=== PATIENT | female | born 1950 | race Caucasian/White ===

== ENCOUNTER 2017-08-25 10:14 | Inpatient (IN) ==
--- NOTE | 2017-08-25 10:47 | XR ---
EXAM DATE: 08/25/2017 10:40 AM EDT AGE/SEX: 66 years / Female INDICATIONS: Very short of breath today, weakness, no chest pain CLINICAL DATA: This is the patient's initial encounter. Patient reports that signs and symptoms have been present for 1 day and indicates a pain score of 0/10. MEDICAL/SURGICAL HISTORY: Asthma. A-fib Non-responsive. COMPARISON: [facility], XR CHEST PA AND LAT, 08/22/2014. . FINDINGS: The cardiac silhouette is enlarged in transverse diameter. There is prominence of the aortic knob is with calcification characteristic of atherosclerotic vascular disease. Large right effusion is presen t. Underlying malignancy cannot be excluded. The left lung is free of acute parenchymal opacity. CONCLUSION: Large right-sided effusion with underlying atelectasis, pneumonia or malignancy. CT scan is recommend ed for further evaluation if clinically indicated. Electronically signed by: Kofi Pradhan MD 08/25/2017 10:45 AM EDT
[2017-08-25 11:00] LABS: Baso % (Auto) 0.5 % (0.0-2.0); Eos # (Auto) 0.1 th/mm3 (0.0-0.4); Eos % (Auto) 2.1 % (0.0-4.0); Hematocrit 32.9 % (35.0-46.0); Hemoglobin 10.4 gm/dL (11.6-15.3); Lymph % (Auto) 22.6 % (9.0-44.0); Mean Corpuscular HGB Conc 31.7 % (32.0-36.0); Mean Corpuscular Hemoglobin 27.5 pg (27.0-34.0); Mean Corpuscular Volume 86.8 fL (80.0-100.0); Mean Platelet Volume 11.1 fL (7.0-11.0); Mono # (Auto) 0.5 th/mm3 (0.0-0.9); Mono % (Auto) 11.5 % (0.0-8.0); Neut # (Auto) 2.7 th/mm3 (1.8-7.7); Neut % (Auto) 63.3 % (16.0-70.0); Platelet Count 195 th/mm3 (150-450); Red Blood Count 3.79 mil/mm3 (4.00-5.30); Red Cell Distribution Width 17.5 % (11.6-17.2); White Blood Count 4.3 th/mm3 (4.0-11.0)
--- NOTE | 2017-08-25 11:07 | ED ---
HPI General Chief Complaint: Shortness of Breath/Dyspnea Stated Complaint: medical Time Seen by Provider: 08/25/17 10:18 History of Present Illness 66-year-old female presents from same day surgery where she was supposed to have endoscopy and colonoscopy with Dr. Hunt for workup of her anemia. Patient states she was sent here when she was short of breath. She states she also has swelling in her legs. She states she does not think she has a history of heart failure but she is not sure. Her states he does not think he has heard that either but she has Lasix on her medication list and he is not sure of the exact indication. Quality is hard to catch breath. Severity is worse with movement and laying flat. She denies other modifying factors. She denies other concurrent complaints. Duration is couple of days. Related Data Home Medications Medication Instructions Recorded Confirmed aspirin [Aspir-Low] 81 mg PO DAILY 08/21/17 08/25/17 atorvastatin 80 mg PO HS 08/21/17 08/25/17 duloxetine 60 mg PO DAILY 08/21/17 08/25/17 ferrous fumarate-iron ps cmplx 2 cap PO BID 08/21/17 08/25/17 gabapentin 1 cap PO DAILY 08/21/17 08/25/17 levothyroxine 100 mcg PO DAILY 08/21/17 08/25/17 melatonin 3 mg PO HS PRN 08/21/17 08/25/17 metformin 500 mg PO BID 08/21/17 08/25/17 metoprolol tartrate 50 mg PO BID 08/21/17 08/25/17 pioglitazone 45 mg PO DAILY 08/21/17 08/25/17 quetiapine 50 mg PO HS 08/21/17 08/25/17 ranitidine HCl 150 mg PO QPM 08/21/17 08/25/17 sotalol 80 mg PO HS 08/21/17 08/25/17 sotalol 160 mg PO DAILY 08/21/17 08/25/17 vitamin D3-folic acid 1 tab PO QAM 08/21/17 08/25/17 Allergies Allergy/AdvReac Type Severity Reaction Status Date / Time tamoxifen Allergy Anaphylaxis Verified 08/25/17 09:25 Review of Systems ROS Unobtainable All other systems reviewed negative except as stated in HPI PMFSH Social History Social History Substance History: No History of Abuse Second Hand Smoke Exposure: No Smoking Status: Never smoker How Often Do You Have a Drink Containing Alcohol: Monthly or less Recent Travel [facility] within the Last 8 Weeks: No Recent Out of Country Travel within the Last 8 Weeks: No Exam Narrative Exam Narrative: GENERAL: 66-year-old female in no apparent distress SKIN: Focused skin assessment warm/dry. HEAD: Atraumatic. Normocephalic. EYES: Pupils equal and round. No scleral icterus. No injection or drainage. ENT: No nasal bleeding or discharge. Mucous membranes pink and moist. NECK: Trachea midline. CARDIOVASCULAR: Regular rate and rhythm. No murmur appreciated. RESPIRATORY: No accessory muscle use. Clear to auscultation at apices. Breath sounds equal bilaterally. GASTROINTESTINAL: Abdomen soft, non-tender, nondistended. MUSCULOSKELETAL: No obvious deformities. No clubbing. No cyanosis. Patient with bilateral pedal edema to knees bilaterally NEUROLOGICAL: Awake and alert. Moves all extremities. Normal speech. PSYCHIATRIC: Appropriate mood and affect; insight and judgment normal. Course Consultations Consultation #1: dr hunt called prior to patient's arrival and gave brief history of patient Consultation #2: dr jordan agrees to admit Initial Documented Vital Signs Temperature 97.6 F 08/25/17 10:46 Pulse Rate 69 08/25/17 10:46 Respiratory Rate 20 08/25/17 10:46 Blood Pressure 134/72 08/25/17 10:46 Pulse Oximetry 100 08/25/17 10:46 Last Documented Vital Signs Temperature 97.6 F 08/25/17 10:46 Pulse Rate 69 08/25/17 10:46 Respiratory Rate 20 08/25/17 10:46 Blood Pressure 134/72 08/25/17 10:46 Pulse Oximetry 100 08/25/17 10:46 Medical Decision Making [facility] Narrative Medical decision making narrative: Patient with known anemia and concerning symptoms for heart failure with extensive prior cardiac history. Will check blood work, x-ray and she will likely need admission for further care Differential Diagnosis Differential Diagnosis: CHF, anemia, renal failure Lab Data Lab results reviewed: Yes I reviewed the patient's lab results. Result diagrams: 08/25/17 10:15 08/25/17 11:43 Lab Results 08/25/17 08/25/17 08/25/17 Range/Units 10:15 10:15 11:10 WBC 4.3 (4.0-11.0) th/mm3 RBC 3.79 L (4.00-5.30) mil/mm3 Hgb 10.4 L (11.6-15.3) gm/dL Hct 32.9 L (35.0-46.0) % MCV 86.8 (80.0-100.0) fL MCH 27.5 (27.0-34.0) pg MCHC 31.7 L (32.0-36.0) % RDW 17.5 H (11.6-17.2) % Plt Count 195 (150-450) th/mm3 MPV 11.1 H (7.0-11.0) fL Neut % (Auto) 63.3 (16.0-70.0) % Lymph % (Auto) 22.6 (9.0-44.0) % [place] % (Auto) 11.5 H (0.0-8.0) % Eos % (Auto) 2.1 (0.0-4.0) % Baso % (Auto) 0.5 (0.0-2.0) % Neut # (Auto) 2.7 (1.8-7.7) th/mm3 Lymph # (Auto) 1.0 (1.0-4.8) th/mm3 [place] # (Auto) 0.5 (0.0-0.9) th/mm3 Eos # (Auto) 0.1 (0.0-0.4) th/mm3 Baso # (Auto) 0.0 (0.0-0.2) th/mm3 WBC Differential . Differential Comment Auto diff final PT (9.8-11.6) sec INR Ratio APTT (24.3-30.1) sec Sodium (136-145) meq/L Potassium (3.5-5.1) meq/L Chloride (98-107) meq/L Carbon Dioxide (21.0-32.0) meq/L Anion Gap (5-15) meq/L BUN (7-18) mg/dL Creatinine (0.50-1.00) mg/dL Estimated GFR (>89) mL/min Random Glucose (74-106) mg/dL Lactic Acid (0.4-2.0) mmol/L Calcium (8.5-10.1) mg/dL Magnesium (1.5-2.5) mg/dL Total Bilirubin (0.2-1.0) mg/dL AST (15-37) U/L ALT (10-53) U/L Alkaline Phosphatase (45-117) U/L Total Creatine Kinase (26-192) U/L Troponin I (0.02-0.05) ng/mL B-Natriuretic Peptide 299 H (0-100) pg/mL Total Protein (6.4-8.2) g/dL Albumin (3.4-5.0) g/dL Urine Color (Yellw/Straw) Urine Clarity (Clear) Urine pH (5.0-8.5) Ur Specific [place] (1.002-1.035) Urine Protein (Neg-Trace) mg/dL Urine Glucose (UA) (Negative) mg/dL Urine Ketones (Negative) mg/dL Urine Occult Blood (Negative) Urine Nitrate (Negative) Urine Bilirubin (Negative) Urine Urobilinogen (Less than 2) mg/dL Ur Leukocyte Esterase (Negative) Urine RBC (0-3) /hpf Urine WBC (0-5) /hpf Ur Squamous Epith Cells (0-5) /hpf Urine Bacteria (None) /hpf Hyaline Casts (0-3) /lpf Urine Mucus (Occasional) /lpf Micro UA Comment Blood Type O Negative Blood Type Recheck Antibody Screen Negative 08/25/17 08/25/17 08/25/17 Range/Units 11:10 11:43 11:43 WBC (4.0-11.0) th/mm3 RBC (4.00-5.30) mil/mm3 Hgb (11.6-15.3) gm/dL Hct (35.0-46.0) % MCV (80.0-100.0) fL MCH (27.0-34.0) pg MCHC (32.0-36.0) % RDW (11.6-17.2) % Plt Count (150-450) th/mm3 MPV (7.0-11.0) fL Neut % (Auto) (16.0-70.0) % Lymph % (Auto) (9.0-44.0) % [place] % (Auto) (0.0-8.0) % Eos % (Auto) (0.0-4.0) % Baso % (Auto) (0.0-2.0) % Neut # (Auto) (1.8-7.7) th/mm3 Lymph # (Auto) (1.0-4.8) th/mm3 [place] # (Auto) (0.0-0.9) th/mm3 Eos # (Auto) (0.0-0.4) th/mm3 Baso # (Auto) (0.0-0.2) th/mm3 WBC Differential Differential Comment PT 10.8 (9.8-11.6) sec INR 1.1 Ratio APTT 21.8 L (24.3-30.1) sec Sodium 141 (136-145) meq/L Potassium 3.6 (3.5-5.1) meq/L Chloride 97 L (98-107) meq/L Carbon Dioxide 35.5 H (21.0-32.0) meq/L Anion Gap 9 (5-15) meq/L BUN 10 (7-18) mg/dL Creatinine 0.97 (0.50-1.00) mg/dL Estimated GFR 57 L (>89) mL/min Random Glucose 125 H (74-106) mg/dL Lactic Acid 1.0 (0.4-2.0) mmol/L Calcium 8.9 (8.5-10.1) mg/dL Magnesium (1.5-2.5) mg/dL Total Bilirubin 0.4 (0.2-1.0) mg/dL AST 20 (15-37) U/L ALT 15 (10-53) U/L Alkaline Phosphatase 87 (45-117) U/L Total Creatine Kinase (26-192) U/L Troponin I Less than 0.02 L (0.02-0.05) ng/mL B-Natriuretic Peptide (0-100) pg/mL Total Protein 7.3 (6.4-8.2) g/dL Albumin 3.3 L (3.4-5.0) g/dL Urine Color (Yellw/Straw) Urine Clarity (Clear) Urine pH (5.0-8.5) Ur Specific [place] (1.002-1.035) Urine Protein (Neg-Trace) mg/dL Urine Glucose (UA) (Negative) mg/dL Urine Ketones (Negative) mg/dL Urine Occult Blood (Negative) Urine Nitrate (Negative) Urine Bilirubin (Negative) Urine Urobilinogen (Less than 2) mg/dL Ur Leukocyte Esterase (Negative) Urine RBC (0-3) /hpf Urine WBC (0-5) /hpf Ur Squamous Epith Cells (0-5) /hpf Urine Bacteria (None) /hpf Hyaline Casts (0-3) /lpf Urine Mucus (Occasional) /lpf Micro UA Comment Blood Type Blood Type Recheck Antibody Screen 08/25/17 08/25/17 Range/Units 11:43 13:07 WBC (4.0-11.0) th/mm3 RBC (4.00-5.30) mil/mm3 Hgb (11.6-15.3) gm/dL Hct (35.0-46.0) % MCV (80.0-100.0) fL MCH (27.0-34.0) pg MCHC (32.0-36.0) % RDW (11.6-17.2) % Plt Count (150-450) th/mm3 MPV (7.0-11.0) fL Neut % (Auto) (16.0-70.0) % Lymph % (Auto) (9.0-44.0) % [place] % (Auto) (0.0-8.0) % Eos % (Auto) (0.0-4.0) % Baso % (Auto) (0.0-2.0) % Neut # (Auto) (1.8-7.7) th/mm3 Lymph # (Auto) (1.0-4.8) th/mm3 [place] # (Auto) (0.0-0.9) th/mm3 Eos # (Auto) (0.0-0.4) th/mm3 Baso # (Auto) (0.0-0.2) th/mm3 WBC Differential Differential Comment PT (9.8-11.6) sec INR Ratio APTT (24.3-30.1) sec Sodium (136-145) meq/L Potassium (3.5-5.1) meq/L Chloride (98-107) meq/L Carbon Dioxide (21.0-32.0) meq/L Anion Gap (5-15) meq/L BUN (7-18) mg/dL Creatinine (0.50-1.00) mg/dL Estimated GFR (>89) mL/min Random Glucose (74-106) mg/dL Lactic Acid (0.4-2.0) mmol/L Calcium (8.5-10.1) mg/dL Magnesium 1.6 (1.5-2.5) mg/dL Total Bilirubin (0.2-1.0) mg/dL AST (15-37) U/L ALT (10-53) U/L Alkaline Phosphatase (45-117) U/L Total Creatine Kinase 87 (26-192) U/L Troponin I (0.02-0.05) ng/mL B-Natriuretic Peptide (0-100) pg/mL Total Protein (6.4-8.2) g/dL Albumin (3.4-5.0) g/dL Urine Color Yellow (Yellw/Straw) Urine Clarity Hazy H (Clear) Urine pH 5.0 (5.0-8.5) Ur Specific [place] 1.019 (1.002-1.035) Urine Protein Negative (Neg-Trace) mg/dL Urine Glucose (UA) Negative (Negative) mg/dL Urine Ketones Negative (Negative) mg/dL Urine Occult Blood Small H (Negative) Urine Nitrate Negative (Negative) Urine Bilirubin Negative (Negative) Urine Urobilinogen Less than 2 (Less than 2) mg/dL Ur Leukocyte Esterase Moderate H (Negative) Urine RBC 4 H (0-3) /hpf Urine WBC 42 H (0-5) /hpf Ur Squamous Epith Cells <1 (0-5) /hpf Urine Bacteria Rare H (None) /hpf Hyaline Casts 10 (0-3) /lpf Urine Mucus Few H (Occasional) /lpf Micro UA Comment Cath Blood Type Blood Type Recheck Antibody Screen Imaging Data Attestation: I personally reviewed and interpreted this imaging study as follows : Radiologist's impression: ITS Impressions Chest X-Ray 08/25/17 10:18 CONCLUSION: Large right-sided effusion with underlying atelectasis, pneumonia or malignancy. CT scan is recommended for further evaluation if clinically indicated. Chest CT 08/25/17 12:33 CONCLUSION: 1. Large right effusion with compressive atelectasis of the right lung. No discrete underlying mass is identified. Discharge Plan Discharge Disposition Patient Disposition: 30 Still Patient Discharge Details Discharge Problem: Pleural effusion, Shortness of breath, Acute UTI Physicians Team ED Provider: Mary Steward Primary Care Provider: Primary Care Trina Hernández Attending Provider: Paco Jordan Status ED Status: Admitted Patient
[2017-08-25 12:20] LABS: Activated Partial Thrombo Time 21.8 sec (24.3-30.1); INR 1.1 Ratio; Prothrombin Time 10.8 sec (9.8-11.6)
[2017-08-25 12:27] LABS: Alanine Aminotransferase 15 U/L (10-53); Albumin 3.3 g/dL (3.4-5.0); Anion Gap 9 meq/L (5-15); Blood Urea Nitrogen 10 mg/dL (7-18); Calcium 8.9 mg/dL (8.5-10.1); Carbon Dioxide 35.5 meq/L (21.0-32.0); Chloride 97 meq/L (98-107); Glomerular Filtration Rate 57 mL/min (>89); Glucose,Random 125 mg/dL (74-106); Potassium 3.6 meq/L (3.5-5.1); Sodium 141 meq/L (136-145)
[2017-08-25] MEDS ORDERED: Azithromycin 250 MG Tablet PO STA (12:34)
[2017-08-25 12:36] LABS: Alkaline Phosphatase 87 U/L (45-117); Aspartate Aminotransferase 20 U/L (15-37); Total Protein 7.3 g/dL (6.4-8.2)
[2017-08-25 13:42] LABS: Bacteria,Urine Rare /hpf; Bilirubin,Urine Negative (Negative); Clarity,Urine Hazy (Clear); Color,Urine Yellow (Yellw/Straw); Glucose,Urine (UA) Negative (Negative); Hyaline Casts,Urine 10 /lpf (0-3); Leukocyte Esterase,Urine Moderate (Negative); Mucus,Urine Few /lpf (Occasional); Nitrite,Urine Negative (Negative); Specific Gravity,Urine 1.019 (1.002-1.035); Squamous Epithelial Cell,Urine <1 /hpf (0-5)
[2017-08-25 16:04] LABS: Magnesium 1.6 mg/dL (1.5-2.5)
[2017-08-25] MEDS ORDERED: Bisacodyl 10 MG Supp RECTAL PRN (17:13)
[2017-08-25] MEDS ORDERED: Prochlorperazine 25 MG Supp RECTAL PRN (17:13)
--- NOTE | 2017-08-25 17:23 | P.CONGI ---
History of Present Illness Consult date: 08/25/17 Consult reason: Scheduled for EGD and colonoscopy today, procedure cancelled Chief complaint: Pleural Effusion, Anemia, UTI, Shortness of Breath History of Present Illness: This is a 66 yo F with PMH significant for a-fib, hyperlipidemia, hypothyroidism , DM, HTN, CKD, breast cancer S/P chemotherapy and radiation in 1997 in remission, aortic stenosis, mitral stenosis, major depressive disorder, B12 deficiency, and anemia who was planned to have an outpatient EGD and colonoscopy for work up for anemia done earlier today. However, pt was noted to be short of breath preop and therefore procedure was cancelled and pt was sent to the ER for further work up. Pt reports SOB since May when she was admitted to [facility] with pneumonia. CT chest in ER today revealed large right effusion with compressive atelectasis of the right lung. No discrete underlying mass is identified.Pt denies any GI symptoms at this time except feeling hungry. At this time our service will hold off on EGD and colonoscopy until pts respiratory status has stabilized. <Marry Cabezas - Last Filed: 08/25/17 17:07> Review of Systems Comments: orthopnea Respiratory: Reports shortness of breath Gastrointestinal: Denies abdominal pain, Denies change in bowel habits, Denies nausea, Denies vomiting <Marry Cabezas - Last Filed: 08/25/17 17:07> PMF - History History Provided By: Patient, Family Member - Medical History Medical History: Medical History (Last Updated 08/25/17 @ 17:19 by Marry Cabezas) High cholesterol Hypertension Renal disease Anemia Atrial fibrillation Diabetes HX: breast cancer Hx: recurrent pneumonia Hypothyroid Wears glasses - Surgical History Surgical History: Surgical History (Last Reviewed 08/25/17 @ 09:31 by Kelly Aviles) History of History of reconstruction of right breast Hx of hemorrhoidectomy - Tobacco History Second Hand Smoke Exposure: No Smoking Status: Never smoker - Alcohol History How Often Do You Have a Drink Containing Alcohol: Monthly or less - Substance Use History Substance History: No History of Abuse - Travel History Recent Travel in the [place] Within the Last 8 Weeks: No Recent Travel Out of the Country Within the Last 8 Weeks: No <Marry Cabezas - Last Filed: 08/25/17 17:07> - Medical History Medical History: Medical History (Last Updated 08/25/17 @ 17:19 by Marry Cabezas) High cholesterol Hypertension Renal disease Anemia Atrial fibrillation Diabetes HX: breast cancer Hx: recurrent pneumonia Hypothyroid Wears glasses - Surgical History Surgical History: Surgical History (Last Reviewed 08/25/17 @ 09:31 by Kelly Aviles) History of History of reconstruction of right breast Hx of hemorrhoidectomy <Jumana Hunt - Last Filed: 08/25/17 19:22> Medications and Allergies <Marry Cabezas - Last Filed: 08/25/17 17:07> Active Medications: Active Medications Al Hydroxide/Mg Hydroxide (Milk Of Magnesia Liq) 30 ml PO Q12H PRN PRN Reason: Mild Constipation Bisacodyl (Dulcolax Supp) 10 mg RECTAL DAILY PRN PRN Reason: SEVERE CONSITIPATION Dextrose (D50w Vial) 50 ml IV.PUSH UNSCH PRN PRN Reason: PER HYPOGLYCEMIA PROTOCOL Enoxaparin Sodium (Lovenox Inj) 40 mg SQ DAILY LOLY Furosemide (Lasix Inj) 40 mg IV.PUSH BID@0900,1800 LOLY Last Admin: 08/25/17 18:29 Dose: 40 mg Glucagon (Glucagon Inj) 1 mg OTHER PRN PRN PRN Reason: for Hypoglycemia Protocol Insulin Aspart (Novolog Insulin Suppl Scale Inj) 0 unit SQ ACHS LOLY; Protocol Lactulose (Lactulose Liq) 30 ml PO DAILY PRN PRN Reason: SEVERE CONSITIPATION Ondansetron HCl (Zofran Inj) 4 mg IV.PUSH Q6H PRN PRN Reason: NAUSEA OR VOMITING Prochlorperazine (Compazine Supp) 25 mg RECTAL Q12HR PRN PRN Reason: NAUSEA OR VOMITING Senna/Docusate Sodium (Yee-Colace) 1 tab PO BID LOLY Sennosides (Senokot) 17.2 mg PO Q12H PRN PRN Reason: Moderate Constipation Temazepam (Restoril) 15 mg PO HS PRN PRN Reason: INSOMNIA <Jumana Hunt - Last Filed: 08/25/17 19:22> Allergies Allergy/AdvReac Type Severity Reaction Status Date / Time tamoxifen Allergy Anaphylaxis Verified 08/25/17 09:25 Home Medications Medication Instructions Recorded Confirmed Type aspirin [Aspir-Low] 81 mg PO DAILY 08/21/17 08/25/17 History atorvastatin 80 mg PO HS 08/21/17 08/25/17 History duloxetine 60 mg PO DAILY 08/21/17 08/25/17 History ferrous fumarate-iron ps cmplx 2 cap PO BID 08/21/17 08/25/17 History gabapentin 1 cap PO DAILY 08/21/17 08/25/17 History levothyroxine 100 mcg PO DAILY 08/21/17 08/25/17 History melatonin 3 mg PO HS PRN 08/21/17 08/25/17 History metformin 500 mg PO BID 08/21/17 08/25/17 History metoprolol tartrate 50 mg PO BID 08/21/17 08/25/17 History pioglitazone 45 mg PO DAILY 08/21/17 08/25/17 History quetiapine 50 mg PO HS 08/21/17 08/25/17 History ranitidine HCl 150 mg PO QPM 08/21/17 08/25/17 History sotalol 80 mg PO HS 08/21/17 08/25/17 History sotalol 160 mg PO DAILY 08/21/17 08/25/17 History vitamin D3-folic acid 1 tab PO QAM 08/21/17 08/25/17 History Exam Vital signs: Vital Signs 08/25/17 10:46 Temperature 97.6 F Pulse Rate 69 Respiratory Rate 20 Blood Pressure 134/72 Pulse Oximetry 100 Intake & Output 08/24/17 08/25/17 08/25/17 18:59 06:59 18:59 Weight 107.9 kg - Constitutional mild distress - Routine HEENT Exam Head: Present: normocephalic, atraumatic - Routine Respiratory Exam Present: accessory muscle use, wheezes - Routine Cardiovascular Exam Present: murmur, irregularly irregular - Routine Abdominal Exam Present: soft, normoactive bowel sounds. Absent: tenderness, distended, rebound , guarding - Routine Skin Exam Present: dry, warm - Routine Neurological Exam Present: alert, oriented X3 <Marry Cabezas - Last Filed: 08/25/17 17:07> Vital signs: Vital Signs 08/25/17 10:46 Temperature 97.6 F Pulse Rate 69 Respiratory Rate 20 Blood Pressure 134/72 Pulse Oximetry 100 Intake & Output 08/25/17 08/25/17 08/26/17 06:59 18:59 06:59 Weight 107.9 kg <Jumana Hunt - Last Filed: 08/25/17 19:22> Results - Labs CBC & Chem 7: 08/25/17 10:15 08/25/17 11:43 Labs: Laboratory Results - last 24 hr 08/25/17 08/25/17 08/25/17 10:15 10:15 11:10 WBC 4.3 RBC 3.79 L Hgb 10.4 L Hct 32.9 L MCV 86.8 MCH 27.5 MCHC 31.7 L RDW 17.5 H Plt Count 195 MPV 11.1 H Neut % (Auto) 63.3 Lymph % (Auto) 22.6 [place] % (Auto) 11.5 H Eos % (Auto) 2.1 Baso % (Auto) 0.5 Neut # (Auto) 2.7 Lymph # (Auto) 1.0 [place] # (Auto) 0.5 Eos # (Auto) 0.1 Baso # (Auto) 0.0 WBC Differential . Differential Comment Auto diff final PT INR APTT Sodium Potassium Chloride Carbon Dioxide Anion Gap BUN Creatinine Estimated GFR Random Glucose Lactic Acid Calcium Magnesium Total Bilirubin AST ALT Alkaline Phosphatase Total Creatine Kinase Troponin I B-Natriuretic Peptide 299 H Total Protein Albumin Urine Color Urine Clarity Urine pH Ur Specific [place] Urine Protein Urine Glucose (UA) Urine Ketones Urine Occult Blood Urine Nitrate Urine Bilirubin Urine Urobilinogen Ur Leukocyte Esterase Urine RBC Urine WBC Ur Squamous Epith Cells Urine Bacteria Hyaline Casts Urine Mucus Micro UA Comment Blood Type O Negative Blood Type Recheck Antibody Screen Negative 08/25/17 08/25/17 08/25/17 11:10 11:43 11:43 WBC RBC Hgb Hct MCV MCH MCHC RDW Plt Count MPV Neut % (Auto) Lymph % (Auto) [place] % (Auto) Eos % (Auto) Baso % (Auto) Neut # (Auto) Lymph # (Auto) [place] # (Auto) Eos # (Auto) Baso # (Auto) WBC Differential Differential Comment PT 10.8 INR 1.1 APTT 21.8 L Sodium 141 Potassium 3.6 Chloride 97 L Carbon Dioxide 35.5 H Anion Gap 9 BUN 10 Creatinine 0.97 Estimated GFR 57 L Random Glucose 125 H Lactic Acid 1.0 Calcium 8.9 Magnesium Total Bilirubin 0.4 AST 20 ALT 15 Alkaline Phosphatase 87 Total Creatine Kinase Troponin I Less than 0.02 L B-Natriuretic Peptide Total Protein 7.3 Albumin 3.3 L Urine Color Urine Clarity Urine pH Ur Specific [place] Urine Protein Urine Glucose (UA) Urine Ketones Urine Occult Blood Urine Nitrate Urine Bilirubin Urine Urobilinogen Ur Leukocyte Esterase Urine RBC Urine WBC Ur Squamous Epith Cells Urine Bacteria Hyaline Casts Urine Mucus Micro UA Comment Blood Type Blood Type Recheck Antibody Screen 08/25/17 08/25/17 11:43 13:07 WBC RBC Hgb Hct MCV MCH MCHC RDW Plt Count MPV Neut % (Auto) Lymph % (Auto) [place] % (Auto) Eos % (Auto) Baso % (Auto) Neut # (Auto) Lymph # (Auto) [place] # (Auto) Eos # (Auto) Baso # (Auto) WBC Differential Differential Comment PT INR APTT Sodium Potassium Chloride Carbon Dioxide Anion Gap BUN Creatinine Estimated GFR Random Glucose Lactic Acid Calcium Magnesium 1.6 Total Bilirubin AST ALT Alkaline Phosphatase Total Creatine Kinase 87 Troponin I B-Natriuretic Peptide Total Protein Albumin Urine Color Yellow Urine Clarity Hazy H Urine pH 5.0 Ur Specific [place] 1.019 Urine Protein Negative Urine Glucose (UA) Negative Urine Ketones Negative Urine Occult Blood Small H Urine Nitrate Negative Urine Bilirubin Negative Urine Urobilinogen Less than 2 Ur Leukocyte Esterase Moderate H Urine RBC 4 H Urine WBC 42 H Ur Squamous Epith Cells <1 Urine Bacteria Rare H Hyaline Casts 10 Urine Mucus Few H Micro UA Comment Cath Blood Type Blood Type Recheck Antibody Screen - Imaging Impressions Chest X-Ray 08/25/17 10:18 CONCLUSION: Large right-sided effusion with underlying atelectasis, pneumonia or malignancy. CT scan is recommended for further evaluation if clinically indicated. Chest CT 08/25/17 12:33 CONCLUSION: 1. Large right effusion with compressive atelectasis of the right lung. No discrete underlying mass is identified. <Marry Cabezas - Last Filed: 08/25/17 17:07> - Labs CBC & Chem 7: 08/25/17 10:15 08/25/17 11:43 Labs: Laboratory Results - last 24 hr 08/25/17 08/25/17 08/25/17 10:15 10:15 11:10 WBC 4.3 RBC 3.79 L Hgb 10.4 L Hct 32.9 L MCV 86.8 MCH 27.5 MCHC 31.7 L RDW 17.5 H Plt Count 195 MPV 11.1 H Neut % (Auto) 63.3 Lymph % (Auto) 22.6 [place] % (Auto) 11.5 H Eos % (Auto) 2.1 Baso % (Auto) 0.5 Neut # (Auto) 2.7 Lymph # (Auto) 1.0 [place] # (Auto) 0.5 Eos # (Auto) 0.1 Baso # (Auto) 0.0 WBC Differential . Differential Comment Auto diff final PT INR APTT Sodium Potassium Chloride Carbon Dioxide Anion Gap BUN Creatinine Estimated GFR POC Glucose Random Glucose Lactic Acid Calcium Magnesium Total Bilirubin AST ALT Alkaline Phosphatase Total Creatine Kinase Troponin I B-Natriuretic Peptide 299 H Total Protein Albumin Urine Color Urine Clarity Urine pH Ur Specific [place] Urine Protein Urine Glucose (UA) Urine Ketones Urine Occult Blood Urine Nitrate Urine Bilirubin Urine Urobilinogen Ur Leukocyte Esterase Urine RBC Urine WBC Ur Squamous Epith Cells Urine Bacteria Hyaline Casts Urine Mucus Micro UA Comment Blood Type O Negative Blood Type Recheck Antibody Screen Negative 08/25/17 08/25/17 08/25/17 11:10 11:43 11:43 WBC RBC Hgb Hct MCV MCH MCHC RDW Plt Count MPV Neut % (Auto) Lymph % (Auto) [place] % (Auto) Eos % (Auto) Baso % (Auto) Neut # (Auto) Lymph # (Auto) [place] # (Auto) Eos # (Auto) Baso # (Auto) WBC Differential Differential Comment PT 10.8 INR 1.1 APTT 21.8 L Sodium 141 Potassium 3.6 Chloride 97 L Carbon Dioxide 35.5 H Anion Gap 9 BUN 10 Creatinine 0.97 Estimated GFR 57 L POC Glucose Random Glucose 125 H Lactic Acid 1.0 Calcium 8.9 Magnesium Total Bilirubin 0.4 AST 20 ALT 15 Alkaline Phosphatase 87 Total Creatine Kinase Troponin I Less than 0.02 L B-Natriuretic Peptide Total Protein 7.3 Albumin 3.3 L Urine Color Urine Clarity Urine pH Ur Specific [place] Urine Protein Urine Glucose (UA) Urine Ketones Urine Occult Blood Urine Nitrate Urine Bilirubin Urine Urobilinogen Ur Leukocyte Esterase Urine RBC Urine WBC Ur Squamous Epith Cells Urine Bacteria Hyaline Casts Urine Mucus Micro UA Comment Blood Type Blood Type Recheck Antibody Screen 08/25/17 08/25/17 08/25/17 11:43 13:07 18:35 WBC RBC Hgb Hct MCV MCH MCHC RDW Plt Count MPV Neut % (Auto) Lymph % (Auto) [place] % (Auto) Eos % (Auto) Baso % (Auto) Neut # (Auto) Lymph # (Auto) [place] # (Auto) Eos # (Auto) Baso # (Auto) WBC Differential Differential Comment PT INR APTT Sodium Potassium Chloride Carbon Dioxide Anion Gap BUN Creatinine Estimated GFR POC Glucose 123 H Random Glucose Lactic Acid Calcium Magnesium 1.6 Total Bilirubin AST ALT Alkaline Phosphatase Total Creatine Kinase 87 Troponin I B-Natriuretic Peptide Total Protein Albumin Urine Color Yellow Urine Clarity Hazy H Urine pH 5.0 Ur Specific [place] 1.019 Urine Protein Negative Urine Glucose (UA) Negative Urine Ketones Negative Urine Occult Blood Small H Urine Nitrate Negative Urine Bilirubin Negative Urine Urobilinogen Less than 2 Ur Leukocyte Esterase Moderate H Urine RBC 4 H Urine WBC 42 H Ur Squamous Epith Cells <1 Urine Bacteria Rare H Hyaline Casts 10 Urine Mucus Few H Micro UA Comment Cath Blood Type Blood Type Recheck Antibody Screen - Imaging Impressions Chest X-Ray 08/25/17 10:18 CONCLUSION: Large right-sided effusion with underlying atelectasis, pneumonia or malignancy. CT scan is recommended for further evaluation if clinically indicated. Chest CT 08/25/17 12:33 CONCLUSION: 1. Large right effusion with compressive atelectasis of the right lung. No discrete underlying mass is identified. <Jumana Hunt - Last Filed: 08/25/17 19:22> Assessment and Plan - Plan Assessment: - Anemia-Planned to have an outpatient EGD and colonoscopy for work up for anemia done earlier today. However, pt was noted to be short of breath preop and therefore procedure were cancelled and pt was sent to the ER for further work up. Pt denies any GI symptoms at this time except feeling hungry. At this time our service will hold off on EGD and colonoscopy until pts respiratory status has stabilized. - SOB since May when she was admitted to [facility] with pneumonia. CT chest in ER today revealed large right effusion with compressive atelectasis of the right lung. No discrete underlying mass is identified. Plan: GI work up on hold until respiratory status stabilizes Our service will sign off, please reconsult when stable Pt has been seen and examined by myself and Dr. Hunt and this note is written on her behalf <Marry Cabezas - Last Filed: 08/25/17 17:07> - Attending Attestation seen, examined agree with above <Jumana Hunt - Last Filed: 08/25/17 19:22>
--- NOTE | 2017-08-25 17:43 | P.HPIM ---
History of Present Illness Primary Care Physician: No Primary Care Physician Chief Complaint: Shortness of breath History of Present Illness: This is a 66-year-old female with history of congestive heart failure, CKD, atrial fibrillation, diabetes mellitus, hypertension presenting to the hospital for shortness of breath. She was supposed to undergo her endoscopy and colonoscopy with Dr. Hunt to complete her workup for anemia however during the preop evaluation, she first found to have shortness of breath and she was sent to the emergency department. She complains of shortness of breath and that she had bilateral lower leg swelling. In retrospect, she has been having progressive shortness of breath since about 3 months ago, associated with bilateral leg swelling, cough productive with clear sputum. She denies any chest pain, she has some orthopnea. She was initially treated at [facility] for pneumonia and possible CHF. Outpatient sleep study was done which ruled out sleep apnea. She denies any chest pain. Presently, she is diuresing from Lasix given at the emergency department. CT chest in ER today revealed large right effusion with compressive atelectasis of the right lung. No discrete underlying mass is identified. - Inpatient Certification If this patient has been admitted as an Inpatient: I certify that the inpatient services were ordered in accordance with Medicare regulations governing the order. This includes certification that hospital inpatient services are reasonable and necessary and in the case of services not specified as inpatient-only under 42 CFR 419.22(n), that they are appropriately provided as inpatient services in accordance to with the 2-midnight benchmark under 43 CFR 412.3(e) [facility] - History History Provided By: Patient, Family Member - Medical History Medical History: Medical History (Last Updated 08/25/17 @ 17:19 by Marry Cabezas) High cholesterol Hypertension Renal disease Anemia Atrial fibrillation Diabetes HX: breast cancer Hx: recurrent pneumonia Hypothyroid Wears glasses - Surgical History Surgical History: Surgical History (Last Reviewed 08/25/17 @ 09:31 by Kelly Aviles) History of History of reconstruction of right breast Hx of hemorrhoidectomy - Tobacco History Second Hand Smoke Exposure: No Tobacco Use In Past 30 Days: No Smoking Status: Never smoker - Alcohol History How Often Do You Have a Drink Containing Alcohol: Monthly or less - Substance Use History Substance History: No History of Abuse - Travel History Recent Travel in the [place] Within the Last 8 Weeks: No Recent Travel Out of the Country Within the Last 8 Weeks: No - Immunization History Tetanus Immunization: Unsure Hx Influenza Vaccine This Season: Yes Medications and Allergies Active Medications: Active Medications Al Hydroxide/Mg Hydroxide (Milk Of Magnesia Liq) 30 ml PO Q12H PRN PRN Reason: Mild Constipation Bisacodyl (Dulcolax Supp) 10 mg RECTAL DAILY PRN PRN Reason: SEVERE CONSITIPATION Lactulose (Lactulose Liq) 30 ml PO DAILY PRN PRN Reason: SEVERE CONSITIPATION Ondansetron HCl (Zofran Inj) 4 mg IV.PUSH Q6H PRN PRN Reason: NAUSEA OR VOMITING Prochlorperazine (Compazine Supp) 25 mg RECTAL Q12HR PRN PRN Reason: NAUSEA OR VOMITING Senna/Docusate Sodium (Yee-Colace) 1 tab PO BID LOLY Sennosides (Senokot) 17.2 mg PO Q12H PRN PRN Reason: Moderate Constipation Temazepam (Restoril) 15 mg PO HS PRN PRN Reason: INSOMNIA Allergies Allergy/AdvReac Type Severity Reaction Status Date / Time tamoxifen Allergy Anaphylaxis Verified 08/25/17 09:25 Home Medications Medication Instructions Recorded Confirmed Type aspirin [Aspir-Low] 81 mg PO DAILY 08/21/17 08/25/17 History atorvastatin 80 mg PO HS 08/21/17 08/25/17 History duloxetine 60 mg PO DAILY 08/21/17 08/25/17 History ferrous fumarate-iron ps cmplx 2 cap PO BID 08/21/17 08/25/17 History gabapentin 1 cap PO DAILY 08/21/17 08/25/17 History levothyroxine 100 mcg PO DAILY 08/21/17 08/25/17 History melatonin 3 mg PO HS PRN 08/21/17 08/25/17 History metformin 500 mg PO BID 08/21/17 08/25/17 History metoprolol tartrate 50 mg PO BID 08/21/17 08/25/17 History pioglitazone 45 mg PO DAILY 08/21/17 08/25/17 History quetiapine 50 mg PO HS 08/21/17 08/25/17 History ranitidine HCl 150 mg PO QPM 08/21/17 08/25/17 History sotalol 80 mg PO HS 08/21/17 08/25/17 History sotalol 160 mg PO DAILY 08/21/17 08/25/17 History vitamin D3-folic acid 1 tab PO QAM 08/21/17 08/25/17 History Exam Vital signs: Vital Signs 08/25/17 10:46 Temperature 97.6 F Pulse Rate 69 Respiratory Rate 20 Blood Pressure 134/72 Pulse Oximetry 100 Intake & Output 08/24/17 08/25/17 08/25/17 18:59 06:59 18:59 Weight 107.9 kg Narrative: Not in distress [place] conjunctivae, anicteric sclera Regular rate and rhythm, not in atrial fibrillation Decreased breath sounds on the right, clear bronchial breath sounds on the left , no crackles or wheezing Abdomen soft, nontender, obese 2-3+ edema bilaterally Alert awake and oriented, no focal deficits. Results - Labs CBC & Chem 7: 08/25/17 10:15 08/25/17 11:43 Labs: Short CBC 08/25/17 Range/Units 10:15 WBC 4.3 (4.0-11.0) th/mm3 Hgb 10.4 L (11.6-15.3) gm/dL Hct 32.9 L (35.0-46.0) % Plt Count 195 (150-450) th/mm3 BMP 08/25/17 11:43 Sodium 141 Potassium 3.6 Chloride 97 L Carbon Dioxide 35.5 H BUN 10 Creatinine 0.97 Calcium 8.9 Cardiac Enzymes 08/25/17 08/25/17 Range/Units 11:43 11:43 Total Creatine Kinase 87 (26-192) U/L Troponin I Less than 0.02 L (0.02-0.05) ng/mL Liver Function 08/25/17 Range/Units 11:43 Total Bilirubin 0.4 (0.2-1.0) mg/dL AST 20 (15-37) U/L ALT 15 (10-53) U/L Alkaline Phosphatase 87 (45-117) U/L Albumin 3.3 L (3.4-5.0) g/dL Urine 08/25/17 Range/Units 13:07 Urine Color Yellow (Yellw/Straw) Urine Clarity Hazy H (Clear) Urine pH 5.0 (5.0-8.5) Ur Specific [place] 1.019 (1.002-1.035) Urine Protein Negative (Neg-Trace) mg/dL Urine Glucose (UA) Negative (Negative) mg/dL - Imaging Impressions Chest X-Ray 08/25/17 10:18 CONCLUSION: Large right-sided effusion with underlying atelectasis, pneumonia or malignancy. CT scan is recommended for further evaluation if clinically indicated. Chest CT 08/25/17 12:33 CONCLUSION: 1. Large right effusion with compressive atelectasis of the right lung. No discrete underlying mass is identified. Caprini VTE Risk Assessment Caprini VTE Risk Assessment: Moderate/High Risk (score >= 2) Caprini Risk Assessment Model: Point Value = 1 Point Value = 2 Point Value = 3 Point Value = 5 Age 41-60 Minor surgery BMI > 25 kg/m2 Swollen legs Varicose veins or History of unexplained or recurrent spontaneous Oral contraceptives or hormone replacement Sepsis (< 1 month) Serious lung disease, including pneumonia (< 1 month) Abnormal pulmonary function Acute myocardial infarction Congestive heart failure (< 1 month) History of inflammatory bowel disease Medical patient at bed rest Age 61-74 Arthroscopic surgery Major open surgery (> 45 min) Laparoscopic surgery (> 45 min) Malignancy Confined to bed (> 72 hours) Immobilizing plaster cast Central venous access Age >= 75 History of VTE Family history of VTE Factor V Leiden Prothrombin [id number] Lupus anticoagulant Anticardiolipin antibodies Elevated serum homocysteine Heparin-induced thrombocytopenia Other congenital or acquired thrombophilia Stroke (< 1 month) Elective arthroplasty Hip, pelvis, or leg fracture Acute spinal cord injury (< 1 month) Prophylaxis Regimen: Total Risk Factor Score Risk Level Prophylaxis Regimen 0-1 Low Early ambulation 2 Moderate Order ONE of the following: *Sequential Compression Device (SCD) *Heparin 5000 units SQ BID 3-4 Higher Order ONE of the following medications: *Heparin 5000 units SQ TID *Enoxaparin/Lovenox 40 mg SQ daily (WT < 150 kg, CrCl > 30 mL/min) *Enoxaparin/Lovenox 30 mg SQ daily (WT < 150 kg, CrCl > 10-29 mL/min) *Enoxaparin/Lovenox 30 mg SQ BID (WT < 150 kg, CrCl > 30 mL/min) AND/OR *Sequential Compression Device (SCD) 5 or more Highest Order ONE of the following medications: *Heparin 5000 units SQ TID (Preferred with Epidurals) *Enoxaparin/Lovenox 40 mg SQ daily (WT < 150 kg, CrCl > 30 mL/min) *Enoxaparin/Lovenox 30 mg SQ daily (WT < 150 kg, CrCl > 10-29 mL/min) *Enoxaparin/Lovenox 30 mg SQ BID (WT < 150 kg, CrCl > 30 mL/min) AND *Sequential Compression Device (SCD) Assessment and Plan - Plan This is a 66-year-old female with history of congestive heart failure, chronic kidney disease, hypertension, diabetes mellitus presenting with shortness of breath Shortness of breath likely secondary to large pleural effusion with compressive atelectasis from CHF-check echocardiogram, consult interventional radiology for thoracenteses, send pleural fluid studies. Doubt pneumonia with no fever or leukocytosis. Continue Lasix for now, no antibiotics. Initial troponin negative, check EKG. Anemia-further workup as outpatient, hemoglobin is 10, monitor, recheck CBC, restart iron, GI following. Patient was supposed to get endoscopy and colonoscopy as outpatient. Once stable, these procedures may be done as outpatient. Diabetes mellitus-hold oral hypoglycemic agents for now, sliding scale insulin with Accu-Cheks. Hypertension-restart metoprolol Atrial fibrillation, currently in sinus rhythm-continue sotalol, metoprolol, aspirin per home dose DVT prophylaxis: Lovenox
[2017-08-25] MEDS ORDERED: Dextrose 50% in Water 50 ML Vial IV.PUSH PRN (17:59)
[2017-08-25] MEDS: Insulin NovoLOG Aspart Correctional Sugar Inj SQ SCH (21:51)
[2017-08-25] MEDS: Senna/Docusate Sodium 8.6/50 MG Tablet PO SCH (21:55)
[2017-08-25 22:39] LABS: Activated Partial Thrombo Time 27.5 sec (24.3-30.1); INR 1.1 Ratio
[2017-08-26] MEDS: Temazepam 15 MG Capsule PO PRN ×2 (03:17→22:10)
[2017-08-26 05:05] LABS: Baso % (Auto) 0.7 % (0.0-2.0); Eos # (Auto) 0.1 th/mm3 (0.0-0.4); Eos % (Auto) 2.6 % (0.0-4.0); Hematocrit 33.1 % (35.0-46.0); Hemoglobin 10.5 gm/dL (11.6-15.3); Lymph # (Auto) 1.2 th/mm3 (1.0-4.8); Lymph % (Auto) 22.8 % (9.0-44.0); Mean Corpuscular HGB Conc 31.8 % (32.0-36.0); Mean Corpuscular Hemoglobin 27.2 pg (27.0-34.0); Mean Corpuscular Volume 85.7 fL (80.0-100.0); Mean Platelet Volume 11.4 fL (7.0-11.0); Mono # (Auto) 0.7 th/mm3 (0.0-0.9); Mono % (Auto) 13.3 % (0.0-8.0); Neut # (Auto) 3.2 th/mm3 (1.8-7.7); Neut % (Auto) 60.6 % (16.0-70.0); Platelet Count 184 th/mm3 (150-450); Red Blood Count 3.87 mil/mm3 (4.00-5.30); Red Cell Distribution Width 17.5 % (11.6-17.2); White Blood Count 5.2 th/mm3 (4.0-11.0)
[2017-08-26 05:29] LABS: Calcium 9.1 mg/dL (8.5-10.1); Carbon Dioxide 37.7 meq/L (21.0-32.0); Potassium 3.2 meq/L (3.5-5.1)
[2017-08-26] MEDS: Insulin NovoLOG Aspart Correctional Sugar Inj SQ SCH ×4 (07:47→20:51)
[2017-08-26] MEDS ORDERED: Enoxaparin Inj 40 MG/0.4 ML Syringe SQ SCH (09:00)
[2017-08-26] MEDS: Senna/Docusate Sodium 8.6/50 MG Tablet PO SCH ×2 (09:27→20:45)
--- NOTE | 2017-08-26 12:23 | P.PN ---
Subjective Interval history: Follow-up large right pleural effusion August 26, 2017-patient seen and examined, continues to complain of shortness of breath. H&H stable and patient denies any GI bleed Physical Exam Vital signs: Vital Signs 08/25/17 20:00 08/26/17 00:00 08/26/17 04:00 Temperature 97.2 F L 98.2 F 98.4 F Pulse Rate 87 79 97 H Respiratory Rate 14 18 16 Blood Pressure 157/74 H 153/85 H 139/70 Pulse Oximetry 96 98 92 L 08/26/17 08:00 Temperature 97.5 F L Pulse Rate 98 H Respiratory Rate 16 Blood Pressure 147/70 H Pulse Oximetry 98 Intake & Output 08/25/17 08/26/17 08/26/17 18:59 06:59 18:59 Intake Total 480 / 480 Output Total 1600 / 1600 Balance -1120 / -1120 Weight 107.9 kg 111 kg Intake: Oral 480 / 480 Output: Urine 1600 / 1600 Other: # Voids 11 Date of Last Bowel Movement 08/24/17 08/24/17 Narrative: GENERAL: NAD SKIN: Warm and dry. HEAD: Normocephalic. EYES: No scleral icterus. No injection or drainage. NECK: Supple, trachea midline. No JVD or lymphadenopathy. CARDIOVASCULAR: Regular rate and rhythm without murmurs, gallops, or rubs. RESPIRATORY: Breath sounds decrease R>L. No accessory muscle use. GASTROINTESTINAL: Abdomen soft, non-tender, nondistended. MUSCULOSKELETAL: No cyanosis; +Trace edema. BACK: Nontender without obvious deformity. No CVA tenderness. Results - Labs CBC & Chem 7: 08/26/17 03:36 08/26/17 03:36 Laboratory Results - last 24 hr 08/25/17 08/25/17 08/25/17 11:10 11:10 11:43 WBC RBC Hgb Hct MCV MCH MCHC RDW Plt Count MPV Neut % (Auto) Lymph % (Auto) [place] % (Auto) Eos % (Auto) Baso % (Auto) Neut # (Auto) Lymph # (Auto) [place] # (Auto) Eos # (Auto) Baso # (Auto) WBC Differential Differential Comment PT INR APTT Sodium 141 Potassium 3.6 Chloride 97 L Carbon Dioxide 35.5 H Anion Gap 9 BUN 10 Creatinine 0.97 Estimated GFR 57 L POC Glucose Random Glucose 125 H Lactic Acid 1.0 Calcium 8.9 Magnesium Total Bilirubin 0.4 AST 20 ALT 15 Alkaline Phosphatase 87 Total Creatine Kinase Troponin I Less than 0.02 L Total Protein 7.3 Albumin 3.3 L Urine Color Urine Clarity Urine pH Ur Specific [place] Urine Protein Urine Glucose (UA) Urine Ketones Urine Occult Blood Urine Nitrate Urine Bilirubin Urine Urobilinogen Ur Leukocyte Esterase Urine RBC Urine WBC Ur Squamous Epith Cells Urine Bacteria Hyaline Casts Urine Mucus Micro UA Comment Blood Type Recheck Antibody Screen Negative 08/25/17 08/25/17 08/25/17 11:43 11:43 13:07 WBC RBC Hgb Hct MCV MCH MCHC RDW Plt Count MPV Neut % (Auto) Lymph % (Auto) [place] % (Auto) Eos % (Auto) Baso % (Auto) Neut # (Auto) Lymph # (Auto) [place] # (Auto) Eos # (Auto) Baso # (Auto) WBC Differential Differential Comment PT 10.8 INR 1.1 APTT 21.8 L Sodium Potassium Chloride Carbon Dioxide Anion Gap BUN Creatinine Estimated GFR POC Glucose Random Glucose Lactic Acid Calcium Magnesium 1.6 Total Bilirubin AST ALT Alkaline Phosphatase Total Creatine Kinase 87 Troponin I Total Protein Albumin Urine Color Yellow Urine Clarity Hazy H Urine pH 5.0 Ur Specific [place] 1.019 Urine Protein Negative Urine Glucose (UA) Negative Urine Ketones Negative Urine Occult Blood Small H Urine Nitrate Negative Urine Bilirubin Negative Urine Urobilinogen Less than 2 Ur Leukocyte Esterase Moderate H Urine RBC 4 H Urine WBC 42 H Ur Squamous Epith Cells <1 Urine Bacteria Rare H Hyaline Casts 10 Urine Mucus Few H Micro UA Comment Cath Blood Type Recheck Antibody Screen 08/25/17 08/25/17 08/25/17 18:35 20:29 22:15 WBC RBC Hgb Hct MCV MCH MCHC RDW Plt Count MPV Neut % (Auto) Lymph % (Auto) [place] % (Auto) Eos % (Auto) Baso % (Auto) Neut # (Auto) Lymph # (Auto) [place] # (Auto) Eos # (Auto) Baso # (Auto) WBC Differential Differential Comment PT 11.0 INR 1.1 APTT 27.5 D Sodium Potassium Chloride Carbon Dioxide Anion Gap BUN Creatinine Estimated GFR POC Glucose 123 H 142 H Random Glucose Lactic Acid Calcium Magnesium Total Bilirubin AST ALT Alkaline Phosphatase Total Creatine Kinase Troponin I Total Protein Albumin Urine Color Urine Clarity Urine pH Ur Specific [place] Urine Protein Urine Glucose (UA) Urine Ketones Urine Occult Blood Urine Nitrate Urine Bilirubin Urine Urobilinogen Ur Leukocyte Esterase Urine RBC Urine WBC Ur Squamous Epith Cells Urine Bacteria Hyaline Casts Urine Mucus Micro UA Comment Blood Type Recheck Antibody Screen 08/26/17 08/26/17 08/26/17 03:36 03:36 07:27 WBC 5.2 RBC 3.87 L Hgb 10.5 L Hct 33.1 L MCV 85.7 MCH 27.2 MCHC 31.8 L RDW 17.5 H Plt Count 184 MPV 11.4 H Neut % (Auto) 60.6 Lymph % (Auto) 22.8 [place] % (Auto) 13.3 H Eos % (Auto) 2.6 Baso % (Auto) 0.7 Neut # (Auto) 3.2 Lymph # (Auto) 1.2 [place] # (Auto) 0.7 Eos # (Auto) 0.1 Baso # (Auto) 0.0 WBC Differential . Differential Comment Auto diff final PT INR APTT Sodium 140 Potassium 3.2 L Chloride 93 L Carbon Dioxide 37.7 H Anion Gap 9 BUN 11 Creatinine 1.07 H Estimated GFR 51 L POC Glucose 155 H Random Glucose 178 H Lactic Acid Calcium 9.1 Magnesium Total Bilirubin AST ALT Alkaline Phosphatase Total Creatine Kinase Troponin I Total Protein Albumin Urine Color Urine Clarity Urine pH Ur Specific [place] Urine Protein Urine Glucose (UA) Urine Ketones Urine Occult Blood Urine Nitrate Urine Bilirubin Urine Urobilinogen Ur Leukocyte Esterase Urine RBC Urine WBC Ur Squamous Epith Cells Urine Bacteria Hyaline Casts Urine Mucus Micro UA Comment Blood Type Recheck Antibody Screen 08/26/17 11:58 WBC RBC Hgb Hct MCV MCH MCHC RDW Plt Count MPV Neut % (Auto) Lymph % (Auto) [place] % (Auto) Eos % (Auto) Baso % (Auto) Neut # (Auto) Lymph # (Auto) [place] # (Auto) Eos # (Auto) Baso # (Auto) WBC Differential Differential Comment PT INR APTT Sodium Potassium Chloride Carbon Dioxide Anion Gap BUN Creatinine Estimated GFR POC Glucose 163 H Random Glucose Lactic Acid Calcium Magnesium Total Bilirubin AST ALT Alkaline Phosphatase Total Creatine Kinase Troponin I Total Protein Albumin Urine Color Urine Clarity Urine pH Ur Specific [place] Urine Protein Urine Glucose (UA) Urine Ketones Urine Occult Blood Urine Nitrate Urine Bilirubin Urine Urobilinogen Ur Leukocyte Esterase Urine RBC Urine WBC Ur Squamous Epith Cells Urine Bacteria Hyaline Casts Urine Mucus Micro UA Comment Blood Type Recheck Antibody Screen - Imaging Impressions Chest CT 08/25/17 12:33 CONCLUSION: 1. Large right effusion with compressive atelectasis of the right lung. No discrete underlying mass is identified. Assessment and Plan - Assessment (1) Pleural effusion on right Code(s): J90 - Pleural effusion, not elsewhere classified Status: Acute (2) Normochromic normocytic anemia Code(s): D64.9 - Anemia, unspecified Status: Acute - Plan 66-year-old female with Right large pleural effusion Interventional radiology has been consulted and plan for thoracentesis today August 26, 2017 Continue with Lasix IV, will switch to p.o tomorrow August 27, 2017. Normochromic normocytic anemia H&H stable Patient to undergo panendoscopy outpatient with Dr. Hunt Diabetes mellitus type 2 Oral hypoglycemic agent currently on hold Continue with insulin sliding scale with Accu-Chek Hypertension Resume patient home medication Lopressor History of atrial fibrillation Will restart patient home medications including sotalol, Lopressor, aspirin Patient is not currently on oral anticoagulation, will need follow-up outpatient with cardiology Hyperlipidemia Restart statin Hypothyroidism Restart Synthroid in a.m. Diabetic neuropathy Restart Neurontin Abnormal UA Status post IV azithromycin and Rocephin 1 in ED, however will continue to hold on antibiotics DVT prophylaxis: Lovenox
[2017-08-26] MEDS: Metoprolol Tartrate 50 MG Tablet PO SCH (20:44)
[2017-08-26] MEDS: Polysaccharide Iron Complex 150 MG Capsule PO SCH (20:45)
[2017-08-26] MEDS ORDERED: QUEtiapine 25 MG Tablet PO SCH (21:00)
[2017-08-26] MEDS ORDERED: Metoprolol Tartrate 25 MG Tablet PO ONE ×3 (21:30→22:47)
[2017-08-26] MEDS ORDERED: Sodium Chlor 0.9% Inj 250 ML IV.SIG ONE (22:47)
--- NOTE | 2017-08-26 23:17 | XR ---
EXAM DATE: 08/26/2017 11:06 PM EDT AGE/SEX: 66 years / Female INDICATIONS: Short of breath. CLINICAL DATA: This is the patient's initial encounter. Patient reports that signs and symptoms have been present for 1 day and indicates a pain score of 0/10. MEDICAL/SURGICAL HISTORY: Asthma. A-FIB. None. [place] [facility] [place]25[place]. . FINDINGS: Stable appearance to large right pleural effusion with loss of delineation of the right hemidiaphragm and right heart border. Left lung is clear. The heart is similar in configuration to prior with calc ification in the aortic arch. The left hemidiaphragms well delineated. CONCLUSION: Large right pleural effusion, stable from prior. Electronically signed by: Nelson Santos MD 08/26/2017 11:15 PM EDT
[2017-08-26] MEDS ORDERED: Adenosine Inj 6 MG/2 ML Syringe IV.PUSH ONE (23:41)
[2017-08-27] MEDS ORDERED: Metoprolol Inj 5 MG/5 ML Vial IV.PUSH ONE (00:16)
[2017-08-27] MEDS ORDERED: Metoprolol Inj 5 MG/5 ML Vial ONE (00:18)
[2017-08-27 00:19] LABS: Baso % (Auto) 0.4 % (0.0-2.0); Eos # (Auto) 0.1 th/mm3 (0.0-0.4); Eos % (Auto) 1.4 % (0.0-4.0); Lymph # (Auto) 1.2 th/mm3 (1.0-4.8); Lymph % (Auto) 27.5 % (9.0-44.0); Mean Corpuscular Hemoglobin 27.5 pg (27.0-34.0); Mean Corpuscular Volume 88.6 fL (80.0-100.0); Mean Platelet Volume 10.4 fL (7.0-11.0); Mono # (Auto) 0.5 th/mm3 (0.0-0.9); Neut # (Auto) 2.5 th/mm3 (1.8-7.7); Neut % (Auto) 59.7 % (16.0-70.0); Platelet Count 131 th/mm3 (150-450); Red Blood Count 2.33 mil/mm3 (4.00-5.30); Red Cell Distribution Width 17.1 % (11.6-17.2); White Blood Count 4.3 th/mm3 (4.0-11.0)
--- NOTE | 2017-08-27 00:30 | P.EN ---
[facility] called overnight for pt due to sustained tachycardia greater than 160 and altered mental status. Residents responded to [facility]. Patient was alert and oriented to self (change from her baseline per nurse). Pt denied any shortness of breath reported mild chest pain. EKG was reviewed showing sinus tachycardia. Patient had ox oxygen saturation of 100% on 3 L nasal cannula. She was sitting on the side of the bed. She pulled out IV and another IV site was placed. Reported mild lower extremity pain more pronounced on right lower extremity. Lung exam bilateral crackles were appreciated bilaterally. Tachycardic on cardio exam no murmurs gallops or rubs were appreciated normal S1 -S2. Ligament maneuvers were attempted and adenosine 6 and 12 given with no response. Chest x-ray results showed right-sided pleural effusion. Transfer to intensive unit was made, mems process engineer consult was placed and this was consulted. Care was transferred to mems process engineer. Patient was admitted due to pulmonary effusion, UTI and anemia. Upon transfer to the mems process engineer unit patient developed significant audible wheezing. Test ordered: troponin, abg, cbc, lactic acid, lasix 40mg, LE doppler, D-dimer.
[2017-08-27 00:34] LABS: Hematocrit 20.6 % (35.0-46.0); Hemoglobin 6.4 gm/dL (11.6-15.3)
[2017-08-27] MEDS ORDERED: Lidocaine 2% Inj 50 ML Vial ONE ×2 (00:38)
[2017-08-27] MEDS ORDERED: Morphine Sulfate Inj 2 MG/ML Vial ONE (00:47)
[2017-08-27 00:55] LABS: Calcium 6.5 mg/dL (8.5-10.1); Carbon Dioxide 30.1 meq/L (21.0-32.0); Potassium 3.2 meq/L (3.5-5.1); Troponin I 0.03 ng/mL (0.02-0.05)
[2017-08-27] MEDS ORDERED: Potassium Phosphate 500 MG Soluble Tablet PO PRN ×2 (00:59)
[2017-08-27] MEDS ORDERED: Potassium Chlor 40 mEq Premix 40 MEQ/100 ML PIGGYBACK IV.SIG PRN ×2 (00:59)
[2017-08-27] MEDS ORDERED: Potassium Phosphate Inj 30 MMOL in Sodium Chlor 0.9% Inj 250 ML IV.SIG PRN (00:59)
[2017-08-27] MEDS ORDERED: Magnesium Sulfate Inj 4 GM in Sodium Chlor 0.9% Inj 92 ML IV.SIG PRN (00:59)
[2017-08-27] MEDS ORDERED: Sodium Phosphate Inj 30 MMOL in Sodium Chlor 0.9% Inj 250 ML IV.SIG PRN (00:59)
[2017-08-27] MEDS ORDERED: Magnesium Sulfate Inj 2 GM in Sodium Chlor 0.9% Inj 96 ML IV.SIG PRN (00:59)
[2017-08-27] MEDS ORDERED: Potassium Chloride 25 MEQ Effervescent Tablet PO PRN (00:59)
[2017-08-27] MEDS ORDERED: Magnesium Oxide 400 MG Tablet PO PRN (00:59)
[2017-08-27] MEDS ORDERED: Sodium Chlor 0.9% Inj 250 ML IV.SIG SCH (01:00)
[2017-08-27 01:08] LABS: Total Protein 5.4 g/dL (6.4-8.2)
--- NOTE | 2017-08-27 01:34 | P.CONCC ---
History of Present Illness Primary Care Provider: No Primary Care Physician Chief Complaint: Shortness of breath History of Present Illness: 66-year-old female with history of congestive heart failure, CKD, atrial fibrillation, diabetes mellitus, hypertension admitted for an evaluation of shortness of breath. She was supposed to undergo her endoscopy and colonoscopy with Dr. Hunt to complete her workup for anemia however during the preop evaluation, she first found to have shortness of breath and she was sent to the emergency department. She complains of shortness of breath and that she had bilateral lower leg swelling. In retrospect, she has been having progressive shortness of breath since about 3 months ago, associated with bilateral leg swelling, cough productive with clear sputum. She denies any chest pain, she has some orthopnea. She was initially treated at [facility] for pneumonia and possible CHF. Outpatient sleep study was done which ruled out sleep apnea. She denies any chest pain. In the emergency department the chest x-ray shows large right-sided pleural effusion that was confirmed by CT of the chest. She was initially admitted to medicine with telemetry however rapid response was team called today due to tachycardia at 160s-170s presently. The right-sided thoracentesis was performed urgently shortly after arrival to unit with some improvement of symptoms. Review of Systems Constitutional: Denies anorexia, Denies body ache(s), Denies chills, Denies daytime sleepiness, Denies excessive sweating, Denies fatigue, Denies fever(s), Denies headache(s), Denies increased appetite, Denies lack of energy, Denies malaise, Denies night sweats, Denies weakness, Denies weight gain, Denies weight loss, Denies other Eyes: Denies blind spots, Denies blurry vision, Denies bulging eyes, Denies change in vision, Denies double vision, Denies discharge, Denies dry eyes, Denies floaters, Denies irritation, Denies itchy eyes, Denies loss of vision, Denies pain, Denies requires corrective lenses, Denies sensitivity to light, Denies other Ears, Nose, Mouth, and Throat: Denies abnormal hearing, Denies bleeding gums, Denies bad breath, Denies change in voice, Denies dental pain, Denies difficulty swallowing, Denies dizziness, Denies dry mouth, Denies ear discharge , Denies ear pain, Denies facial pain, Denies headache(s), Denies hearing loss, Denies hoarseness, Denies lip swelling, Denies nosebleed, Denies mouth lesions, Denies mouth pain, Denies nasal congestion, Denies nasal discharge, Denies nasal obstruction, Denies nasal trauma, Denies neck lump, Denies neck pain, Denies nose pain, Denies pain with swallowing, Denies poor balance, Denies post nasal drip, Denies ringing in the ears, Denies sinus pain, Denies sinus pressure , Denies sore throat, Denies throat swelling, Denies tongue swelling, Denies other Cardiovascular: Reports irregular heart rhythm, Reports leg pain with activity, Reports leg swelling, Reports shortness of breath, Reports shortness of breath with activity, Reports shortness of breath when lying down, Denies chest pain, Denies chest pain at rest, Denies chest pain with activity, Denies excessive sweating, Denies fainting, Denies fast heart rate, Denies foot swelling, Denies generalized swelling, Denies leg sores, Denies lightheadedness, Denies radiating jaw, neck or arm pain, Denies rapid, pounding, or irregular heartbeat , Denies shortness of breath causing sudden awakening, Denies slow heart rate, Denies other Respiratory: Reports shortness of breath, Reports shortness of breath with activity, Denies change in phlegm color, Denies chest congestion, Denies cough, Denies coughing up blood, Denies excessive phlegm production, Denies pain on inspiration, Denies pain with cough, Denies snoring, Denies stridor, Denies wheezing, Denies other Gastrointestinal: Denies abdominal pain, Denies belching, Denies black, tarry stools, Denies bloating, Denies bright, red blood in stools, Denies change in bowel habits, Denies constant urge to pass stool, Denies change in stools, Denies coffee ground vomit, Denies constipation, Denies cramping, Denies difficulty swallowing, Denies excessive passing of gas, Denies feeling full early, Denies heartburn, Denies incontinent of stools, Denies loose stools, Denies nausea, Denies pain with swallowing, Denies vomiting, Denies vomiting blood, Denies other Genitourinary: Denies abnormal periods, Denies abnormal vaginal bleeding, Denies absent period, Denies bleeding between periods, Denies blood in urine, Denies difficulty starting urination, Denies difficulty urinating, Denies dribbling after urination, Denies frequent nighttime urination, Denies genital itching, Denies genital lesions, Denies heavy periods, Denies hot flashes, Denies light periods, Denies nipple discharge, Denies painful intercourse, Denies painful periods, Denies painful urination, Denies pelvic pain, Denies prolapse symptoms, Denies sexual problems, Denies side pain, Denies urinary incontinence, Denies urinary urgency, Denies vaginal discharge, Denies vaginal dryness, Denies vaginal odor, Denies vaginal itching, Denies other Musculoskeletal: Denies abnormal walking, Denies back pain, Denies body aches, Denies decreased muscle mass, Denies deformity, Denies joint pain, Denies joint swelling, Denies limited joint movement, Denies loss of height, Denies muscle cramps, Denies muscle weakness, Denies neck pain, Denies numbness, Denies radiating pain into limb, Denies stiffness, Denies tingling, Denies other Skin/Breast: Denies acne, Denies bleeding lesions, Denies boil, Denies breast swelling, Denies breast skin changes, Denies breast pain, Denies breast lump, Denies change in breast shape, Denies change in hair, Denies change in skin color, Denies changing lesions, Denies dry skin, Denies excessive hair growth, Denies hair loss, Denies itching, Denies lesions, Denies nail changes, Denies new lesions, Denies nipple discharge, Denies non-healing lesions, Denies redness , Denies sensitivity to light, Denies rash, Denies skin pain, Denies skin ulcer , Denies sores, Denies stretch romo, Denies unusual bruising, Denies wounds, Denies yellowing of the skin, Denies other Neurologic: Denies abnormal hearing, Denies abnormal movements, Denies abnormal speech, Denies abnormal walking, Denies behavioral changes, Denies burning sensations, Denies confusion, Denies dizziness, Denies fainting, Denies frequent falls, Denies headache(s), Denies lack of coordination, Denies localized weakness, Denies loss of vision, Denies memory loss, Denies numbness, Denies other visual disturbances, Denies radiating pain, Denies restless legs, Denies convulsions, Denies seizure-like activity, Denies sensory deficit, Denies tingling, Denies tingling/numbness/burning sensations, Denies tremor(s), Denies unsteadiness, Denies weakness, Denies other Psychiatric: Denies abnormal sleep pattern, Denies anxiety, Denies behavioral changes, Denies change in appetite, Denies change in sex drive, Denies confusion , Denies depression, Denies difficulty concentrating, Denies hearing things others do not hear, Denies hopelessness, Denies irritability, Denies lack of enjoyment, Denies memory loss, Denies mood swings, Denies panic attacks, Denies paranoia, Denies seeing things others do not see, Denies sensing things others do not sense, Denies tactile hallucinations, Denies thoughts of hurting/killing others, Denies thoughts of hurting/killing yourself, Denies other Endocrine: Denies cold intolerance, Denies excessive sweating, Denies flushing, Denies heat intolerance, Denies increased hunger, Denies increased thirst, Denies increased urination, Denies rapid, pounding, or irregular heartbeat, Denies other Hematologic/Lymphatic: Denies easy bleeding, Denies easy bruising, Denies enlarged lymph nodes, Denies other PMFSH - History History Provided By: Patient, Family Member - Medical History Medical History: Medical History (Last Reviewed 08/26/17 @ 06:01 by Saran Gupta) High cholesterol Hypertension Renal disease Anemia Atrial fibrillation Diabetes HX: breast cancer Hx: recurrent pneumonia Hypothyroid Wears glasses - Surgical History Surgical History: Surgical History (Last Reviewed 08/26/17 @ 06:01 by Saran Gupta) History of History of reconstruction of right breast Hx of hemorrhoidectomy - Tobacco History Second Hand Smoke Exposure: No Tobacco Use In Past 30 Days: No Smoking Status: Never smoker - Alcohol History How Often Do You Have a Drink Containing Alcohol: Monthly or less - Substance Use History Substance History: No History of Abuse - Travel History Recent Travel in the [place] Within the Last 8 Weeks: No Recent Travel Out of the Country Within the Last 8 Weeks: No - Immunization History Tetanus Immunization: Never Vaccinated Hx Influenza Vaccine This Season: Yes Medications and Allergies Active Medications: Active Medications Al Hydroxide/Mg Hydroxide (Milk Of Magnesia Liq) 30 ml PO Q12H PRN PRN Reason: Mild Constipation Aspirin (Ecotrin) 81 mg PO DAILY LOLY Atorvastatin Calcium (Lipitor) 80 mg PO HS [facility] Last Admin: 08/26/17 20:45 Dose: 80 mg Bisacodyl (Dulcolax Supp) 10 mg RECTAL DAILY PRN PRN Reason: SEVERE CONSITIPATION Chlorhexidine Gluconate (Chlorhexidine 2% Cloth) 3 pack TOPICAL DAILY@0400 PRN PRN Reason: Extra cloth needed Stop: 09/01/17 03:59 Chlorhexidine Gluconate (Chlorhexidine 2% Cloth) 3 pack TOPICAL DAILY@0400 LOLY Stop: 09/01/17 03:59 Dextrose (D50w Vial) 50 ml IV.PUSH UNSCH PRN PRN Reason: PER HYPOGLYCEMIA PROTOCOL Duloxetine HCl (Cymbalta) 60 mg PO DAILY LOLY Furosemide (Lasix Inj) 40 mg IV.PUSH BID@0900,1800 [facility] Last Admin: 08/26/17 18:46 Dose: 40 mg Gabapentin (Neurontin) 300 mg PO DAILY LOLY Glucagon (Glucagon Inj) 1 mg OTHER PRN PRN PRN Reason: for Hypoglycemia Protocol Sodium Chloride (Ns Inj) 250 mls @ 15 mls/hr IV.SIG ONCE [facility] Stop: 08/27/17 17:39 Magnesium Sulfate Inj 4 gm/ (Sodium Chloride) 100 mls @ 50 mls/hr IV.SIG UNSCH PRN PRN Reason: For Magnesium 0.9 - 1.1 mg/dL Magnesium Sulfate Inj 2 gm/ (Sodium Chloride) 100 mls @ 50 mls/hr IV.SIG UNSCH PRN PRN Reason: For Magnesium 1.2 - 1.6 mg/dL Potassium Chloride (Kcl 20 Meq Premix Inj) 20 meq in 100 mls @ 50 mls/hr IV.SIG Q2H PRN PRN Reason: For Potassium 3.3 - 3.5 mEq/L Potassium Chloride (Kcl 40 Meq Premix Inj) 40 meq in 100 mls @ 25 mls/hr IV.SIG UNSCH PRN PRN Reason: For Potassium 3.3 - 3.5 mEq/L Potassium Chloride (Kcl 20 Meq Premix Inj) 20 meq in 100 mls @ 50 mls/hr IV.SIG Q2H PRN PRN Reason: For Potassium 2.8 - 3.2 mEq/L Potassium Phosphate 30 mmol/ (Sodium Chloride) 260 mls @ 42 mls/hr IV.SIG UNSCH PRN PRN Reason: SEE LABEL COMMENTS Potassium Chloride (Kcl 40 Meq Premix Inj) 40 meq in 100 mls @ 25 mls/hr IV.SIG Q2H PRN PRN Reason: For Potassium 2.8 - 3.2 mEq/L Sodium Phosphate 30 mmol/ (Sodium Chloride) 260 mls @ 42 mls/hr IV.SIG UNSCH PRN PRN Reason: For Phosphorus < 2.5 mg/dL Calcium Gluconate 2 gm/ Sodium (Chloride) 120 mls @ 120 mls/hr IV.SIG ONCE ONE Stop: 08/27/17 02:59 Insulin Aspart (Novolog Insulin Suppl Scale Inj) 0 unit SQ [facility]; Protocol Last Admin: 08/26/17 20:51 Dose: 1 unit Lactulose (Lactulose Liq) 30 ml PO DAILY PRN PRN Reason: SEVERE CONSITIPATION Levothyroxine Sodium (Synthroid) 100 mcg PO DAILY@0600 [facility] Magnesium Oxide (Mag-Ox) 800 mg PO UNSCH PRN PRN Reason: For Magnesium 1.2 - 1.6 mg/dL Metoprolol Tartrate (Lopressor) 50 mg PO BID [facility] Last Admin: 08/26/17 20:44 Dose: 50 mg Ondansetron HCl (Zofran Inj) 4 mg IV.PUSH Q6H PRN PRN Reason: NAUSEA OR VOMITING Polysaccharide Iron Complex (Nu-Iron) 150 mg PO BID [facility] Last Admin: 08/26/17 20:45 Dose: 150 mg Potassium Bicarb/Potassium Chloride (K-Lyte Cl Eff) 50 meq PO UNSCH PRN PRN Reason: For Potassium 3.3 - 3.5 mEq/L Potassium Phosphate (K-Phos Original) 2,000 mg PO Q4H PRN PRN Reason: Phosphorus Less Than 2.5 mg/dL Potassium Phosphate (K-Phos Original) 2,000 mg PO UNSCH PRN PRN Reason: SEE LABEL COMMENTS Prochlorperazine (Compazine Supp) 25 mg RECTAL Q12HR PRN PRN Reason: NAUSEA OR VOMITING Quetiapine Fumarate (Seroquel) 50 mg PO [facility] Last Admin: 08/26/17 20:44 Dose: 50 mg Senna/Docusate Sodium (Yee-Colace) 1 tab PO BID [facility] Last Admin: 08/26/17 20:45 Dose: 1 tab Sennosides (Senokot) 17.2 mg PO Q12H PRN PRN Reason: Moderate Constipation Sotalol HCl (Betapace) 80 mg PO HS [facility] Last Admin: 08/26/17 20:45 Dose: 80 mg Sotalol HCl (Betapace) 160 mg PO DAILY LOLY Temazepam (Restoril) 15 mg PO HS PRN PRN Reason: INSOMNIA Last Admin: 08/26/17 22:10 Dose: 15 mg Allergies Allergy/AdvReac Type Severity Reaction Status Date / Time tamoxifen Allergy Anaphylaxis Verified 08/25/17 09:25 Home Medications Medication Instructions Recorded Confirmed Type aspirin [Aspir-Low] 81 mg PO DAILY 08/21/17 08/25/17 History atorvastatin 80 mg PO HS 08/21/17 08/25/17 History duloxetine 60 mg PO DAILY 08/21/17 08/25/17 History ferrous fumarate-iron ps cmplx 2 cap PO BID 08/21/17 08/25/17 History gabapentin 1 cap PO DAILY 08/21/17 08/25/17 History levothyroxine 100 mcg PO DAILY 08/21/17 08/25/17 History melatonin 3 mg PO HS PRN 08/21/17 08/25/17 History metformin 500 mg PO BID 08/21/17 08/25/17 History metoprolol tartrate 50 mg PO BID 08/21/17 08/25/17 History pioglitazone 45 mg PO DAILY 08/21/17 08/25/17 History quetiapine 50 mg PO HS 08/21/17 08/25/17 History ranitidine HCl 150 mg PO QPM 08/21/17 08/25/17 History sotalol 80 mg PO HS 08/21/17 08/25/17 History sotalol 160 mg PO DAILY 08/21/17 08/25/17 History vitamin D3-folic acid 1 tab PO QAM 08/21/17 08/25/17 History Physical Exam Vital signs: Vital Signs 08/26/17 04:00 08/26/17 08:00 08/26/17 12:00 Temperature 98.4 F 97.5 F L 97.4 F L Pulse Rate 97 H 98 H 91 H Respiratory Rate 16 16 18 Blood Pressure 139/70 147/70 H 115/56 L Pulse Oximetry 92 L 98 97 08/26/17 16:00 08/26/17 17:47 Temperature 98.1 F Pulse Rate 97 H Respiratory Rate 18 Blood Pressure 129/61 Pulse Oximetry 100 97 Intake & Output 08/26/17 08/26/17 08/27/17 06:59 18:59 06:59 Intake Total 480 / 480 240 / 240 Output Total 1600 / 1600 Balance -1120 / -1120 240 / 240 Weight 111 kg Intake: Oral 480 / 480 240 / 240 Output: Urine 1600 / 1600 Other: # Voids 11 2 Date of Last Bowel Movement 08/24/17 08/24/17 - Constitutional moderate distress, obese, chronically ill appearing - Routine HEENT Exam Head: Present: normocephalic, atraumatic Eye: Present: PERRL ENT: Present: mucous membranes moist - Routine Neck Exam Present: supple, full ROM. Absent: JVD, carotid bruit - Routine Respiratory Exam Present: decreased breath sounds. Absent: accessory muscle use - Routine Cardiovascular Exam Present: S1, S2, tachycardia, irregular rhythm - Routine Abdominal Exam Present: soft, normoactive bowel sounds - Routine Extremities Exam Present: edema. Absent: cyanosis, clubbing - Routine Skin Exam Present: intact. Absent: cyanosis, erythema - Routine Neurological Exam Present: alert, oriented X3 - Detailed Neurological Exam: Coma Scale Eye Opening: Spontaneous Verbal Response: Oriented Motor Response: Obey commands Cecil Coma Scale Total: 15 - Routine Psychiatric Exam Present: normal affect - Urinary Catheter Management Indwelling Urethral Catheter Cath placed during this visit: yes Reason for continuing: Acute urinary retention Insertion date: 08/27/17 Insertion time: 00:30 Assessment and Plan - Assessment and Plan Plan: Respiratory failure -Underlying large right-sided pleural effusion -Status post original thoracentesis -Now with small pneumothorax ex vacuo -Repeat CXR a.m. -O2 supply -Follow-up pleural fluid analysis Atrial fibrillation -Esmolol drip for rate control Anemia -Initial hemoglobin after rapid response activation was 6 however repeat without blood transfusion was 10 -This seems to be a lab error -We will hold any further transfusion until hemoglobin confirmed to be less than 7 Hypertension -Metoprolol Dyslipidemia -Atorvastatin Diabetes mellitus -Insulin sliding scale Hypothyroidism -Levothyroxine Depressions -Cymbalta DVT GI prophylaxis -Teds SCDs -Pharmacological DVT prophylaxis on hold due to questionable GI bleed with severe anemia -Pepcid Critical Care: The total critical care time was 35 minutes. Time to perform other separately billable procedures was not included in the critical care time.
[2017-08-27 01:46] LABS: Total Protein,Pleural Fluid 4.1 gm/dL
[2017-08-27] MEDS ORDERED: Calcium Gluconate Inj 2 GM in Sodium Chlor 0.9% Inj 100 ML IV.SIG ONE (02:00)
--- NOTE | 2017-08-27 02:05 | XR ---
EXAM DATE: 08/27/2017 1:56 AM EDT AGE/SEX: 66 years / Female INDICATIONS: Post thoracentesis. CLINICAL DATA: This is the patient's initial encounter. Patient reports that signs and symptoms have been present for 1 day and indicates a pain score of 0/10. MEDICAL/SURGICAL HISTORY: None. None. COMPARISON: [facility] [place], CHEST 1V SINGLE AP, 08/26/2017. . FINDINGS: The patient is status post thoracentesis. The right pleural effusion has resolved and the entire righ t hemidiaphragm is not discernible. There is evidence of pneumothorax, measuring 1.8 cm at the apex a nd 1.6 cm in the lower lateral lung. There is nonconsolidative airspace opacity in the right midlung. No evidence of midline shift. Stable cardiomegaly. The left lung is clear. CONCLUSION: No residual pleural effusion seen status post thoracentesis. Right-sided pneumothorax at the apex and lateral right chest measuring up to 1.8 cm. Electronically signed by: Nelson Santos MD 08/27/2017 2:04 AM EDT
[2017-08-27] MEDS ORDERED: Albumin Human 5% Inj 500 ML IV.SIG ONE (02:24)
--- NOTE | 2017-08-27 02:53 | US ---
EXAM DATE: 08/27/2017 2:45 AM EDT AGE/SEX: 66 years / Female INDICATIONS: Shortness of breath with bilateral lower extremity edema. CLINICAL DATA: This is the patient's initial encounter. Patient reports that signs and symptoms have been present for 1 day and indicates a pain score of 0/10. MEDICAL/SURGICAL HISTORY: Hypercholesterolemia. Hypertension. Renal disease. Anemia. Atrial fibrillation. Diabetes. Breast cancer. Recurrent Pneumonia. Hypothyroid. section. Hem orrhoidectomy. Reconstruction of the right breast. COMPARISON: [facility], US LEG VENOUS DOPPLER, LEFT, 11/06/2014. . TECHNIQUE: Venous ultrasound of both lower extremities was performed from the inguinal ligament to t he proximal calf. Real-time, color Doppler and spectral tracing, compression and augmentation techni ques were used. FINDINGS: Right Leg: Normal compression of the deep venous system from the inguinal region to the proximal meliton f. No echogenic clot is seen. Normal response of the venous system to augmentation and respiration. Left Leg: Normal compression of the deep venous system from the inguinal region to the proximal calf . No echogenic clot is seen. Normal response of the venous system to augmentation and respiration. Other: None. CONCLUSION: 1. The study is negative for bilateral lower extremity deep venous thrombosis. Electronically signed by: Nelson Santos MD 08/27/2017 2:52 AM EDT
[2017-08-27 03:22] LABS: RBC,Pleural Fluid 783 /mm3 (0-0)
[2017-08-27 03:25] LABS: Lymphocytes,Pleural Fluid 86 %; Monocytes,Pleural Fluid 4 %; Neutrophils,Pleural Fluid 2 %
[2017-08-27 03:46] LABS: Baso % (Auto) 0.4 % (0.0-2.0); Eos % (Auto) 0.5 % (0.0-4.0); Hematocrit 32.6 % (35.0-46.0); Hemoglobin 10.4 gm/dL (11.6-15.3); Lymph # (Auto) 1.1 th/mm3 (1.0-4.8); Lymph % (Auto) 17.9 % (9.0-44.0); Mean Corpuscular HGB Conc 31.9 % (32.0-36.0); Mean Corpuscular Hemoglobin 27.5 pg (27.0-34.0); Mean Corpuscular Volume 86.2 fL (80.0-100.0); Mean Platelet Volume 10.6 fL (7.0-11.0); Mono # (Auto) 0.6 th/mm3 (0.0-0.9); Neut # (Auto) 4.4 th/mm3 (1.8-7.7); Neut % (Auto) 72.2 % (16.0-70.0); Platelet Count 177 th/mm3 (150-450); Red Blood Count 3.78 mil/mm3 (4.00-5.30); Red Cell Distribution Width 17.7 % (11.6-17.2); White Blood Count 6.1 th/mm3 (4.0-11.0)
[2017-08-27] MEDS ORDERED: Chlorhexidine Gluconate 2% 1 Pack (2 Cloths) TOPICAL PRN (04:00)
[2017-08-27 04:10] LABS: Calcium 8.8 mg/dL (8.5-10.1); Potassium 3.6 meq/L (3.5-5.1)
--- NOTE | 2017-08-27 06:01 | XR ---
EXAM DATE: 08/27/2017 5:17 AM EDT AGE/SEX: 66 years / Female INDICATIONS: Short of breath. CLINICAL DATA: This is the patient's subsequent encounter. Patient reports that signs and symptoms h ave been present for 3 days and indicates a pain score of Nonresponsive. MEDICAL/SURGICAL HISTORY: Non-responsive. Non-responsive. COMPARISON: [facility], CHEST 1V SINGLE AP, 08/27/2017. . FINDINGS: Reaccumulation of opacity in the lower lateral right chest with loss of delineation of the lateral ri ght hemidiaphragm and opacity filling the lateral pleural space of the mid chest. Persistent pneumoth orax of the right apex measuring 1.4 cm. The left lung is clear. Moderate cardiomegaly. CONCLUSION: 1. Slightly smaller right apical pneumothorax measuring 1.4 cm. 2. Increasing density in the lower right chest suggesting reaccumulation of pleural fluid. 3. Stable parenchymal opacity/infiltrate in the mid right lung. Electronically signed by: Nelson Santos MD 08/27/2017 6:00 AM EDT
[2017-08-27] MEDS ORDERED: Esmolol 2,500 mg/250 mL Premix 2,500 MG/250 ML BAG IV.CONT PRN (06:09)
[2017-08-27] MEDS: Levothyroxine 100 MCG Tablet PO SCH (06:16)
[2017-08-27 07:19] LABS: ABG Base Excess 12.5 mmol/L (-2-2); ABG PCO2 69 mmHg (38-42); ABG PO2 106 mmHG (61-120)
[2017-08-27] MEDS: Gabapentin 300 MG Capsule PO SCH (08:18)
[2017-08-27] MEDS: Senna/Docusate Sodium 8.6/50 MG Tablet PO SCH (08:18)
[2017-08-27] MEDS: Duloxetine 60 MG DR Capsule PO SCH (08:19)
[2017-08-27] MEDS: Metoprolol Tartrate 50 MG Tablet PO SCH ×2 (08:19→21:37)
[2017-08-27] MEDS ORDERED: Dextrose 50% in Water 50 ML Vial IV.PUSH PRN (09:41)
--- NOTE | 2017-08-27 09:49 | P.PNCC ---
Subjective Subjective Remarks/Hospital Course: 66-year-old female with history of congestive heart failure, CKD, atrial fibrillation, diabetes mellitus, hypertension admitted for an evaluation of shortness of breath. She was supposed to undergo her endoscopy and colonoscopy with Dr. Hunt to complete her workup for anemia however during the preop evaluation, she first found to have shortness of breath and she was sent to the emergency department. She complains of shortness of breath and that she had bilateral lower leg swelling. In retrospect, she has been having progressive shortness of breath since about 3 months ago, associated with bilateral leg swelling, cough productive with clear sputum. She denies any chest pain, she has some orthopnea. She was initially treated at [facility] for pneumonia and possible CHF. Outpatient sleep study was done which ruled out sleep apnea. She denies any chest pain. In the emergency department the chest x-ray shows large right-sided pleural effusion that was confirmed by CT of the chest. She was initially admitted to medicine with telemetry however rapid response was team called today due to tachycardia at 160s-170s presently. The right-sided thoracentesis was performed urgently shortly after arrival to unit with some 7/5 Patient is lethargic on 2L oxygen s/p right sided thoracentesis by Dr. Porras with removal 1400ml CXR this morning showed small right apical PTX 1.4 cm and increase density RLL Objective Vital Signs / I&O: Vital Signs 08/26/17 12:00 08/26/17 16:00 08/26/17 17:47 Temperature 97.4 F L 98.1 F Pulse Rate 91 H 97 H Respiratory Rate 18 18 Blood Pressure 115/56 L 129/61 Pulse Oximetry 97 100 97 08/26/17 20:00 08/26/17 22:00 08/27/17 00:00 Temperature 97.8 F 98.2 F Pulse Rate 184 H 176 H 155 H Respiratory Rate 18 20 35 H Blood Pressure 106/62 114/61 131/76 Pulse Oximetry 98 99 94 L 08/27/17 02:00 08/27/17 02:49 08/27/17 02:58 Temperature 98.1 F 98.2 F Pulse Rate 159 H 165 H 155 H Respiratory Rate 30 H 21 Blood Pressure 107/69 107/69 Pulse Oximetry 94 L 98 08/27/17 03:34 08/27/17 03:55 08/27/17 04:00 Temperature 98.1 F 98.3 F 98.3 F Pulse Rate 155 H 153 H 153 H Respiratory Rate 33 H 30 H 25 H Blood Pressure 110/76 108/82 108/92 H Pulse Oximetry 98 100 08/27/17 06:00 08/27/17 07:29 Temperature Pulse Rate 122 H Respiratory Rate Blood Pressure Pulse Oximetry 94 L Intake & Output 08/26/17 08/27/17 08/27/17 18:59 06:59 18:59 Intake Total 240 / 240 900 / 900 Output Total 1700 / 1700 Balance 240 / 240 -800 / -800 Weight 105.6 kg Intake: IV 500 / 500 Alburx 5% Inj 500 ML @ 250 mls/ 500 / 500 hr IV.SIG ONCE ONE Rx#:[id number] Oral 240 / 240 Intake (Blood Product) Amt 400 / 400 Rbc As-3 Leukoreduced Unit 400 / 400 [id number] Output: Pleural Fluid 1400 / 1400 Urine Amount (Catheter) 300 / 300 Indwelling Urethral Catheter 300 / 300 Other: # Voids 2 Date of Last Bowel Movement 08/24/17 08/24/17 # Bowel Movements 0 Result Diagrams: 08/27/17 11:08 08/27/17 11:08 Objective Remarks: GENERAL: Patient is 66yo lying in bed in no acute resp distress SKIN: Warm and dry. HEAD: Normocephalic. EYES: No scleral icterus. No injection or drainage. NECK: Supple, trachea midline. No JVD or lymphadenopathy. CARDIOVASCULAR: Tachycardic without murmurs, gallops, or rubs. RESPIRATORY: Breath sounds equal bilaterally. No accessory muscle use. GASTROINTESTINAL: Abdomen soft, non-tender, nondistended. MUSCULOSKELETAL: No cyanosis, or edema. Neuro: Lethargic Assessment and Plan - Assessment and Plan Plan: 1)Respiratory failure 2)Right-sided pleural effusion 3)Small right apical pneumothorax post thoracentesis 4)Atrial fibrillation 5)Anemia 6)Hypertension 7)Dyslipidemia 8)Diabetes mellitus 9)Hypothyroidism 10)Depressions 11)UTI Plan Neuro: Monitor neuro status, avoid sedatives Check CT brain Pulm: Continue with oxygen keep sats >92% Bronchodilators, NIPPV PRN for resp distress s/p right sided thoracentesis with removal 1400ml. Exudative fluid by protein criteria Repeat CXR, give Diamox 250mg IV x1 CV: Continue with Lopressor 50mg BID, on ASA, Lipitor, Sotalol Monitor HR and BP keep MAP>65mmHg Check echo to eval LV function : Monitor renal function, I/O's, electrolytes replacement per protocol Change Lasix 40mg daily ID:Place on empiric abx ( Rocephin)monitor for signs of infections ( Fever, WBC) Check sputum cx, strep pneumonia and Legionella urinary Ag. Follow up on blood and fluid cxs. GI:On Pepcid for GI prophylaxis Heme: Monitor CBC Endo: SSI for glycemic control DVT GI prophylaxis -Teds SCDs -Pepcid Doppler US negative for DVT Level 3
--- NOTE | 2017-08-27 10:15 | XR ---
EXAM DATE: 08/27/2017 10:02 AM EDT AGE/SEX: 66 years / Female INDICATIONS: Shortness of breath, follow up pneumothorax. CLINICAL DATA: This is the patient's subsequent encounter. Patient reports that signs and symptoms h ave been present for 2 days and indicates a pain score of Nonresponsive. MEDICAL/SURGICAL HISTORY: Non-responsive. Non-responsive. COMPARISON: C, CHEST 1V SINGLE AP, 08/27/2017. . FINDINGS: Today's study is compared to the prior exam. There continues to be a right-sided pneumothorax with ap proximately 1.2 cm of separation. This is slightly improved compared to the prior exam. Otherwise, no other new or significant changes are demonstrated. There continues to be some opacification the righ t lower lung. The left lung is stable. The heart size is stable. CONCLUSION: There continues to be a right-sided pneumothorax with approximately 1.2 cm separation at the apex. Electronically signed by: Polo Pope MD 08/27/2017 10:14 AM EDT
[2017-08-27 11:32] LABS: Baso % (Auto) 0.6 % (0.0-2.0); Eos % (Auto) 0.2 % (0.0-4.0); Hematocrit 33.2 % (35.0-46.0); Hemoglobin 10.7 gm/dL (11.6-15.3); Lymph # (Auto) 1.1 th/mm3 (1.0-4.8); Lymph % (Auto) 19.4 % (9.0-44.0); Mean Corpuscular HGB Conc 32.1 % (32.0-36.0); Mean Corpuscular Hemoglobin 27.4 pg (27.0-34.0); Mean Corpuscular Volume 85.3 fL (80.0-100.0); Mean Platelet Volume 10.5 fL (7.0-11.0); Mono # (Auto) 0.6 th/mm3 (0.0-0.9); Neut % (Auto) 68.8 % (16.0-70.0); Platelet Count 159 th/mm3 (150-450); Red Cell Distribution Width 17.2 % (11.6-17.2); White Blood Count 5.9 th/mm3 (4.0-11.0)
[2017-08-27 12:13] LABS: Alanine Aminotransferase 33 U/L (10-53); Albumin 3.4 g/dL (3.4-5.0); Alkaline Phosphatase 71 U/L (45-117); Anion Gap 11 meq/L (5-15); Aspartate Aminotransferase 54 U/L (15-37); Blood Urea Nitrogen 13 mg/dL (7-18); Calcium 9.4 mg/dL (8.5-10.1); Chloride 90 meq/L (98-107); Glomerular Filtration Rate 47 mL/min (>89); Glucose,Random 176 mg/dL (74-106); Magnesium 1.5 mg/dL (1.5-2.5); Phosphorus 4.6 mg/dL (2.5-4.9); Potassium 3.6 meq/L (3.5-5.1); Sodium 138 meq/L (136-145)
--- NOTE | 2017-08-27 13:29 | P.PNGI ---
Subjective Interval history: Pt resting in bed, at bedside. According to RN and pt has been intermittently confused. Able to answer my questions appropriately. S/P thoracentesis last night, pt reports relief in shortness of breath. No GI complaints at this time. Physical Exam Vital signs: Vital Signs 08/26/17 16:00 08/26/17 17:47 08/26/17 20:00 Temperature 98.1 F 97.8 F Pulse Rate 97 H 184 H Respiratory Rate 18 18 Blood Pressure 129/61 106/62 Pulse Oximetry 100 97 98 08/26/17 22:00 08/27/17 00:00 08/27/17 02:00 Temperature 98.2 F 98.1 F Pulse Rate 176 H 155 H 159 H Respiratory Rate 20 35 H 30 H Blood Pressure 114/61 131/76 107/69 Pulse Oximetry 99 94 L 94 L 08/27/17 02:49 08/27/17 02:58 08/27/17 03:34 Temperature 98.2 F 98.1 F Pulse Rate 165 H 155 H 155 H Respiratory Rate 21 33 H Blood Pressure 107/69 110/76 Pulse Oximetry 98 08/27/17 03:55 08/27/17 04:00 08/27/17 06:00 Temperature 98.3 F 98.3 F Pulse Rate 153 H 153 H 122 H Respiratory Rate 30 H 25 H Blood Pressure 108/82 108/92 H Pulse Oximetry 98 100 08/27/17 07:29 08/27/17 12:22 Temperature Pulse Rate 73 Respiratory Rate 16 Blood Pressure Pulse Oximetry 94 L Intake & Output 08/26/17 08/27/17 08/27/17 18:59 06:59 18:59 Intake Total 240 / 240 900 / 900 Output Total 1700 / 1700 Balance 240 / 240 -800 / -800 Weight 105.6 kg Intake: IV 500 / 500 Alburx 5% Inj 500 ML @ 250 mls/ 500 / 500 hr IV.SIG ONCE ONE Rx#:[id number] Oral 240 / 240 Intake (Blood Product) Amt 400 / 400 Rbc As-3 Leukoreduced Unit 400 / 400 [id number] Output: Pleural Fluid 1400 / 1400 Urine Amount (Catheter) 300 / 300 Indwelling Urethral Catheter 300 / 300 Other: # Voids 2 Date of Last Bowel Movement 08/24/17 08/24/17 # Bowel Movements 0 - Constitutional no acute distress - Routine HEENT Exam Head: Present: normocephalic, atraumatic - Routine Respiratory Exam Present: decreased breath sounds - Routine Cardiovascular Exam Present: irregularly irregular - Routine Abdominal Exam Present: soft, normoactive bowel sounds. Absent: tenderness, distended, rebound , guarding - Routine Skin Exam Present: dry, warm - Routine Neurological Exam Present: alert, oriented X3 - Urinary Catheter Management Indwelling Urethral Catheter Cath placed during this visit: yes Reason for continuing: Acute urinary retention Insertion date: 08/27/17 Insertion time: 00:30 Results - Labs CBC & Chem 7: 08/27/17 11:08 08/27/17 11:08 Laboratory Results - last 24 hr 08/25/17 08/26/17 08/26/17 11:10 17:02 20:24 WBC RBC Hgb Hct MCV MCH MCHC RDW Plt Count MPV Prelim Diff (Auto) Neut % (Auto) Lymph % (Auto) Mason % (Auto) Eos % (Auto) Baso % (Auto) Neut # (Auto) Lymph # (Auto) Mason # (Auto) Eos # (Auto) Baso # (Auto) WBC Differential Differential Comment PT INR APTT D-Dimer Quant (PE/DVT) Puncture Site Patient Temperature O2 Saturation ABG pH ABG pCO2 ABG pO2 ABG HCO3 ABG O2 Content ABG Base Excess ABG Methemoglobin Saran Test Hemoglobin Carboxyhemoglobin O2 Delivery Device Liter Flow Inspired O2 Critical Value Sodium Potassium Chloride Carbon Dioxide Anion Gap BUN Creatinine Estimated GFR POC Glucose 205 H 177 H Random Glucose Lactic Acid Calcium Prot Corrected Calcium Phosphorus Magnesium Total Bilirubin AST ALT Alkaline Phosphatase Ammonia Troponin I Total Protein Albumin Pleural pH Pleural RBC Pleural Nuc Cells Pleural Neutrophils Pleural Lymphocytes Pleural Monocytes Pleural Plasma Cells Pleural Histocytes Pleural Total Protein Pleural LDH Pleural Glucose Pleural Amylase Nasal Screen MRSA (PCR) Blood Type Confirm O Negative MTS Gel Crossmatch Bld Prod Order Comment 08/26/17 08/27/17 08/27/17 23:31 00:00 00:00 WBC RBC Hgb Hct MCV MCH MCHC RDW Plt Count MPV Prelim Diff (Auto) Neut % (Auto) Lymph % (Auto) Mason % (Auto) Eos % (Auto) Baso % (Auto) Neut # (Auto) Lymph # (Auto) Mason # (Auto) Eos # (Auto) Baso # (Auto) WBC Differential Differential Comment PT Cancelled INR Cancelled APTT Cancelled D-Dimer Quant (PE/DVT) Cancelled Puncture Site Patient Temperature O2 Saturation ABG pH ABG pCO2 ABG pO2 ABG HCO3 ABG O2 Content ABG Base Excess ABG Methemoglobin Saran Test Hemoglobin Carboxyhemoglobin O2 Delivery Device Liter Flow Inspired O2 Critical Value Sodium Potassium Chloride Carbon Dioxide Anion Gap BUN Creatinine Estimated GFR POC Glucose 221 H Random Glucose Lactic Acid 2.4 H Calcium Prot Corrected Calcium Phosphorus Magnesium Total Bilirubin AST ALT Alkaline Phosphatase Ammonia Troponin I Total Protein Albumin Pleural pH Pleural RBC Pleural Nuc Cells Pleural Neutrophils Pleural Lymphocytes Pleural Monocytes Pleural Plasma Cells Pleural Histocytes Pleural Total Protein Pleural LDH Pleural Glucose Pleural Amylase Nasal Screen MRSA (PCR) Blood Type Confirm MTS Gel Crossmatch Bld Prod Order Comment 08/27/17 08/27/17 08/27/17 00:00 00:00 00:56 WBC 4.3 RBC 2.33 L Hgb 6.4 L* D Hct 20.6 L* MCV 88.6 MCH 27.5 MCHC 31.0 L RDW 17.1 Plt Count 131 L MPV 10.4 Prelim Diff (Auto) [employer] Neut % (Auto) 59.7 Lymph % (Auto) 27.5 Mason % (Auto) 11.0 H Eos % (Auto) 1.4 Baso % (Auto) 0.4 Neut # (Auto) 2.5 Lymph # (Auto) 1.2 Mason # (Auto) 0.5 Eos # (Auto) 0.1 Baso # (Auto) 0.0 WBC Differential . Differential Comment Auto diff final PT INR APTT D-Dimer Quant (PE/DVT) Puncture Site Patient Temperature O2 Saturation ABG pH ABG pCO2 ABG pO2 ABG HCO3 ABG O2 Content ABG Base Excess ABG Methemoglobin Saran Test Hemoglobin Carboxyhemoglobin O2 Delivery Device Liter Flow Inspired O2 Critical Value Sodium 143 Potassium 3.2 L Chloride 104 D Carbon Dioxide 30.1 Anion Gap 9 BUN 9 Creatinine 0.80 Estimated GFR 72 L POC Glucose Random Glucose 163 H Lactic Acid Calcium 6.5 L* D Prot Corrected Calcium 7.3 L* Phosphorus Magnesium Total Bilirubin AST ALT Alkaline Phosphatase Ammonia Troponin I 0.03 Total Protein 5.4 L D Albumin Pleural pH Pleural RBC Pleural Nuc Cells Pleural Neutrophils Pleural Lymphocytes Pleural Monocytes Pleural Plasma Cells Pleural Histocytes Pleural Total Protein Pleural LDH Pleural Glucose Pleural Amylase Nasal Screen MRSA (PCR) Blood Type Confirm MTS Gel Crossmatch See Detail Bld Prod Order Comment 08/27/17 08/27/17 08/27/17 01:00 01:00 01:00 WBC RBC Hgb Hct MCV MCH MCHC RDW Plt Count MPV Prelim Diff (Auto) Neut % (Auto) Lymph % (Auto) Mason % (Auto) Eos % (Auto) Baso % (Auto) Neut # (Auto) Lymph # (Auto) Mason # (Auto) Eos # (Auto) Baso # (Auto) WBC Differential Differential Comment PT INR APTT D-Dimer Quant (PE/DVT) Puncture Site Patient Temperature O2 Saturation ABG pH ABG pCO2 ABG pO2 ABG HCO3 ABG O2 Content ABG Base Excess ABG Methemoglobin Saran Test Hemoglobin Carboxyhemoglobin O2 Delivery Device Liter Flow Inspired O2 Critical Value Sodium Potassium Chloride Carbon Dioxide Anion Gap BUN Creatinine Estimated GFR POC Glucose Random Glucose Lactic Acid Calcium Prot Corrected Calcium Phosphorus Magnesium Total Bilirubin AST ALT Alkaline Phosphatase Ammonia Troponin I Total Protein Albumin Pleural pH 8.5 Pleural RBC 783 H Pleural Nuc Cells 546 H Pleural Neutrophils 2 Pleural Lymphocytes 86 Pleural Monocytes 4 Pleural Plasma Cells 1 Pleural Histocytes 7 Pleural Total Protein 4.1 Pleural LDH 200 Pleural Glucose 181 Pleural Amylase Cancelled Nasal Screen MRSA (PCR) Not detected Blood Type Confirm MTS Gel Crossmatch Bld Prod Order Comment 08/27/17 08/27/17 08/27/17 01:43 03:25 03:25 WBC 6.1 RBC 3.78 L Hgb 10.4 L D Hct 32.6 L MCV 86.2 MCH 27.5 MCHC 31.9 L RDW 17.7 H Plt Count 177 D MPV 10.6 Prelim Diff (Auto) Neut % (Auto) 72.2 H Lymph % (Auto) 17.9 Mason % (Auto) 9.0 H Eos % (Auto) 0.5 Baso % (Auto) 0.4 Neut # (Auto) 4.4 Lymph # (Auto) 1.1 Mason # (Auto) 0.6 Eos # (Auto) 0.0 Baso # (Auto) 0.0 WBC Differential . Differential Comment Auto diff final PT INR APTT D-Dimer Quant (PE/DVT) Puncture Site Patient Temperature O2 Saturation ABG pH ABG pCO2 ABG pO2 ABG HCO3 ABG O2 Content ABG Base Excess ABG Methemoglobin Saran Test Hemoglobin Carboxyhemoglobin O2 Delivery Device Liter Flow Inspired O2 Critical Value Sodium 136 Potassium 3.6 Chloride 91 L D Carbon Dioxide 38.0 H Anion Gap 7 BUN 12 Creatinine 1.25 H Estimated GFR 43 L POC Glucose Random Glucose 218 H Lactic Acid Calcium 8.8 D Prot Corrected Calcium Phosphorus Magnesium Total Bilirubin AST ALT Alkaline Phosphatase Ammonia Troponin I Total Protein Albumin Pleural pH Pleural RBC Pleural Nuc Cells Pleural Neutrophils Pleural Lymphocytes Pleural Monocytes Pleural Plasma Cells Pleural Histocytes Pleural Total Protein Pleural LDH Pleural Glucose Pleural Amylase Nasal Screen MRSA (PCR) Blood Type Confirm O Negative MTS Gel Crossmatch Bld Prod Order Comment 08/27/17 08/27/17 08/27/17 03:25 07:00 08:49 WBC RBC Hgb Hct MCV MCH MCHC RDW Plt Count MPV Prelim Diff (Auto) Neut % (Auto) Lymph % (Auto) Mason % (Auto) Eos % (Auto) Baso % (Auto) Neut # (Auto) Lymph # (Auto) Mason # (Auto) Eos # (Auto) Baso # (Auto) WBC Differential Differential Comment PT INR APTT D-Dimer Quant (PE/DVT) Puncture Site Left radial Patient Temperature 98.6 O2 Saturation 95 ABG pH 7.36 L ABG pCO2 69 H* ABG pO2 106 ABG HCO3 38 H ABG O2 Content 14.6 ABG Base Excess 12.5 H ABG Methemoglobin 1.3 Saran Test Y Hemoglobin 10.8 L Carboxyhemoglobin 0.9 O2 Delivery Device Nasal cannula Liter Flow 3.00 Inspired O2 21 Critical Value Yes Sodium Potassium Chloride Carbon Dioxide Anion Gap BUN Creatinine Estimated GFR POC Glucose 167 H Random Glucose Lactic Acid 1.9 Calcium Prot Corrected Calcium Phosphorus Magnesium Total Bilirubin AST ALT Alkaline Phosphatase Ammonia Troponin I Total Protein Albumin Pleural pH Pleural RBC Pleural Nuc Cells Pleural Neutrophils Pleural Lymphocytes Pleural Monocytes Pleural Plasma Cells Pleural Histocytes Pleural Total Protein Pleural LDH Pleural Glucose Pleural Amylase Nasal Screen MRSA (PCR) Blood Type Confirm MTS Gel Crossmatch Bld Prod Order Comment 08/27/17 08/27/17 08/27/17 11:08 11:08 11:08 WBC 5.9 RBC 3.90 L Hgb 10.7 L Hct 33.2 L MCV 85.3 MCH 27.4 MCHC 32.1 RDW 17.2 Plt Count 159 MPV 10.5 Prelim Diff (Auto) Neut % (Auto) 68.8 Lymph % (Auto) 19.4 Mason % (Auto) 11.0 H Eos % (Auto) 0.2 Baso % (Auto) 0.6 Neut # (Auto) 4.0 Lymph # (Auto) 1.1 Mason # (Auto) 0.6 Eos # (Auto) 0.0 Baso # (Auto) 0.0 WBC Differential . Differential Comment Auto diff final PT INR APTT D-Dimer Quant (PE/DVT) Puncture Site Patient Temperature O2 Saturation ABG pH ABG pCO2 ABG pO2 ABG HCO3 ABG O2 Content ABG Base Excess ABG Methemoglobin Saran Test Hemoglobin Carboxyhemoglobin O2 Delivery Device Liter Flow Inspired O2 Critical Value Sodium 138 Potassium 3.6 Chloride 90 L Carbon Dioxide 37.0 H Anion Gap 11 BUN 13 Creatinine 1.16 H Estimated GFR 47 L POC Glucose Random Glucose 176 H Lactic Acid Calcium 9.4 Prot Corrected Calcium Phosphorus 4.6 Magnesium 1.5 Total Bilirubin 0.6 AST 54 H ALT 33 Alkaline Phosphatase 71 Ammonia 13 Troponin I Total Protein 7.0 D Albumin 3.4 Pleural pH Pleural RBC Pleural Nuc Cells Pleural Neutrophils Pleural Lymphocytes Pleural Monocytes Pleural Plasma Cells Pleural Histocytes Pleural Total Protein Pleural LDH Pleural Glucose Pleural Amylase Nasal Screen MRSA (PCR) Blood Type Confirm MTS Gel Crossmatch Bld Prod Order Comment Microbiology 08/25/17 13:07 Catheterized Urine Urine Culture - Preliminary 08/27/17 01:00 Fluid - Pleural fluid Gram Stain - Final - Imaging Impressions Chest X-Ray 08/26/17 00:00 CONCLUSION: Large right pleural effusion, stable from prior. Chest X-Ray 08/27/17 00:54 CONCLUSION: No residual pleural effusion seen status post thoracentesis. Right-sided pneumothorax at the apex and lateral right chest measuring up to 1.8 cm. Chest X-Ray 08/27/17 06:00 CONCLUSION: 1. Slightly smaller right apical pneumothorax measuring 1.4 cm. 2. Increasing density in the lower right chest suggesting reaccumulation of pleural fluid. 3. Stable parenchymal opacity/infiltrate in the mid right lung. Head CT 08/27/17 10:52 CONCLUSION: 1. No acute intracranial abnormality. Chest X-Ray 08/27/17 12:00 CONCLUSION: There continues to be a right-sided pneumothorax with approximately 1.2 cm separation at the apex. Venous Doppler Study 08/27/17 23:57 CONCLUSION: 1. The study is negative for bilateral lower extremity deep venous thrombosis. Assessment and Plan - Plan Assessment: - Anemia-Planned to have an outpatient EGD and colonoscopy for work up for anemia done earlier today. However, pt was noted to be short of breath preop and therefore procedure were cancelled and pt was sent to the ER for further work up. Pt denies any GI symptoms at this time except feeling hungry. At this time our service will hold off on EGD and colonoscopy until pts respiratory status has stabilized. - SOB since May when she was admitted to [facility] with pneumonia. CT chest in ER today revealed large right effusion with compressive atelectasis of the right lung. No discrete underlying mass is identified. (08/27) Pt S/P thoracentesis last night with improvement in shortness of breath. Remains on nasal cannula. Repeat chest x-ray shows continued pneumothorax. H/H stable. Plan: GI work up on hold until respiratory status stabilizes Our service will sign off, please reconsult when stable Pt has been seen and examined by myself and Dr. Hunt and this note is written on her behalf
[2017-08-27] MEDS: Polysaccharide Iron Complex 150 MG Capsule PO SCH ×2 (14:50→21:37)
[2017-08-27] MEDS: Insulin NovoLIN Regular Correctional Sugar Inj SQ SCH ×2 (14:51→18:22)
--- NOTE | 2017-08-27 18:03 | ECHRPT ---
Indication: Heart failure, unspecified CONCLUSIONS Wall thickness is measured at the upper limits of normal. Normal left ventricular size and ejection fraction. The right ventricular size is normal. The aortic root and proximal ascending aorta are not well visualized. Severe mitral annular calcification. Trivial to mild mitral valve regurgitation. Mitral valve mean gradient is 5 mmHg suggesting mild stenosis . Aortic valve sclerosis is present. Aortic valve area is 1.5 cm. Aortic valve mean gradient is 12 mmHg. No aortic valve regurgitation. No tricuspid regurgitation. BP: / HR: Rhythm: MEASUREMENTS (Male / Female) Normal Values Technical Quality:Technically difficult study 2D ECHO LV Diastolic Diameter PLAX 4.0 cm 4.2 - 5.9 / 3.9 - 5.3 cm LV Systolic Diameter PLAX 2.8 cm IVS Diastolic Thickness 1.2 cm 0.6 - 1.0 / 0.6 - 0.9 cm LVPW Diastolic Thickness 1.4 cm 0.6 - 1.0 / 0.6 - 0.9 cm LV Relative Wall Thickness 0.7 RV Internal Dim ED PLAX 2.6 cm LVOT Diameter 1.8 cm M-MODE Aortic Root Diameter MM 2.8 cm LA Systolic Diameter MM 4.1 cm LA Ao Ratio MM 1.5 AV Cusp Separation MM 1.4 cm DOPPLER AV Peak Velocity 244.0 cm/s AV Peak Gradient 23.8 mmHg AV Mean Gradient 12.0 mmHg AV Velocity Time Integral 45.7 cm LVOT Peak Velocity 101.0 cm/s LVOT Peak Gradient 4.1 mmHg LVOT Velocity Time Integral 27.6 cm AV Area Cont Eq vti 1.5 cm AV Area Cont Eq pk 1.1 cm MV Peak Velocity 187.0 cm/s MV Peak Gradient 14.0 mmHg MV Mean Velocity 91.4 cm/s MV Mean Gradient 5.0 mmHg Mitral E Point Velocity 83.4 cm/s Mitral A Point Velocity 29.1 cm/s Mitral E to A Ratio 2.9 FINDINGS LEFT VENTRICLE The left ventricular systolic function is normal with an estimated ejection fraction in the range of 60-65%. Wall thickness is measured at the upper limits of normal. Normal left ventricular size. RIGHT VENTRICLE The right ventricular size is normal. LEFT ATRIUM The left atrial size is normal. RIGHT ATRIUM The right atrial size is normal. ATRIAL SEPTUM Normal atrial septal thickness without atrial level shunting by limited color doppler interrogation. AORTA The aortic root and proximal ascending aorta are not well visualized. MITRAL VALVE Severe mitral annular calcification. Trivial to mild mitral valve regurgitation. Mitral valve mean gradient is 5 mmHg suggesting mild stenosis . AORTIC VALVE Aortic valve sclerosis is present. Aortic valve area is 1.5 cm. Aortic valve mean gradient is 12 mmHg. No aortic valve regurgitation. TRICUSPID VALVE Structurally normal tricuspid valve. No tricuspid regurgitation. PULMONARY VALVE No pulmonary valve regurgitation or stenosis. VESSELS The inferior vena cava is normal in size. PERICARDIUM No pericardial effusion. Shahid Hooper MD (Electronically Signed) Final Date:27 August 2017 18:02
--- NOTE | 2017-08-27 18:33 | XR ---
EXAM DATE: 08/27/2017 6:12 PM EDT AGE/SEX: 66 years / Female INDICATIONS: Right apical pneumothorax CLINICAL DATA: This is the patient's subsequent encounter. Patient reports that signs and symptoms h ave been present for 3 days and indicates a pain score of 0/10. MEDICAL/SURGICAL HISTORY: . Asthma. A-FIB None. COMPARISON: C, CHEST 1V SINGLE AP, 08/27/2017. . FINDINGS: Right hydropneumothorax is grossly unchanged. Left lung is stable. Cardiac contours are stable. CONCLUSION: Stable right hydropneumothorax Electronically signed by: Gabriel Fernández MD 08/27/2017 6:32 PM EDT
--- NOTE | 2017-08-27 19:41 | ECG ---
Date Performed: 08/26/2017 Time Performed: 23:06:42 PTAGE: 66 years EKG: Probable supraventricular tachycardia. Possible anteroseptal infarct - age undetermined Inf erior/lateral T wave changes are nonspecific Low QRS voltages in precordial leads Abnormal ECG PREVIOUS TRACING : 08/25/2017 08.54 Since the prior tracing,the superventricular tachycardia of uncertain mechanism is new. The minimal nonspecific ST-T wave changes are new. Rythm strip may be us eful in further defing the arrhythmia. Clinical correlation is recommended DOCTOR: Candi Briscoe Interpretating Date/Time 08/27/2017 19:39:58
[2017-08-27] MEDS ORDERED: Metoprolol Inj 5 MG/5 ML Vial IV.PUSH PRN (22:12)
[2017-08-28] MEDS: Insulin NovoLIN Regular Correctional Sugar Inj SQ SCH ×3 (00:49→12:27)
[2017-08-28] MEDS: Levothyroxine 100 MCG Tablet PO SCH (06:34)
[2017-08-28] MEDS: Chlorhexidine Gluconate 2% 1 Pack (2 Cloths) TOPICAL SCH (06:35)
[2017-08-28 07:00] LABS: Baso % (Auto) 0.3 % (0.0-2.0); Eos # (Auto) 0.1 th/mm3 (0.0-0.4); Eos % (Auto) 1.8 % (0.0-4.0); Hematocrit 35.1 % (35.0-46.0); Hemoglobin 11.2 gm/dL (11.6-15.3); Lymph # (Auto) 1.2 th/mm3 (1.0-4.8); Lymph % (Auto) 18.7 % (9.0-44.0); Mean Corpuscular HGB Conc 31.9 % (32.0-36.0); Mean Corpuscular Hemoglobin 27.6 pg (27.0-34.0); Mean Corpuscular Volume 86.5 fL (80.0-100.0); Mean Platelet Volume 10.8 fL (7.0-11.0); Mono # (Auto) 0.8 th/mm3 (0.0-0.9); Mono % (Auto) 12.7 % (0.0-8.0); Neut # (Auto) 4.3 th/mm3 (1.8-7.7); Neut % (Auto) 66.5 % (16.0-70.0); Platelet Count 148 th/mm3 (150-450); Red Blood Count 4.06 mil/mm3 (4.00-5.30); Red Cell Distribution Width 17.1 % (11.6-17.2); White Blood Count 6.4 th/mm3 (4.0-11.0)
[2017-08-28 07:15] LABS: Albumin 3.2 g/dL (3.4-5.0); Anion Gap 8 meq/L (5-15); Aspartate Aminotransferase 117 U/L (15-37); Blood Urea Nitrogen 12 mg/dL (7-18); Calcium 8.7 mg/dL (8.5-10.1); Carbon Dioxide 37.8 meq/L (21.0-32.0); Chloride 92 meq/L (98-107); Glomerular Filtration Rate 53 mL/min (>89); Glucose,Random 114 mg/dL (74-106); Sodium 138 meq/L (136-145)
[2017-08-28 07:18] LABS: Alanine Aminotransferase 72 U/L (10-53); Alkaline Phosphatase 74 U/L (45-117); Total Protein 6.9 g/dL (6.4-8.2)
--- NOTE | 2017-08-28 07:27 | US ---
EXAM DATE: 08/27/2017 11:53 AM EDT AGE/SEX: 66 years / Female INDICATIONS: Right pleural effusion. CLINICAL DATA: This is the patient's initial encounter. Patient reports that signs and symptoms have been present for 2 days and indicates a pain score of 0/10. MEDICAL/SURGICAL HISTORY: Hypercholesterolemia. Carcinoma, breast. Hypothyroidism. Anemia. A Fib. Diabetes. Recurrent pneumonia. HTN. Renal disease. section. Hemorrhoidectomy. Recons truction of right breast. Chemotherapy. Radiation therapy. Thoracentesis. [place] [facility] [place]. . MEASUREMENTS: Skin To Parietal Pleura:__Inadequate fluid cm Skin To Max Safe Depth:__Inadequate fluid cm Estimated Fluid Volume:__40 cc Fluid Composition:__simple FINDINGS: No marking was performed. CONCLUSION: 1. Minimal right pleural effusion 2. Insufficient fluid for thoracentesis. Electronically signed by: Simone Barrios MD 08/28/2017 7:26 AM EDT
[2017-08-28] MEDS: Potassium Chlor 20 mEq Premix 20 MEQ/100 ML PIGGYBACK IV.SIG PRN ×4 (08:06→18:49)
[2017-08-28] MEDS: Duloxetine 60 MG DR Capsule PO SCH (08:07)
[2017-08-28] MEDS: Polysaccharide Iron Complex 150 MG Capsule PO SCH ×2 (08:08→21:53)
[2017-08-28] MEDS: Gabapentin 300 MG Capsule PO SCH (08:08)
[2017-08-28] MEDS: Metoprolol Tartrate 50 MG Tablet PO SCH ×2 (08:08→21:53)
--- NOTE | 2017-08-28 10:44 | XR ---
EXAM DATE: 08/28/2017 10:41 AM EDT AGE/SEX: 66 years / Female INDICATIONS: Right hydro pneumothorax. CLINICAL DATA: This is the patient's subsequent encounter. Patient reports that signs and symptoms h ave been present for 3 days and indicates a pain score of 2/10. MEDICAL/SURGICAL HISTORY: . Asthma. A-FIB None. [place] [facility] [place]. . FINDINGS: There continues to be a right-sided pneumothorax. There is approximately 1.3 cm separation at the ape x. This is not significantly changed compared to the prior study. There continues to be parenchymal c onsolidation and effusion in the right lower hemithorax. The left lung remains grossly clear. The hea rt size is enlarged but stable. The bony structures are stable. CONCLUSION: No significant interval change compared to the prior examination. Stable appearing right pneumothorax with approximately 1.3 cm of separation at the apex. Electronically signed by: Polo Pope MD 08/28/2017 10:42 AM EDT
--- NOTE | 2017-08-28 11:06 | P.PNCC ---
Subjective Subjective Remarks/Hospital Course: 66-year-old female with history of congestive heart failure, CKD, atrial fibrillation, diabetes mellitus, hypertension admitted for an evaluation of shortness of breath. She was supposed to undergo her endoscopy and colonoscopy with Dr. Hunt to complete her workup for anemia however during the preop evaluation, she first found to have shortness of breath and she was sent to the emergency department. She complains of shortness of breath and that she had bilateral lower leg swelling. In retrospect, she has been having progressive shortness of breath since about 3 months ago, associated with bilateral leg swelling, cough productive with clear sputum. She denies any chest pain, she has some orthopnea. She was initially treated at [facility] for pneumonia and possible CHF. Outpatient sleep study was done which ruled out sleep apnea. She denies any chest pain. In the emergency department the chest x-ray shows large right-sided pleural effusion that was confirmed by CT of the chest. She was initially admitted to medicine with telemetry however rapid response was team called today due to tachycardia at 160s-170s presently. The right-sided thoracentesis was performed urgently shortly after arrival to unit with some 08/27 Patient is lethargic on 2L oxygen s/p right sided thoracentesis by Dr. Porras with removal 1400ml CXR this morning showed small right apical PTX 1.4 cm and increase density RLL 08/28 Patient is more awake and alert on 1L oxygen, afebrile. Objective Vital Signs / I&O: Vital Signs 08/27/17 12:00 08/27/17 12:22 08/27/17 15:48 Temperature 98.9 F Pulse Rate 74 73 75 Respiratory Rate 28 H 16 15 Blood Pressure 152/70 H Pulse Oximetry 08/27/17 16:00 08/27/17 18:00 08/27/17 19:33 Temperature 99.4 F Pulse Rate 77 75 86 Respiratory Rate 20 Blood Pressure 152/70 H Pulse Oximetry 08/27/17 19:39 08/27/17 20:00 08/27/17 22:00 Temperature 99.2 F Pulse Rate 80 75 Respiratory Rate 34 H Blood Pressure 120/56 L Pulse Oximetry 97 95 08/27/17 23:28 08/27/17 23:52 08/28/17 00:00 Temperature Pulse Rate 75 75 77 Respiratory Rate 24 22 36 H Blood Pressure 128/60 Pulse Oximetry 96 98 08/28/17 01:00 08/28/17 02:00 08/28/17 02:01 Temperature Pulse Rate 112 H 75 75 Respiratory Rate 21 32 H 28 H Blood Pressure 120/64 131/68 Pulse Oximetry 97 97 98 08/28/17 03:00 08/28/17 03:55 08/28/17 04:00 Temperature 98.6 F Pulse Rate 111 H 103 H 112 H Respiratory Rate 20 20 20 Blood Pressure 109/58 L 116/61 Pulse Oximetry 95 96 08/28/17 05:00 08/28/17 06:00 08/28/17 07:00 Temperature Pulse Rate 116 H 113 H 75 Respiratory Rate 27 H 26 H 30 H Blood Pressure 114/76 120/78 119/62 Pulse Oximetry 98 99 99 08/28/17 07:47 08/28/17 07:48 Temperature Pulse Rate 107 H Respiratory Rate 20 Blood Pressure Pulse Oximetry 96 Intake & Output 08/27/17 08/28/17 08/28/17 18:59 06:59 18:59 Intake Total 740 / 740 20 / 20 100 / 100 Output Total 1350 / 1350 1250 / 1250 Balance -610 / -610 -1230 / -1230 100 / 100 Weight 103.3 kg Intake: IV 100 / 100 100 / 100 KCl 20 mEq Premix Inj 20 meq In 100 / 100 100 ml @ 50 mls/hr IV.SIG Q2H PRN Rx#:[id number] Rocephin Inj 1,000 MG In NS Inj 100 / 100 100 ML @ 200 mls/hr IV.SIG Q24H LOLY Rx#:[id number] Oral 640 / 640 20 / 20 Output: Urine 1350 / 1350 Urine Amount (Catheter) 1250 / 1250 Indwelling Urethral Catheter 1250 / 1250 Result Diagrams: 08/28/17 06:15 08/28/17 06:15 Objective Remarks: GENERAL: Patient is 66yo lying in bed in no acute resp distress SKIN: Warm and dry. HEAD: Normocephalic. EYES: No scleral icterus. No injection or drainage. NECK: Supple, trachea midline. No JVD or lymphadenopathy. CARDIOVASCULAR: Tachycardic without murmurs, gallops, or rubs. RESPIRATORY: Breath sounds equal bilaterally. No accessory muscle use. GASTROINTESTINAL: Abdomen soft, non-tender, nondistended. MUSCULOSKELETAL: No cyanosis, or edema. Neuro: Lethargic Assessment and Plan - Assessment and Plan Plan: 1)Respiratory failure 2)Right-sided pleural effusion 3)Small right apical pneumothorax post thoracentesis 4)Atrial fibrillation 5)Anemia 6)Hypertension 7)Dyslipidemia 8)Diabetes mellitus 9)Hypothyroidism 10)Depressions 11)UTI 12) Elevated LFT Plan Neuro: Monitor neuro status, avoid sedatives CT brain- no acute findings Pulm: Continue with oxygen keep sats >92% Bronchodilators, NIPPV PRN for resp distress s/p right sided thoracentesis with removal 1400ml. Exudative fluid by protein criteria Give Diamox 500mg IV x1 CXR this morning showed persistent right sided PTX measuring 1.3 cm and pleural effusion Discussed with IR will proceed with pig tail catheter placement CV: Continue with Lopressor 50mg BID, on ASA, Lipitor, Sotalol Monitor HR and BP keep MAP>65mmHg For 2D echo to eval LV function : Monitor renal function, I/O's, electrolytes replacement per protocol d/c Lasix ID: on empiric abx (Rocephin)monitor for signs of infections ( Fever, WBC) strep pneumonia and Legionella urinary Ag negative. Urine cx: E .coli on 08/25 Follow up on blood and fluid cxs. GI:On Pepcid for GI prophylaxis Monitor LFT's, check US liver and Hepatits profile. Monitor LFT's Heme: Monitor CBC Endo: SSI for glycemic control DVT GI prophylaxis -Teds SCDs -Pepcid Doppler US negative for DVT Will sign off and transfer care to [facility] Level 2
[2017-08-28 13:28] LABS: Hepatitits B Surface Antigen Nonreactive (Nonreactive)
[2017-08-28 14:01] LABS: Hepatitis A IgM Antibody Nonreactive (Nonreactive)
--- NOTE | 2017-08-28 14:02 | P.PNGI ---
Subjective Interval history: Patient is awake answering simple questions Denies any nausea vomiting diarrhea the patient No abdominal pain Obese Sinus rhythm heart rate 70s Physical Exam Vital signs: Vital Signs 08/27/17 15:48 08/27/17 16:00 08/27/17 18:00 Temperature 99.4 F Pulse Rate 75 77 75 Respiratory Rate 15 Blood Pressure 152/70 H Pulse Oximetry 08/27/17 19:33 08/27/17 19:39 08/27/17 20:00 Temperature 99.2 F Pulse Rate 86 80 Respiratory Rate 20 34 H Blood Pressure 120/56 L Pulse Oximetry 97 95 08/27/17 22:00 08/27/17 23:28 08/27/17 23:52 Temperature Pulse Rate 75 75 75 Respiratory Rate 24 22 Blood Pressure Pulse Oximetry 96 08/28/17 00:00 08/28/17 01:00 08/28/17 02:00 Temperature Pulse Rate 77 112 H 75 Respiratory Rate 36 H 21 32 H Blood Pressure 128/60 120/64 Pulse Oximetry 98 97 97 08/28/17 02:01 08/28/17 03:00 08/28/17 03:55 Temperature Pulse Rate 75 111 H 103 H Respiratory Rate 28 H 20 20 Blood Pressure 131/68 109/58 L Pulse Oximetry 98 95 08/28/17 04:00 08/28/17 05:00 08/28/17 06:00 Temperature 98.6 F Pulse Rate 112 H 116 H 113 H Respiratory Rate 20 27 H 26 H Blood Pressure 116/61 114/76 120/78 Pulse Oximetry 96 98 99 08/28/17 07:00 08/28/17 07:47 08/28/17 07:48 Temperature Pulse Rate 75 107 H Respiratory Rate 30 H 20 Blood Pressure 119/62 Pulse Oximetry 99 96 08/28/17 08:00 08/28/17 10:00 08/28/17 11:19 Temperature 98.8 F Pulse Rate 115 H 73 71 Respiratory Rate 24 18 Blood Pressure 126/69 Pulse Oximetry Intake & Output 08/27/17 08/28/17 08/28/17 18:59 06:59 18:59 Intake Total 740 / 740 20 / 20 100 / 100 Output Total 1350 / 1350 1250 / 1250 Balance -610 / -610 -1230 / -1230 100 / 100 Weight 103.3 kg Intake: IV 100 / 100 100 / 100 KCl 20 mEq Premix Inj 20 meq In 100 / 100 100 ml @ 50 mls/hr IV.SIG Q2H PRN Rx#:[id number] Rocephin Inj 1,000 MG In NS Inj 100 / 100 100 ML @ 200 mls/hr IV.SIG Q24H LOLY Rx#:[id number] Oral 640 / 640 20 / 20 Output: Urine 1350 / 1350 Urine Amount (Catheter) 1250 / 1250 Indwelling Urethral Catheter 1250 / 1250 - Constitutional mild distress - Routine HEENT Exam Head: Present: normocephalic, atraumatic Eye: Present: EOMI ENT: Present: mucous membranes moist - Routine Neck Exam Present: supple - Routine Respiratory Exam Present: decreased breath sounds, respiratory distress (Mild to moderate) - Routine Cardiovascular Exam Present: RRR - Routine Abdominal Exam Present: soft (Round, soft bowel sounds) - Routine Skin Exam Present: intact (Pale) - Routine Neurological Exam Present: alert (Awake responds to simple questions) - Detailed Neurological Exam: Coma Scale Verbal Response: Words - Routine Psychiatric Exam Present: normal affect - Urinary Catheter Management Indwelling Urethral Catheter Cath placed during this visit: yes Reason for continuing: Acute urinary retention Insertion date: 08/27/17 Insertion time: 00:30 Results - Labs CBC & Chem 7: 08/28/17 06:15 08/28/17 06:15 Laboratory Results - last 24 hr 08/27/17 08/27/17 08/28/17 00:56 16:32 00:49 WBC RBC Hgb Hct MCV MCH MCHC RDW Plt Count MPV Neut % (Auto) Lymph % (Auto) Humphreys % (Auto) Eos % (Auto) Baso % (Auto) Neut # (Auto) Lymph # (Auto) Humphreys # (Auto) Eos # (Auto) Baso # (Auto) WBC Differential Differential Comment Sodium Potassium Chloride Carbon Dioxide Anion Gap BUN Creatinine Estimated GFR POC Glucose 121 H 128 H Random Glucose Calcium Total Bilirubin AST ALT Alkaline Phosphatase Total Protein Albumin Hep Bs Antigen MTS Gel Crossmatch See Detail 08/28/17 08/28/17 08/28/17 06:15 06:15 06:29 WBC 6.4 RBC 4.06 Hgb 11.2 L Hct 35.1 MCV 86.5 MCH 27.6 MCHC 31.9 L RDW 17.1 Plt Count 148 L MPV 10.8 Neut % (Auto) 66.5 Lymph % (Auto) 18.7 Humphreys % (Auto) 12.7 H Eos % (Auto) 1.8 Baso % (Auto) 0.3 Neut # (Auto) 4.3 Lymph # (Auto) 1.2 Humphreys # (Auto) 0.8 Eos # (Auto) 0.1 Baso # (Auto) 0.0 WBC Differential . Differential Comment Auto diff final Sodium 138 Potassium 3.0 L Chloride 92 L Carbon Dioxide 37.8 H Anion Gap 8 BUN 12 Creatinine 1.04 H Estimated GFR 53 L POC Glucose 110 Random Glucose 114 H Calcium 8.7 Total Bilirubin 0.5 AST 117 H ALT 72 H Alkaline Phosphatase 74 Total Protein 6.9 Albumin 3.2 L Hep Bs Antigen MTS Gel Crossmatch 08/28/17 08/28/17 08/28/17 07:44 11:47 11:53 WBC RBC Hgb Hct MCV MCH MCHC RDW Plt Count MPV Neut % (Auto) Lymph % (Auto) Humphreys % (Auto) Eos % (Auto) Baso % (Auto) Neut # (Auto) Lymph # (Auto) Humphreys # (Auto) Eos # (Auto) Baso # (Auto) WBC Differential Differential Comment Sodium Potassium Chloride Carbon Dioxide Anion Gap BUN Creatinine Estimated GFR POC Glucose 131 H 211 H Random Glucose Calcium Total Bilirubin AST ALT Alkaline Phosphatase Total Protein Albumin Hep Bs Antigen Nonreactive MTS Gel Crossmatch Microbiology 08/27/17 01:00 Fluid - Pleural fluid Gram Stain - Final 08/27/17 01:00 Fluid - Pleural fluid Body Fluid Culture - Preliminary No growth in 24 hours 08/27/17 02:40 Catheterized Urine Urine Culture - Preliminary No growth in 24 hours 08/25/17 13:07 Catheterized Urine Urine Culture - Final Escherichia coli 08/27/17 02:40 Urine - Catheterized Urine Streptococcus pneumoniae Antigen ( M - Final Presumptive negative for streptococcus pneumoniae antigen, suggesting no current or recent infection. Infection due to Streptococcus pneumoniae cannot be ruled out since the antigen present in the sample may be below the detection limit of the test. 08/27/17 02:40 Urine - Catheterized Urine Legionella Antigen - Final Presumptive negative for Legionella pneumophila serogroup 1 antigen in urine, suggesting no recent or recurrent infection. Infection due to Legionella cannot be ruled out since other serogroups and species may cause disease, antigen may not be present in urine in early infection, and the level of antigen present in the urine may be below the detection limit of the test. - Imaging Impressions Chest Ultrasound 08/27/17 00:00 CONCLUSION: 1. Minimal right pleural effusion 2. Insufficient fluid for thoracentesis. Chest X-Ray 08/27/17 20:00 CONCLUSION: Stable right hydropneumothorax Chest X-Ray 08/28/17 09:59 CONCLUSION: No significant interval change compared to the prior examination. Stable appearing right pneumothorax with approximately 1.3 cm of separation at the apex. Assessment and Plan (1) Normochromic normocytic anemia Status: Acute Code(s): D64.9 - Anemia, unspecified - Plan Assessment: - Anemia-Planned to have an outpatient EGD and colonoscopy for work up for anemia done earlier today. However, pt was noted to be short of breath preop and therefore procedure were cancelled and pt was sent to the ER for further work up. Pt denies any GI symptoms at this time except feeling hungry. At this time our service will hold off on EGD and colonoscopy until pts respiratory status has stabilized. - SOB since May when she was admitted to [facility] with pneumonia. CT chest in ER today revealed large right effusion with compressive atelectasis of the right lung. No discrete underlying mass is identified. (08/27) Pt S/P thoracentesis last night with improvement in shortness of breath. Remains on nasal cannula. Repeat chest x-ray shows continued pneumothorax. H/H stable. 08/28/2017, patient was initially planned for thoracentesis but minimal amount of fluid. Tentative plan today for right chest tube. Currently patient denies any nausea vomiting diarrhea or constipation, or abdominal pain. EGD: Still on hold for now for her anemia. Hemoglobin stable at 11.2. No obvious bleeding for now,. GI can see her on an outpatient basis unless she has some obvious bleeding Plan: Diet per attending Monitor labs as needed GI work up on hold until respiratory status stabilizes, could be done on an outpatient basis Our service will sign off, please reconsult when stable Pt has been seen and examined by myself and Dr. Hunt and this note is written on her behalf
[2017-08-28] MEDS ORDERED: fentaNYL Citrate Inj 100 MCG/2 ML Ampul ONE (15:04)
[2017-08-28] MEDS: Morphine Inj 4 MG/ML Vial IV.PUSH PRN (23:19)
[2017-08-29] MEDS: Morphine Inj 4 MG/ML Vial IV.PUSH PRN (03:20)
--- NOTE | 2017-08-29 04:52 | XR ---
EXAM DATE: 08/29/2017 4:41 AM EDT AGE/SEX: 66 years / Female INDICATIONS: Pneumothorax. CLINICAL DATA: This is the patient's subsequent encounter. Patient reports that signs and symptoms h ave been present for 4 - 6 days and indicates a pain score of Nonresponsive. MEDICAL/SURGICAL HISTORY: Asthma. A-fib. None. COMPARISON: [facility] – [place], CHEST 1V SINGLE AP, 08/28/2017. . FINDINGS: Right-sided pigtail chest catheter is in place at the apex. No pneumothorax identified. Bilateral rig ht greater than left pulmonary opacity unchanged. Cardiomediastinal silhouette unchanged. CONCLUSION: Right-sided chest tube in place. No evidence of pneumothorax. Bilateral pulmonary opacity unchanged. Electronically signed by: Barron Moyer MD 08/29/2017 4:51 AM EDT
[2017-08-29 06:18] LABS: Baso % (Auto) 0.3 % (0.0-2.0); Eos # (Auto) 0.2 th/mm3 (0.0-0.4); Eos % (Auto) 2.6 % (0.0-4.0); Hematocrit 37.7 % (35.0-46.0); Hemoglobin 12.1 gm/dL (11.6-15.3); Lymph # (Auto) 1.4 th/mm3 (1.0-4.8); Lymph % (Auto) 23.1 % (9.0-44.0); Mean Corpuscular HGB Conc 32.1 % (32.0-36.0); Mean Corpuscular Hemoglobin 27.6 pg (27.0-34.0); Mean Corpuscular Volume 86.1 fL (80.0-100.0); Mean Platelet Volume 10.8 fL (7.0-11.0); Mono # (Auto) 0.9 th/mm3 (0.0-0.9); Mono % (Auto) 13.8 % (0.0-8.0); Neut # (Auto) 3.7 th/mm3 (1.8-7.7); Neut % (Auto) 60.2 % (16.0-70.0); Platelet Count 178 th/mm3 (150-450); Red Blood Count 4.38 mil/mm3 (4.00-5.30); Red Cell Distribution Width 16.8 % (11.6-17.2); White Blood Count 6.2 th/mm3 (4.0-11.0)
[2017-08-29 06:38] LABS: Alanine Aminotransferase 77 U/L (10-53); Anion Gap 8 meq/L (5-15); Aspartate Aminotransferase 86 U/L (15-37); Blood Urea Nitrogen 16 mg/dL (7-18); Calcium 9.2 mg/dL (8.5-10.1); Carbon Dioxide 32.9 meq/L (21.0-32.0); Chloride 94 meq/L (98-107); Glomerular Filtration Rate 57 mL/min (>89); Glucose,Random 153 mg/dL (74-106); Potassium 3.4 meq/L (3.5-5.1); Sodium 135 meq/L (136-145)
[2017-08-29 06:41] LABS: Alkaline Phosphatase 78 U/L (45-117); Total Protein 7.2 g/dL (6.4-8.2)
[2017-08-29] MEDS: Levothyroxine 100 MCG Tablet PO SCH (07:26)
[2017-08-29] MEDS: Potassium Chlor 20 mEq Premix 20 MEQ/100 ML PIGGYBACK IV.SIG PRN ×2 (07:26→09:50)
[2017-08-29] MEDS: Gabapentin 300 MG Capsule PO SCH (08:49)
[2017-08-29] MEDS: Metoprolol Tartrate 50 MG Tablet PO SCH ×2 (08:49→20:35)
[2017-08-29] MEDS: Duloxetine 60 MG DR Capsule PO SCH (08:49)
[2017-08-29] MEDS: Polysaccharide Iron Complex 150 MG Capsule PO SCH ×2 (08:49→20:36)
--- NOTE | 2017-08-29 11:21 | US ---
EXAM DATE: 08/29/2017 11:14 AM EDT AGE/SEX: 66 years / Female INDICATIONS: Elevated liver functions. CLINICAL DATA: This is the patient's initial encounter. Patient reports that signs and symptoms have been present for 1 day and indicates a pain score of 0/10. MEDICAL/SURGICAL HISTORY: Anemia. Atrial fibrillation. Diabetes. Hyperlipidemia. Right breast c ancer. Recurrent pneumonia. Hypertension. Hypothyroidism. Renal disease. History of chemotherapy and radiation. section. Hemorrhoidectomy. Right breast reconstruction. COMPARISON: No prior exams available for comparison. MEASUREMENTS: Liver:__ 13.1 cm. Common Bile Duct:__ 8mm. Right Kidney:__ cm. FINDINGS: Liver: Increased echotexture without focal lesion or ductal dilation. Portal Vein: Hepatopedal flow seen in portal vein. Common Duct: No intraluminal mass or stone visualized. Gallbladder: Demonstrates no wall thickening or pericholecystic fluid. No stones visualized. Pancreas: The visualized portions are within normal limits Right Kidney: Normal echotexture and cortical thickness. No mass or hydronephrosis. Other: Small right pleural effusion. CONCLUSION: 1. Echogenic liver likely mild hepatic steatosis. 2. Right pleural effusion. 3. No evidence for cholelithiasis. 4. Common bile duct measures 8 mm. Electronically signed by: Matt Jones MD 08/29/2017 11:19 AM EDT
--- NOTE | 2017-08-29 11:40 | P.PN ---
Subjective Interval history: Follow-up large right pleural effusion/pneumothorax August 29, 2017-patient seen and examined, denies any significant shortness of breath. Vital stable. Tolerated p.o. without any complication nausea and vomiting. Case discussed with RN, Margie Physical Exam Vital signs: Vital Signs 08/28/17 12:00 08/28/17 14:00 08/28/17 16:00 Temperature 98.6 F 97.5 F L Pulse Rate 68 89 67 Respiratory Rate 18 18 Blood Pressure 123/59 L 90/57 L Pulse Oximetry 08/28/17 18:00 08/28/17 19:56 08/28/17 20:00 Temperature 98.4 F Pulse Rate 67 73 72 Respiratory Rate 20 26 H Blood Pressure 117/58 L Pulse Oximetry 100 100 08/28/17 23:38 08/29/17 00:00 08/29/17 02:00 Temperature 99.6 F Pulse Rate 104 H 112 H 109 H Respiratory Rate 18 20 Blood Pressure 127/70 Pulse Oximetry 95 08/29/17 04:00 08/29/17 06:00 08/29/17 07:00 Temperature 97.8 F Pulse Rate 111 H 108 H 106 H Respiratory Rate 13 18 Blood Pressure 112/62 Pulse Oximetry 97 92 L 08/29/17 08:00 08/29/17 08:46 08/29/17 10:00 Temperature 98.3 F Pulse Rate 110 H 110 H Respiratory Rate 16 Blood Pressure 132/72 Pulse Oximetry 98 08/29/17 10:56 Temperature Pulse Rate 110 H Respiratory Rate Blood Pressure Pulse Oximetry Intake & Output 08/28/17 08/29/17 08/29/17 18:59 06:59 18:59 Intake Total 940 / 940 700 / 700 100 / 100 Output Total 5650 / 5650 670 / 670 Balance -4710 / -4710 30 / 30 100 / 100 Weight 104.1 kg Intake: IV 300 / 300 100 / 100 100 / 100 KCl 20 mEq Premix Inj 20 meq In 200 / 200 100 / 100 100 / 100 100 ml @ 50 mls/hr IV.SIG Q2H PRN Rx#:[id number] Rocephin Inj 1,000 MG In NS Inj 100 / 100 100 ML @ 200 mls/hr IV.SIG Q24H LOLY Rx#:[id number] Oral 640 / 640 600 / 600 Output: Urine 1350 / 1350 Pleural Fluid 1400 / 1400 Urine Amount (Catheter) 0 / 2150 Indwelling Urethral Catheter 2149 / 2149 Urine Amount (Stoma) 650 / 650 650 650 / 650 Chest Tube Drainage 750 / 750 20 / #1 Right Upper 750 / 750 20 Other: # Voids 2 Date of Last Bowel Movement 08/24/17 08/24/17 08/24/17 # Bowel Movements 0 Narrative: GENERAL: NAD SKIN: Warm and dry. HEAD: Normocephalic. EYES: No scleral icterus. No injection or drainage. NECK: Supple, trachea midline. No JVD or lymphadenopathy. CARDIOVASCULAR: Regular rate and rhythm without murmurs, gallops, or rubs. RESPIRATORY: Breath sounds decrease R>L. No accessory muscle use. Chest tube in place GASTROINTESTINAL: Abdomen soft, non-tender, nondistended. MUSCULOSKELETAL: No cyanosis; +Trace edema. BACK: Nontender without obvious deformity. No CVA tenderness. - Urinary Catheter Management Indwelling Urethral Catheter Cath placed during this visit: yes Reason for continuing: Acute urinary retention Insertion date: 08/27/17 Insertion time: 00:30 Results - Labs CBC & Chem 7: 08/29/17 05:41 08/29/17 05:41 Laboratory Results - last 24 hr 08/27/17 08/28/17 08/28/17 01:00 11:47 11:53 WBC RBC Hgb Hct MCV MCH MCHC RDW Plt Count MPV Neut % (Auto) Lymph % (Auto) Haakon % (Auto) Eos % (Auto) Baso % (Auto) Neut # (Auto) Lymph # (Auto) Haakon # (Auto) Eos # (Auto) Baso # (Auto) WBC Differential Differential Comment Sodium Potassium Chloride Carbon Dioxide Anion Gap BUN Creatinine Estimated GFR POC Glucose 211 H Random Glucose Calcium Total Bilirubin AST ALT Alkaline Phosphatase Total Protein Albumin Hepatitis A IgM Ab Nonreactive Hep Bs Antigen Nonreactive Hep B Core IgM Ab Nonreactive Hep C IgG Ab Nonreactive Misc Test Result 08/28/17 08/28/17 08/29/17 16:31 18:48 00:37 WBC RBC Hgb Hct MCV MCH MCHC RDW Plt Count MPV Neut % (Auto) Lymph % (Auto) Haakon % (Auto) Eos % (Auto) Baso % (Auto) Neut # (Auto) Lymph # (Auto) Haakon # (Auto) Eos # (Auto) Baso # (Auto) WBC Differential Differential Comment Sodium Potassium 3.9 D Chloride Carbon Dioxide Anion Gap BUN Creatinine Estimated GFR POC Glucose 129 H 213 H Random Glucose Calcium Total Bilirubin AST ALT Alkaline Phosphatase Total Protein Albumin Hepatitis A IgM Ab Hep Bs Antigen Hep B Core IgM Ab Hep C IgG Ab Misc Test Result 08/29/17 08/29/17 08/29/17 05:41 05:41 06:54 WBC 6.2 RBC 4.38 Hgb 12.1 Hct 37.7 MCV 86.1 MCH 27.6 MCHC 32.1 RDW 16.8 Plt Count 178 MPV 10.8 Neut % (Auto) 60.2 Lymph % (Auto) 23.1 Haakon % (Auto) 13.8 H Eos % (Auto) 2.6 Baso % (Auto) 0.3 Neut # (Auto) 3.7 Lymph # (Auto) 1.4 Haakon # (Auto) 0.9 Eos # (Auto) 0.2 Baso # (Auto) 0.0 WBC Differential . Differential Comment Auto diff final Sodium 135 L Potassium 3.4 L Chloride 94 L Carbon Dioxide 32.9 H Anion Gap 8 BUN 16 Creatinine 0.98 Estimated GFR 57 L POC Glucose 166 H Random Glucose 153 H Calcium 9.2 Total Bilirubin 0.6 AST 86 H ALT 77 H Alkaline Phosphatase 78 Total Protein 7.2 Albumin 3.0 L Hepatitis A IgM Ab Hep Bs Antigen Hep B Core IgM Ab Hep C IgG Ab Misc Test Result 08/29/17 08:26 WBC RBC Hgb Hct MCV MCH MCHC RDW Plt Count MPV Neut % (Auto) Lymph % (Auto) Haakon % (Auto) Eos % (Auto) Baso % (Auto) Neut # (Auto) Lymph # (Auto) Haakon # (Auto) Eos # (Auto) Baso # (Auto) WBC Differential Differential Comment Sodium Potassium Chloride Carbon Dioxide Anion Gap BUN Creatinine Estimated GFR POC Glucose 162 H Random Glucose Calcium Total Bilirubin AST ALT Alkaline Phosphatase Total Protein Albumin Hepatitis A IgM Ab Hep Bs Antigen Hep B Core IgM Ab Hep C IgG Ab Misc Test Result Microbiology 08/27/17 01:00 Fluid - Pleural fluid Gram Stain - Final 08/27/17 01:00 Fluid - Pleural fluid Body Fluid Culture - Preliminary No growth in 24 hours 08/27/17 02:40 Catheterized Urine Urine Culture - Preliminary No growth in 24 hours 08/25/17 13:07 Catheterized Urine Urine Culture - Final Escherichia coli - Imaging Impressions Liver Ultrasound 08/29/17 00:00 CONCLUSION: 1. Echogenic liver likely mild hepatic steatosis. 2. Right pleural effusion. 3. No evidence for cholelithiasis. 4. Common bile duct measures 8 mm. Chest X-Ray 08/29/17 06:00 CONCLUSION: Right-sided chest tube in place. No evidence of pneumothorax. Bilateral pulmonary opacity unchanged. - Procedures Chest tube placement Assessment and Plan - Assessment (1) Pleural effusion on right Code(s): J90 - Pleural effusion, not elsewhere classified Status: Acute (2) Normochromic normocytic anemia Code(s): D64.9 - Anemia, unspecified Status: Acute - Plan 66-year-old female with Right large pleural effusion Continue with oxygen keep sats >92% Bronchodilators, NIPPV PRN for resp distress s/p right sided thoracentesis with removal 1400ml. Exudative fluid by protein criteria Status post chest tube placement secondary to pneumothorax, follow-up chest x -ray this a.m. without any evidence of pneumothorax Normochromic normocytic anemia H&H stable Patient to undergo panendoscopy outpatient with Dr. Hunt Liver ultrasound noted and reviewed by me Diabetes mellitus type 2 Oral hypoglycemic agent currently on hold Continue with insulin sliding scale with Accu-Chek Hypertension Continue patient home medication Lopressor History of atrial fibrillation Continue home medications including sotalol, Lopressor, aspirin Patient is not currently on oral anticoagulation, will need follow-up outpatient with cardiology Hyperlipidemia Continue statin Hypothyroidism Currently on Synthroid Diabetic neuropathy Continue Neurontin Bilateral pulmonary opacity per chest x-ray Continue with empiric antibiotics and monitor cultures Hypokalemia Replace electrolytes and monitor DVT prophylaxis: Lovenox
[2017-08-29] MEDS: Insulin NovoLIN Regular Correctional Sugar Inj SQ SCH ×5 (12:38→23:50)
[2017-08-29] MEDS: Temazepam 15 MG Capsule PO PRN (20:36)
[2017-08-30] MEDS: Insulin NovoLIN Regular Correctional Sugar Inj SQ SCH ×3 (00:49→13:56)
[2017-08-30] MEDS: Levothyroxine 100 MCG Tablet PO SCH (06:02)
[2017-08-30 06:47] LABS: Baso % (Auto) 0.6 % (0.0-2.0); Eos # (Auto) 0.2 th/mm3 (0.0-0.4); Eos % (Auto) 3.8 % (0.0-4.0); Hematocrit 36.5 % (35.0-46.0); Hemoglobin 11.8 gm/dL (11.6-15.3); Lymph # (Auto) 1.1 th/mm3 (1.0-4.8); Lymph % (Auto) 18.8 % (9.0-44.0); Mean Corpuscular HGB Conc 32.4 % (32.0-36.0); Mean Corpuscular Hemoglobin 27.5 pg (27.0-34.0); Mean Corpuscular Volume 84.8 fL (80.0-100.0); Mean Platelet Volume 10.9 fL (7.0-11.0); Mono # (Auto) 0.8 th/mm3 (0.0-0.9); Neut # (Auto) 3.5 th/mm3 (1.8-7.7); Neut % (Auto) 62.8 % (16.0-70.0); Platelet Count 162 th/mm3 (150-450); Red Cell Distribution Width 16.7 % (11.6-17.2); White Blood Count 5.6 th/mm3 (4.0-11.0)
[2017-08-30 07:11] LABS: Albumin 2.8 g/dL (3.4-5.0); Anion Gap 11 meq/L (5-15); Aspartate Aminotransferase 48 U/L (15-37); Blood Urea Nitrogen 23 mg/dL (7-18); Calcium 9.5 mg/dL (8.5-10.1); Carbon Dioxide 28.8 meq/L (21.0-32.0); Chloride 95 meq/L (98-107); Glomerular Filtration Rate 50 mL/min (>89); Glucose,Random 163 mg/dL (74-106); Potassium 3.7 meq/L (3.5-5.1); Sodium 135 meq/L (136-145)
[2017-08-30 07:16] LABS: Alanine Aminotransferase 60 U/L (10-53); Alkaline Phosphatase 77 U/L (45-117); Total Protein 7.1 g/dL (6.4-8.2)
[2017-08-30] MEDS: Duloxetine 60 MG DR Capsule PO SCH (08:47)
[2017-08-30] MEDS: Gabapentin 300 MG Capsule PO SCH (08:47)
[2017-08-30] MEDS: Polysaccharide Iron Complex 150 MG Capsule PO SCH ×2 (08:49→21:20)
[2017-08-30] MEDS: Metoprolol Tartrate 50 MG Tablet PO SCH ×2 (08:51→21:13)
--- NOTE | 2017-08-30 11:42 | P.PN ---
Subjective Interval history: Follow-up for right pleural effusion, pneumothorax status post chest tube placement, atrial fibrillation, diabetes mellitus. Patient is currently resting in bed. No chest pain, shortness of breath, fever or chills. Physical Exam Vital signs: Vital Signs 08/29/17 12:00 08/29/17 12:17 08/29/17 14:56 Temperature 98.2 F 98 F Pulse Rate 66 100 H 72 Respiratory Rate 16 20 Blood Pressure 106/51 L 144/78 H Pulse Oximetry 97 08/29/17 16:00 08/29/17 20:00 08/29/17 21:00 Temperature 97 F L 98 F Pulse Rate 71 109 H 111 H Respiratory Rate 20 20 Blood Pressure 115/64 106/63 Pulse Oximetry 96 97 08/29/17 22:00 08/29/17 23:00 08/29/17 23:03 Temperature Pulse Rate 110 H 108 H 80 Respiratory Rate 18 Blood Pressure Pulse Oximetry 08/30/17 00:00 08/30/17 01:00 08/30/17 02:43 Temperature 98.6 F Pulse Rate 112 H 97 H 95 H Respiratory Rate 20 18 Blood Pressure 104/78 Pulse Oximetry 96 08/30/17 03:00 08/30/17 04:00 08/30/17 05:00 Temperature 98 F Pulse Rate 80 75 98 H Respiratory Rate 18 Blood Pressure 114/59 L Pulse Oximetry 96 08/30/17 06:00 08/30/17 07:48 08/30/17 08:00 Temperature 98.6 F Pulse Rate 81 84 83 Respiratory Rate 14 20 Blood Pressure 110/62 Pulse Oximetry 96 99 Intake & Output 08/29/17 08/30/17 08/30/17 18:59 06:59 18:59 Intake Total 100 / 100 240 / 240 Output Total 300 / 300 650 / 650 Balance -200 / -200 -410 / -410 Weight 102.2 kg Intake: IV 100 / 100 KCl 20 mEq Premix Inj 20 meq In 100 / 100 100 ml @ 50 mls/hr IV.SIG Q2H PRN Rx#:[id number] Oral 240 / 240 Output: Urine 200 / 200 600 / 600 Chest Tube Drainage 100 / 100 50 / 50 #1 Right Upper 50 / 50 20 100 / 100 Other: # Voids 1 Date of Last Bowel Movement 08/24/17 08/24/17 # Bowel Movements 0 Narrative: GENERAL: NAD SKIN: Warm and dry. HEAD: Normocephalic. EYES: No scleral icterus. No injection or drainage. NECK: Supple, trachea midline. No JVD or lymphadenopathy. CARDIOVASCULAR: Regular rate and rhythm without murmurs, gallops, or rubs. RESPIRATORY: Breath sounds decrease R>L. No accessory muscle use. Chest tube in place GASTROINTESTINAL: Abdomen soft, non-tender, nondistended. MUSCULOSKELETAL: No cyanosis; +Trace edema. BACK: Nontender without obvious deformity. No CVA tenderness. - Urinary Catheter Management Indwelling Urethral Catheter Cath placed during this visit: yes, but has since been removed by the nurse Reason for continuing: Decision to DC catheter Insertion date: 08/27/17 Insertion time: 00:30 Removal date: 08/29/17 Removal time: 11:45 Results - Labs CBC & Chem 7: 08/30/17 06:10 08/30/17 06:10 Laboratory Results - last 24 hr 08/29/17 08/29/17 08/30/17 12:08 16:33 00:02 WBC RBC Hgb Hct MCV MCH MCHC RDW Plt Count MPV Neut % (Auto) Lymph % (Auto) [place] % (Auto) Eos % (Auto) Baso % (Auto) Neut # (Auto) Lymph # (Auto) [place] # (Auto) Eos # (Auto) Baso # (Auto) WBC Differential Differential Comment Sodium Potassium Chloride Carbon Dioxide Anion Gap BUN Creatinine Estimated GFR POC Glucose 188 H 193 H 174 H Random Glucose Calcium Total Bilirubin AST ALT Alkaline Phosphatase Total Protein Albumin 08/30/17 08/30/17 06:10 06:10 WBC 5.6 RBC 4.30 Hgb 11.8 Hct 36.5 MCV 84.8 MCH 27.5 MCHC 32.4 RDW 16.7 Plt Count 162 MPV 10.9 Neut % (Auto) 62.8 Lymph % (Auto) 18.8 [place] % (Auto) 14.0 H Eos % (Auto) 3.8 Baso % (Auto) 0.6 Neut # (Auto) 3.5 Lymph # (Auto) 1.1 [place] # (Auto) 0.8 Eos # (Auto) 0.2 Baso # (Auto) 0.0 WBC Differential . Differential Comment Auto diff final Sodium 135 L Potassium 3.7 Chloride 95 L Carbon Dioxide 28.8 Anion Gap 11 BUN 23 H Creatinine 1.10 H Estimated GFR 50 L POC Glucose Random Glucose 163 H Calcium 9.5 Total Bilirubin 0.5 AST 48 H ALT 60 H Alkaline Phosphatase 77 Total Protein 7.1 Albumin 2.8 L Microbiology 08/27/17 01:00 Fluid - Pleural fluid Gram Stain - Final 08/27/17 01:00 Fluid - Pleural fluid Body Fluid Culture - Preliminary Mold species-ID to follow 08/27/17 02:40 Catheterized Urine Urine Culture - Final No growth in 48 hours - Procedures Chest tube placement Assessment and Plan - Assessment (1) Pleural effusion on right Code(s): J90 - Pleural effusion, not elsewhere classified Status: Acute (2) Normochromic normocytic anemia Code(s): D64.9 - Anemia, unspecified Status: Acute - Plan 66-year-old female with history of congestive heart failure, CKD, atrial fibrillation, diabetes mellitus, hypertension admitted for an evaluation of shortness of breath. In the emergency department the chest x-ray shows large right-sided pleural effusion that was confirmed by CT of the chest. She was initially admitted to medicine with telemetry however rapid response was team called today due to tachycardia at 160s-170s. Right thoracentesis was done with removal of 1400cc of fluid. A small right apical PTX was found. Right large pleural effusion Continue with oxygen keep sats >92% Bronchodilators, NIPPV PRN for resp distress s/p right sided thoracentesis with removal 1400ml. Exudative fluid by protein criteria Status post chest tube placement secondary to pneumothorax, follow-up chest x -ray this a.m. without any evidence of pneumothorax Will discuss with IR regarding the existing chest tube. Normochromic normocytic anemia H&H stable at around 11.8. Patient to undergo panendoscopy outpatient with Dr. Hunt. GI signed off. Liver ultrasound shows hepatic steatosis. Diabetes mellitus type 2 D/C regular insulin sliding scale. Start Levemir 7 units QHS and Aspart Sliding scale insulin History of atrial fibrillation Continue home medications including sotalol, Lopressor, aspirin Patient is not currently on oral anticoagulation, will need follow-up outpatient with cardiology Verified with patient that she indeed takes Metoprolol and Sotalol. Encouraged patient to follow up with her furnace caretaker regarding Sotalol and Metoprolol. Hyperlipidemia Continue statin Hypothyroidism Currently on Synthroid 100mcg Qday. Diabetic neuropathy Continue Neurontin 300mg Qday. Hypokalemia Replace electrolytes and monitor Full code. SCDs.
[2017-08-30] MEDS ORDERED: Dextrose 50% in Water 50 ML Vial IV.PUSH PRN (14:17)
[2017-08-30] MEDS: Insulin NovoLOG Aspart Correctional Sugar Inj SQ SCH ×2 (17:04→21:15)
[2017-08-30] MEDS: Morphine Inj 4 MG/ML Vial IV.PUSH PRN (21:15)
[2017-08-30] MEDS: Insulin Detemir Inj 1,000 UNIT/10 ML Vial SQ SCH (21:17)
[2017-08-30] MEDS: Temazepam 15 MG Capsule PO PRN (23:06)
[2017-08-31] MEDS: Chlorhexidine Gluconate 2% 1 Pack (2 Cloths) TOPICAL SCH ×3 (06:07→13:57)
[2017-08-31] MEDS: Levothyroxine 100 MCG Tablet PO SCH (06:08)
[2017-08-31] MEDS: Polysaccharide Iron Complex 150 MG Capsule PO SCH ×2 (08:41→22:31)
[2017-08-31] MEDS: Gabapentin 300 MG Capsule PO SCH (08:42)
[2017-08-31] MEDS: Metoprolol Tartrate 50 MG Tablet PO SCH ×2 (08:42→22:31)
[2017-08-31] MEDS: Duloxetine 60 MG DR Capsule PO SCH (08:42)
[2017-08-31] MEDS: Insulin NovoLOG Aspart Correctional Sugar Inj SQ SCH ×4 (08:43→22:32)
--- NOTE | 2017-08-31 11:16 | P.PN ---
Subjective Interval history: Follow-up large right pleural effusion/pneumothorax August 29, 2017-patient seen and examined, denies any significant shortness of breath. Vital stable. Tolerated p.o. without any complication nausea and vomiting. Case discussed with Margie LIU August 31, 2017-patient seen and examined, reports improvement of shortness of breath and denies any acute event overnight. Physical Exam Vital signs: Vital Signs 08/30/17 11:46 08/30/17 12:00 08/30/17 13:00 Temperature 98.1 F Pulse Rate 84 116 H 80 Respiratory Rate 14 20 Blood Pressure 116/77 Pulse Oximetry 97 08/30/17 14:00 08/30/17 15:00 08/30/17 15:24 Temperature Pulse Rate 114 H 114 H Respiratory Rate Blood Pressure Pulse Oximetry 100 08/30/17 15:25 08/30/17 15:46 08/30/17 16:00 Temperature 98.6 F 98.6 F Pulse Rate 68 92 H 102 H Respiratory Rate 18 20 20 Blood Pressure 134/84 134/84 Pulse Oximetry 100 100 08/30/17 17:00 08/30/17 20:00 08/30/17 20:43 Temperature 98.7 F Pulse Rate 68 91 H 93 H Respiratory Rate 18 16 Blood Pressure 104/53 L Pulse Oximetry 99 98 08/31/17 00:00 08/31/17 04:00 08/31/17 07:14 Temperature 98.5 F 98.5 F Pulse Rate 69 112 H 74 Respiratory Rate 18 17 16 Blood Pressure 126/60 120/69 Pulse Oximetry 98 98 99 08/31/17 08:00 Temperature Pulse Rate 74 Respiratory Rate Blood Pressure Pulse Oximetry Intake & Output 08/30/17 08/31/17 08/31/17 18:59 06:59 18:59 Intake Total 1200 / 1200 Output Total 625 / 625 Balance 575 / 575 Intake: Oral 1200 / 1200 Output: Urine 600 / 600 Chest Tube Drainage 20 Other: Date of Last Bowel Movement 08/24/17 Narrative: GENERAL: NAD SKIN: Warm and dry. HEAD: Normocephalic. EYES: No scleral icterus. No injection or drainage. NECK: Supple, trachea midline. No JVD or lymphadenopathy. CARDIOVASCULAR: Regular rate and rhythm without murmurs, gallops, or rubs. RESPIRATORY: Breath sounds decrease R>L. No accessory muscle use. Chest tube in place GASTROINTESTINAL: Abdomen soft, non-tender, nondistended. MUSCULOSKELETAL: No cyanosis; +Trace edema. BACK: Nontender without obvious deformity. No CVA tenderness. - Urinary Catheter Management Indwelling Urethral Catheter Cath placed during this visit: yes, but has since been removed by the nurse Reason for continuing: Decision to DC catheter Insertion date: 08/27/17 Insertion time: 00:30 Removal date: 08/29/17 Removal time: 11:45 Results - Labs CBC & Chem 7: 08/30/17 06:10 08/30/17 06:10 Laboratory Results - last 24 hr 08/30/17 08/30/17 08/30/17 12:39 16:54 20:17 POC Glucose 225 H 220 H 205 H 08/31/17 08:40 POC Glucose 146 H Microbiology 08/27/17 01:00 Fluid - Pleural fluid Gram Stain - Final 08/27/17 01:00 Fluid - Pleural fluid Body Fluid Culture - Preliminary Mold species-ID to follow - Procedures Chest tube placement Assessment and Plan - Assessment (1) Pleural effusion on right Code(s): J90 - Pleural effusion, not elsewhere classified Status: Acute (2) Normochromic normocytic anemia Code(s): D64.9 - Anemia, unspecified Status: Acute - Plan 66-year-old female with Right large pleural effusion Continue with oxygen keep sats >92% Bronchodilators, NIPPV PRN for resp distress s/p right sided thoracentesis with removal 1400ml. Exudative fluid by protein criteria Status post chest tube placement secondary to pneumothorax; management per interventional radiology Normochromic normocytic anemia H&H stable Patient to undergo panendoscopy outpatient with Dr. Hunt Liver ultrasound noted and reviewed by me Diabetes mellitus type 2 Oral hypoglycemic agent currently on hold Continue with insulin sliding scale with Accu-Chek Hypertension Continue patient home medication Lopressor History of atrial fibrillation Continue home medications including sotalol, Lopressor, aspirin Patient is not currently on oral anticoagulation, will need follow-up outpatient with cardiology Hyperlipidemia Continue statin Hypothyroidism Currently on Synthroid Diabetic neuropathy Continue Neurontin Bilateral pulmonary opacity per chest x-ray Continue with empiric antibiotics and monitor cultures Hypokalemia Replace electrolytes and monitor DVT prophylaxis: Lovenox
--- NOTE | 2017-08-31 12:10 | XR ---
EXAM DATE: 08/31/2017 12:05 PM EDT AGE/SEX: 66 years / Female INDICATIONS: Pneumothorax. CLINICAL DATA: This is the patient's initial encounter. Patient reports that signs and symptoms have been present for 4 - 6 days and indicates a pain score of 0/10. MEDICAL/SURGICAL HISTORY: Asthma. A-fib . chest tube [place] [facility] [place]. . FINDINGS: The small right-sided chest tube remains in place positioned in the right apex. No definite pneumotho rax is demonstrated. Patchy infiltrate in the right lung base which appears to be improvement compare d to the prior study. Left lung is grossly clear. Heart size is enlarged. CONCLUSION: 1. Small right-sided chest remains in place. 2. No definite pneumothorax. 3. Improving right lower lung infiltrate. Electronically signed by: Polo Pope MD 08/31/2017 12:09 PM EDT
[2017-08-31] MEDS: Morphine Inj 4 MG/ML Vial IV.PUSH PRN (20:22)
[2017-08-31] MEDS: Temazepam 15 MG Capsule PO PRN (22:31)
[2017-08-31] MEDS: Insulin Detemir Inj 1,000 UNIT/10 ML Vial SQ SCH (22:33)
[2017-09-01] MEDS: Levothyroxine 100 MCG Tablet PO SCH (05:32)
[2017-09-01] MEDS: Gabapentin 300 MG Capsule PO SCH (08:59)
[2017-09-01] MEDS: Polysaccharide Iron Complex 150 MG Capsule PO SCH ×2 (08:59→21:05)
[2017-09-01] MEDS: Insulin NovoLOG Aspart Correctional Sugar Inj SQ SCH ×4 (08:59→21:05)
[2017-09-01] MEDS: Duloxetine 60 MG DR Capsule PO SCH (09:00)
[2017-09-01] MEDS: Metoprolol Tartrate 50 MG Tablet PO SCH ×2 (09:00→21:04)
--- NOTE | 2017-09-01 13:28 | P.PN ---
Subjective Interval history: Follow-up large right pleural effusion/pneumothorax August 29, 2017-patient seen and examined, denies any significant shortness of breath. Vital stable. Tolerated p.o. without any complication nausea and vomiting. Case discussed with RNMargie August 31, 2017-patient seen and examined, reports improvement of shortness of breath and denies any acute event overnight. September 01, 2017-patient seen and examined, stable and no complaint. Chest tube stayed in place. Afebrile. Physical Exam Vital signs: Vital Signs 08/31/17 16:00 08/31/17 20:00 08/31/17 21:37 Temperature 97.5 F L 98.2 F Pulse Rate 67 95 H 113 H Respiratory Rate 20 18 Blood Pressure 104/59 L 108/80 Pulse Oximetry 100 100 09/01/17 00:00 09/01/17 04:00 09/01/17 06:02 Temperature 98.0 F 97.8 F Pulse Rate 85 69 76 Respiratory Rate 18 18 Blood Pressure 119/57 L 126/62 Pulse Oximetry 96 97 09/01/17 08:00 Temperature 98.3 F Pulse Rate 74 Respiratory Rate 18 Blood Pressure 121/60 Pulse Oximetry 97 Intake & Output 08/31/17 09/01/17 09/01/17 18:59 06:59 18:59 Intake Total 640 / 640 240 / 240 100 / 100 Output Total 400 / 400 Balance 640 / 640 -160 / -160 100 / 100 Weight 102.1 kg Intake: IV 100 / 100 100 / 100 Rocephin Inj 1,000 MG In NS Inj 100 / 100 100 / 100 100 ML @ 200 mls/hr IV.SIG Q24H OLLY Rx#:[id number] Oral 540 / 540 240 / 240 Output: Urine 300 / 300 Wound Drainage 100 / 100 Right Anterior Chest 100 / 100 Other: # Voids 10 # Bowel Movements 0 0 Narrative: GENERAL: NAD SKIN: Warm and dry. HEAD: Normocephalic. EYES: No scleral icterus. No injection or drainage. NECK: Supple, trachea midline. No JVD or lymphadenopathy. CARDIOVASCULAR: Regular rate and rhythm without murmurs, gallops, or rubs. RESPIRATORY: Breath sounds decrease R>L. No accessory muscle use. Chest tube in place GASTROINTESTINAL: Abdomen soft, non-tender, nondistended. MUSCULOSKELETAL: No cyanosis; +Trace edema. BACK: Nontender without obvious deformity. No CVA tenderness. - Urinary Catheter Management Indwelling Urethral Catheter Cath placed during this visit: yes, but has since been removed by the nurse Reason for continuing: Decision to DC catheter Insertion date: 08/27/17 Insertion time: 00:30 Removal date: 08/29/17 Removal time: 11:45 Results - Labs CBC & Chem 7: 08/30/17 06:10 08/30/17 06:10 Laboratory Results - last 24 hr 08/31/17 08/31/17 08/31/17 13:26 17:19 20:22 POC Glucose 276 H 186 H 313 H 09/01/17 09/01/17 08:59 11:31 POC Glucose 173 H 255 H Microbiology 08/27/17 01:00 Fluid - Pleural fluid Gram Stain - Final 08/27/17 01:00 Fluid - Pleural fluid Body Fluid Culture - Preliminary Mold species-ID to follow - Procedures Chest tube placement Assessment and Plan - Assessment (1) Pleural effusion on right Code(s): J90 - Pleural effusion, not elsewhere classified Status: Acute (2) Normochromic normocytic anemia Code(s): D64.9 - Anemia, unspecified Status: Acute - Plan 66-year-old female with Right large pleural effusion Continue with oxygen keep sats >92% Bronchodilators s/p right sided thoracentesis with removal 1400ml. Exudative fluid by protein criteria Status post chest tube placement secondary to pneumothorax; management per interventional radiology. Monitor output Normochromic normocytic anemia H&H stable Patient to undergo panendoscopy outpatient with Dr. Hunt Diabetes mellitus type 2 Oral hypoglycemic agent currently on hold Continue with insulin sliding scale with Accu-Chek Hypertension Continue patient home medication Lopressor History of atrial fibrillation Continue home medications including sotalol, Lopressor, aspirin Patient is not currently on oral anticoagulation, will need follow-up outpatient with cardiology Hyperlipidemia Continue statin Hypothyroidism Currently on Synthroid Diabetic neuropathy Continue Neurontin Bilateral pulmonary opacity per chest x-ray Continue with empiric antibiotics and monitor cultures Hypokalemia Replace electrolytes and monitor DVT prophylaxis: Lovenox
--- NOTE | 2017-09-01 14:53 | P.DCO ---
- Physical Therapy Order: Evaluate and treat - Home Health Nursing Order: Signs/symptoms of disease process - Certification I have seen patient Gabby Wolfe on 09/01/17. My clinical findings support the need for the requested home health care services because: Deconditioned with increased weakness I certify that my clinical findings support that this patient is homebound because: Poor cardiac reserve
[2017-09-01] MEDS: Morphine Inj 4 MG/ML Vial IV.PUSH PRN (20:35)
[2017-09-01] MEDS: Insulin Detemir Inj 1,000 UNIT/10 ML Vial SQ SCH (21:06)
[2017-09-01] MEDS: Temazepam 15 MG Capsule PO PRN (21:41)
[2017-09-02] MEDS: Morphine Inj 4 MG/ML Vial IV.PUSH PRN ×5 (01:48→22:21)
[2017-09-02] MEDS: Levothyroxine 100 MCG Tablet PO SCH (05:36)
[2017-09-02 05:58] LABS: Baso % (Auto) 0.8 % (0.0-2.0); Eos # (Auto) 0.2 th/mm3 (0.0-0.4); Eos % (Auto) 4.1 % (0.0-4.0); Hemoglobin 12.2 gm/dL (11.6-15.3); Lymph # (Auto) 1.4 th/mm3 (1.0-4.8); Lymph % (Auto) 25.7 % (9.0-44.0); Mean Corpuscular HGB Conc 32.2 % (32.0-36.0); Mean Corpuscular Hemoglobin 27.6 pg (27.0-34.0); Mean Corpuscular Volume 85.6 fL (80.0-100.0); Mean Platelet Volume 10.5 fL (7.0-11.0); Mono # (Auto) 0.8 th/mm3 (0.0-0.9); Mono % (Auto) 14.7 % (0.0-8.0); Neut # (Auto) 3.1 th/mm3 (1.8-7.7); Neut % (Auto) 54.7 % (16.0-70.0); Platelet Count 191 th/mm3 (150-450); Red Blood Count 4.44 mil/mm3 (4.00-5.30); Red Cell Distribution Width 16.4 % (11.6-17.2); White Blood Count 5.6 th/mm3 (4.0-11.0)
[2017-09-02 06:13] LABS: Albumin 2.8 g/dL (3.4-5.0); Anion Gap 8 meq/L (5-15); Aspartate Aminotransferase 26 U/L (15-37); Blood Urea Nitrogen 23 mg/dL (7-18); Calcium 9.9 mg/dL (8.5-10.1); Carbon Dioxide 30.8 meq/L (21.0-32.0); Chloride 93 meq/L (98-107); Glomerular Filtration Rate 49 mL/min (>89); Glucose,Random 175 mg/dL (74-106); Potassium 3.5 meq/L (3.5-5.1); Sodium 132 meq/L (136-145)
[2017-09-02 06:15] LABS: Alanine Aminotransferase 35 U/L (10-53)
[2017-09-02 06:17] LABS: Alkaline Phosphatase 102 U/L (45-117); Total Protein 7.3 g/dL (6.4-8.2)
[2017-09-02] MEDS: Gabapentin 300 MG Capsule PO SCH (09:53)
[2017-09-02] MEDS: Duloxetine 60 MG DR Capsule PO SCH (09:53)
[2017-09-02] MEDS: Polysaccharide Iron Complex 150 MG Capsule PO SCH ×2 (09:54→21:20)
[2017-09-02] MEDS: Insulin NovoLOG Aspart Correctional Sugar Inj SQ SCH ×4 (09:56→21:22)
[2017-09-02] MEDS: Metoprolol Tartrate 50 MG Tablet PO SCH ×2 (09:57→21:18)
--- NOTE | 2017-09-02 12:39 | P.PN ---
Subjective Interval history: Follow-up large right pleural effusion/pneumothorax August 29, 2017-patient seen and examined, denies any significant shortness of breath. Vital stable. Tolerated p.o. without any complication nausea and vomiting. Case discussed with RNMargie August 31, 2017-patient seen and examined, reports improvement of shortness of breath and denies any acute event overnight. September 01, 2017-patient seen and examined, stable and no complaint. Chest tube stayed in place. Afebrile. September 02, 2017-patient seen and examined, breathing better, afebrile. Physical Exam Vital signs: Vital Signs 09/01/17 16:00 09/01/17 20:00 09/01/17 23:18 Temperature 97.8 F 97.8 F Pulse Rate 67 73 Respiratory Rate 18 18 20 Blood Pressure 119/59 L 109/57 L Pulse Oximetry 95 98 09/02/17 00:00 09/02/17 04:00 09/02/17 08:00 Temperature 98.2 F 97.9 F 97.9 F Pulse Rate 73 73 76 Respiratory Rate 17 17 19 Blood Pressure 109/59 L 121/64 124/57 L Pulse Oximetry 95 98 98 Intake & Output 09/01/17 09/02/17 09/02/17 18:59 06:59 18:59 Intake Total 480 / 480 222 / 222 Output Total 700 / 700 350 / 350 Balance -220 / -220 -128 / -128 Weight 102.7 kg Intake: IV 100 / 100 Rocephin Inj 1,000 MG In NS Inj 100 / 100 100 ML @ 200 mls/hr IV.SIG Q24H LOLY Rx#:[id number] Oral 380 / 380 222 / 222 Output: Urine 700 / 700 300 / 300 Wound Drainage 50 / 50 Right Anterior Chest 50 / 50 Other: # Bowel Movements 1 0 Narrative: GENERAL: NAD SKIN: Warm and dry. HEAD: Normocephalic. EYES: No scleral icterus. No injection or drainage. NECK: Supple, trachea midline. No JVD or lymphadenopathy. CARDIOVASCULAR: Regular rate and rhythm without murmurs, gallops, or rubs. RESPIRATORY: Breath sounds decrease R>L. No accessory muscle use. Chest tube in place GASTROINTESTINAL: Abdomen soft, non-tender, nondistended. MUSCULOSKELETAL: No cyanosis; +Trace edema. BACK: Nontender without obvious deformity. No CVA tenderness. - Urinary Catheter Management Indwelling Urethral Catheter Cath placed during this visit: yes, but has since been removed by the nurse Reason for continuing: Decision to DC catheter Insertion date: 08/27/17 Insertion time: 00:30 Removal date: 08/29/17 Removal time: 11:45 Results - Labs CBC & Chem 7: 09/02/17 05:20 09/02/17 05:20 Laboratory Results - last 24 hr 09/01/17 09/01/17 09/02/17 17:13 20:21 05:20 WBC 5.6 RBC 4.44 Hgb 12.2 Hct 38.0 MCV 85.6 MCH 27.6 MCHC 32.2 RDW 16.4 Plt Count 191 MPV 10.5 Neut % (Auto) 54.7 Lymph % (Auto) 25.7 [place] % (Auto) 14.7 H Eos % (Auto) 4.1 H Baso % (Auto) 0.8 Neut # (Auto) 3.1 Lymph # (Auto) 1.4 [place] # (Auto) 0.8 Eos # (Auto) 0.2 Baso # (Auto) 0.0 WBC Differential . Differential Comment Auto diff final Sodium Potassium Chloride Carbon Dioxide Anion Gap BUN Creatinine Estimated GFR POC Glucose 248 H 286 H Random Glucose Calcium Total Bilirubin AST ALT Alkaline Phosphatase Total Protein Albumin 09/02/17 09/02/17 05:20 07:54 WBC RBC Hgb Hct MCV MCH MCHC RDW Plt Count MPV Neut % (Auto) Lymph % (Auto) [place] % (Auto) Eos % (Auto) Baso % (Auto) Neut # (Auto) Lymph # (Auto) [place] # (Auto) Eos # (Auto) Baso # (Auto) WBC Differential Differential Comment Sodium 132 L Potassium 3.5 Chloride 93 L Carbon Dioxide 30.8 Anion Gap 8 BUN 23 H Creatinine 1.11 H Estimated GFR 49 L POC Glucose 208 H Random Glucose 175 H Calcium 9.9 Total Bilirubin 0.4 AST 26 ALT 35 Alkaline Phosphatase 102 Total Protein 7.3 Albumin 2.8 L - Procedures Chest tube placement Assessment and Plan - Assessment (1) Shortness of breath Code(s): R06.02 - Shortness of breath Status: Acute (2) Acute UTI Code(s): N39.0 - Urinary tract infection, site not specified Status: Acute (3) Pleural effusion on right Code(s): J90 - Pleural effusion, not elsewhere classified Status: Acute (4) Normochromic normocytic anemia Code(s): D64.9 - Anemia, unspecified Status: Acute - Plan 66-year-old female with Right large pleural effusion Continue with oxygen keep sats >92% Bronchodilators s/p right sided thoracentesis with removal 1400ml. Exudative fluid by protein criteria Status post chest tube placement secondary to pneumothorax; management per interventional radiology. Monitor output Place Chest tube to water seal Normochromic normocytic anemia H&H stable Patient to undergo panendoscopy outpatient with Dr. Hunt Diabetes mellitus type 2 Oral hypoglycemic agent currently on hold Continue with insulin sliding scale with Accu-Chek Hypertension Continue patient home medication Lopressor History of atrial fibrillation Continue home medications including sotalol, Lopressor, aspirin Patient is not currently on oral anticoagulation, will need follow-up outpatient with cardiology Hyperlipidemia Continue statin Hypothyroidism Currently on Synthroid Diabetic neuropathy Continue Neurontin Bilateral pulmonary opacity per chest x-ray Continue with empiric antibiotics and monitor cultures Hypokalemia Replace electrolytes and monitor DVT prophylaxis: Lovenox
[2017-09-02] MEDS: Temazepam 15 MG Capsule PO PRN (21:18)
[2017-09-02] MEDS: Insulin Detemir Inj 1,000 UNIT/10 ML Vial SQ SCH (21:21)
[2017-09-03] MEDS: Morphine Inj 4 MG/ML Vial IV.PUSH PRN ×4 (06:01→19:57)
[2017-09-03] MEDS: Levothyroxine 100 MCG Tablet PO SCH (06:01)
[2017-09-03] MEDS: Insulin NovoLOG Aspart Correctional Sugar Inj SQ SCH ×4 (09:19→21:44)
[2017-09-03] MEDS: Duloxetine 60 MG DR Capsule PO SCH (09:20)
[2017-09-03] MEDS: Metoprolol Tartrate 50 MG Tablet PO SCH ×2 (09:21→21:44)
[2017-09-03] MEDS: Gabapentin 300 MG Capsule PO SCH (09:21)
[2017-09-03] MEDS: Polysaccharide Iron Complex 150 MG Capsule PO SCH ×2 (09:30→21:46)
--- NOTE | 2017-09-03 11:42 | P.PN ---
Subjective Interval history: Follow-up large right pleural effusion/pneumothorax August 29, 2017-patient seen and examined, denies any significant shortness of breath. Vital stable. Tolerated p.o. without any complication nausea and vomiting. Case discussed with RNMargie August 31, 2017-patient seen and examined, reports improvement of shortness of breath and denies any acute event overnight. September 01, 2017-patient seen and examined, stable and no complaint. Chest tube stayed in place. Afebrile. September 02, 2017-patient seen and examined, breathing better, afebrile. September 03, 2017-patient seen and examined, chest tube with low output. Patient reported improvement of shortness of breath. No acute event overnight. Physical Exam Vital signs: Vital Signs 09/02/17 11:50 09/02/17 12:00 09/02/17 16:00 Temperature 98.1 F Pulse Rate 71 69 106 H Respiratory Rate 18 Blood Pressure 107/59 L Pulse Oximetry 96 09/02/17 18:00 09/02/17 20:00 09/02/17 20:20 Temperature 97.7 F 97.9 F Pulse Rate 104 H 72 71 Respiratory Rate 18 18 Blood Pressure 104/52 L 123/59 L Pulse Oximetry 96 96 09/03/17 00:00 09/03/17 00:30 09/03/17 04:00 Temperature 98.2 F 98.1 F Pulse Rate 73 74 113 H Respiratory Rate 18 18 Blood Pressure 116/65 123/56 L Pulse Oximetry 98 94 L 09/03/17 08:00 Temperature 97.9 F Pulse Rate 77 Respiratory Rate 18 Blood Pressure 118/55 L Pulse Oximetry 95 Intake & Output 09/02/17 09/03/17 09/03/17 18:59 06:59 18:59 Intake Total 580 / 580 1190 / 1190 Output Total 720 / 720 Balance 580 / 580 470 / 470 Weight 103.8 kg Intake: IV 100 / 100 Rocephin Inj 1,000 MG In NS Inj 100 / 100 100 ML @ 200 mls/hr IV.SIG Q24H [facility] Rx#:[id number] Oral 480 / 480 1190 / 1190 Output: Urine 700 / 700 Chest Tube Drainage / 20 #1 Right Upper Other: # Voids 4 Date of Last Bowel Movement 08/31/17 # Bowel Movements 0 0 Narrative: GENERAL: NAD SKIN: Warm and dry. HEAD: Normocephalic. EYES: No scleral icterus. No injection or drainage. NECK: Supple, trachea midline. No JVD or lymphadenopathy. CARDIOVASCULAR: Regular rate and rhythm without murmurs, gallops, or rubs. RESPIRATORY: Breath sounds decrease R>L. No accessory muscle use. Chest tube in place GASTROINTESTINAL: Abdomen soft, non-tender, nondistended. MUSCULOSKELETAL: No cyanosis; +Trace edema. BACK: Nontender without obvious deformity. No CVA tenderness. - Urinary Catheter Management Indwelling Urethral Catheter Cath placed during this visit: yes, but has since been removed by the nurse Reason for continuing: Decision to DC catheter Insertion date: 08/27/17 Insertion time: 00:30 Removal date: 08/29/17 Removal time: 11:45 Results - Labs CBC & Chem 7: 09/02/17 05:20 09/02/17 05:20 Laboratory Results - last 24 hr 09/02/17 09/02/17 09/02/17 12:19 17:10 20:03 POC Glucose 214 H 235 H 234 H 09/03/17 07:37 POC Glucose 177 H Microbiology 08/27/17 01:00 Fluid - Pleural fluid Gram Stain - Final 08/27/17 01:00 Fluid - Pleural fluid Body Fluid Culture - Preliminary Mold species-ID to follow - Procedures Chest tube placement Assessment and Plan - Assessment (1) Shortness of breath Code(s): R06.02 - Shortness of breath Status: Acute (2) Acute UTI Code(s): N39.0 - Urinary tract infection, site not specified Status: Acute (3) Pleural effusion on right Code(s): J90 - Pleural effusion, not elsewhere classified Status: Acute (4) Normochromic normocytic anemia Code(s): D64.9 - Anemia, unspecified Status: Acute - Plan 66-year-old female with Right large pleural effusion Continue with oxygen keep sats >92% Bronchodilators s/p right sided thoracentesis with removal 1400ml. Exudative fluid by protein criteria Status post chest tube placement secondary to pneumothorax; management per interventional radiology. Monitor output Chest tube with minimal output, will place to water seal Normochromic normocytic anemia H&H stable Patient to undergo panendoscopy outpatient with Dr. Hunt Diabetes mellitus type 2 Oral hypoglycemic agent currently on hold Continue with insulin sliding scale with Accu-Chek Hypertension Continue patient home medication Lopressor History of atrial fibrillation Continue home medications including sotalol, Lopressor, aspirin Patient is not currently on oral anticoagulation, will need follow-up outpatient with cardiology Hyperlipidemia Continue statin Hypothyroidism Currently on Synthroid Diabetic neuropathy Continue Neurontin Bilateral pulmonary opacity per chest x-ray Continue with empiric antibiotics and monitor cultures Hypokalemia Replace electrolytes and monitor DVT prophylaxis: Lovenox
--- NOTE | 2017-09-03 12:11 | XR ---
EXAM DATE: 09/03/2017 12:06 PM EDT AGE/SEX: 66 years / Female INDICATIONS: Evaluate chest tube CLINICAL DATA: This is the patient's subsequent encounter. Patient reports that signs and symptoms h ave been present for 4 - 6 days and indicates a pain score of 0/10. MEDICAL/SURGICAL HISTORY: . Asthma. A-FIB None. COMPARISON: [facility] – [place], CHEST EXPIRATION ONLY, 08/31/2017. . FINDINGS: Right-sided chest tube remains in place. There is no evidence of pneumothorax. Right basilar airspace disease is again identified. The heart is moderately enlarged. Left lung is clear. CONCLUSION: No evidence of right-sided pneumothorax Right-sided chest tube in place Persistent right basilar airspace disease. Electronically signed by: Simone Barrios MD 09/03/2017 12:10 PM EDT
--- NOTE | 2017-09-03 15:48 | XR ---
EXAM DATE: 09/03/2017 2:56 PM EDT AGE/SEX: 66 years / Female INDICATIONS: Chest tube removal. CLINICAL DATA: This is the patient's initial encounter. Patient reports that signs and symptoms have been present for 1 day and indicates a pain score of 0/10. MEDICAL/SURGICAL HISTORY: Diabetes mellitus type II. Hypertension. Hypercholesterolemia. As thma. A-FIB. Cancer, Right Breast. Hemorrhoidectomy. section. Bilateral breast. COMPARISON: [facility] – [place], CHEST EXPIRATION ONLY, 09/03/2017. [facility] [place], CT CHEST W CONTRAST, 08/25/2017. . FINDINGS: There is a right-sided chest tube in place. A pneumothorax is not seen. The heart size is enlarged. T here is increased density at the right base. There is blunting of the right costophrenic angle. Clips are seen over the right lateral chest. Mid one third of the right clavicle is absent. CONCLUSION: Right chest tube without evidence of pneumothorax. Suspected consolidation or atelectasis at the right base with at least a mild right pleural effusion. Cardiomegaly. Electronically signed by: Gabriel Lim MD 09/03/2017 3:47 PM EDT
--- NOTE | 2017-09-03 17:59 | XR ---
EXAM DATE: 09/03/2017 5:48 PM EDT AGE/SEX: 66 years / Female INDICATIONS: Re-evaluate chest, chest tube removal. CLINICAL DATA: This is the patient's subsequent encounter. Patient reports that signs and symptoms h ave been present for 1 day and indicates a pain score of 0/10. MEDICAL/SURGICAL HISTORY: . Diabetes mellitus type II. Hypertension. Hypercholesterolemia. Asth ma. A-FIB. Cancer, Right Breast. . Hemorrhoidectomy. section. Bilateral breast. COMPARISON: [facility] [place], [place]ST EXPIRATION ONLY, 09/03/2017. . FINDINGS: The heart size is enlarged. There is increased density at the right mid lower lung. The left lung is clear. There is blunting of the right costophrenic angle. Clips are seen over the right lateral chest . CONCLUSION: Right mid and lower lung atelectasis or consolidation. There is a possible mild right pleural effusio n. Electronically signed by: Gabriel Lim MD 09/03/2017 5:57 PM EDT
[2017-09-03] MEDS: Insulin Detemir Inj 1,000 UNIT/10 ML Vial SQ SCH (21:44)
[2017-09-03] MEDS: Temazepam 15 MG Capsule PO PRN (21:44)
[2017-09-04] MEDS: Levothyroxine 100 MCG Tablet PO SCH (05:04)
[2017-09-04] MEDS: Morphine Inj 4 MG/ML Vial IV.PUSH PRN (05:04)
[2017-09-04] MEDS: Gabapentin 300 MG Capsule PO SCH (08:30)
[2017-09-04] MEDS: Metoprolol Tartrate 50 MG Tablet PO SCH (08:32)
[2017-09-04] MEDS: Polysaccharide Iron Complex 150 MG Capsule PO SCH (08:32)
[2017-09-04] MEDS: Duloxetine 60 MG DR Capsule PO SCH (08:32)
[2017-09-04] MEDS: Insulin NovoLOG Aspart Correctional Sugar Inj SQ SCH ×2 (10:39→12:54)
--- NOTE | 2017-09-04 11:56 | P.PN ---
Subjective Interval history: Follow-up large right pleural effusion/pneumothorax August 29, 2017-patient seen and examined, denies any significant shortness of breath. Vital stable. Tolerated p.o. without any complication nausea and vomiting. Case discussed with RNMargie August 31, 2017-patient seen and examined, reports improvement of shortness of breath and denies any acute event overnight. September 01, 2017-patient seen and examined, stable and no complaint. Chest tube stayed in place. Afebrile. September 02, 2017-patient seen and examined, breathing better, afebrile. September 03, 2017-patient seen and examined, chest tube with low output. Patient reported improvement of shortness of breath. No acute event overnight. September 04, 2017-patient seen and examined, stable, chest tube was removed yesterday. No chest pain or shortness of breath. Looking for discharge home today. Physical Exam Vital signs: Vital Signs 09/03/17 12:00 09/03/17 15:35 09/03/17 16:00 Temperature 98.0 F 97.9 F Pulse Rate 71 73 70 Respiratory Rate 18 18 Blood Pressure 119/57 L 110/55 L Pulse Oximetry 97 99 09/03/17 20:00 09/03/17 21:16 09/04/17 00:00 Temperature 98.0 F 98.2 F Pulse Rate 76 77 Respiratory Rate 17 17 Blood Pressure 99/74 L 120/79 Pulse Oximetry 96 97 95 09/04/17 04:00 09/04/17 08:00 09/04/17 08:13 Temperature 97.9 F 98.0 F Pulse Rate 80 76 76 Respiratory Rate 17 17 Blood Pressure 127/71 113/62 Pulse Oximetry 96 95 09/04/17 08:34 09/04/17 09:51 Temperature Pulse Rate Respiratory Rate 18 Blood Pressure Pulse Oximetry 95 Intake & Output 09/03/17 09/04/17 09/04/17 18:59 06:59 18:59 Intake Total 700 / 700 831 / 831 Output Total 1100 / 1100 300 / 300 Balance -400 / -400 531 / 531 Weight 104 kg Intake: IV 100 / 100 Rocephin Inj 1,000 MG In NS Inj 100 / 100 100 ML @ 200 mls/hr IV.SIG Q24H [facility] Rx#:[id number] Oral 600 / 600 831 / 831 Output: Urine 1100 / 1100 300 / 300 Other: Date of Last Bowel Movement 09/03/17 09/03/17 Narrative: GENERAL: NAD SKIN: Warm and dry. HEAD: Normocephalic. EYES: No scleral icterus. No injection or drainage. NECK: Supple, trachea midline. No JVD or lymphadenopathy. CARDIOVASCULAR: Regular rate and rhythm without murmurs, gallops, or rubs. RESPIRATORY: Breath sounds equal bilaterally. No accessory muscle use. GASTROINTESTINAL: Abdomen soft, non-tender, nondistended. MUSCULOSKELETAL: No cyanosis; No edema. BACK: Nontender without obvious deformity. No CVA tenderness. - Urinary Catheter Management Indwelling Urethral Catheter Cath placed during this visit: yes, but has since been removed by the nurse Reason for continuing: Decision to DC catheter Insertion date: 08/27/17 Insertion time: 00:30 Removal date: 08/29/17 Removal time: 11:45 Results - Labs CBC & Chem 7: 09/02/17 05:20 09/02/17 05:20 Laboratory Results - last 24 hr 09/03/17 09/03/17 09/03/17 12:01 17:38 21:33 POC Glucose 221 H 216 H 246 H 09/04/17 07:23 POC Glucose 176 H Microbiology 08/27/17 01:00 Fluid - Pleural fluid Gram Stain - Final 08/27/17 01:00 Fluid - Pleural fluid Body Fluid Culture - Preliminary Mold species-ID to follow - Imaging Impressions Chest X-Ray 09/03/17 12:00 CONCLUSION: No evidence of right-sided pneumothorax Right-sided chest tube in place Persistent right basilar airspace disease. Chest X-Ray 09/03/17 14:45 CONCLUSION: Right chest tube without evidence of pneumothorax. Suspected consolidation or atelectasis at the right base with at least a mild right pleural effusion. Cardiomegaly. Chest X-Ray 09/03/17 17:30 CONCLUSION: Right mid and lower lung atelectasis or consolidation. There is a possible mild right pleural effusion. - Procedures Chest tube placement Assessment and Plan - Assessment (1) Shortness of breath Code(s): R06.02 - Shortness of breath Status: Resolved (2) Acute UTI Code(s): N39.0 - Urinary tract infection, site not specified Status: Resolved (3) Pleural effusion on right Code(s): J90 - Pleural effusion, not elsewhere classified Status: Acute (4) Normochromic normocytic anemia Code(s): D64.9 - Anemia, unspecified Status: Chronic - Plan 66-year-old female with Right large pleural effusion Continue with oxygen keep sats >92% Bronchodilators s/p right sided thoracentesis with removal 1400ml. Exudative fluid by protein criteria Status post chest tube placement secondary to pneumothorax; management per interventional radiology. Chest tube was removed September 03, 2017. Normochromic normocytic anemia H&H stable Patient to undergo panendoscopy outpatient with Dr. Hunt Diabetes mellitus type 2 Resume oral hypoglycemic agent Continue with insulin sliding scale with Accu-Chek Hypertension Continue patient home medication Lopressor History of atrial fibrillation Continue home medications including sotalol, Lopressor, aspirin Patient is not currently on oral anticoagulation, will need follow-up outpatient with cardiology Hyperlipidemia Continue statin Hypothyroidism Currently on Synthroid Diabetic neuropathy Continue Neurontin Bilateral pulmonary opacity per chest x-ray Continue with empiric antibiotics and monitor cultures Hypokalemia Replace electrolytes and monitor DVT prophylaxis: Lovenox
[2017-09-04 12:06] VITALS: BP 100/57; TEMP 97.6
--- NOTE | 2017-09-04 12:07 | P.DS ---
Date of admission: 08/25/17 17:54 Primary care physician: No Primary Care Physician Brief History from admission: This is a 66-year-old female with history of congestive heart failure, CKD, atrial fibrillation, diabetes mellitus, hypertension presenting to the hospital for shortness of breath. She was supposed to undergo her endoscopy and colonoscopy with Dr. Hunt to complete her workup for anemia however during the preop evaluation, she first found to have shortness of breath and she was sent to the emergency department. She complains of shortness of breath and that she had bilateral lower leg swelling. In retrospect, she has been having progressive shortness of breath since about 3 months ago, associated with bilateral leg swelling, cough productive with clear sputum. She denies any chest pain, she has some orthopnea. She was initially treated at [facility] for pneumonia and possible CHF. Outpatient sleep study was done which ruled out sleep apnea. She denies any chest pain. Presently, she is diuresing from Lasix given at the emergency department. CT chest in ER today revealed large right effusion with compressive atelectasis of the right lung. No discrete underlying mass is identified. DS: Diagnosis - Discharge Diagnosis (1) Shortness of breath Status: Resolved (2) Acute UTI Status: Resolved (3) Pleural effusion on right Status: Acute (4) Normochromic normocytic anemia Status: Chronic DS: Medications - Discharge Medications Prescriptions: hydrocodone-acetaminophen 1 tab PO Q4H PRN #10 tab PRN Reason: Pain 1-10 And/Or Fever >101f DS: Summary Hospital Course: While in hospital, patient was treated for Right large pleural effusion Continue with oxygen keep sats >92% Bronchodilators s/p right sided thoracentesis with removal 1400ml. Exudative fluid by protein criteria Status post chest tube placement secondary to pneumothorax; management per interventional radiology. Chest tube was removed September 03, 2017. Normochromic normocytic anemia H&H stable Patient to undergo panendoscopy outpatient with Dr. Hunt Diabetes mellitus type 2 Resume oral hypoglycemic agent She was treated with insulin sliding scale with Accu-Chek Hypertension She was treated with home medication Lopressor History of atrial fibrillation She was treated with home medications including sotalol, Lopressor, aspirin Patient is not currently on oral anticoagulation, will need follow-up outpatient with cardiology Hyperlipidemia She was treated with statin Hypothyroidism She was treated with Synthroid Diabetic neuropathy Continue Neurontin Bilateral pulmonary opacity per chest x-ray She was treated with empiric antibiotics and monitor cultures Hypokalemia electrolytes were replaced accordingly DVT prophylaxis: Lovenox - Time Spent with Patient Total time spent providing and/or coordinating discharge services: Greater than 30 minutes - Quality: VTE Deep Vein Thrombosis/Pulmonary Embolism Present on Admission: No Exam Vital signs: Vital Signs 09/03/17 15:35 09/03/17 16:00 09/03/17 20:00 Temperature 97.9 F 98.0 F Pulse Rate 73 70 76 Respiratory Rate 18 17 Blood Pressure 110/55 L 99/74 L Pulse Oximetry 99 96 09/03/17 21:16 09/04/17 00:00 09/04/17 04:00 Temperature 98.2 F 97.9 F Pulse Rate 77 80 Respiratory Rate 17 17 Blood Pressure 120/79 127/71 Pulse Oximetry 97 95 96 09/04/17 08:00 09/04/17 08:13 09/04/17 08:34 Temperature 98.0 F Pulse Rate 76 76 Respiratory Rate 17 18 Blood Pressure 113/62 Pulse Oximetry 95 09/04/17 09:51 Temperature Pulse Rate Respiratory Rate Blood Pressure Pulse Oximetry 95 Intake & Output 09/03/17 09/04/17 09/04/17 18:59 06:59 18:59 Intake Total 700 / 700 831 / 831 Output Total 1100 / 1100 300 / 300 Balance -400 / -400 531 / 531 Weight 104 kg Intake: IV 100 / 100 Rocephin Inj 1,000 MG In NS Inj 100 / 100 100 ML @ 200 mls/hr IV.SIG Q24H [facility] Rx#:[id number] Oral 600 / 600 831 / 831 Output: Urine 1100 / 1100 300 / 300 Other: Date of Last Bowel Movement 09/03/17 09/03/17 Narrative: GENERAL: NAD SKIN: Warm and dry. HEAD: Normocephalic. EYES: No scleral icterus. No injection or drainage. NECK: Supple, trachea midline. No JVD or lymphadenopathy. CARDIOVASCULAR: Regular rate and rhythm without murmurs, gallops, or rubs. RESPIRATORY: Breath sounds equal bilaterally. No accessory muscle use. GASTROINTESTINAL: Abdomen soft, non-tender, nondistended. MUSCULOSKELETAL: No cyanosis, or edema. BACK: Nontender without obvious deformity. No CVA tenderness. Results Procedures completed during hospitalization: Chest tube placement and removal prior to discharge Labs on day of discharge: Labs from last 24 hours 09/04/17 09/03/17 09/03/17 07:23 21:33 17:38 POC Glucose 176 H 246 H 216 H 09/03/17 12:01 POC Glucose 221 H Preliminary micro results at discharge 08/27/17 01:00 Body Fluid Culture - Preliminary Fluid - Pleural fluid Mold species-ID to follow - Impressions ITS Impressions Chest CT 08/25/17 12:33 CONCLUSION: 1. Large right effusion with compressive atelectasis of the right lung. No discrete underlying mass is identified. Chest Ultrasound 08/27/17 00:00 CONCLUSION: 1. Minimal right pleural effusion 2. Insufficient fluid for thoracentesis. Head CT 08/27/17 10:52 CONCLUSION: 1. No acute intracranial abnormality. Venous Doppler Study 08/27/17 23:57 CONCLUSION: 1. The study is negative for bilateral lower extremity deep venous thrombosis. Liver Ultrasound 08/29/17 00:00 CONCLUSION: 1. Echogenic liver likely mild hepatic steatosis. 2. Right pleural effusion. 3. No evidence for cholelithiasis. 4. Common bile duct measures 8 mm. Chest X-Ray 09/03/17 17:30 CONCLUSION: Right mid and lower lung atelectasis or consolidation. There is a possible mild right pleural effusion. Discharge Plan - Discharge Disposition Patient Disposition: W/Home Health Service - Discharge Condition Condition: Good - Discharge Order Discharge Orders: Discharge Order (Routine); Ordered 09/04/17 Ordered By: Matt August - Physicians Team Primary Care Provider: Primary Care Edgar,Trina Attending Provider: Matt August Other Providers: Francisco Porras MD
[2017-09-04 12:14] VITALS: RESP 18
[2017-09-04 13:36] VITALS: PULSE 65
[2017-09-04 16:18] VITALS: O2SAT 94
--- NOTE | 2017-09-16 16:01 | IR ---
EXAM DATE: 08/28/2017 4:28 PM EDT AGE/SEX: 66 years / Female INDICATIONS: Patient presents with right side pneumothorax in need of chest tube placement. CLINICAL DATA: This is the patient's initial encounter. Patient reports that signs and symptoms have been present for 3 days and indicates a pain score of 0/10. MEDICAL/SURGICAL HISTORY: . HTN, AFIB, CKD, DM, CHF . N/a COMPARISON: No prior exams available for comparison. FLUORO TIME (min): 1.8 IMAGE SERIES: 1 ACCESS SITE: SEDATION TIME (min): 30 MEDICATION(S): 1 mg midazolam (Versed) IV 50 mcg fentanyl (Sublimaze) IV DEVICE(S): 10 Amharic non-locking catheter 30 CM PABLO . . PROCEDURE: 1. Fluoroscopically guided chest tube placement. 2. Conscious sedation with continuous EKG and oximetry monitoring. The risks, benefits and alternatives to the procedure were explained and verbal and written consent w as obtained. The site was prepped in sterile fashion. Full sterile technique was used, including ca p, mask, sterile gloves and gown and a large sterile sheet. Hand hygiene and 2% chlorhexidine and/or betadine/alcohol prep was utilized per protocol for cutaneous antisepsis. The skin and subcutaneous tissues were infiltrated with local anesthetic solution. With fluoroscopic guidance the chest was punctured between the first and second interspace and the pr escribed catheter was placed in the lung apex. Wall suction was applied. Post procedure images demon strate satisfactory position of the tube. The catheter was sutured in place and a Percu-Stay was latonya lied. Conscious sedation was performed with the prescribed dosages and duration as above in the presence of an independent trained radiology nurse to assist in the monitoring of the patient. EKG and oximetry remained stable throughout the procedure. The patient tolerated the procedure well and there were n o complications. The patient was sent to post anesthesia recovery in stable condition. Uncomplicated chest tube placement as above. Electronically signed by: Gabriel Fernández MD 09/16/2017 3:59 PM EDT
--- NOTE | 2017-09-21 03:05 | P.PCN ---
Date of procedure: 08/27/17 Pre-op diagnosis: Pleural effusion Post-op diagnosis: same Procedure: Thoracentesis - Right-sided thoracentesis A time-out was completed verifying correct patient, procedure, site, positioning , and special equipment if applicable. The patients right side was prepped and draped in a sterile manner after the appropriate infiltration level was confirmed by ultrasound. 1% lidocaine was used anesthetize the surrounding skin. A finder needle was then used to locate fluid and clear yellow fluid was obtained. A 10-blade scalpel used to make the incision. The thoracentesis catheter was then threaded without difficulty. The patient had 1400 ml of clear yellow fluid removed from right. A post-procedure chest x-ray was ordered and the fluid will be sent for several studies. Estimated Blood Loss: 1ml The patient tolerated the procedure well and there were no complications. CXR and chem analysis to follow Anesthesia: local Surgeon: Francisco Porras Condition: stable Disposition: ICU
== END 2017-09-04 17:00 | disposition home health service (06) ==
LOC: NEPE 10:14 → INTOOBSV 15:45 → NEDA 15:45 → N04 19:05 → HIMC 08-27 00:05 → HCIS 08-29 12:31 → N04 08-30 18:19
PROVIDERS: ADMIT Hospitalist; ATTEND Hospitalist
DX: F32.9 Major depressive disorder, single episode, unspecified; E87.6 Hypokalemia; J94.8 Other specified pleural conditions; J96.90 Respiratory failure, unspecified, unspecified whether with hypoxia or hypercapnia; Z92.3 Personal history of irradiation; R33.9 Retention of urine, unspecified; E11.40 Type 2 diabetes mellitus with diabetic neuropathy, unspecified; E78.00 Pure hypercholesterolemia, unspecified; I13.0 Hypertensive heart and chronic kidney disease with heart failure and stage 1 through stage 4 chronic kidney disease, or unspecified chronic kidney disease; R00.0 Tachycardia, unspecified; E11.22 Type 2 diabetes mellitus with diabetic chronic kidney disease; K76.0 Fatty (change of) liver, not elsewhere classified; Z79.84 Long term (current) use of oral hypoglycemic drugs; I08.0 Rheumatic disorders of both mitral and aortic valves; Z79.82 Long term (current) use of aspirin; J98.11 Atelectasis; Z68.39 Body mass index [BMI] 39.0-39.9, adult; Z92.21 Personal history of antineoplastic chemotherapy; E03.9 Hypothyroidism, unspecified; N39.0 Urinary tract infection, site not specified; Z85.3 Personal history of malignant neoplasm of breast; Z87.01 Personal history of pneumonia (recurrent); I50.9 Heart failure, unspecified; N18.9 Chronic kidney disease, unspecified; I48.91 Unspecified atrial fibrillation; D64.9 Anemia, unspecified; Z88.8 Allergy status to other drugs, medicaments and biological substances; J90 Pleural effusion, not elsewhere classified; J95.811 Postprocedural pneumothorax; E66.9 Obesity, unspecified

== ENCOUNTER 2017-10-06 19:46 | Inpatient (IN) ==
[2017-10-06] MEDS ORDERED: Sodium Chlor 0.9% Inj 250 ML IV.SIG ONE (21:49)
[2017-10-06 22:09] LABS: Baso % (Auto) 0.2 % (0.0-2.0); Eos % (Auto) 0.3 % (0.0-4.0); Hematocrit 37.1 % (35.0-46.0); Hemoglobin 12.1 gm/dL (11.6-15.3); Lymph # (Auto) 1.1 th/mm3 (1.0-4.8); Lymph % (Auto) 11.9 % (9.0-44.0); Mean Corpuscular HGB Conc 32.6 % (32.0-36.0); Mean Corpuscular Hemoglobin 27.8 pg (27.0-34.0); Mean Corpuscular Volume 85.1 fL (80.0-100.0); Mean Platelet Volume 10.7 fL (7.0-11.0); Mono # (Auto) 0.7 th/mm3 (0.0-0.9); Mono % (Auto) 8.3 % (0.0-8.0); Neut % (Auto) 79.3 % (16.0-70.0); Platelet Count 211 th/mm3 (150-450); Red Blood Count 4.36 mil/mm3 (4.00-5.30); Red Cell Distribution Width 16.8 % (11.6-17.2); White Blood Count 8.8 th/mm3 (4.0-11.0)
--- NOTE | 2017-10-06 22:10 | ED ---
HPI General Chief complaint: Shortness of Breath/Dyspnea Stated complaint: dizzy Time Seen by Provider: 10/06/17 20:58 Source: patient History of Present Illness HPI narrative: The patient is a 66 year old female who presents to the [facility] emergency department with a history of back pain, shortness of breath that has recurred over the last few days at home. The patient reports a recent history of being admitted with a large pleural effusion on the right side status post drainage of 2 L while as an inpatient in August. The patient reports that Thursday she went to see her primary care physician and had a chest x-ray done. The patient's chest x-ray showed a partial reaccumulation of the fluid. She reports that over the weekend she has increased her weight by 10 pounds and begun to have increased lower extremity edema again. She reports that she called her primary care physician regarding this and had her Lasix 80 mg twice a day increased by a dose in the middle of the day of 40 mg. She reports that she continues to have pain and shortness of breath and is concerned that the pleural effusion has recurred. The patient arrives with a blood pressure of 88/ 50. The patient reports that her blood pressure has been on the lower side recently with her blood pressure medications. She has a log of her recent blood pressures and they have been as low as in the 80s to low 100s systolic. She denies having any recent fevers or worsening cough or congestion. The patient reports that she has had chest pain yesterday a few times. She denies having any chest pain currently. On review of systems otherwise, the patient denies having any neck pain, abdominal pain, vomiting, urinary symptoms, or neurologic symptoms. She reports that she has had diarrhea, however she reports that she has chronic diarrhea and the frequency has not changed or worsened. Related Data Home Medications Medication Instructions Recorded Confirmed aspirin [Aspir-Low] 81 mg PO DAILY 08/21/17 10/07/17 atorvastatin 80 mg PO HS 08/21/17 10/07/17 duloxetine 60 mg PO DAILY 08/21/17 10/07/17 ferrous fumarate-iron ps cmplx 2 cap PO BID 08/21/17 10/07/17 gabapentin 1 cap PO DAILY 08/21/17 10/07/17 levothyroxine 100 mcg PO DAILY 06/29/18 08/15/18 melatonin 3 mg PO HS PRN 08/21/17 10/07/17 metformin 500 mg PO BID 08/21/17 10/07/17 metoprolol tartrate 50 mg PO BID 08/21/17 10/07/17 pioglitazone 45 mg PO DAILY 08/21/17 10/07/17 quetiapine 50 mg PO BID 08/21/17 10/07/17 ranitidine HCl 150 mg PO QPM 08/21/17 10/07/17 vitamin D3-folic acid 1 tab PO QAM 08/21/17 10/07/17 amiodarone 200 mg PO BID 10/07/17 10/07/17 diltiazem HCl 120 mg PO BID 10/07/17 10/07/17 duloxetine 30 mg PO DAILY 10/07/17 10/07/17 furosemide 40 mg PO BID 10/07/17 10/07/17 lisinopril 5 mg PO DAILY 10/07/17 10/07/17 potassium chloride 10 meq PO DAILY 10/07/17 10/07/17 Allergies Allergy/AdvReac Type Severity Reaction Status Date / Time tamoxifen Allergy Anaphylaxis Verified 08/25/17 09:25 Review of Systems ROS: all other systems reviewed are negative (Except for that which was mentioned in the HPI.) [facility] Medical History Medical History Anemia (Acute) Atrial fibrillation (Acute) Diabetes (Acute) HX: breast cancer (Acute) High cholesterol (Acute) Hx: recurrent pneumonia (Acute) Hypertension (Acute) Hypothyroid (Acute) Renal disease (Acute) Wears glasses (Acute) Surgical History Surgical History History of (Acute) History of reconstruction of right breast (Acute) Hx of hemorrhoidectomy (Acute) Family History Family History Other Osteoarthritis Social History Social History Substance History: No History of Abuse Second Hand Smoke Exposure: No Smoking Status: Never smoker How Often Do You Have a Drink Containing Alcohol: Monthly or less Recent Travel in [facility] within the Last 8 Weeks: No Recent Out of Country Travel within the Last 8 Weeks: No Immunization History Tetanus Immunization: >5 Years Hx Influenza Vaccine This Season: Yes Exam Const General: cooperative, no acute distress and well developed Nutritional Appearance: well nourished Orientation: alert, awake and oriented x3 [facility] Head: normocephalic and atraumatic Nose: no nasal discharge and no epistaxis Mouth: moist mucous membranes Throat: posterior oropharynx normal and uvula midline Eyes Sclera: normal sclerae Pupils: PERRL Neck Neck: no meningeal signs, trachea midline and no JVD Resp Effort & Inspection: no use of accessory muscles Auscultation: crackles (Audible in the right lower lung base. Decreased breath sounds in the right lower lung base compared to the left. The patient has good air movement. No tripoding. No accessory muscle use noted. No conversational dyspnea.) Cardio Rate: regular rate Rhythm: regular rhythm Heart Sounds: no click, no gallops and murmur (the patient has a 2/6 systolic murmur audible best in the second intercostal space on the right.) systolic GI Inspection: non-distended Palpation: soft, no hepatosplenomegaly and nontender Auscultation: normal bowel sounds Back/Spine/Pelvis Back: no CVA tenderness Skin General: dry skin (warm) Neuro General: alert, awake and oriented x3 Cranial Nerves: other (No facial asymmetry.) Speech: speech normal Motor: strength 5/5 throughout and no movement abnormalities noted Extrem General: normal to inspection (No calf tenderness on palpation. 2+ pulses in all 4 extremities.), no clubbing, no cyanosis and edema (Trace to 1+ pitting edema bilateral lower extremities.) Laterality: bilaterally Psych Mood: congruent mood Affect: normal affect Judgment: judgment good Course Consultations Consultation #1: The patient's case including history, pertinent physical examination findings, and laboratory studies were discussed with . It was agreed that the patient would be admitted to the hospitalist service. Initial Documented Vital Signs Temperature 98.5 F 10/06/17 20:33 Pulse Rate 82 10/06/17 20:33 Respiratory Rate 18 10/06/17 20:33 Blood Pressure 84/51 L 10/06/17 20:33 Last Documented Vital Signs Temperature 98.7 F 10/07/17 01:58 Pulse Rate 66 10/07/17 03:03 Respiratory Rate 14 10/07/17 03:03 Blood Pressure 96/45 L 10/07/17 03:03 Pulse Oximetry 100 10/07/17 01:58 Medical Decision Making [facility] Narrative Medical decision making narrative: During the course of the patient's emergency department visit, the patient's history, examination, and differential diagnosis were reviewed with the patient. The patient was placed on a director of cardiac rehabilitation with oximetry and frequent blood pressure monitoring. The patient had IV access obtained and blood work sent for analysis. A diagnostic evaluation was started regarding the patient's shortness of breath, chest pain. The patient's initial blood pressure was noted to be 88/50 and she has been on large doses of diuretics. I suspect that she may be over diuresed. The patient was initially provided normal saline at 250 mL bolus x1. The patient's diagnostic evaluation is remarkable for a normal white count of 8.8, neutrophil predominance at 79.3, platelets 211, hemoglobin 12.1, PT 10.0, PTT 28.5, chemistry is remarkable for troponin I of less than 0.02, sodium 130, glucose 119, potassium 5.6,, lipase 87, creatinine 5.09 which is compared to the patient's prior creatinine of 1.11. This acute kidney injury is likely related to the patient's diuresis patient being over diuresed, and additional normal saline 250 mL bolus was administered. Chloride is 95, calcium 7.6, BUN 57, AST 14, albumin 2.5, BNP is 694. A chest x-ray shows stable appearance of the right lung infiltrate and effusion. The patient's results were discussed with the patient, including the plan of care. I explained that further testing and/ or monitoring is indicated based on the patient's history, examination, and/ or laboratory findings. Therefore, I recommended admission for additional evaluation. The patient expressed understanding and was agreeable with this plan. The patient was admitted to the hospital in guarded condition and sent to a bed under the care of the [facility] service. Medical Screen Exam Complete: Yes Emergency Medical Condition: Yes Differential Diagnosis Differential Diagnosis: Recurrent pleural effusion, versus congestive heart failure exacerbation, versus pneumonia, versus acute coronary syndrome Medical Records Medical records reviewed: Yes I reviewed the patient's medical records. Lab Data Lab results reviewed: Yes I reviewed the patient's lab results. Result diagrams: 10/06/17 21:54 10/06/17 23:30 Lab Results 10/06/17 10/06/17 10/06/17 Range/Units 21:54 21:54 21:54 WBC 8.8 (4.0-11.0) th/mm3 RBC 4.36 (4.00-5.30) mil/mm3 Hgb 12.1 (11.6-15.3) gm/dL Hct 37.1 (35.0-46.0) % MCV 85.1 (80.0-100.0) fL MCH 27.8 (27.0-34.0) pg MCHC 32.6 (32.0-36.0) % RDW 16.8 (11.6-17.2) % Plt Count 211 (150-450) th/mm3 MPV 10.7 (7.0-11.0) fL Neut % (Auto) 79.3 H (16.0-70.0) % Lymph % (Auto) 11.9 (9.0-44.0) % [place] % (Auto) 8.3 H (0.0-8.0) % Eos % (Auto) 0.3 (0.0-4.0) % Baso % (Auto) 0.2 (0.0-2.0) % Neut # (Auto) 7.0 (1.8-7.7) th/mm3 Lymph # (Auto) 1.1 (1.0-4.8) th/mm3 [place] # (Auto) 0.7 (0.0-0.9) th/mm3 Eos # (Auto) 0.0 (0.0-0.4) th/mm3 Baso # (Auto) 0.0 (0.0-0.2) th/mm3 WBC Differential . Differential Comment Auto diff final PT (9.8-11.6) sec INR Ratio APTT (24.3-30.1) sec Sodium (136-145) meq/L Potassium (3.5-5.1) meq/L Chloride (98-107) meq/L Carbon Dioxide (21.0-32.0) meq/L Anion Gap (5-15) meq/L BUN (7-18) mg/dL Creatinine (0.50-1.00) mg/dL Estimated GFR (>89) mL/min Random Glucose (74-106) mg/dL Calcium (8.5-10.1) mg/dL Magnesium Total Bilirubin (0.2-1.0) mg/dL AST (15-37) U/L ALT (10-53) U/L Alkaline Phosphatase (45-117) U/L Total Creatine Kinase (26-192) U/L Troponin I (0.02-0.05) ng/mL B-Natriuretic Peptide 694 H (0-100) pg/mL Total Protein (6.4-8.2) g/dL Albumin (3.4-5.0) g/dL Lipase Cancelled Urine Color (Yellw/Straw) Urine Clarity (Clear) Urine pH (5.0-8.5) Ur Specific [place] (1.002-1.035) Urine Protein (Neg-Trace) mg/dL Urine Glucose (UA) (Negative) mg/dL Urine Ketones (Negative) mg/dL Urine Occult Blood (Negative) Urine Nitrate (Negative) Urine Bilirubin (Negative) Urine Urobilinogen (Less than 2) mg/dL Ur Leukocyte Esterase (Negative) Urine RBC (0-3) /hpf Urine WBC (0-5) /hpf Ur Squamous Epith Cells (0-5) /hpf Urine Bacteria (None) /hpf Hyaline Casts (0-3) /lpf Granular Casts (None) /lpf Urine Mucus (Occasional) /lpf Micro UA Comment Urine Culture Comments 10/06/17 10/06/17 10/06/17 Range/Units 21:54 21:54 23:30 WBC (4.0-11.0) th/mm3 RBC (4.00-5.30) mil/mm3 Hgb (11.6-15.3) gm/dL Hct (35.0-46.0) % MCV (80.0-100.0) fL MCH (27.0-34.0) pg MCHC (32.0-36.0) % RDW (11.6-17.2) % Plt Count (150-450) th/mm3 MPV (7.0-11.0) fL Neut % (Auto) (16.0-70.0) % Lymph % (Auto) (9.0-44.0) % [place] % (Auto) (0.0-8.0) % Eos % (Auto) (0.0-4.0) % Baso % (Auto) (0.0-2.0) % Neut # (Auto) (1.8-7.7) th/mm3 Lymph # (Auto) (1.0-4.8) th/mm3 [place] # (Auto) (0.0-0.9) th/mm3 Eos # (Auto) (0.0-0.4) th/mm3 Baso # (Auto) (0.0-0.2) th/mm3 WBC Differential Differential Comment PT 10.0 (9.8-11.6) sec INR 1.0 Ratio APTT 28.5 (24.3-30.1) sec Sodium 130 L (136-145) meq/L Potassium 5.6 H (3.5-5.1) meq/L Chloride 95 L (98-107) meq/L Carbon Dioxide 23.7 (21.0-32.0) meq/L Anion Gap 11 (5-15) meq/L BUN 57 H (7-18) mg/dL Creatinine 5.09 H (0.50-1.00) mg/dL Estimated GFR 8 L (>89) mL/min Random Glucose 119 H (74-106) mg/dL Calcium 7.6 L (8.5-10.1) mg/dL Magnesium Cancelled 1.3 L Total Bilirubin 0.5 (0.2-1.0) mg/dL AST 14 L (15-37) U/L ALT 21 (10-53) U/L Alkaline Phosphatase 92 (45-117) U/L Total Creatine Kinase 49 (26-192) U/L Troponin I Less than 0.02 L (0.02-0.05) ng/mL B-Natriuretic Peptide (0-100) pg/mL Total Protein 6.5 (6.4-8.2) g/dL Albumin 2.5 L (3.4-5.0) g/dL Lipase 87 Urine Color (Yellw/Straw) Urine Clarity (Clear) Urine pH (5.0-8.5) Ur Specific [place] (1.002-1.035) Urine Protein (Neg-Trace) mg/dL Urine Glucose (UA) (Negative) mg/dL Urine Ketones (Negative) mg/dL Urine Occult Blood (Negative) Urine Nitrate (Negative) Urine Bilirubin (Negative) Urine Urobilinogen (Less than 2) mg/dL Ur Leukocyte Esterase (Negative) Urine RBC (0-3) /hpf Urine WBC (0-5) /hpf Ur Squamous Epith Cells (0-5) /hpf Urine Bacteria (None) /hpf Hyaline Casts (0-3) /lpf Granular Casts (None) /lpf Urine Mucus (Occasional) /lpf Micro UA Comment Urine Culture Comments 10/06/17 Range/Units 23:30 WBC (4.0-11.0) th/mm3 RBC (4.00-5.30) mil/mm3 Hgb (11.6-15.3) gm/dL Hct (35.0-46.0) % MCV (80.0-100.0) fL MCH (27.0-34.0) pg MCHC (32.0-36.0) % RDW (11.6-17.2) % Plt Count (150-450) th/mm3 MPV (7.0-11.0) fL Neut % (Auto) (16.0-70.0) % Lymph % (Auto) (9.0-44.0) % [place] % (Auto) (0.0-8.0) % Eos % (Auto) (0.0-4.0) % Baso % (Auto) (0.0-2.0) % Neut # (Auto) (1.8-7.7) th/mm3 Lymph # (Auto) (1.0-4.8) th/mm3 [place] # (Auto) (0.0-0.9) th/mm3 Eos # (Auto) (0.0-0.4) th/mm3 Baso # (Auto) (0.0-0.2) th/mm3 WBC Differential Differential Comment PT (9.8-11.6) sec INR Ratio APTT (24.3-30.1) sec Sodium (136-145) meq/L Potassium (3.5-5.1) meq/L Chloride (98-107) meq/L Carbon Dioxide (21.0-32.0) meq/L Anion Gap (5-15) meq/L BUN (7-18) mg/dL Creatinine (0.50-1.00) mg/dL Estimated GFR (>89) mL/min Random Glucose (74-106) mg/dL Calcium (8.5-10.1) mg/dL Magnesium Total Bilirubin (0.2-1.0) mg/dL AST (15-37) U/L ALT (10-53) U/L Alkaline Phosphatase (45-117) U/L Total Creatine Kinase (26-192) U/L Troponin I (0.02-0.05) ng/mL B-Natriuretic Peptide (0-100) pg/mL Total Protein (6.4-8.2) g/dL Albumin (3.4-5.0) g/dL Lipase Urine Color Yellow (Yellw/Straw) Urine Clarity Hazy H (Clear) Urine pH 5.0 (5.0-8.5) Ur Specific [place] 1.010 (1.002-1.035) Urine Protein Negative (Neg-Trace) mg/dL Urine Glucose (UA) Negative (Negative) mg/dL Urine Ketones Negative (Negative) mg/dL Urine Occult Blood Negative (Negative) Urine Nitrate Negative (Negative) Urine Bilirubin Negative (Negative) Urine Urobilinogen Less than 2 (Less than 2) mg/dL Ur Leukocyte Esterase Trace H (Negative) Urine RBC Less than 1 (0-3) /hpf Urine WBC 8 H (0-5) /hpf Ur Squamous Epith Cells <1 (0-5) /hpf Urine Bacteria Rare H (None) /hpf Hyaline Casts 1 (0-3) /lpf Granular Casts 1 (None) /lpf Urine Mucus Few H (Occasional) /lpf Micro UA Comment Culture not ind Urine Culture Comments Culture not ind Imaging Data Radiologist's impression: Chest X-Ray 10/06/17 21:50 CONCLUSION: Stable appearance with right lung infiltrate and effusion. ECG Data Attestation: I personally reviewed and interpreted this ECG as follows: Interpretation: The patient had an EKG done on arrival that shows a sinus rhythm heart rate is 62, QRS duration is 80 ms, QTC [address]-T wave abnormalities are noted. No acute ST segment elevation is noted. Baseline is tremulous which could affect interpretation. Discharge Plan Discharge Disposition Patient Disposition: 30 Still Patient Discharge Details Diagnosis: Acute renal failure (ARF), Pleural effusion on right Physicians Team ED Provider: Krystyna Hooper Primary Care Provider: Primary Care Edgar,Trina Attending Provider: Geoff Caballero Other Providers: Ruperto Reed ; [facility],Insurance Discharge Interventions Interventions: Vital Signs Last Done: 10/06/17 22:00 Status ED Status: Admitted Patient
[2017-10-06 22:37] LABS: Activated Partial Thrombo Time 28.5 sec (24.3-30.1)
[2017-10-06 22:44] LABS: Alanine Aminotransferase 21 U/L (10-53)
--- NOTE | 2017-10-06 22:56 | XR ---
EXAM DATE: 10/06/2017 10:44 PM EDT AGE/SEX: 66 years / Female INDICATIONS: Chest pain. CLINICAL DATA: This is the patient's initial encounter. Patient reports that signs and symptoms have been present for 2 weeks and indicates a pain score of 5/10. MEDICAL/SURGICAL HISTORY: . Atrial fibrillation. Diabetes. Hyperlipidemia. Right breast cancer. Hypertension. Hypothyroidism. Renal disease. History of chemotherapy and radiation. section . Hemorrhoidectomy. Right mastectomy. . COMPARISON: PCI, XR CHEST PA AND LAT, 09/25/2017. . FINDINGS: A single AP erect portable view of the chest was obtained and demonstrates no significant change. Abn ormal opacity remains in the right perihilar region and right lung base with blunting of the right co stophrenic angle and small to moderate effusion. The left lung is clear. The heart size remains enlar ged. Atherosclerotic changes are present in the aorta. There are tracheal calcifications. CONCLUSION: Stable appearance with right lung infiltrate and effusion. Electronically signed by: Arnulfo Coates MD 10/06/2017 10:54 PM EDT
[2017-10-07 00:14] LABS: Albumin 2.5 g/dL (3.4-5.0); Alkaline Phosphatase 92 U/L (45-117); Anion Gap 11 meq/L (5-15); Aspartate Aminotransferase 14 U/L (15-37); Blood Urea Nitrogen 57 mg/dL (7-18); Calcium 7.6 mg/dL (8.5-10.1); Carbon Dioxide 23.7 meq/L (21.0-32.0); Chloride 95 meq/L (98-107); Glomerular Filtration Rate 8 mL/min (>89); Glucose,Random 119 mg/dL (74-106); Lipase 87 U/L (73-393); Magnesium 1.3 mg/dL (1.5-2.5); Potassium 5.6 meq/L (3.5-5.1); Sodium 130 meq/L (136-145); Total Protein 6.5 g/dL (6.4-8.2)
[2017-10-07 00:39] LABS: Bacteria,Urine Rare /hpf; Bilirubin,Urine Negative (Negative); Clarity,Urine Hazy (Clear); Color,Urine Yellow (Yellw/Straw); Creatine Kinase 49 U/L (26-192); Glucose,Urine (UA) Negative (Negative); Hyaline Casts,Urine 1 /lpf (0-3); Leukocyte Esterase,Urine Trace (Negative); Mucus,Urine Few /lpf (Occasional); Nitrite,Urine Negative (Negative); Squamous Epithelial Cell,Urine <1 /hpf (0-5)
[2017-10-07] MEDS ORDERED: Dextrose 50% in Water 50 ML Vial IV.PUSH PRN (00:56)
--- NOTE | 2017-10-07 01:10 | P.HPIM ---
History of Present Illness Primary Care Physician: No Primary Care Physician History of Present Illness: Mrs. Wolfe is a 66 year old female. She has a recent past history of pleural effusion. Thoracentesis was performed. This patient did better after thoracentesis. Etiology for her pleural effusion may have been related to A. fib with RVR. She had congestive heart failure-like symptoms including respiratory failure and pleural effusion due to A. fib RVR. An echocardiogram done at that admit showed an ejection fraction of 60-65%. She has been on diuresis long-term but this was increased at that time increased again recently due to complaints of shortness of breath. Imaging shows no change in her pleural effusion which appears to be mild based on the x-ray. She does have evidence of dehydration with hypotension and acute renal failure. She also complains of cramps at her back and lower extremities. She may be over diuresed. She denies any peripheral edema though she reports that this was a problem at her prior admit. Recently she has not been making a significant amount of urine and cannot recall urinating in the past 2 days. - Diagnosis (1) Dehydration (2) Acute renal failure (ARF) (3) Pleural effusion Review of Systems Constitutional: Reports fatigue, Reports weakness, Denies fever(s), Denies malaise, Denies night sweats, Denies weight gain, Denies weight loss Eyes: Denies blind spots, Denies blurry vision, Denies change in vision, Denies double vision Ears, Nose, Mouth, and Throat: Denies abnormal hearing, Denies bleeding gums, Denies change in voice Cardiovascular: Denies chest pain, Denies chest pain at rest, Denies chest pain with activity Respiratory: Reports shortness of breath, Denies cough, Denies wheezing Gastrointestinal: Denies abdominal pain, Denies black, tarry stools, Denies bright, red blood in stools Musculoskeletal: Reports muscle cramps, Reports muscle weakness, Denies abnormal walking, Denies back pain, Denies body aches PMFSH - History History Provided By: Patient - Medical History Medical History: Medical History (Last Reviewed 10/06/17 @ 22:05 by Krystyna Hooper MD) Anemia Atrial fibrillation Diabetes HX: breast cancer High cholesterol Hx: recurrent pneumonia Hypertension Hypothyroid Renal disease Wears glasses - Surgical History Surgical History: Surgical History (Last Reviewed 10/06/17 @ 22:05 by Krystyna Hooper MD) History of History of reconstruction of right breast Hx of hemorrhoidectomy - Family History Family History: Family History (Last Updated 10/07/17 @ 02:10 by Robinson Cervantes MD) Other Osteoarthritis - Tobacco History Second Hand Smoke Exposure: No Smoking Status: Never smoker - Alcohol History How Often Do You Have a Drink Containing Alcohol: Monthly or less - Substance Use History Substance History: No History of Abuse - Travel History Recent Travel in the [place] Within the Last 8 Weeks: No Recent Travel Out of the Country Within the Last 8 Weeks: No - Immunization History Tetanus Immunization: >5 Years Hx Influenza Vaccine This Season: Yes Medications and Allergies Active Medications: Active Medications Al Hydroxide/Mg Hydroxide (Milk Of Magndrea Liq) 30 ml PO Q12H PRN PRN Reason: Mild Constipation Ondansetron HCl (Zofran Inj) 4 mg IV.PUSH Q6H PRN PRN Reason: NAUSEA OR VOMITING Sodium Chloride (Ns Flush) 2 ml IV.FLUSH UNSCH PRN PRN Reason: FLUSH AFTER USING IV ACCESS Allergies Allergy/AdvReac Type Severity Reaction Status Date / Time tamoxifen Allergy Anaphylaxis Verified 08/25/17 09:25 Home Medications Medication Instructions Recorded Confirmed Type aspirin [Aspir-Low] 81 mg PO DAILY 08/21/17 08/25/17 History atorvastatin 80 mg PO HS 08/21/17 08/25/17 History duloxetine 60 mg PO DAILY 08/21/17 08/25/17 History ferrous fumarate-iron ps cmplx 2 cap PO BID 08/21/17 08/25/17 History gabapentin 1 cap PO DAILY 08/21/17 08/25/17 History levothyroxine 100 mcg PO DAILY 08/21/17 08/25/17 History melatonin 3 mg PO HS PRN 08/21/17 08/25/17 History metformin 500 mg PO BID 08/21/17 08/25/17 History metoprolol tartrate 50 mg PO BID 08/21/17 08/25/17 History pioglitazone 45 mg PO DAILY 08/21/17 08/25/17 History quetiapine 50 mg PO HS 08/21/17 08/25/17 History ranitidine HCl 150 mg PO QPM 08/21/17 08/25/17 History sotalol 80 mg PO HS 08/21/17 08/25/17 History sotalol 160 mg PO DAILY 08/21/17 08/25/17 History vitamin D3-folic acid 1 tab PO QAM 08/21/17 08/25/17 History Exam Vital signs: Vital Signs 10/06/17 20:33 10/06/17 21:06 10/06/17 23:10 Temperature 98.5 F Pulse Rate 82 60 Respiratory Rate 18 16 Blood Pressure 84/51 L 88/50 L Pulse Oximetry 94 L 95 Intake & Output 10/06/17 10/06/17 10/07/17 06:59 18:59 06:59 Weight 106.141 kg Narrative: GENERAL: NAD, A&Ox3 HEAD: Normocephalic. NECK: Supple, trachea midline. No lymphadenopathy. EYES: No scleral icterus. No injection or drainage. CARDIOVASCULAR: Regular rate and rhythm without murmurs, gallops, or rubs. RESPIRATORY: Breath sounds equal bilaterally. No accessory muscle use. GASTROINTESTINAL: Abdomen soft, non-tender, nondistended. MUSCULOSKELETAL: No cyanosis, or edema. SKIN: Warm and dry. NEURO: No focal neurological deficits. Results - Labs CBC & Chem 7: 10/06/17 21:54 10/06/17 23:30 Labs: Short CBC 10/06/17 Range/Units 21:54 WBC 8.8 (4.0-11.0) th/mm3 Hgb 12.1 (11.6-15.3) gm/dL Hct 37.1 (35.0-46.0) % Plt Count 211 (150-450) th/mm3 BMP 10/06/17 23:30 Sodium 130 L Potassium 5.6 H Chloride 95 L Carbon Dioxide 23.7 BUN 57 H Creatinine 5.09 H Calcium 7.6 L Cardiac Enzymes 10/06/17 Range/Units 23:30 Total Creatine Kinase 49 (26-192) U/L Troponin I Less than 0.02 L (0.02-0.05) ng/mL Liver Function 10/06/17 Range/Units 23:30 Total Bilirubin 0.5 (0.2-1.0) mg/dL AST 14 L (15-37) U/L ALT 21 (10-53) U/L Alkaline Phosphatase 92 (45-117) U/L Albumin 2.5 L (3.4-5.0) g/dL Urine 10/06/17 Range/Units 23:30 Urine Color Yellow (Yellw/Straw) Urine Clarity Hazy H (Clear) Urine pH 5.0 (5.0-8.5) Ur Specific [place] 1.010 (1.002-1.035) Urine Protein Negative (Neg-Trace) mg/dL Urine Glucose (UA) Negative (Negative) mg/dL - Imaging Impressions Chest X-Ray 10/06/17 21:50 CONCLUSION: Stable appearance with right lung infiltrate and effusion. Caprini VTE Risk Assessment Caprini VTE Risk Assessment: Moderate/High Risk (score >= 2) Caprini Risk Assessment Model: Point Value = 1 Point Value = 2 Point Value = 3 Point Value = 5 Age 41-60 Minor surgery BMI > 25 kg/m2 Swollen legs Varicose veins or History of unexplained or recurrent spontaneous Oral contraceptives or hormone replacement Sepsis (< 1 month) Serious lung disease, including pneumonia (< 1 month) Abnormal pulmonary function Acute myocardial infarction Congestive heart failure (< 1 month) History of inflammatory bowel disease Medical patient at bed rest Age 61-74 Arthroscopic surgery Major open surgery (> 45 min) Laparoscopic surgery (> 45 min) Malignancy Confined to bed (> 72 hours) Immobilizing plaster cast Central venous access Age >= 75 History of VTE Family history of VTE Factor V Leiden Prothrombin [id number] Lupus anticoagulant Anticardiolipin antibodies Elevated serum homocysteine Heparin-induced thrombocytopenia Other congenital or acquired thrombophilia Stroke (< 1 month) Elective arthroplasty Hip, pelvis, or leg fracture Acute spinal cord injury (< 1 month) Prophylaxis Regimen: Total Risk Factor Score Risk Level Prophylaxis Regimen 0-1 Low Early ambulation 2 Moderate Order ONE of the following: *Sequential Compression Device (SCD) *Heparin 5000 units SQ BID 3-4 Higher Order ONE of the following medications: *Heparin 5000 units SQ TID *Enoxaparin/Lovenox 40 mg SQ daily (WT < 150 kg, CrCl > 30 mL/min) *Enoxaparin/Lovenox 30 mg SQ daily (WT < 150 kg, CrCl > 10-29 mL/min) *Enoxaparin/Lovenox 30 mg SQ BID (WT < 150 kg, CrCl > 30 mL/min) AND/OR *Sequential Compression Device (SCD) 5 or more Highest Order ONE of the following medications: *Heparin 5000 units SQ TID (Preferred with Epidurals) *Enoxaparin/Lovenox 40 mg SQ daily (WT < 150 kg, CrCl > 30 mL/min) *Enoxaparin/Lovenox 30 mg SQ daily (WT < 150 kg, CrCl > 10-29 mL/min) *Enoxaparin/Lovenox 30 mg SQ BID (WT < 150 kg, CrCl > 30 mL/min) AND *Sequential Compression Device (SCD) Assessment and Plan - Assessment (1) Dehydration Code(s): E86.0 - Dehydration Status: Acute (2) Acute renal failure (ARF) Code(s): N17.9 - Acute kidney failure, unspecified Status: Acute (3) Pleural effusion Code(s): J90 - Pleural effusion, not elsewhere classified Status: Acute - Plan 66 year old female with CHF admitted due to worsening edema and pleural effusion despite diuresis Dehydration Muscle Cramps Acute renal failure Diuretic dosing may have been too strong Begin IV hydration cautiously Avoid nephrotoxins Nephrology consulted Monitor renal function Pleural effusion No worsening from prior study Original etiology may have been related to prolonged A. fib RVR Consider pulmonary consult if effusion begins again Hypoalbuminemia May be contributory to edema and pleural effusion Diuretics are on hold Albumin every 12 hours Diabetes mellitus type 2 Follow blood sugars Insulin sliding scale Diabetic diet Paroxysmal atrial fibrillation Follow on telemetry No changes to baseline treatment HX: breast cancer Hx: recurrent pneumonia Both of these may be contributory to pleural effusion risk Hyperlipidemia Continue present treatment Follow as an outpatient Hypertension Continue baseline treatment Follow blood pressures Adjust treatments as needed Hypothyroid Continue baseline treatment DVT prophylaxis SCDs for now due to renal failure
[2017-10-07] MEDS: Albumin Human 25% Inj 50 ML IV.SIG SCH ×2 (01:55→12:04)
[2017-10-07] MEDS ORDERED: Sodium Chlor 0.9% Inj 250 ML IV.SIG ONE (02:17)
[2017-10-07] MEDS: Sod Chloride 0.9% Inj 1,000 ML IV.CONT SCH ×3 (03:49→23:05)
[2017-10-07] MEDS: Levothyroxine 100 MCG Tablet PO SCH (06:07)
--- NOTE | 2017-10-07 08:44 | ECG ---
Date Performed: 10/06/2017 Time Performed: 22:11:10 PTAGE: 66 years EKG: Sinus rhythm WITH FIRST DEGREE AV BLOCK NONSPECIFIC ST & T-WAVE ABNORMALITY ABNORMAL ECG NO PREVIOUS TRACING DOCTOR: Earle Peacock Interpretating Date/Time 10/07/2017 08:42:49
[2017-10-07] MEDS: Insulin NovoLOG Aspart Correctional Sugar Inj SQ SCH ×4 (09:03→20:04)
[2017-10-07] MEDS: Metoprolol Tartrate 50 MG Tablet PO SCH ×2 (09:04→20:04)
[2017-10-07] MEDS: Duloxetine 60 MG DR Capsule PO SCH (09:12)
[2017-10-07] MEDS: Gabapentin 300 MG Capsule PO SCH (09:12)
[2017-10-07 15:06] LABS: Baso % (Auto) 0.4 % (0.0-2.0); Eos # (Auto) 0.1 th/mm3 (0.0-0.4); Eos % (Auto) 0.9 % (0.0-4.0); Hematocrit 29.7 % (35.0-46.0); Hemoglobin 9.8 gm/dL (11.6-15.3); Lymph % (Auto) 16.7 % (9.0-44.0); Mean Corpuscular HGB Conc 32.8 % (32.0-36.0); Mean Corpuscular Hemoglobin 27.8 pg (27.0-34.0); Mean Corpuscular Volume 84.7 fL (80.0-100.0); Mean Platelet Volume 10.4 fL (7.0-11.0); Mono # (Auto) 0.8 th/mm3 (0.0-0.9); Mono % (Auto) 13.6 % (0.0-8.0); Neut # (Auto) 4.2 th/mm3 (1.8-7.7); Neut % (Auto) 68.4 % (16.0-70.0); Platelet Count 152 th/mm3 (150-450); Red Blood Count 3.51 mil/mm3 (4.00-5.30); Red Cell Distribution Width 16.5 % (11.6-17.2); White Blood Count 6.1 th/mm3 (4.0-11.0)
[2017-10-07 15:24] LABS: Albumin 2.9 g/dL (3.4-5.0); Calcium 8.3 mg/dL (8.5-10.1); Carbon Dioxide 25.7 meq/L (21.0-32.0); Phosphorus 7.8 mg/dL (2.5-4.9)
--- NOTE | 2017-10-07 19:37 | P.CONNP ---
History of Present Illness Service: Nephrology Consult date: 10/07/17 Requesting Physician: Geoff Caballero Reason for Consult: Acute renal failure Primary Care Provider: No Primary Care Physician History of Present Illness: Patient is a 66-year-old white female with history of recent admission pleural effusion status post thoracenteses, congestive heart failure she was taking high -dose of Lasix and was admitted as she was having weakness and leg pain, patient took Bactrim for urinary tract infection and found out she was allergic to it this was stopped. She was found to have high creatinine, potassium was high as well she was given IV fluids Lasix was discontinued along with potassium supplement Baseline creatinine is 0.98 and now is 5.08, patient was taking Aleve for pain relief per daughter not on a regular habit, patient was hypotensive upon admission Review of Systems Constitutional: Reports lack of energy Eyes: Denies blind spots, Denies blurry vision, Denies bulging eyes, Denies change in vision, Denies double vision, Denies discharge, Denies dry eyes, Denies floaters, Denies irritation, Denies itchy eyes, Denies loss of vision, Denies pain, Denies requires corrective lenses, Denies sensitivity to light, Denies other Respiratory: Reports cough Gastrointestinal: Reports abdominal pain, Reports change in stools Genitourinary: Reports urinary urgency Musculoskeletal: Reports abnormal walking, Reports back pain, Reports body aches , Reports joint pain Psychiatric: Reports anxiety Allergic/Immunologic: Reports GI upset with certain foods PMFSH - History History Provided By: Patient, Family Member - Medical History Medical History: Medical History (Last Reviewed 10/07/17 @ 10:43 by Maki Carlos RN) Anemia Atrial fibrillation Diabetes HX: breast cancer High cholesterol Hx: recurrent pneumonia Hypertension Hypothyroid Renal disease Wears glasses - Surgical History Surgical History: Surgical History (Last Updated 10/07/17 @ 10:44 by Maki Carlos RN) History of total left knee replacement (TKR) History of total right knee replacement (TKR) History of History of reconstruction of right breast Hx of hemorrhoidectomy - Family History Family History: Family History (Last Updated 10/07/17 @ 02:10 by Robinson Cervantes MD) Other Osteoarthritis - Tobacco History Second Hand Smoke Exposure: Yes Smoking Status: Never smoker - Alcohol History How Often Do You Have a Drink Containing Alcohol: Never - Substance Use History Substance History: No History of Abuse - Travel History Recent Travel in the [place] Within the Last 8 Weeks: No Recent Travel Out of the Country Within the Last 8 Weeks: No - Immunization History Tetanus Immunization: >5 Years Hx Influenza Vaccine This Season: Yes Medications and Allergies Active Medications: Active Medications Hydrocodone Bitart/Acetaminophen (Warren 10/325) 1 tab PO Q4H PRN PRN Reason: Pain 7 to 10 Last Admin: 10/07/17 12:04 Dose: 1 tab Hydrocodone Bitart/Acetaminophen ([place]ren 5/325) 1 tab PO Q4H PRN PRN Reason: Pain 3 to 6 Last Admin: 10/07/17 17:04 Dose: 1 tab Al Hydroxide/Mg Hydroxide (Milk Of Magndrea Liq) 30 ml PO Q12H PRN PRN Reason: Mild Constipation Aspirin (Ecotrin) 81 mg PO DAILY [facility] Last Admin: 10/07/17 09:12 Dose: 81 mg Atorvastatin Calcium (Lipitor) 80 mg PO HS [facility] Dextrose (D50w Vial) 50 ml IV.PUSH UNSCH PRN PRN Reason: PER HYPOGLYCEMIA PROTOCOL Duloxetine HCl (Cymbalta) 60 mg PO DAILY [facility] Last Admin: 10/07/17 09:12 Dose: 60 mg Famotidine (Pepcid) 20 mg PO HS [facility] Ferrous Fumarate (Hemocyte) 324 mg PO BIDAC [facility] Last Admin: 10/07/17 17:05 Dose: 324 mg Gabapentin (Neurontin) 300 mg PO DAILY [facility] Last Admin: 10/07/17 09:12 Dose: 300 mg Glucagon (Glucagon Inj) 1 mg OTHER PRN PRN PRN Reason: for Hypoglycemia Protocol Albumin Human (Flexbumin 25% Inj) 50 mls @ 60 mls/hr IV.SIG Q12H [facility] Last Infusion: 10/07/17 15:46 Dose: Infused Sodium Chloride (Ns Inj) 1,000 mls @ 84 mls/hr IV.CONT .[id number] [facility] Last Infusion: 10/07/17 17:28 Dose: 84 mls/hr Insulin Aspart (Novolog Insulin Correctional Sugar Inj) 0 unit SQ ACHS [facility]; Protocol Last Admin: 10/07/17 17:05 Dose: Not Given Levothyroxine Sodium (Synthroid) 100 mcg PO DAILY@0600 [facility] Last Admin: 10/07/17 06:07 Dose: 100 mcg Melatonin (Melatonin) 5 mg PO HS PRN PRN Reason: INSOMNIA Metoprolol Tartrate (Lopressor) 50 mg PO BID [facility] Last Admin: 10/07/17 09:04 Dose: Not Given Ondansetron HCl (Zofran Inj) 4 mg IV.PUSH Q6H PRN PRN Reason: NAUSEA OR VOMITING Pioglitazone HCl (Actos) 45 mg PO DAILY [facility] Last Admin: 10/07/17 12:03 Dose: 45 mg Quetiapine Fumarate (Seroquel) 50 mg PO HS [facility] Sodium Chloride (Ns Flush) 2 ml IV.FLUSH UNSCH PRN PRN Reason: FLUSH AFTER USING IV ACCESS Allergies Allergy/AdvReac Type Severity Reaction Status Date / Time Sulfa (Sulfonamide Allergy Rash Verified 10/07/17 10:44 Antibiotics) tamoxifen Allergy Anaphylaxis Verified 10/07/17 10:44 Home Medications Medication Instructions Recorded Confirmed Type aspirin [Aspir-Low] 81 mg PO DAILY 08/21/17 10/07/17 History atorvastatin 80 mg PO HS 08/21/17 10/07/17 History duloxetine 60 mg PO DAILY 08/21/17 10/07/17 History ferrous fumarate-iron ps cmplx 2 cap PO BID 08/21/17 10/07/17 History gabapentin 1 cap PO DAILY 08/21/17 10/07/17 History levothyroxine 100 mcg PO DAILY 08/21/17 10/07/17 History melatonin 3 mg PO HS PRN 08/21/17 10/07/17 History metformin 500 mg PO BID 08/21/17 10/07/17 History metoprolol tartrate 50 mg PO BID 08/21/17 10/07/17 History pioglitazone 45 mg PO DAILY 08/21/17 10/07/17 History quetiapine 50 mg PO BID 08/21/17 10/07/17 History ranitidine HCl 150 mg PO QPM 08/21/17 10/07/17 History vitamin D3-folic acid 1 tab PO QAM 08/21/17 10/07/17 History amiodarone 200 mg PO BID 10/07/17 10/07/17 History diltiazem HCl 120 mg PO BID 10/07/17 10/07/17 History duloxetine 30 mg PO DAILY 10/07/17 10/07/17 History furosemide 40 mg PO BID 10/07/17 10/07/17 History lisinopril 5 mg PO DAILY 10/07/17 10/07/17 History potassium chloride 10 meq PO DAILY 10/07/17 10/07/17 History Exam Vital signs: Vital Signs 10/06/17 20:33 10/06/17 21:06 10/06/17 22:00 Temperature 98.5 F Pulse Rate 82 60 62 Respiratory Rate 18 16 16 Blood Pressure 84/51 L 88/50 L 89/43 L Pulse Oximetry 94 L 10/06/17 23:10 10/07/17 01:58 10/07/17 03:03 Temperature 98.7 F Pulse Rate 64 66 Respiratory Rate 16 14 Blood Pressure 89/43 L 96/45 L Pulse Oximetry 95 100 10/07/17 07:15 10/07/17 08:01 10/07/17 11:00 Temperature 97.8 F 98.3 F Pulse Rate 67 73 Respiratory Rate 18 20 22 Blood Pressure 92/51 L 88/52 L Pulse Oximetry 98 92 L 10/07/17 11:01 10/07/17 12:00 10/07/17 12:04 Temperature Pulse Rate 72 Respiratory Rate 21 Blood Pressure 108/51 L Pulse Oximetry 10/07/17 13:00 10/07/17 14:00 10/07/17 15:00 Temperature 98.4 F Pulse Rate 67 68 71 Respiratory Rate 24 Blood Pressure 81/43 L Pulse Oximetry 96 10/07/17 15:02 10/07/17 15:05 10/07/17 16:00 Temperature Pulse Rate 77 Respiratory Rate Blood Pressure 79/44 L 98/52 L Pulse Oximetry 10/07/17 17:00 10/07/17 17:08 10/07/17 17:42 Temperature Pulse Rate 73 Respiratory Rate 21 Blood Pressure Pulse Oximetry 95 10/07/17 18:00 Temperature Pulse Rate 72 Respiratory Rate Blood Pressure Pulse Oximetry Intake & Output 10/07/17 10/07/17 10/08/17 06:59 18:59 06:59 Intake Total 50 / 50 620 / 620 Output Total 250 / 250 Balance 50 / 50 370 / 370 Weight 106.141 kg Intake: IV 50 / 50 140 / 140 NS Inj 1,000 ML @ 84 mls/hr IV. 90 / 90 CONT .[id number] [facility] Rx#:[id number] Flexbumin 25% Inj 50 ML @ 60 50 / 50 50 / 50 mls/hr IV.SIG Q12H [facility] Rx#: [id number] Oral 480 / 480 Output: Urine 250 / 250 Other: # Voids 1 Date of Last Bowel Movement 10/06/17 - Constitutional no acute distress - Routine HEENT Exam Head: Present: normocephalic Eye: Present: EOMI, PERRL - Routine Neck Exam Present: supple - Routine Cardiovascular Exam Present: RRR - Routine Abdominal Exam Present: soft, tenderness - Routine Extremities Exam Present: edema - Routine Skin Exam Present: erythema - Routine Neurological Exam Present: alert, oriented X3 Results - Lab Results 10/07/17 14:10 10/07/17 14:10 Most recent lab results Calcium 8.3 mg/dL (8.5-10.1) L 10/07/17 14:10 Phosphorus 7.8 mg/dL (2.5-4.9) H 10/07/17 14:10 Magnesium 1.3 mg/dL (1.5-2.5) L 10/06/17 23:30 - Image Kidney/bladder ultrasound: pending Assessment and Plan - Assessment (1) Acute UTI Code(s): N39.0 - Urinary tract infection, site not specified Status: Resolved (2) Normochromic normocytic anemia Code(s): D64.9 - Anemia, unspecified Status: Chronic (3) Dehydration Code(s): E86.0 - Dehydration Status: Acute (4) Acute renal failure (ARF) Code(s): N17.9 - Acute kidney failure, unspecified Status: Acute - Plan Patient may have a reaction to Bactrim and also took Aleve combination of pain medications and Bactrim may have caused acute tubular necrosis along with hypotension, she may have over diuresed with Lasix however she does not report decreased urine output Rule out interstitial nephritis Check urine sodium, creatinine and urine eosinophils, MARIN, serum complement Follow renal ultrasound Continue to hydrate Follow BMP Avoid nephrotoxic agents (4) Acute renal failure (ARF) Qualifiers: Acute renal failure type: unspecified Qualified Code(s): N17.9 - Acute kidney failure, unspecified
[2017-10-07] MEDS: Famotidine 20 MG Tablet PO SCH (20:05)
[2017-10-07] MEDS: QUEtiapine 25 MG Tablet PO SCH (20:05)
--- NOTE | 2017-10-07 20:54 | US ---
EXAM DATE: 10/07/2017 8:39 PM EDT AGE/SEX: 66 years / Female INDICATIONS: Hydronephrosis. CLINICAL DATA: This is the patient's initial encounter. Patient reports that signs and symptoms have been present for 1 day and indicates a pain score of 0/10. MEDICAL/SURGICAL HISTORY: . Atrial fibrillation. Diabetes. Hyperlipidemia. Right breast cancer. Recurrent pneumonia. Hypertension. Hypothyroidism. Renal disease. History of chemotherapy and radiat ion. Anemia. . Right breast reconstruction. Hemorrhoidectomy. section. [place] [facility] [place]. . MEASUREMENTS: Right Kidney:__10.4 x 4.7 x 5.0 cm Left Kidney:__11.7 x 5.1 x 4.3 cm FINDINGS: Right Kidney: Normal echotexture and cortical thickness. No mass or hydronephrosis. Left Kidney: 3.7 cm cyst upper pole without hydronephrosis or mass Bladder: Sarkar catheter is present. Bladder decompressed. Other: None. CONCLUSION: 1. Negative for hydronephrosis. 2. Left renal cyst. Electronically signed by: Esteban Paniagua MD 10/07/2017 8:52 PM EDT
[2017-10-07 22:06] LABS: Complement C3 142 mg/dL (90-180)
[2017-10-08] MEDS: Albumin Human 25% Inj 50 ML IV.SIG SCH ×2 (00:02→14:02)
[2017-10-08 04:26] LABS: Baso % (Auto) 0.2 % (0.0-2.0); Eos # (Auto) 0.1 th/mm3 (0.0-0.4); Eos % (Auto) 1.4 % (0.0-4.0); Hematocrit 28.5 % (35.0-46.0); Hemoglobin 9.3 gm/dL (11.6-15.3); Lymph % (Auto) 13.5 % (9.0-44.0); Mean Corpuscular HGB Conc 32.7 % (32.0-36.0); Mean Corpuscular Hemoglobin 28.1 pg (27.0-34.0); Mean Corpuscular Volume 85.8 fL (80.0-100.0); Mean Platelet Volume 10.3 fL (7.0-11.0); Mono # (Auto) 0.8 th/mm3 (0.0-0.9); Mono % (Auto) 10.9 % (0.0-8.0); Neut # (Auto) 5.4 th/mm3 (1.8-7.7); Platelet Count 135 th/mm3 (150-450); Red Blood Count 3.32 mil/mm3 (4.00-5.30); Red Cell Distribution Width 16.8 % (11.6-17.2); White Blood Count 7.2 th/mm3 (4.0-11.0)
[2017-10-08 04:56] LABS: Alanine Aminotransferase 15 U/L (10-53); Albumin 2.8 g/dL (3.4-5.0); Anion Gap 12 meq/L (5-15); Aspartate Aminotransferase 8 U/L (15-37); Blood Urea Nitrogen 67 mg/dL (7-18); Calcium 8.1 mg/dL (8.5-10.1); Carbon Dioxide 23.8 meq/L (21.0-32.0); Chloride 95 meq/L (98-107); Glomerular Filtration Rate 8 mL/min (>89); Glucose,Random 107 mg/dL (74-106); Potassium 5.8 meq/L (3.5-5.1); Sodium 131 meq/L (136-145)
[2017-10-08 04:57] LABS: Alkaline Phosphatase 82 U/L (45-117); Total Protein 6.8 g/dL (6.4-8.2)
[2017-10-08] MEDS: Levothyroxine 100 MCG Tablet PO SCH (05:46)
[2017-10-08] MEDS: Duloxetine 60 MG DR Capsule PO SCH (09:21)
[2017-10-08] MEDS: Gabapentin 300 MG Capsule PO SCH (09:22)
[2017-10-08] MEDS: Metoprolol Tartrate 50 MG Tablet PO SCH ×2 (09:22→20:58)
[2017-10-08] MEDS: Insulin NovoLOG Aspart Correctional Sugar Inj SQ SCH ×4 (09:25→20:57)
[2017-10-08] MEDS ORDERED: Albumin Human 5% Inj 500 ML IV.SIG ONE (11:20)
--- NOTE | 2017-10-08 11:26 | P.PNNP ---
Subjective Interval history: doing about same, weak Physical Exam Vital signs: Vital Signs 10/07/17 12:00 10/07/17 12:04 10/07/17 13:00 Temperature Pulse Rate 72 67 Respiratory Rate 21 Blood Pressure Pulse Oximetry 10/07/17 14:00 10/07/17 15:00 10/07/17 15:02 Temperature 98.4 F Pulse Rate 68 71 Respiratory Rate 24 Blood Pressure 81/43 L 79/44 L Pulse Oximetry 96 10/07/17 15:05 10/07/17 16:00 10/07/17 17:00 Temperature Pulse Rate 77 73 Respiratory Rate Blood Pressure 98/52 L Pulse Oximetry 10/07/17 17:08 10/07/17 17:42 10/07/17 18:00 Temperature Pulse Rate 72 Respiratory Rate 21 Blood Pressure Pulse Oximetry 95 10/07/17 19:00 10/07/17 20:00 10/07/17 20:48 Temperature 98.4 F Pulse Rate 72 71 Respiratory Rate 16 Blood Pressure 93/45 L Pulse Oximetry 93 L 93 L 10/07/17 21:00 10/07/17 22:00 10/07/17 23:00 Temperature 98.3 F Pulse Rate 72 73 74 Respiratory Rate 18 Blood Pressure 88/52 L Pulse Oximetry 93 L 10/08/17 00:00 10/08/17 01:00 10/08/17 02:00 Temperature Pulse Rate 73 78 83 Respiratory Rate Blood Pressure Pulse Oximetry 10/08/17 03:00 10/08/17 04:00 10/08/17 05:00 Temperature 98.4 F Pulse Rate 81 82 85 Respiratory Rate 16 Blood Pressure 97/52 L Pulse Oximetry 96 10/08/17 06:01 Temperature Pulse Rate 86 Respiratory Rate Blood Pressure Pulse Oximetry Intake & Output 10/07/17 10/08/17 10/08/17 18:59 06:59 18:59 Intake Total 620 / 620 1200 / 1200 Output Total 250 / 250 200 / 200 Balance 370 / 370 1000 / 1000 Weight 110 kg Intake: IV 140 / 140 960 / 960 NS Inj 1,000 ML @ 84 mls/hr IV. 90 / 90 910 / 910 CONT .[id number] [facility] Rx#:[id number] Flexbumin 25% Inj 50 ML @ 60 50 / 50 50 / 50 mls/hr IV.SIG Q12H [facility] Rx#: [id number] Oral 480 / 480 240 / 240 Output: Urine 250 / 250 200 / 200 Other: # Voids 1 Date of Last Bowel Movement 10/06/17 10/06/17 - Constitutional no acute distress - Routine HEENT Exam Head: Present: normocephalic Eye: Present: EOMI - Routine Respiratory Exam Present: CTA bilaterally - Routine Cardiovascular Exam Present: RRR - Routine Abdominal Exam Present: soft - Routine Extremities Exam Present: full ROM - Urinary Catheter Management Indwelling Urethral Catheter Cath placed during this visit: yes Reason for continuing: Hourly intake/output Insertion date: 10/07/17 Insertion time: 17:00 Assessment and Plan - Assessment (1) Normochromic normocytic anemia Code(s): D64.9 - Anemia, unspecified Status: Chronic (2) Dehydration Code(s): E86.0 - Dehydration Status: Acute (3) Acute renal failure (ARF) Code(s): N17.9 - Acute kidney failure, unspecified Status: Acute Qualifiers: Acute renal failure type: unspecified Qualified Code(s): N17.9 - Acute kidney failure, unspecified - Plan Patient may have a reaction to Bactrim and also took Aleve combination of pain medications and Bactrim may have caused acute tubular necrosis along with hypotension, she may have over diuresed with Lasix however she does not report decreased urine output Rule out interstitial nephritis Check urine sodium, creatinine and urine eosinophils, MARIN, serum complement renal ultrasound no obstruction Continue to hydrate give 55 Albumin give Bumex 1 mg IV Has hyperkalemia limit K in diet.given Kayexalate Follow BMP Avoid nephrotoxic agents
[2017-10-08] MEDS ORDERED: Sodium Polystyrene Sulfonate/Sorbitol Liq 15 GM/60 ML UDC PO ONE (11:27)
[2017-10-08 13:15] LABS: Creatinine,Urine Random 61 mg/dL (27-300)
--- NOTE | 2017-10-08 14:19 | P.PNIM ---
Subjective Interval history: Says she is feeling all right. Reports she is a little bit confused. She denies any chest pain or shortness of breath. Denies nausea or vomiting. Physical Exam Vital signs: Vital Signs 10/07/17 15:00 10/07/17 15:02 10/07/17 15:05 Temperature 98.4 F Pulse Rate 71 Respiratory Rate 24 Blood Pressure 81/43 L 79/44 L 98/52 L Pulse Oximetry 96 10/07/17 16:00 10/07/17 17:00 10/07/17 17:08 Temperature Pulse Rate 77 73 Respiratory Rate Blood Pressure Pulse Oximetry 95 10/07/17 17:42 10/07/17 18:00 10/07/17 19:00 Temperature 98.4 F Pulse Rate 72 72 Respiratory Rate 21 16 Blood Pressure 93/45 L Pulse Oximetry 93 L 10/07/17 20:00 10/07/17 20:48 10/07/17 21:00 Temperature Pulse Rate 71 72 Respiratory Rate Blood Pressure Pulse Oximetry 93 L 10/07/17 22:00 10/07/17 23:00 10/08/17 00:00 Temperature 98.3 F Pulse Rate 73 74 73 Respiratory Rate 18 Blood Pressure 88/52 L Pulse Oximetry 93 L 10/08/17 01:00 10/08/17 02:00 10/08/17 03:00 Temperature 98.4 F Pulse Rate 78 83 81 Respiratory Rate 16 Blood Pressure 97/52 L Pulse Oximetry 96 10/08/17 04:00 10/08/17 05:00 10/08/17 06:01 Temperature Pulse Rate 82 85 86 Respiratory Rate Blood Pressure Pulse Oximetry 10/08/17 11:25 Temperature Pulse Rate Respiratory Rate Blood Pressure Pulse Oximetry 93 L Intake & Output 10/07/17 10/08/17 10/08/17 18:59 06:59 18:59 Intake Total 620 / 620 1200 / 1200 Output Total 250 / 250 200 / 200 Balance 370 / 370 1000 / 1000 Weight 110 kg Intake: IV 140 / 140 960 / 960 NS Inj 1,000 ML @ 84 mls/hr IV. 90 / 90 910 / 910 CONT .[id number] LOLY Rx#:[id number] Flexbumin 25% Inj 50 ML @ 60 50 / 50 50 / 50 mls/hr IV.SIG Q12H LOLY Rx#: [id number] Oral 480 / 480 240 / 240 Output: Urine 250 / 250 200 / 200 Other: # Voids 1 Date of Last Bowel Movement 10/06/17 10/06/17 Narrative: GENERAL: Patient sitting up in chair. Appears comfortable. SKIN: Warm and dry. HEAD: Normocephalic. EYES: No scleral icterus. No injection or drainage. NECK: Supple, trachea midline. No JVD. CARDIOVASCULAR: Regular rate and rhythm without murmurs, gallops, or rubs. RESPIRATORY: Breath sounds equal bilaterally. No accessory muscle use. GASTROINTESTINAL: Abdomen soft, non-tender, nondistended. MUSCULOSKELETAL: No cyanosis, or edema. BACK: Nontender without obvious deformity. No CVA tenderness. - Urinary Catheter Management Indwelling Urethral Catheter Cath placed during this visit: yes Reason for continuing: Hourly intake/output Insertion date: 10/07/17 Insertion time: 17:00 Results - Labs CBC & Chem 7: 10/08/17 03:25 10/08/17 03:25 Laboratory Results - last 24 hr 10/07/17 10/07/17 10/07/17 14:10 14:10 14:10 WBC 6.1 RBC 3.51 L Hgb 9.8 L D Hct 29.7 L MCV 84.7 MCH 27.8 MCHC 32.8 RDW 16.5 Plt Count 152 MPV 10.4 Neut % (Auto) 68.4 Lymph % (Auto) 16.7 [place] % (Auto) 13.6 H Eos % (Auto) 0.9 Baso % (Auto) 0.4 Neut # (Auto) 4.2 Lymph # (Auto) 1.0 [place] # (Auto) 0.8 Eos # (Auto) 0.1 Baso # (Auto) 0.0 WBC Differential . Differential Comment Auto diff final Sodium 130 L Potassium 5.0 Chloride 93 L Carbon Dioxide 25.7 Anion Gap 11 BUN 62 H Creatinine 5.08 H Estimated GFR 9 L POC Glucose Random Glucose 151 H Calcium 8.3 L Phosphorus 7.8 H Total Bilirubin AST ALT Alkaline Phosphatase Total Protein Albumin 2.9 L Urine Eosinophils Ur Random Creatinine Ur Random Sodium Complement C3 142 Complement C4 29 10/07/17 10/07/17 10/08/17 16:38 19:24 03:25 WBC 7.2 RBC 3.32 L Hgb 9.3 L Hct 28.5 L MCV 85.8 MCH 28.1 MCHC 32.7 RDW 16.8 Plt Count 135 L MPV 10.3 Neut % (Auto) 74.0 H Lymph % (Auto) 13.5 [place] % (Auto) 10.9 H Eos % (Auto) 1.4 Baso % (Auto) 0.2 Neut # (Auto) 5.4 Lymph # (Auto) 1.0 [place] # (Auto) 0.8 Eos # (Auto) 0.1 Baso # (Auto) 0.0 WBC Differential . Differential Comment Auto diff final Sodium Potassium Chloride Carbon Dioxide Anion Gap BUN Creatinine Estimated GFR POC Glucose 146 H 186 H Random Glucose Calcium Phosphorus Total Bilirubin AST ALT Alkaline Phosphatase Total Protein Albumin Urine Eosinophils Ur Random Creatinine Ur Random Sodium Complement C3 Complement C4 10/08/17 10/08/17 10/08/17 03:25 07:51 11:25 WBC RBC Hgb Hct MCV MCH MCHC RDW Plt Count MPV Neut % (Auto) Lymph % (Auto) [place] % (Auto) Eos % (Auto) Baso % (Auto) Neut # (Auto) Lymph # (Auto) [place] # (Auto) Eos # (Auto) Baso # (Auto) WBC Differential Differential Comment Sodium 131 L Potassium 5.8 H D Chloride 95 L Carbon Dioxide 23.8 Anion Gap 12 BUN 67 H Creatinine 5.12 H Estimated GFR 8 L POC Glucose 129 H Random Glucose 107 H Calcium 8.1 L Phosphorus Total Bilirubin 0.8 AST 8 L ALT 15 Alkaline Phosphatase 82 Total Protein 6.8 Albumin 2.8 L Urine Eosinophils Rare H Ur Random Creatinine Ur Random Sodium Complement C3 Complement C4 10/08/17 10/08/17 11:25 11:44 WBC RBC Hgb Hct MCV MCH MCHC RDW Plt Count MPV Neut % (Auto) Lymph % (Auto) [place] % (Auto) Eos % (Auto) Baso % (Auto) Neut # (Auto) Lymph # (Auto) [place] # (Auto) Eos # (Auto) Baso # (Auto) WBC Differential Differential Comment Sodium Potassium Chloride Carbon Dioxide Anion Gap BUN Creatinine Estimated GFR POC Glucose 122 H Random Glucose Calcium Phosphorus Total Bilirubin AST ALT Alkaline Phosphatase Total Protein Albumin Urine Eosinophils Ur Random Creatinine 61 Ur Random Sodium 18 Complement C3 Complement C4 - Imaging Impressions Abdomen/Bladder Ultrasound 10/07/17 00:00 CONCLUSION: 1. Negative for hydronephrosis. 2. Left renal cyst. Assessment and Plan - Assessment (1) Dehydration Code(s): E86.0 - Dehydration Status: Acute (2) Acute renal failure (ARF) Code(s): N17.9 - Acute kidney failure, unspecified Status: Acute (3) Pleural effusion Code(s): J90 - Pleural effusion, not elsewhere classified Status: Acute - Plan 66 year old female with CHF admitted due to worsening edema and pleural effusion despite diuresis Dehydration Muscle Cramps Acute renal failure Diuretic dosing may have been too strong Begin IV hydration cautiously Avoid nephrotoxins Nephrology consulted Monitor renal function = 10/08. Renal function worsening. Creatinine 5.1. Nephrology following. Appreciate assistance. Will check BNP. //Confusion Likely secondary to uremic encephalopathy. Will also check ammonia level. Pleural effusion No worsening from prior study Original etiology may have been related to prolonged A. fib RVR Consider pulmonary consult if effusion begins again Hypoalbuminemia May be contributory to edema and pleural effusion Diuretics are on hold Albumin every 12 hours Diabetes mellitus type 2 Follow blood sugars Insulin sliding scale Diabetic diet Paroxysmal atrial fibrillation Follow on telemetry No changes to baseline treatment HX: breast cancer Hx: recurrent pneumonia Both of these may be contributory to pleural effusion risk Hyperlipidemia Continue present treatment Follow as an outpatient Hypertension Continue baseline treatment Follow blood pressures Adjust treatments as needed Hypothyroid Continue baseline treatment DVT prophylaxis SCDs for now due to renal failure Discharge Planning: PT consulted. Continue inpatient treatment (2) Acute renal failure (ARF) Qualifiers: Acute renal failure type: unspecified Qualified Code(s): N17.9 - Acute kidney failure, unspecified
[2017-10-08 15:40] LABS: Calcium 8.2 mg/dL (8.5-10.1); Potassium 5.5 meq/L (3.5-5.1)
[2017-10-08] MEDS: Sod Chloride 0.9% Inj 1,000 ML IV.CONT SCH (15:56)
--- NOTE | 2017-10-08 17:43 | ECHRPT ---
Indication: Cardiomyopathy, unspecified CONCLUSIONS The left ventricular systolic function is normal with an estimated ejection fraction of 55%. Wall thickness is normal. Normal left ventricular size. Mitral annular calcification. Trace mitral valve regurgitation. Mild aortic valve stenosis. Aortic valve mean gradient is 15 mmHg. BP: / HR: 85 Rhythm: Sinus MEASUREMENTS (Male / Female) Normal Values Technical Quality:Fair 2D ECHO LV Diastolic Diameter PLAX 4.6 cm 4.2 - 5.9 / 3.9 - 5.3 cm LV Systolic Diameter PLAX 3.6 cm IVS Diastolic Thickness 0.9 cm 0.6 - 1.0 / 0.6 - 0.9 cm LVPW Diastolic Thickness 0.9 cm 0.6 - 1.0 / 0.6 - 0.9 cm LV Relative Wall Thickness 0.4 LVOT Diameter 1.4 cm M-MODE Aortic Root Diameter MM 2.9 cm LA Systolic Diameter MM 3.5 cm LA Ao Ratio MM 1.2 AV Cusp Separation MM 1.5 cm DOPPLER AV Peak Velocity 242.8 cm/s AV Peak Gradient 23.6 mmHg AV Mean Gradient 15.3 mmHg AV Velocity Time Integral 56.2 cm LVOT Peak Velocity 110.0 cm/s LVOT Peak Gradient 4.8 mmHg AV Area Cont Eq pk 0.7 cm MV Peak Velocity 174.0 cm/s MV Peak Gradient 12.1 mmHg MV Mean Velocity 106.0 cm/s MV Mean Gradient 5.0 mmHg MR Peak Velocity 258.0 cm/s MR Peak Gradient 26.6 mmHg Mitral E Point Velocity 154.0 cm/s Mitral A Point Velocity 75.4 cm/s Mitral E to A Ratio 2.0 LV E' Lateral Velocity 9.5 cm/s Mitral E to LV E' Lateral Ratio 16.3 LV E' Septal Velocity 5.9 cm/s Mitral E to LV E' Septal Ratio 25.9 PV Peak Velocity 130.0 cm/s PV Peak Gradient 6.8 mmHg FINDINGS LEFT VENTRICLE The left ventricular systolic function is normal with an estimated ejection fraction of 55%. Wall thickness is normal. Normal left ventricular size. RIGHT VENTRICLE Normal right ventricular size and systolic function. LEFT ATRIUM The left atrial size is normal. RIGHT ATRIUM The right atrial size is normal. ATRIAL SEPTUM Normal atrial septal thickness without atrial level shunting by limited color doppler interrogation. AORTA The aortic root and proximal ascending aorta are normal in size on limited imaging. MITRAL VALVE Mild mitral annular calcification. Trace mitral valve regurgitation. AORTIC VALVE Trileaflet aortic valve. Mild aortic valve stenosis. Aortic valve mean gradient is 15.3 mmHg. TRICUSPID VALVE Structurally normal tricuspid valve. No tricuspid valve stenosis or regurgitation. PULMONARY VALVE The pulmonary valve is not well visualized. VESSELS The inferior vena cava is normal in size. PERICARDIUM No pericardial effusion. Breann Stewart MD, FACC (Electronically Signed) Final Date:08 October 2017 17:42
[2017-10-08] MEDS: Famotidine 20 MG Tablet PO SCH (20:49)
[2017-10-08] MEDS: QUEtiapine 25 MG Tablet PO SCH (20:57)
[2017-10-09] MEDS: Albumin Human 25% Inj 50 ML IV.SIG SCH ×2 (02:00→14:56)
[2017-10-09] MEDS: Sod Chloride 0.9% Inj 1,000 ML IV.CONT SCH (04:40)
[2017-10-09 04:56] LABS: Baso % (Auto) 0.4 % (0.0-2.0); Eos # (Auto) 0.1 th/mm3 (0.0-0.4); Hematocrit 27.1 % (35.0-46.0); Lymph # (Auto) 0.9 th/mm3 (1.0-4.8); Lymph % (Auto) 18.8 % (9.0-44.0); Mean Corpuscular HGB Conc 33.1 % (32.0-36.0); Mean Corpuscular Hemoglobin 28.2 pg (27.0-34.0); Mean Platelet Volume 9.9 fL (7.0-11.0); Mono # (Auto) 0.5 th/mm3 (0.0-0.9); Mono % (Auto) 10.8 % (0.0-8.0); Neut # (Auto) 3.4 th/mm3 (1.8-7.7); Platelet Count 123 th/mm3 (150-450); Red Blood Count 3.18 mil/mm3 (4.00-5.30); Red Cell Distribution Width 16.9 % (11.6-17.2)
[2017-10-09 05:11] LABS: Albumin 2.8 g/dL (3.4-5.0); Carbon Dioxide 22.4 meq/L (21.0-32.0); Magnesium 1.5 mg/dL (1.5-2.5); Phosphorus 6.8 mg/dL (2.5-4.9); Potassium 4.3 meq/L (3.5-5.1)
[2017-10-09] MEDS: Levothyroxine 100 MCG Tablet PO SCH (05:16)
[2017-10-09] MEDS: Gabapentin 300 MG Capsule PO SCH (09:09)
[2017-10-09] MEDS: Metoprolol Tartrate 50 MG Tablet PO SCH ×3 (09:10→22:25)
[2017-10-09] MEDS: Duloxetine 60 MG DR Capsule PO SCH (09:10)
[2017-10-09] MEDS: Insulin NovoLOG Aspart Correctional Sugar Inj SQ SCH ×4 (12:00→22:34)
[2017-10-09] MEDS ORDERED: Albumin Human 25% Inj 100 ML IV.SIG ONE (12:42)
--- NOTE | 2017-10-09 15:12 | P.PNIM ---
Subjective Interval history: Patient sleeping, wakes of her exam. Denies any pain. Still somnolent as yesterday. Physical Exam Vital signs: Vital Signs 10/08/17 16:00 10/08/17 17:00 10/08/17 18:00 Temperature Pulse Rate 81 83 83 Respiratory Rate Blood Pressure Pulse Oximetry 10/08/17 19:00 10/08/17 23:00 10/09/17 00:00 Temperature 99.2 F 98 F Pulse Rate 87 88 93 H Respiratory Rate Blood Pressure 90/48 L 91/49 L Pulse Oximetry 94 L 93 L 10/09/17 01:00 10/09/17 02:05 10/09/17 03:00 Temperature 98.8 F Pulse Rate 93 H 93 H 94 H Respiratory Rate 16 Blood Pressure 145/57 H Pulse Oximetry 96 10/09/17 05:54 10/09/17 06:00 10/09/17 07:00 Temperature 98.5 F Pulse Rate 94 H 94 H 92 H Respiratory Rate 18 Blood Pressure 110/52 L Pulse Oximetry 92 L 10/09/17 08:00 10/09/17 10:12 10/09/17 11:00 Temperature 98.5 F Pulse Rate 103 H 70 Respiratory Rate 23 Blood Pressure 86/52 L Pulse Oximetry 98 100 Intake & Output 10/08/17 10/09/17 10/09/17 18:59 06:59 18:59 Intake Total 500 / 500 530 / 530 Output Total 1350 / 1350 Balance 500 / 500 -820 / -820 Weight 97 kg Intake: IV 50 / 50 50 / 50 Flexbumin 25% Inj 50 ML @ 60 50 / 50 50 / 50 mls/hr IV.SIG Q12H LOLY Rx#: [id number] Oral 450 / 450 480 / 480 Output: Urine 1350 / 1350 Other: Bladder Irrigation Fluid - Amount Instilled Indwelling Urethral Catheter 675 Date of Last Bowel Movement 10/08/17 10/08/17 10/08/17 # Bowel Movements 1 Narrative: GENERAL: Patient sleeping in bed, wakes up for exam. Appears comfortable. SKIN: Warm and dry. HEAD: Normocephalic. EYES: No scleral icterus. No injection or drainage. NECK: Supple, trachea midline. No JVD. CARDIOVASCULAR: Regular rate and rhythm without murmurs, gallops, or rubs. RESPIRATORY: Breath sounds equal bilaterally. No accessory muscle use. GASTROINTESTINAL: Abdomen soft, non-tender, nondistended. MUSCULOSKELETAL: No cyanosis, or edema. BACK: Nontender without obvious deformity. No CVA tenderness. - Urinary Catheter Management Indwelling Urethral Catheter Cath placed during this visit: yes Reason for continuing: Hourly intake/output Insertion date: 10/07/17 Insertion time: 17:00 Results - Labs CBC & Chem 7: 10/09/17 04:37 10/09/17 04:37 Laboratory Results - last 24 hr 10/08/17 10/08/17 10/08/17 14:55 14:55 17:17 WBC RBC Hgb Hct MCV MCH MCHC RDW Plt Count MPV Neut % (Auto) Lymph % (Auto) [place] % (Auto) Eos % (Auto) Baso % (Auto) Neut # (Auto) Lymph # (Auto) [place] # (Auto) Eos # (Auto) Baso # (Auto) WBC Differential Differential Comment Sodium 130 L Potassium 5.5 H Chloride 94 L Carbon Dioxide 26.0 Anion Gap 10 BUN 69 H Creatinine 4.90 H Estimated GFR 9 L POC Glucose 125 H Random Glucose 145 H Calcium 8.2 L Phosphorus Magnesium Ammonia 19 Albumin 10/08/17 10/09/17 10/09/17 20:41 04:37 04:37 WBC 5.0 RBC 3.18 L Hgb 9.0 L Hct 27.1 L MCV 85.0 MCH 28.2 MCHC 33.1 RDW 16.9 Plt Count 123 L MPV 9.9 Neut % (Auto) 68.0 Lymph % (Auto) 18.8 [place] % (Auto) 10.8 H Eos % (Auto) 2.0 Baso % (Auto) 0.4 Neut # (Auto) 3.4 Lymph # (Auto) 0.9 L [place] # (Auto) 0.5 Eos # (Auto) 0.1 Baso # (Auto) 0.0 WBC Differential . Differential Comment Auto diff final Sodium 134 L Potassium 4.3 D Chloride 98 Carbon Dioxide 22.4 Anion Gap 14 BUN 65 H Creatinine 4.12 H Estimated GFR 11 L POC Glucose 167 H Random Glucose 94 Calcium 8.0 L Phosphorus 6.8 H D Magnesium 1.5 Ammonia Albumin 2.8 L 10/09/17 10/09/17 07:58 11:42 WBC RBC Hgb Hct MCV MCH MCHC RDW Plt Count MPV Neut % (Auto) Lymph % (Auto) [place] % (Auto) Eos % (Auto) Baso % (Auto) Neut # (Auto) Lymph # (Auto) [place] # (Auto) Eos # (Auto) Baso # (Auto) WBC Differential Differential Comment Sodium Potassium Chloride Carbon Dioxide Anion Gap BUN Creatinine Estimated GFR POC Glucose 126 H 166 H Random Glucose Calcium Phosphorus Magnesium Ammonia Albumin Assessment and Plan - Assessment (1) Dehydration Code(s): E86.0 - Dehydration Status: Acute (2) Acute renal failure (ARF) Code(s): N17.9 - Acute kidney failure, unspecified Status: Acute (3) Pleural effusion Code(s): J90 - Pleural effusion, not elsewhere classified Status: Acute - Plan 66 year old female with CHF admitted due to worsening edema and pleural effusion despite diuresis Dehydration Muscle Cramps Acute renal failure Diuretic dosing may have been too strong Begin IV hydration cautiously Avoid nephrotoxins Nephrology consulted Monitor renal function = 10/08. Renal function worsening. Creatinine 5.1. Nephrology following. Appreciate assistance. Will check BNP. = 10/09. Renal function improving. //Suspected CHF exacerbation BNP in the 600s on admission Echocardiogram shows EF of 55%, mild aortic valve stenosis. Consult cardiology. //Confusion Likely secondary to uremic encephalopathy. Ammonia level only 19. Likely secondary to uremic encephalopathy. Appears stable however. Continue to monitor kidney function. Pleural effusion No worsening from prior study Original etiology may have been related to prolonged A. fib RVR Consider pulmonary consult if effusion worsens Hypoalbuminemia May be contributory to edema and pleural effusion Diuretics are on hold Albumin every 12 hours Diabetes mellitus type 2 Follow blood sugars Insulin sliding scale Diabetic diet Paroxysmal atrial fibrillation Follow on telemetry No changes to baseline treatment HX: breast cancer Hx: recurrent pneumonia Both of these may be contributory to pleural effusion risk Hyperlipidemia Continue present treatment Follow as an outpatient Hypertension Continue baseline treatment Follow blood pressures Adjust treatments as needed Hypothyroid Continue baseline treatment DVT prophylaxis SCDs for now due to renal failure Discharge Planning: PT recommends home with home health.. Continue inpatient treatment. We will need nephrology clearance. (2) Acute renal failure (ARF) Qualifiers: Acute renal failure type: unspecified Qualified Code(s): N17.9 - Acute kidney failure, unspecified
--- NOTE | 2017-10-09 16:49 | P.PNNP ---
Subjective Interval history: patient is a 66 year old female with ARF, hx of chf, Physical Exam Vital signs: Vital Signs 10/08/17 17:00 10/08/17 18:00 10/08/17 19:00 Temperature 99.2 F Pulse Rate 83 83 87 Respiratory Rate Blood Pressure 90/48 L Pulse Oximetry 94 L 10/08/17 23:00 10/09/17 00:00 10/09/17 01:00 Temperature 98 F Pulse Rate 88 93 H 93 H Respiratory Rate Blood Pressure 91/49 L Pulse Oximetry 93 L 10/09/17 02:05 10/09/17 03:00 10/09/17 05:54 Temperature 98.8 F Pulse Rate 93 H 94 H 94 H Respiratory Rate 16 Blood Pressure 145/57 H Pulse Oximetry 96 10/09/17 06:00 10/09/17 07:00 10/09/17 08:00 Temperature 98.5 F Pulse Rate 94 H 92 H 103 H Respiratory Rate 18 Blood Pressure 110/52 L Pulse Oximetry 92 L 10/09/17 10:12 10/09/17 11:00 Temperature 98.5 F Pulse Rate 70 Respiratory Rate 23 Blood Pressure 86/52 L Pulse Oximetry 98 100 Intake & Output 10/08/17 10/09/17 10/09/17 18:59 06:59 18:59 Intake Total 500 / 500 530 / 530 Output Total 1350 / 1350 Balance 500 / 500 -820 / -820 Weight 97 kg Intake: IV 50 / 50 50 / 50 Flexbumin 25% Inj 50 ML @ 60 50 / 50 50 / 50 mls/hr IV.SIG Q12H LOLY Rx#: [id number] Oral 450 / 450 480 / 480 Output: Urine 1350 / 1350 Other: Bladder Irrigation Fluid - Amount Instilled Indwelling Urethral Catheter 675 Date of Last Bowel Movement 10/08/17 10/08/17 10/08/17 # Bowel Movements 1 - Constitutional no acute distress - Routine HEENT Exam Head: Present: normocephalic - Routine Neck Exam Present: supple - Routine Respiratory Exam Present: decreased breath sounds - Routine Cardiovascular Exam Present: RRR, murmur - Routine Abdominal Exam Present: soft, normoactive bowel sounds - Routine Neurological Exam Present: alert - Urinary Catheter Management Indwelling Urethral Catheter Cath placed during this visit: yes Reason for continuing: Hourly intake/output Insertion date: 10/07/17 Insertion time: 17:00 Assessment and Plan - Assessment (1) Normochromic normocytic anemia Code(s): D64.9 - Anemia, unspecified Status: Chronic (2) Dehydration Code(s): E86.0 - Dehydration Status: Acute (3) Acute renal failure (ARF) Code(s): N17.9 - Acute kidney failure, unspecified Status: Acute Qualifiers: Acute renal failure type: unspecified Qualified Code(s): N17.9 - Acute kidney failure, unspecified - Plan Patient may have a reaction to Bactrim and also took Aleve combination of pain medications and Bactrim may have caused acute tubular necrosis along with hypotension, she may have over diuresed with Lasix however she does not report decreased urine output Creatinine decline renal ultrasound no obstruction Responding to albumin and diuretic follow BMP
--- NOTE | 2017-10-09 18:21 | MB ---
cc: Shahid Hooper MD DATE: 10/09/2017 REASON FOR CONSULTATION: Findings on her echo. HISTORY OF PRESENT ILLNESS: Ms. Gabby Wolfe is a 66-year-old female. She has a background history of diabetes and hypertension and has been having problems with a right pleural effusion. She started getting sick in May with diminished breathing and went to [facility] and got treated with IV Lasix. Subsequently, ended up coming here and having chest tube drainage of a right pleural effusion. She comes in now with recurrent pleural effusion along with lower extremity edema and increased shortness of breath and her creatinine is now severely elevated. She has had an echo Doppler study. See discussion below regarding findings on that. The patient has a strong family history of coronary artery disease. I cannot elicit any chest pain from her. Family has been noticing shortness of breath, lower extremity edema. PAST MEDICAL HISTORY: Includes anemia. There is a mention of atrial fibrillation, although the records from 08/26/2017 show SVT at 163. I cannot really diagnosed atrial fibrillation from the EKGs in the chart, but I can see that she had SVT at that time. Diabetes, breast cancer with right breast reconstruction, high cholesterol, hypertension, hypothyroidism. PAST SURGICAL HISTORY: Right breast reconstruction, , hernia repair. ADDITIONAL PAST MEDICAL HISTORY: Includes chronic low blood pressure. SOCIAL HISTORY: Nonsmoker. She is . PHYSICAL EXAMINATION: GENERAL: Obese, pleasant, white female. She does not appear to be in acute distress. HEENT: Unremarkable. NECK: Shows increased central venous pressure. CHEST: Shows absent breath sounds with dullness fpc down on the right, clear on the left. HEART: Normal S1, S2. Regular rate and rhythm. Grade 1/6 early peaking systolic ejection murmur. ABDOMEN: Soft, nontender. EXTREMITIES: 1+ edema. LABORATORY DATA: EKG shows sinus rhythm with slight nonspecific ST-T wave changes. Echo Doppler study shows normal EF 55%. She was described as having mild aortic stenosis. Peak velocity across the aortic valve was 2.4 cm per second and mean velocity was 15 mm. This to me is more consistent with aortic valve sclerosis noted as stenosis. Normally to have mild stenosis you need a velocity of at least 2.5 meters per second and a mean gradient of at least 20 so I think the mild aortic stenosis may be an over call. Her labs are charted. She is in renal failure. Chest x-ray is very abnormal with a right pleural effusion. I do not see any evidence at this point that this is cardiac in origin. IMPRESSION: Right pleural effusion. Acute renal failure. I do not think she has significant aortic stenosis. Her LV function is preserved. The etiology of her pleural effusion does not appear to be cardiac in origin from what I can tell at this time. RECOMMENDATIONS: I will be following as needed. Please do not hesitate to call me if there are questions. Shahid Hooper MD VEW/ct , 05:13 PM , 05:25 PM
[2017-10-09] MEDS: Famotidine 20 MG Tablet PO SCH (22:17)
[2017-10-09] MEDS: QUEtiapine 25 MG Tablet PO SCH (22:18)
[2017-10-10] MEDS: Albumin Human 25% Inj 50 ML IV.SIG SCH ×2 (01:00→12:30)
[2017-10-10] MEDS ORDERED: Metoprolol Inj 5 MG/5 ML Vial IV.PUSH ONE (04:11)
[2017-10-10 05:15] LABS: Baso % (Auto) 0.6 % (0.0-2.0); Eos # (Auto) 0.1 th/mm3 (0.0-0.4); Eos % (Auto) 2.4 % (0.0-4.0); Hematocrit 28.5 % (35.0-46.0); Hemoglobin 9.2 gm/dL (11.6-15.3); Lymph # (Auto) 1.2 th/mm3 (1.0-4.8); Lymph % (Auto) 24.2 % (9.0-44.0); Mean Corpuscular HGB Conc 32.4 % (32.0-36.0); Mean Corpuscular Hemoglobin 27.9 pg (27.0-34.0); Mean Corpuscular Volume 86.2 fL (80.0-100.0); Mean Platelet Volume 10.1 fL (7.0-11.0); Mono # (Auto) 0.6 th/mm3 (0.0-0.9); Mono % (Auto) 13.2 % (0.0-8.0); Neut # (Auto) 2.9 th/mm3 (1.8-7.7); Neut % (Auto) 59.6 % (16.0-70.0); Platelet Count 149 th/mm3 (150-450); Red Blood Count 3.31 mil/mm3 (4.00-5.30); Red Cell Distribution Width 17.1 % (11.6-17.2); White Blood Count 4.8 th/mm3 (4.0-11.0)
[2017-10-10 05:26] LABS: Calcium 8.6 mg/dL (8.5-10.1); Carbon Dioxide 27.7 meq/L (21.0-32.0); Potassium 4.1 meq/L (3.5-5.1)
[2017-10-10] MEDS: Levothyroxine 100 MCG Tablet PO SCH (06:30)
[2017-10-10] MEDS: Gabapentin 300 MG Capsule PO SCH (08:44)
[2017-10-10] MEDS: Metoprolol Tartrate 50 MG Tablet PO SCH ×2 (08:44→20:31)
[2017-10-10] MEDS: Insulin NovoLOG Aspart Correctional Sugar Inj SQ SCH ×4 (08:44→21:28)
[2017-10-10] MEDS: Duloxetine 60 MG DR Capsule PO SCH (08:44)
--- NOTE | 2017-10-10 09:46 | P.PN ---
Subjective Interval history: This is a pleasant 66 y/o female withe recurrent right side Pleural Effusion as per Cardiology do not consider is related to any cardiac condition, will get involved medical insurance coding specialist on the case. she is been followed by Nephrology specialist, due to Acute Renal Injury, she was taking NSAIDs and Bactrim, probable Acute tubular necrosis along with Hypotension, Creatinine is improving from 4.1 to 2.9 with Bumex and Albumin, continue present care from Nephrology but today recommended for discharge. will follow recommendations by medical insurance coding specialist. No nausea, vomit or diarrhea. Physical Exam Vital signs: Vital Signs 10/09/17 10:00 10/09/17 10:12 10/09/17 11:00 Temperature 98.5 F Pulse Rate 110 H 70 Respiratory Rate 23 Blood Pressure 86/52 L Pulse Oximetry 98 100 10/09/17 12:00 10/09/17 13:00 10/09/17 15:00 Temperature 98.1 F Pulse Rate 68 66 68 Respiratory Rate 18 Blood Pressure 118/59 L Pulse Oximetry 10/09/17 16:00 10/09/17 16:57 10/09/17 18:00 Temperature Pulse Rate 74 80 Respiratory Rate Blood Pressure Pulse Oximetry 98 10/09/17 19:00 10/09/17 20:00 10/09/17 21:00 Temperature 98.5 F Pulse Rate 107 H 109 H 79 Respiratory Rate 16 Blood Pressure 107/56 L Pulse Oximetry 99 99 10/09/17 22:00 10/09/17 22:26 10/09/17 23:00 Temperature Pulse Rate 86 114 H Respiratory Rate Blood Pressure 99/50 L Pulse Oximetry 96 10/10/17 00:00 10/10/17 01:00 10/10/17 01:48 Temperature 98.5 F Pulse Rate 113 H 112 H 111 H Respiratory Rate 16 Blood Pressure 95/47 L Pulse Oximetry 96 10/10/17 02:00 10/10/17 03:00 10/10/17 04:00 Temperature 98.6 F Pulse Rate 110 H 110 H 112 H Respiratory Rate 16 Blood Pressure 94/55 L Pulse Oximetry 93 L 10/10/17 05:00 10/10/17 06:00 10/10/17 07:00 Temperature 98.2 F Pulse Rate 106 H 104 H 112 H Respiratory Rate 16 Blood Pressure 117/58 L Pulse Oximetry 100 Intake & Output 10/09/17 10/10/17 10/10/17 18:59 06:59 18:59 Intake Total 890 / 890 530 / 530 Output Total 1500 / 1500 2950 / 2950 Balance -610 / -610 -2420 / -2420 Weight 99 kg Intake: IV 50 / 50 50 / 50 Flexbumin 25% Inj 50 ML @ 60 50 / 50 50 / 50 mls/hr IV.SIG Q12H [facility] Rx#: [id number] Oral 840 / 840 480 / 480 Output: Urine 2950 / 2950 Urine Amount (Catheter) 1500 / 1500 Indwelling Urethral Catheter 1500 / 1500 Other: Date of Last Bowel Movement 10/09/17 10/08/17 # Bowel Movements 1 Narrative: GENERAL: Patient sleeping in bed, wakes up for exam. Appears comfortable. SKIN: Warm and dry. HEAD: Normocephalic. EYES: No scleral icterus. No injection or drainage. NECK: Supple, trachea midline. No JVD. CARDIOVASCULAR: Regular rate and rhythm without murmurs, gallops, or rubs. RESPIRATORY: Breath sounds equal bilaterally. No accessory muscle use. GASTROINTESTINAL: Abdomen soft, non-tender, nondistended. MUSCULOSKELETAL: No cyanosis, or edema. BACK: Nontender without obvious deformity. No CVA tenderness. - Urinary Catheter Management Indwelling Urethral Catheter Cath placed during this visit: yes Reason for continuing: Hourly intake/output Insertion date: 10/07/17 Insertion time: 17:00 Results - Labs CBC & Chem 7: 10/11/17 04:35 10/11/17 04:35 Laboratory Results - last 24 hr 10/08/17 10/09/17 10/09/17 03:25 11:42 17:24 WBC RBC Hgb Hct MCV MCH MCHC RDW Plt Count MPV Neut % (Auto) Lymph % (Auto) [place] % (Auto) Eos % (Auto) Baso % (Auto) Neut # (Auto) Lymph # (Auto) [place] # (Auto) Eos # (Auto) Baso # (Auto) WBC Differential Differential Comment Sodium Potassium Chloride Carbon Dioxide Anion Gap BUN Creatinine Estimated GFR POC Glucose 166 H 134 H Random Glucose Calcium MARIN Screen Neg 10/09/17 10/10/17 10/10/17 22:33 03:50 03:50 WBC 4.8 RBC 3.31 L Hgb 9.2 L Hct 28.5 L MCV 86.2 MCH 27.9 MCHC 32.4 RDW 17.1 Plt Count 149 L MPV 10.1 Neut % (Auto) 59.6 Lymph % (Auto) 24.2 [place] % (Auto) 13.2 H Eos % (Auto) 2.4 Baso % (Auto) 0.6 Neut # (Auto) 2.9 Lymph # (Auto) 1.2 [place] # (Auto) 0.6 Eos # (Auto) 0.1 Baso # (Auto) 0.0 WBC Differential . Differential Comment Auto diff final Sodium 140 Potassium 4.1 Chloride 103 Carbon Dioxide 27.7 Anion Gap 9 BUN 58 H Creatinine 2.90 H Estimated GFR 16 L POC Glucose 167 H Random Glucose 104 Calcium 8.6 MARIN Screen Assessment and Plan - Assessment (1) Dehydration Code(s): E86.0 - Dehydration Status: Acute (2) Acute renal failure (ARF) Code(s): N17.9 - Acute kidney failure, unspecified Status: Acute (3) Pleural effusion Code(s): J90 - Pleural effusion, not elsewhere classified Status: Acute - Plan 66 year old female with CHF admitted due to worsening edema and pleural effusion despite diuresis 1. Dehydration/Muscle cramps/Acute Renal Failure suggested secondary to Diuretic use, was hydrated, followed by Nephrology specialist, due to Acute Renal Injury, she was taking NSAIDs and Bactrim, probable Acute tubular necrosis along with Hypotension, Creatinine is improving from 4.1 to 2.9 with Bumex and Albumin, continue present care from Nephrology but today recommended for discharge. will follow recommendations by medical insurance coding specialist. 2. CHF exacerbation BNP 600 on admission Echocardiogram EF 55%, Mild aortic valve stenosis Cardiology following 3. Acute Encephalopathy Improved. Likely secondary to uremic encephalopathy. 4. Pleural Effusion stable, recommended to consult medical insurance coding specialist if worsens, Etiology suggested secondary to Atrial fibrillation with RVR. as per Cardiology do not consider is related to any cardiac condition, will get involved medical insurance coding specialist on the case 5. Hypoalbuminemia on albumin replacement 6. DM II ADA diet and sliding scale 7. History of Breast Cancer 8. Hyperlipidemia to continue home medicines. 9. Hypertension controlled 10. Hypothyroidism to continue Hormonal replacement DVT prophylaxis with SCDs PT recommends home with home health.. Continue inpatient treatment. Code Status: Full Code. Discussed Condition With: Patient and relative in the room. also nurse. Discharge Planning: Once cleared by specialists. (2) Acute renal failure (ARF) Qualifiers: Acute renal failure type: unspecified Qualified Code(s): N17.9 - Acute kidney failure, unspecified
--- NOTE | 2017-10-10 11:44 | P.PNNP ---
Subjective Interval history: feeling better today Physical Exam Vital signs: Vital Signs 10/09/17 12:00 10/09/17 13:00 10/09/17 15:00 Temperature 98.1 F Pulse Rate 68 66 68 Respiratory Rate 18 Blood Pressure 118/59 L Pulse Oximetry 10/09/17 16:00 10/09/17 16:57 10/09/17 18:00 Temperature Pulse Rate 74 80 Respiratory Rate Blood Pressure Pulse Oximetry 98 10/09/17 19:00 10/09/17 20:00 10/09/17 21:00 Temperature 98.5 F Pulse Rate 107 H 109 H 79 Respiratory Rate 16 Blood Pressure 107/56 L Pulse Oximetry 99 99 10/09/17 22:00 10/09/17 22:26 10/09/17 23:00 Temperature Pulse Rate 86 114 H Respiratory Rate Blood Pressure 99/50 L Pulse Oximetry 96 10/10/17 00:00 10/10/17 01:00 10/10/17 01:48 Temperature 98.5 F Pulse Rate 113 H 112 H 111 H Respiratory Rate 16 Blood Pressure 95/47 L Pulse Oximetry 96 10/10/17 02:00 10/10/17 03:00 10/10/17 04:00 Temperature 98.6 F Pulse Rate 110 H 110 H 112 H Respiratory Rate 16 Blood Pressure 94/55 L Pulse Oximetry 93 L 10/10/17 05:00 10/10/17 06:00 10/10/17 07:00 Temperature 98.2 F Pulse Rate 106 H 104 H 113 H Respiratory Rate 16 Blood Pressure 117/58 L Pulse Oximetry 100 10/10/17 08:00 10/10/17 09:00 10/10/17 10:00 Temperature Pulse Rate 114 H 112 H 108 H Respiratory Rate Blood Pressure Pulse Oximetry 10/10/17 11:00 Temperature Pulse Rate Respiratory Rate Blood Pressure Pulse Oximetry 100 Intake & Output 10/09/17 10/10/17 10/10/17 18:59 06:59 18:59 Intake Total 890 / 890 530 / 530 Output Total 1500 / 1500 2950 / 2950 Balance -610 / -610 -2420 / -2420 Weight 99 kg Intake: IV 50 / 50 50 / 50 Flexbumin 25% Inj 50 ML @ 60 50 / 50 50 / 50 mls/hr IV.SIG Q12H [facility] Rx#: [id number] Oral 840 / 840 480 / 480 Output: Urine 2950 / 2950 Urine Amount (Catheter) 1500 / 1500 Indwelling Urethral Catheter 1500 / 1500 Other: Date of Last Bowel Movement 10/09/17 10/08/17 # Bowel Movements 1 - Constitutional no acute distress - Routine HEENT Exam Head: Present: normocephalic Eye: Present: EOMI - Routine Neck Exam Present: supple - Routine Respiratory Exam Present: CTA bilaterally - Routine Cardiovascular Exam Present: RRR - Routine Abdominal Exam Present: soft - Routine Extremities Exam Comments: no edema - Routine Skin Exam Present: intact - Routine Neurological Exam Present: alert, oriented X3 - Detailed Neurological Exam: Coma Scale Eye Opening: Spontaneous - Routine Psychiatric Exam Present: normal affect - Urinary Catheter Management Indwelling Urethral Catheter Cath placed during this visit: yes Reason for continuing: Hourly intake/output Insertion date: 10/07/17 Insertion time: 17:00 Assessment and Plan - Assessment (1) Normochromic normocytic anemia Code(s): D64.9 - Anemia, unspecified Status: Chronic (2) Dehydration Code(s): E86.0 - Dehydration Status: Acute (3) Acute renal failure (ARF) Code(s): N17.9 - Acute kidney failure, unspecified Status: Acute Qualifiers: Acute renal failure type: unspecified Qualified Code(s): N17.9 - Acute kidney failure, unspecified - Plan Patient may have a reaction to Bactrim and also took Aleve combination of pain medications and Bactrim may have caused acute tubular necrosis along with hypotension, she may have over diuresed with Lasix at higher doses. Renal ultrasound: no obstruction Creatinine improved from 4.1 -> 2.9 2.9L UOP. 24 hours Good response to bumex and albumin. Continue for now. If creatinine further improved tomorrow, may be ready for D/C from renal standpoint Creatinine 1.1 in 08/2017 follow BMP
--- NOTE | 2017-10-10 16:53 | MB ---
cc: Lanny Cedillo MD DATE: 10/10/2017 REASON FOR CONSULTATION: Pleural effusions and respiratory insufficiency. HISTORY OF PRESENT ILLNESS: This is a 66-year-old lady who has had a previous history of CHF, recurrent right pleural effusion and he has had thoracentesis done in the last month. She has been on Lasix and has been complaining of some pains in the leg, as well as orthopnea and cough. The patient was having some reaction to an antibiotic given to her recently and became more short of breath and thus, was brought to the hospital for evaluation and now on oxygen and was evaluated by cardiology, but not found to have any acute cardiac issues. The patient's chest x-ray, however, demonstrated a moderate size right pleural effusion, recurrent. The patient denies any fevers or chills. She is lying flat. She has no hemoptysis, but has had some leg swelling. She denied nausea, vomiting. PAST MEDICAL HISTORY: Includes history of atrial fibrillation and CHF, diabetes mellitus type 2, history of breast cancer with lumpectomy, prior history of hypertension, hypothyroidism, history of chronic kidney disease, and a history for hyperlipidemia. No history of chronic lung disease. PAST SURGICAL HISTORY: Left and right total knee replacement surgery, C-sections, mastectomy on the right breast and reconstruction, and hemorrhoidectomy. SOCIAL HISTORY: The patient never smoked. Alcohol use none. FAMILY HISTORY: Noncontributory. There is a history for heart disease in the family. REVIEW OF SYSTEMS: The patient is overweight. She has dizziness, postnasal drip. She has cough and wheezing. She is orthopneic. She has pain in the back and legs and denies any GI symptoms. She has no depression or anxiety and the other system review as in history of present illness. PHYSICAL EXAMINATION: GENERAL: This is an elderly, moderately obese white female is pale and mildly dyspneic at rest. VITAL SIGNS: Blood pressure 100/70, pulse 82, respirations 20, temperature 98.2. HEENT: Head is normocephalic. Pupils are reactive and equal. Sclerae are clear. Throat is clear. Nasal mucosa injected. NECK: Supple, no bruits or thyroid enlargement or lymphadenopathy. CHEST: Distant breath sounds over the right mid to lower chest with occasional crackles scattered. HEART: The heart sounds are irregular, S1 and S2, with no murmur. ABDOMEN: Soft, obese without masses. No organomegaly or tenderness. Bowel sounds are active. EXTREMITIES: No lesions. Minimal edema. Decreased peripheral pulses. Reflexes are 1+ with no gross motor deficits. Cranial nerves are grossly intact. SKIN: Dry and scaly. IMPRESSION: 1. Recurrent right pleural effusion. 2. Anemia of chronic disease. 3. Chronic kidney disease with acute renal failure. 4. Dehydration. 5. History of urinary tract infection. PLAN: The patient will be sent for an ultrasound examination of the chest to evaluate the effusions. We will get a coag profile and CBC. Nebulized albuterol solution used every 6 hours p.r.n. and if significant fluid is present a thoracentesis will be planned on the right side. Thank you Dr. Hooper for this consultation. VKeara Cedillo MD VJD/rafi , 02:56 PM , 03:08 PM
[2017-10-10] MEDS: DILTIAZEM 120 MG PO SCH (20:25)
[2017-10-10] MEDS: Melatonin 5 MG Tablet PO PRN (20:27)
[2017-10-10] MEDS: Famotidine 20 MG Tablet PO SCH (20:27)
[2017-10-10] MEDS: QUEtiapine 25 MG Tablet PO SCH (20:27)
[2017-10-10] MEDS: Nystatin 100,000 UNITS/GM Powder 15 GM Bottle TOPICAL SCH (21:27)
[2017-10-11] MEDS: Albumin Human 25% Inj 50 ML IV.SIG SCH ×2 (01:00→12:00)
[2017-10-11 05:02] LABS: Eos # (Auto) 0.1 th/mm3 (0.0-0.4); Eos % (Auto) 3.5 % (0.0-4.0); Hematocrit 29.7 % (35.0-46.0); Hemoglobin 9.6 gm/dL (11.6-15.3); Lymph # (Auto) 1.4 th/mm3 (1.0-4.8); Lymph % (Auto) 31.8 % (9.0-44.0); Mean Corpuscular HGB Conc 32.5 % (32.0-36.0); Mean Corpuscular Hemoglobin 27.9 pg (27.0-34.0); Mean Corpuscular Volume 85.7 fL (80.0-100.0); Mean Platelet Volume 9.5 fL (7.0-11.0); Mono # (Auto) 0.6 th/mm3 (0.0-0.9); Neut # (Auto) 2.1 th/mm3 (1.8-7.7); Neut % (Auto) 49.7 % (16.0-70.0); Platelet Count 167 th/mm3 (150-450); Red Blood Count 3.46 mil/mm3 (4.00-5.30); Red Cell Distribution Width 16.8 % (11.6-17.2); White Blood Count 4.3 th/mm3 (4.0-11.0)
[2017-10-11] MEDS: Levothyroxine 100 MCG Tablet PO SCH (05:23)
[2017-10-11 05:35] LABS: Calcium 8.4 mg/dL (8.5-10.1); Carbon Dioxide 33.2 meq/L (21.0-32.0); Potassium 3.9 meq/L (3.5-5.1)
[2017-10-11] MEDS: Nystatin 100,000 UNITS/GM Powder 15 GM Bottle TOPICAL SCH ×2 (08:25→21:08)
[2017-10-11] MEDS: Metoprolol Tartrate 50 MG Tablet PO SCH ×2 (08:25→20:49)
[2017-10-11] MEDS: Duloxetine 60 MG DR Capsule PO SCH (08:26)
[2017-10-11] MEDS: DILTIAZEM 120 MG PO SCH ×2 (08:26→21:06)
[2017-10-11] MEDS: Gabapentin 300 MG Capsule PO SCH (08:26)
[2017-10-11] MEDS: Insulin NovoLOG Aspart Correctional Sugar Inj SQ SCH ×4 (08:26→21:16)
--- NOTE | 2017-10-11 08:40 | US ---
EXAM DATE: 10/11/2017 8:33 AM EDT AGE/SEX: 66 years / Female INDICATIONS: Fluid seen in prior x-ray. CLINICAL DATA: This is the patient's initial encounter. Patient reports that signs and symptoms have been present for 1 day and indicates a pain score of 0/10. MEDICAL/SURGICAL HISTORY: Anemia. Diabetes. Hypercholesterolemia. Hypertension. Breast cance r. Hypothyroidism. Renal disease. section. Hemorrhoidectomy. Right breast. Bilateral total knee replacement. COMPARISON: [facility], US CHEST RIGHT, 08/27/2017. [facility], CHEST 1V SINGLE AP, 10/06/2017. . MEASUREMENTS: Skin To Parietal Pleura:__4.7 cm Skin To Max Safe Depth:__6.3 cm Estimated Fluid Volume:__136.8 cc Fluid Composition:__inadequate fluid FINDINGS: No marking was performed. A portion of the right lower lobe demonstrates atelectasis. CONCLUSION: Small simple appearing right pleural effusion. Given the small size, no marking was performed. Electronically signed by: Gabriel Singletary MD 10/11/2017 8:38 AM EDT
--- NOTE | 2017-10-11 11:11 | P.PNNP ---
Subjective Interval history: no acute complaints Physical Exam Vital signs: Vital Signs 10/10/17 12:00 10/10/17 13:00 10/10/17 14:00 Temperature Pulse Rate 112 H 108 H 113 H Respiratory Rate Blood Pressure Pulse Oximetry 10/10/17 15:00 10/10/17 16:00 10/10/17 17:00 Temperature 98.5 F Pulse Rate 114 H 115 H 120 H Respiratory Rate 16 Blood Pressure 94/52 L Pulse Oximetry 95 10/10/17 18:00 10/10/17 19:00 10/10/17 20:00 Temperature 98.5 F Pulse Rate 87 120 H 125 H Respiratory Rate 16 Blood Pressure 98/53 L Pulse Oximetry 94 L 10/10/17 20:23 10/10/17 20:51 10/10/17 21:00 Temperature Pulse Rate 115 H 159 H Respiratory Rate 16 Blood Pressure 114/52 L Pulse Oximetry 98 10/10/17 22:00 10/10/17 23:00 10/11/17 00:00 Temperature 98.5 F Pulse Rate 115 H 100 H 106 H Respiratory Rate 16 Blood Pressure 77/48 L Pulse Oximetry 96 10/11/17 01:00 10/11/17 02:00 10/11/17 03:00 Temperature Pulse Rate 106 H 106 H 105 H Respiratory Rate 16 Blood Pressure Pulse Oximetry 93 L 10/11/17 04:00 10/11/17 04:52 10/11/17 05:00 Temperature 98.5 F Pulse Rate 108 H 102 H 102 H Respiratory Rate Blood Pressure 118/70 Pulse Oximetry 96 10/11/17 06:00 10/11/17 07:00 10/11/17 08:00 Temperature 98.2 F Pulse Rate 109 H 142 H 69 Respiratory Rate 18 Blood Pressure 116/64 Pulse Oximetry 95 10/11/17 09:00 10/11/17 09:34 10/11/17 10:00 Temperature Pulse Rate 78 73 Respiratory Rate Blood Pressure Pulse Oximetry 95 Intake & Output 10/10/17 10/11/17 10/11/17 18:59 06:59 18:59 Intake Total 1130 / 1130 290 / 290 Output Total 2950 / 2950 1825 / 1825 Balance -1820 / -1820 -1535 / -1535 Weight 101 kg Intake: IV 50 / 50 50 / 50 Flexbumin 25% Inj 50 ML @ 60 50 / 50 50 / 50 mls/hr IV.SIG Q12H [facility] Rx#: [id number] Oral 1080 / 1080 240 / 240 Output: Urine 1825 / 1825 Urine Amount (Catheter) 2950 / 2950 Indwelling Urethral Catheter 2950 / 2950 - Constitutional no acute distress - Routine HEENT Exam Head: Present: normocephalic Eye: Present: EOMI ENT: Present: mucous membranes moist - Routine Neck Exam Present: supple - Routine Respiratory Exam Present: decreased breath sounds - Routine Cardiovascular Exam Present: RRR - Routine Abdominal Exam Present: soft - Routine Extremities Exam Comments: no edema - Routine Skin Exam Present: intact - Routine Neurological Exam Present: alert - Detailed Neurological Exam: Coma Scale Eye Opening: Spontaneous - Routine Psychiatric Exam Present: normal affect - Urinary Catheter Management Indwelling Urethral Catheter Cath placed during this visit: yes Reason for continuing: Hourly intake/output Insertion date: 10/07/17 Insertion time: 17:00 Assessment and Plan - Assessment (1) Normochromic normocytic anemia Code(s): D64.9 - Anemia, unspecified Status: Chronic (2) Dehydration Code(s): E86.0 - Dehydration Status: Acute (3) Acute renal failure (ARF) Code(s): N17.9 - Acute kidney failure, unspecified Status: Acute Qualifiers: Acute renal failure type: unspecified Qualified Code(s): N17.9 - Acute kidney failure, unspecified - Plan Patient may have a reaction to Bactrim and also took Aleve combination of pain medications and Bactrim may have caused acute tubular necrosis along with hypotension, she may have over diuresed with Lasix at higher doses. Renal ultrasound: no obstruction Creatinine 1.1 in 08/2017. Creatinine improved from 4.1 -> 2.9 -> 2.1 2.9L UOP. 24 hours Good response to bumex 1mg IV BID and albumin. Continue for now. Renal function stabilizing follow BMP
[2017-10-11 11:59] LABS: Phosphorus 2.9 mg/dL (2.5-4.9)
--- NOTE | 2017-10-11 15:38 | P.PN ---
Subjective Interval history: Feels better today. US of chest shows a Small Right effusion.No need for thoracentesis Renal profile is better Physical Exam Vital signs: Vital Signs 10/10/17 16:00 10/10/17 17:00 10/10/17 18:00 Temperature Pulse Rate 115 H 120 H 87 Respiratory Rate Blood Pressure Pulse Oximetry 10/10/17 19:00 10/10/17 20:00 10/10/17 20:23 Temperature 98.5 F Pulse Rate 120 H 125 H 115 H Respiratory Rate 16 16 Blood Pressure 98/53 L 114/52 L Pulse Oximetry 94 L 10/10/17 20:51 10/10/17 21:00 10/10/17 22:00 Temperature Pulse Rate 159 H 115 H Respiratory Rate Blood Pressure Pulse Oximetry 98 10/10/17 23:00 10/11/17 00:00 10/11/17 01:00 Temperature 98.5 F Pulse Rate 100 H 106 H 106 H Respiratory Rate 16 Blood Pressure 77/48 L Pulse Oximetry 96 10/11/17 02:00 10/11/17 03:00 10/11/17 04:00 Temperature Pulse Rate 106 H 105 H 108 H Respiratory Rate 16 Blood Pressure Pulse Oximetry 93 L 10/11/17 04:52 10/11/17 05:00 10/11/17 06:00 Temperature 98.5 F Pulse Rate 102 H 102 H 109 H Respiratory Rate Blood Pressure 118/70 Pulse Oximetry 96 10/11/17 07:00 10/11/17 08:00 10/11/17 09:00 Temperature 98.2 F Pulse Rate 142 H 69 78 Respiratory Rate 18 Blood Pressure 116/64 Pulse Oximetry 95 10/11/17 09:34 10/11/17 10:00 10/11/17 11:00 Temperature 98.1 F Pulse Rate 73 104 H Respiratory Rate 18 Blood Pressure 106/71 Pulse Oximetry 95 96 10/11/17 12:00 10/11/17 13:00 10/11/17 14:00 Temperature Pulse Rate 103 H 97 H 98 H Respiratory Rate Blood Pressure Pulse Oximetry Intake & Output 10/10/17 10/11/17 10/11/17 18:59 06:59 18:59 Intake Total 1130 / 1130 290 / 290 50 / 50 Output Total 2950 / 2950 1825 / 1825 Balance -1820 / -1820 -1535 / -1535 50 / 50 Weight 101 kg Intake: IV 50 / 50 50 / 50 50 / 50 Flexbumin 25% Inj 50 ML @ 60 50 / 50 50 / 50 50 / 50 mls/hr IV.SIG Q12H [facility] Rx#: [id number] Oral 1080 / 1080 240 / 240 Output: Urine 1825 / 1825 Urine Amount (Catheter) 2950 / 2950 Indwelling Urethral Catheter 2950 / 2950 Narrative: GENERAL: Patient Elderly Obese lady, Appears comfortable. SKIN: Warm and dry. HEAD: Normocephalic. EYES: No scleral icterus. No injection or drainage. NECK: Supple, trachea midline. No JVD. CARDIOVASCULAR: Regular rate and rhythm without murmurs, gallops, or rubs. RESPIRATORY: Breath sounds decreased bilaterally. No accessory muscle use. GASTROINTESTINAL: Abdomen soft, non-tender, nondistended. MUSCULOSKELETAL: No cyanosis, but has edema. BACK: Nontender without obvious deformity. No CVA tenderness. - Urinary Catheter Management Indwelling Urethral Catheter Cath placed during this visit: yes Reason for continuing: Hourly intake/output Insertion date: 10/07/17 Insertion time: 17:00 Results - Labs CBC & Chem 7: 10/11/17 04:35 10/11/17 04:35 Laboratory Results - last 24 hr 10/10/17 10/10/17 10/10/17 16:20 16:30 20:38 WBC RBC Hgb Hct MCV MCH MCHC RDW Plt Count MPV Neut % (Auto) Lymph % (Auto) [place] % (Auto) Eos % (Auto) Baso % (Auto) Neut # (Auto) Lymph # (Auto) [place] # (Auto) Eos # (Auto) Baso # (Auto) WBC Differential Differential Comment APTT 27.5 Sodium Potassium Chloride Carbon Dioxide Anion Gap BUN Creatinine Estimated GFR POC Glucose 194 H 169 H Random Glucose Calcium Phosphorus Albumin 10/11/17 10/11/17 10/11/17 04:35 04:35 04:35 WBC 4.3 RBC 3.46 L Hgb 9.6 L Hct 29.7 L MCV 85.7 MCH 27.9 MCHC 32.5 RDW 16.8 Plt Count 167 MPV 9.5 Neut % (Auto) 49.7 Lymph % (Auto) 31.8 [place] % (Auto) 14.0 H Eos % (Auto) 3.5 Baso % (Auto) 1.0 Neut # (Auto) 2.1 Lymph # (Auto) 1.4 [place] # (Auto) 0.6 Eos # (Auto) 0.1 Baso # (Auto) 0.0 WBC Differential . Differential Comment Auto diff final APTT Sodium 140 Cancelled Potassium 3.9 Cancelled Chloride 101 Cancelled Carbon Dioxide 33.2 H Cancelled Anion Gap 6 Cancelled BUN 40 H Cancelled Creatinine 2.13 H Cancelled Estimated GFR 23 L Cancelled POC Glucose Random Glucose 123 H Cancelled Calcium 8.4 L Cancelled Phosphorus 2.9 D Cancelled Albumin 3.0 L Cancelled 10/11/17 10:39 WBC RBC Hgb Hct MCV MCH MCHC RDW Plt Count MPV Neut % (Auto) Lymph % (Auto) [place] % (Auto) Eos % (Auto) Baso % (Auto) Neut # (Auto) Lymph # (Auto) [place] # (Auto) Eos # (Auto) Baso # (Auto) WBC Differential Differential Comment APTT Sodium Potassium Chloride Carbon Dioxide Anion Gap BUN Creatinine Estimated GFR POC Glucose 151 H Random Glucose Calcium Phosphorus Albumin - Imaging Impressions Chest Ultrasound 10/11/17 00:00 CONCLUSION: Small simple appearing right pleural effusion. Given the small size, no marking was performed. Assessment and Plan - Assessment (1) Hypertension Code(s): I10 - Essential (primary) hypertension Status: Acute (2) Pleural effusion Code(s): J90 - Pleural effusion, not elsewhere classified Status: Acute (3) Shortness of breath Code(s): R06.02 - Shortness of breath Status: Resolved (4) Acute UTI Code(s): N39.0 - Urinary tract infection, site not specified Status: Resolved (5) Pleural effusion on right Code(s): J90 - Pleural effusion, not elsewhere classified Status: Acute (6) Normochromic normocytic anemia Code(s): D64.9 - Anemia, unspecified Status: Chronic (7) Dehydration Code(s): E86.0 - Dehydration Status: Acute (8) Acute renal failure (ARF) Code(s): N17.9 - Acute kidney failure, unspecified Status: Acute - Plan 1. O2 2 L N/C . 2. Get 6 Min walk test and home O2 . 3. Get CPAP at home for KARIE 4. Nebs qid Duoneb 5. No need for thoracentesis (8) Acute renal failure (ARF) Qualifiers: Acute renal failure type: unspecified Qualified Code(s): N17.9 - Acute kidney failure, unspecified
--- NOTE | 2017-10-11 17:35 | P.PN ---
Subjective Interval history: This is a pleasant 66 y/o female withe recurrent right side Pleural Effusion as per Cardiology do not consider is related to any cardiac condition, will get involved analytics specialist on the case. she is been followed by Nephrology specialist, due to Acute Renal Injury, she was taking NSAIDs and Bactrim, probable Acute tubular necrosis along with Hypotension, Creatinine is improving from 4.1 to 2.9 with Bumex and Albumin, continue present care from Nephrology but today recommended for discharge. will follow recommendations by analytics specialist. 10/11: Stable in her bedroom, no nausea, vomit or diarrhea improving renal function encourage ambulation, as per analytics specialist no need for Thoracentesis, will give her until tomorrow and discharge home. Physical Exam Vital signs: Vital Signs 10/10/17 18:00 10/10/17 19:00 10/10/17 20:00 Temperature 98.5 F Pulse Rate 87 120 H 125 H Respiratory Rate 16 Blood Pressure 98/53 L Pulse Oximetry 94 L 10/10/17 20:23 10/10/17 20:51 10/10/17 21:00 Temperature Pulse Rate 115 H 159 H Respiratory Rate 16 Blood Pressure 114/52 L Pulse Oximetry 98 10/10/17 22:00 10/10/17 23:00 10/11/17 00:00 Temperature 98.5 F Pulse Rate 115 H 100 H 106 H Respiratory Rate 16 Blood Pressure 77/48 L Pulse Oximetry 96 10/11/17 01:00 10/11/17 02:00 10/11/17 03:00 Temperature Pulse Rate 106 H 106 H 105 H Respiratory Rate 16 Blood Pressure Pulse Oximetry 93 L 10/11/17 04:00 10/11/17 04:52 10/11/17 05:00 Temperature 98.5 F Pulse Rate 108 H 102 H 102 H Respiratory Rate Blood Pressure 118/70 Pulse Oximetry 96 10/11/17 06:00 10/11/17 07:00 10/11/17 08:00 Temperature 98.2 F Pulse Rate 109 H 142 H 69 Respiratory Rate 18 Blood Pressure 116/64 Pulse Oximetry 95 10/11/17 09:00 10/11/17 09:34 10/11/17 10:00 Temperature Pulse Rate 78 73 Respiratory Rate Blood Pressure Pulse Oximetry 95 10/11/17 11:00 10/11/17 12:00 10/11/17 13:00 Temperature 98.1 F Pulse Rate 104 H 103 H 97 H Respiratory Rate 18 Blood Pressure 106/71 Pulse Oximetry 96 10/11/17 14:00 10/11/17 15:00 10/11/17 16:00 Temperature 98.7 F Pulse Rate 98 H 98 H 100 H Respiratory Rate 18 Blood Pressure 97/52 L Pulse Oximetry 98 10/11/17 17:00 10/11/17 17:16 Temperature Pulse Rate 100 H Respiratory Rate Blood Pressure Pulse Oximetry 98 Intake & Output 10/10/17 10/11/17 10/11/17 18:59 06:59 18:59 Intake Total 1130 / 1130 290 / 290 1040 / 1040 Output Total 2950 / 2950 1825 / 1825 1300 / 1300 Balance -1820 / -1820 -1535 / -1535 -260 / -260 Weight 101 kg Intake: IV 50 / 50 50 / 50 50 / 50 Flexbumin 25% Inj 50 ML @ 60 50 / 50 50 / 50 50 / 50 mls/hr IV.SIG Q12H LOLY Rx#: [id number] Oral 1080 / 1080 240 / 240 990 / 990 Output: Urine 1825 / 1825 Urine Amount (Catheter) 2950 / 2950 1300 / 1300 Indwelling Urethral Catheter 2950 / 2950 1300 / 1300 Narrative: GENERAL: Patient sleeping in bed, wakes up for exam. Appears comfortable. SKIN: Warm and dry. HEAD: Normocephalic. EYES: No scleral icterus. No injection or drainage. NECK: Supple, trachea midline. No JVD. CARDIOVASCULAR: Regular rate and rhythm without murmurs, gallops, or rubs. RESPIRATORY: Breath sounds equal bilaterally. No accessory muscle use. GASTROINTESTINAL: Abdomen soft, non-tender, nondistended. MUSCULOSKELETAL: No cyanosis, or edema. BACK: Nontender without obvious deformity. No CVA tenderness. - Urinary Catheter Management Indwelling Urethral Catheter Cath placed during this visit: yes Reason for continuing: Hourly intake/output Insertion date: 10/07/17 Insertion time: 17:00 Results - Labs CBC & Chem 7: 10/11/17 04:35 10/11/17 04:35 Laboratory Results - last 24 hr 10/10/17 10/11/17 10/11/17 20:38 04:35 04:35 WBC 4.3 RBC 3.46 L Hgb 9.6 L Hct 29.7 L MCV 85.7 MCH 27.9 MCHC 32.5 RDW 16.8 Plt Count 167 MPV 9.5 Neut % (Auto) 49.7 Lymph % (Auto) 31.8 Emanuel % (Auto) 14.0 H Eos % (Auto) 3.5 Baso % (Auto) 1.0 Neut # (Auto) 2.1 Lymph # (Auto) 1.4 Emanuel # (Auto) 0.6 Eos # (Auto) 0.1 Baso # (Auto) 0.0 WBC Differential . Differential Comment Auto diff final Sodium 140 Potassium 3.9 Chloride 101 Carbon Dioxide 33.2 H Anion Gap 6 BUN 40 H Creatinine 2.13 H Estimated GFR 23 L POC Glucose 169 H Random Glucose 123 H Calcium 8.4 L Phosphorus 2.9 D Albumin 3.0 L 10/11/17 10/11/17 10/11/17 04:35 10:39 16:01 WBC RBC Hgb Hct MCV MCH MCHC RDW Plt Count MPV Neut % (Auto) Lymph % (Auto) Emanuel % (Auto) Eos % (Auto) Baso % (Auto) Neut # (Auto) Lymph # (Auto) Emanuel # (Auto) Eos # (Auto) Baso # (Auto) WBC Differential Differential Comment Sodium Cancelled Potassium Cancelled Chloride Cancelled Carbon Dioxide Cancelled Anion Gap Cancelled BUN Cancelled Creatinine Cancelled Estimated GFR Cancelled POC Glucose 151 H 209 H Random Glucose Cancelled Calcium Cancelled Phosphorus Cancelled Albumin Cancelled - Imaging Impressions Chest Ultrasound 10/11/17 00:00 CONCLUSION: Small simple appearing right pleural effusion. Given the small size, no marking was performed. Assessment and Plan - Assessment (1) Dehydration Code(s): E86.0 - Dehydration Status: Acute (2) Acute renal failure (ARF) Code(s): N17.9 - Acute kidney failure, unspecified Status: Acute (3) Pleural effusion Code(s): J90 - Pleural effusion, not elsewhere classified Status: Acute - Plan 66 year old female with CHF admitted due to worsening edema and pleural effusion despite diuresis 1. Dehydration/Muscle cramps/Acute Renal Failure suggested secondary to Diuretic use, was hydrated, followed by Nephrology specialist, due to Acute Renal Injury, she was taking NSAIDs and Bactrim, probable Acute tubular necrosis along with Hypotension, Creatinine is improving from 4.1 to 2.1 with Bumex and Albumin, stable already recommended for discharge. 2. CHF exacerbation BNP 600 on admission Echocardiogram EF 55%, Mild aortic valve stenosis Cardiology following 3. Acute Encephalopathy Improved. Likely secondary to uremic encephalopathy. 4. Pleural Effusion stable, recommended to consult analytics specialist if worsens, Etiology suggested secondary to Atrial fibrillation with RVR. as per Cardiology do not consider is related to any cardiac condition, as per radiological equipment specialist patient stable no need for thoracentesis. 5. Hypoalbuminemia on albumin replacement 6. DM II ADA diet and sliding scale continue present care. 7. History of Breast Cancer 8. Hyperlipidemia to continue home medicines. 9. Hypertension controlled 10. Hypothyroidism to continue Hormonal replacement DVT prophylaxis with SCDs PT recommends home with home health.. Continue inpatient treatment. Code Status: Full code Discussed Condition With: patient and her relatives in the room also nurse Miss Bruce. Discharge Planning: Expected for tomorrow in am. (2) Acute renal failure (ARF) Qualifiers: Acute renal failure type: unspecified Qualified Code(s): N17.9 - Acute kidney failure, unspecified
[2017-10-11 17:41] LABS: Hematocrit 34.5 % (35.0-46.0); Mean Corpuscular HGB Conc 31.8 % (32.0-36.0); Mean Corpuscular Hemoglobin 27.6 pg (27.0-34.0); Mean Corpuscular Volume 86.9 fL (80.0-100.0); Mean Platelet Volume 9.6 fL (7.0-11.0); Platelet Count 184 th/mm3 (150-450); Red Blood Count 3.97 mil/mm3 (4.00-5.30); White Blood Count 3.3 th/mm3 (4.0-11.0)
[2017-10-11] MEDS: Famotidine 20 MG Tablet PO SCH (20:49)
[2017-10-11] MEDS: QUEtiapine 25 MG Tablet PO SCH (21:06)
[2017-10-11] MEDS: Melatonin 5 MG Tablet PO PRN (21:10)
[2017-10-12] MEDS: Albumin Human 25% Inj 50 ML IV.SIG SCH ×2 (02:43→15:50)
[2017-10-12 04:00] LABS: Baso % (Auto) 0.9 % (0.0-2.0); Eos # (Auto) 0.1 th/mm3 (0.0-0.4); Eos % (Auto) 3.2 % (0.0-4.0); Hematocrit 30.6 % (35.0-46.0); Hemoglobin 9.8 gm/dL (11.6-15.3); Lymph # (Auto) 1.4 th/mm3 (1.0-4.8); Lymph % (Auto) 34.5 % (9.0-44.0); Mean Corpuscular HGB Conc 32.1 % (32.0-36.0); Mean Corpuscular Hemoglobin 27.9 pg (27.0-34.0); Mean Corpuscular Volume 86.9 fL (80.0-100.0); Mean Platelet Volume 9.5 fL (7.0-11.0); Mono # (Auto) 0.5 th/mm3 (0.0-0.9); Mono % (Auto) 12.3 % (0.0-8.0); Neut % (Auto) 49.1 % (16.0-70.0); Platelet Count 174 th/mm3 (150-450); Red Blood Count 3.53 mil/mm3 (4.00-5.30); Red Cell Distribution Width 16.7 % (11.6-17.2); White Blood Count 4.1 th/mm3 (4.0-11.0)
[2017-10-12 04:17] LABS: Carbon Dioxide 32.2 meq/L (21.0-32.0); Phosphorus 2.2 mg/dL (2.5-4.9); Potassium 3.5 meq/L (3.5-5.1)
[2017-10-12] MEDS: Levothyroxine 100 MCG Tablet PO SCH (06:32)
[2017-10-12] MEDS: Duloxetine 60 MG DR Capsule PO SCH (09:26)
[2017-10-12] MEDS: Gabapentin 300 MG Capsule PO SCH (09:26)
[2017-10-12] MEDS: DILTIAZEM 120 MG PO SCH (09:27)
[2017-10-12] MEDS: Nystatin 100,000 UNITS/GM Powder 15 GM Bottle TOPICAL SCH (09:27)
[2017-10-12] MEDS: Metoprolol Tartrate 50 MG Tablet PO SCH (09:27)
[2017-10-12] MEDS: Insulin NovoLOG Aspart Correctional Sugar Inj SQ SCH ×2 (09:31→11:44)
--- NOTE | 2017-10-12 11:09 | P.PN ---
Subjective Interval history: This is a pleasant 66 y/o female withe recurrent right side Pleural Effusion as per Cardiology do not consider is related to any cardiac condition, will get involved network applications specialist on the case. she is been followed by Nephrology specialist, due to Acute Renal Injury, she was taking NSAIDs and Bactrim, probable Acute tubular necrosis along with Hypotension, Creatinine is improving from 4.1 to 2.9 with Bumex and Albumin, continue present care from Nephrology but today recommended for discharge. will follow recommendations by network applications specialist. 10/11: Stable in her bedroom, no nausea, vomit or diarrhea improving renal function encourage ambulation, as per network applications specialist no need for Thoracentesis, will give her until tomorrow and discharge home. 10/12:Seen in her bedroom, discussed with network applications specialist Doctor Cedillo recommended to follow in his office in three weeks for CXR and check stability of her process, at this time improved her Pleural effusion with diuretics, not enough fluid for Thoracentesis. no nausea, vomit or diarrhea, improving her renal function on actual management. continue present care and follow with PCP in three days. Physical Exam Vital signs: Vital Signs 10/11/17 12:00 10/11/17 13:00 10/11/17 14:00 Temperature Pulse Rate 103 H 97 H 98 H Respiratory Rate Blood Pressure Pulse Oximetry 10/11/17 15:00 10/11/17 16:00 10/11/17 17:00 Temperature 98.7 F Pulse Rate 98 H 100 H 100 H Respiratory Rate 18 Blood Pressure 97/52 L Pulse Oximetry 98 10/11/17 17:16 10/11/17 18:00 10/11/17 19:00 Temperature 98.4 F Pulse Rate 86 75 Respiratory Rate 22 Blood Pressure 104/60 Pulse Oximetry 98 96 10/11/17 20:00 10/11/17 21:00 10/11/17 22:00 Temperature Pulse Rate 82 76 74 Respiratory Rate Blood Pressure Pulse Oximetry 10/11/17 23:00 10/12/17 00:00 10/12/17 01:00 Temperature 98.5 F Pulse Rate 75 81 83 Respiratory Rate 20 Blood Pressure 97/55 L Pulse Oximetry 89 L 10/12/17 02:00 10/12/17 03:00 10/12/17 04:00 Temperature 97.9 F Pulse Rate 70 103 H 76 Respiratory Rate 18 Blood Pressure 90/42 L Pulse Oximetry 90 L 10/12/17 05:04 10/12/17 06:00 10/12/17 07:00 Temperature 98.6 F Pulse Rate 79 89 81 Respiratory Rate Blood Pressure 117/54 L Pulse Oximetry 94 L 10/12/17 08:00 10/12/17 09:00 10/12/17 10:00 Temperature Pulse Rate 79 108 H 70 Respiratory Rate Blood Pressure Pulse Oximetry Intake & Output 10/11/17 10/12/17 10/12/17 18:59 06:59 18:59 Intake Total 1040 / 1040 720 / 720 Output Total 1300 / 1300 2500 / 2500 Balance -260 / -260 -1780 / -1780 Intake: IV 50 / 50 Flexbumin 25% Inj 50 ML @ 60 50 / 50 mls/hr IV.SIG Q12H LOLY Rx#: [id number] Oral 990 / 990 720 / 720 Output: Urine Amount (Catheter) 1300 / 1300 2500 / 2500 Indwelling Urethral Catheter 1300 / 1300 2500 / 2500 Other: Date of Last Bowel Movement 10/11/17 # Bowel Movements 0 Narrative: GENERAL: Patient sleeping in bed, wakes up for exam. Appears comfortable. SKIN: Warm and dry. HEAD: Normocephalic. EYES: No scleral icterus. No injection or drainage. NECK: Supple, trachea midline. No JVD. CARDIOVASCULAR: Regular rate and rhythm without murmurs, gallops, or rubs. RESPIRATORY: Breath sounds equal bilaterally. No accessory muscle use. GASTROINTESTINAL: Abdomen soft, non-tender, nondistended. MUSCULOSKELETAL: No cyanosis, or edema. BACK: Nontender without obvious deformity. No CVA tenderness. - Urinary Catheter Management Indwelling Urethral Catheter Cath placed during this visit: yes Reason for continuing: Hourly intake/output Insertion date: 10/07/17 Insertion time: 17:00 Results - Labs CBC & Chem 7: 10/12/17 03:17 10/12/17 03:17 Laboratory Results - last 24 hr 10/11/17 10/11/17 10/11/17 04:35 04:35 16:01 WBC RBC Hgb Hct MCV MCH MCHC RDW Plt Count MPV Neut % (Auto) Lymph % (Auto) Wharton % (Auto) Eos % (Auto) Baso % (Auto) Neut # (Auto) Lymph # (Auto) Wharton # (Auto) Eos # (Auto) Baso # (Auto) WBC Differential Differential Comment Sodium 140 Cancelled Potassium 3.9 Cancelled Chloride 101 Cancelled Carbon Dioxide 33.2 H Cancelled Anion Gap 6 Cancelled BUN 40 H Cancelled Creatinine 2.13 H Cancelled Estimated GFR 23 L Cancelled POC Glucose 209 H Random Glucose 123 H Cancelled Calcium 8.4 L Cancelled Phosphorus 2.9 D Cancelled Albumin 3.0 L Cancelled 10/11/17 10/11/17 10/12/17 17:15 20:59 03:17 WBC 3.3 L 4.1 RBC 3.97 L 3.53 L Hgb 11.0 L 9.8 L Hct 34.5 L 30.6 L MCV 86.9 86.9 MCH 27.6 27.9 MCHC 31.8 L 32.1 RDW 17.0 16.7 Plt Count 184 174 MPV 9.6 9.5 Neut % (Auto) 49.1 Lymph % (Auto) 34.5 Wharton % (Auto) 12.3 H Eos % (Auto) 3.2 Baso % (Auto) 0.9 Neut # (Auto) 2.0 Lymph # (Auto) 1.4 Wharton # (Auto) 0.5 Eos # (Auto) 0.1 Baso # (Auto) 0.0 WBC Differential . Differential Comment Auto diff final Sodium Potassium Chloride Carbon Dioxide Anion Gap BUN Creatinine Estimated GFR POC Glucose 143 H Random Glucose Calcium Phosphorus Albumin 10/12/17 10/12/17 10/12/17 03:17 07:47 11:01 WBC RBC Hgb Hct MCV MCH MCHC RDW Plt Count MPV Neut % (Auto) Lymph % (Auto) Wharton % (Auto) Eos % (Auto) Baso % (Auto) Neut # (Auto) Lymph # (Auto) Wharton # (Auto) Eos # (Auto) Baso # (Auto) WBC Differential Differential Comment Sodium 139 Potassium 3.5 Chloride 98 Carbon Dioxide 32.2 H Anion Gap 9 BUN 35 H Creatinine 1.64 H Estimated GFR 31 L POC Glucose 134 H 205 H Random Glucose 139 H Calcium 9.0 Phosphorus 2.2 L Albumin 3.0 L Assessment and Plan - Assessment (1) Dehydration Code(s): E86.0 - Dehydration Status: Acute (2) Acute renal failure (ARF) Code(s): N17.9 - Acute kidney failure, unspecified Status: Acute (3) Pleural effusion Code(s): J90 - Pleural effusion, not elsewhere classified Status: Acute - Plan 66 year old female with CHF admitted due to worsening edema and pleural effusion despite diuresis 1. Dehydration/Muscle cramps/Acute Renal Failure suggested secondary to Diuretic use, was hydrated, followed by Nephrology specialist, due to Acute Renal Injury, she was taking NSAIDs and Bactrim, probable Acute tubular necrosis along with Hypotension, Creatinine is improving from 4.1 to 1.64 with Bumex and Albumin, stable already recommended for discharge. will continue Low doses of Bumex on discharge and follow with Nephrology specialist. 2. ruled out. CHF exacerbation BNP 600 on admission Echocardiogram EF 55%, Mild aortic valve stenosis Cardiology did not found relation between her present pathology and Cardiac condition looks like this is more related to acute renal injury. 3. Acute Encephalopathy Improved. Likely secondary to uremic encephalopathy. 4. Pleural Effusion stable, recommended to consult network applications specialist if worsens, Etiology suggested secondary to Atrial fibrillation with RVR. as per Cardiology do not consider is related to any cardiac condition, as per it security specialist patient stable no need for thoracentesis. Discussed with network applications specialist Doctor Mamadou recommended to follow in his office in three weeks for CXR and check stability of her process, at this time improved her Pleural effusion with diuretics, not enough fluid for Thoracentesis. 5. Hypoalbuminemia on albumin replacement 6. DM II recommended to continue ADA diet at home and added to her management Lantus at this time will be difficult to give Metformin due to her actual Acute kidney injury. 7. History of Breast Cancer 8. Hyperlipidemia to continue home medicines. 9. Hypertension controlled 10. Hypothyroidism to continue Hormonal replacement, overmedicated, has low TSH decreased dose to 112 mcg daily. DVT prophylaxis with SCDs Code Status: Full code. Discussed Condition With: Patient and Nurse Miss Cramer Discharge Planning: Expected for tomorrow in am. (2) Acute renal failure (ARF) Qualifiers: Acute renal failure type: unspecified Qualified Code(s): N17.9 - Acute kidney failure, unspecified
[2017-10-12 12:56] VITALS: O2SAT 93
[2017-10-12] MEDS ORDERED: Glycerin Adult 2 GM Supp RECTAL ONE (13:00)
[2017-10-12 13:01] VITALS: RESP 16
--- NOTE | 2017-10-12 14:18 | P.DS ---
Date of admission: 10/07/17 00:44 Primary care physician: No Primary Care Physician Attending physician on discharge: Woo Feng Anticipated date of discharge: 10/12/17 Brief History from admission: Mrs. Wolfe is a 66 year old female. She has a recent past history of pleural effusion. Thoracentesis was performed. This patient did better after thoracentesis. Etiology for her pleural effusion may have been related to A. fib with RVR. She had congestive heart failure-like symptoms including respiratory failure and pleural effusion due to A. fib RVR. An echocardiogram done at that admit showed an ejection fraction of 60-65%. She has been on diuresis long-term but this was increased at that time increased again recently due to complaints of shortness of breath. Imaging shows no change in her pleural effusion which appears to be mild based on the x-ray. She does have evidence of dehydration with hypotension and acute renal failure. She also complains of cramps at her back and lower extremities. She may be over diuresed. She denies any peripheral edema though she reports that this was a problem at her prior admit. Recently she has not been making a significant amount of urine and cannot recall urinating in the past 2 days. DS: Diagnosis - Discharge Diagnosis (1) Dehydration Status: Acute (2) Acute renal failure (ARF) Status: Acute (3) Pleural effusion Status: Acute DS: Summary Hospital Course: This is a pleasant 66 y/o female withe recurrent right side Pleural Effusion as per Cardiology do not consider is related to any cardiac condition, will get involved [facility] specialists on the case. she is been followed by Nephrology specialist, due to Acute Renal Injury, she was taking NSAIDs and Bactrim, probable Acute tubular necrosis along with Hypotension, Creatinine is improving from 4.1 to 2.9 with Bumex and Albumin, continue present care from Nephrology but today recommended for discharge. will follow recommendations by [facility] specialists. 10/11: Stable in her bedroom, no nausea, vomit or diarrhea improving renal function encourage ambulation, as per [facility]ence specialists no need for Thoracentesis, will give her until tomorrow and discharge home. 10/12:Seen in her bedroom, discussed with [facility]ence specialists Doctor Cedillo recommended to follow in his office in three weeks for CXR and check stability of her process, at this time improved her Pleural effusion with diuretics, not enough fluid for Thoracentesis. no nausea, vomit or diarrhea, improving her renal function on actual management. continue present care and follow with PCP in three days. Assessment and Plan - Assessment (1) Dehydration Code(s): E86.0 - Dehydration Status: Acute (2) Acute renal failure (ARF) Code(s): N17.9 - Acute kidney failure, unspecified Status: Acute (3) Pleural effusion Code(s): J90 - Pleural effusion, not elsewhere classified Status: Acute - Plan 66 year old female with CHF admitted due to worsening edema and pleural effusion despite diuresis 1. Dehydration/Muscle cramps/Acute Renal Failure suggested secondary to Diuretic use, was hydrated, followed by Nephrology specialist, due to Acute Renal Injury, she was taking NSAIDs and Bactrim, probable Acute tubular necrosis along with Hypotension, Creatinine is improving from 4.1 to 1.64 with Bumex and Albumin, stable already recommended for discharge. will continue Low doses of Bumex on discharge and follow with Nephrology specialist. 2. ruled out. CHF exacerbation BNP 600 on admission Echocardiogram EF 55%, Mild aortic valve stenosis Cardiology did not found relation between her present pathology and Cardiac condition looks like this is more related to acute renal injury. 3. Acute Encephalopathy Improved. Likely secondary to uremic encephalopathy. 4. Pleural Effusion stable, recommended to consult [facility] specialists if worsens, Etiology suggested secondary to Atrial fibrillation with RVR. as per Cardiology do not consider is related to any cardiac condition, as per activity therapy specialist patient stable no need for thoracentesis. Discussed with cadence specialists Doctor Mamadou recommended to follow in his office in three weeks for CXR and check stability of her process, at this time improved her Pleural effusion with diuretics, not enough fluid for Thoracentesis. 5. Hypoalbuminemia on albumin replacement 6. DM II recommended to continue ADA diet at home and added to her management Lantus at this time will be difficult to give Metformin due to her actual Acute kidney injury. 7. History of Breast Cancer 8. Hyperlipidemia to continue home medicines. 9. Hypertension controlled 10. Hypothyroidism to continue Hormonal replacement, overmedicated, has low TSH decreased dose to 112 mcg daily. DVT prophylaxis with SCDs Code Status: Full code. Discussed Condition With: Patient and Nurse Miss Cramer Discharge Planning: Discharge today. after Walk test to know if the patient will need oxygen at home. - Time Spent with Patient Total time spent providing and/or coordinating discharge services: Greater than 30 minutes - Quality: VTE Deep Vein Thrombosis/Pulmonary Embolism Present on Admission: No Exam Vital signs: Vital Signs 10/11/17 15:00 10/11/17 16:00 10/11/17 17:00 Temperature 98.7 F Pulse Rate 98 H 100 H 100 H Respiratory Rate 18 Blood Pressure 97/52 L Pulse Oximetry 98 Pulse Oximetry [Exertion on Room Air] Pulse Oximetry [Resting on Room Air] 10/11/17 17:16 10/11/17 18:00 10/11/17 19:00 Temperature 98.4 F Pulse Rate 86 75 Respiratory Rate 22 Blood Pressure 104/60 Pulse Oximetry 98 96 Pulse Oximetry [Exertion on Room Air] Pulse Oximetry [Resting on Room Air] 10/11/17 20:00 10/11/17 21:00 10/11/17 22:00 Temperature Pulse Rate 82 76 74 Respiratory Rate Blood Pressure Pulse Oximetry Pulse Oximetry [Exertion on Room Air] Pulse Oximetry [Resting on Room Air] 10/11/17 23:00 10/12/17 00:00 10/12/17 01:00 Temperature 98.5 F Pulse Rate 75 81 83 Respiratory Rate 20 Blood Pressure 97/55 L Pulse Oximetry 89 L Pulse Oximetry [Exertion on Room Air] Pulse Oximetry [Resting on Room Air] 10/12/17 02:00 10/12/17 03:00 10/12/17 04:00 Temperature 97.9 F Pulse Rate 70 103 H 76 Respiratory Rate 18 Blood Pressure 90/42 L Pulse Oximetry 90 L Pulse Oximetry [Exertion on Room Air] Pulse Oximetry [Resting on Room Air] 10/12/17 05:04 10/12/17 06:00 10/12/17 07:00 Temperature 98.6 F Pulse Rate 79 89 81 Respiratory Rate Blood Pressure 117/54 L Pulse Oximetry 94 L Pulse Oximetry [Exertion on Room Air] Pulse Oximetry [Resting on Room Air] 10/12/17 08:00 10/12/17 09:00 10/12/17 10:00 Temperature Pulse Rate 79 108 H 70 Respiratory Rate Blood Pressure Pulse Oximetry Pulse Oximetry [Exertion on Room Air] Pulse Oximetry [Resting on Room Air] 10/12/17 11:00 10/12/17 12:00 08/20/18 12:17 Temperature 98.6 F Pulse Rate 100 H 98 H Respiratory Rate 16 Blood Pressure 102/55 L Pulse Oximetry 98 92 L Pulse Oximetry [Exertion on Room Air] Pulse Oximetry [Resting on Room Air] 10/12/17 12:53 10/12/17 13:00 Temperature Pulse Rate 94 H Respiratory Rate Blood Pressure Pulse Oximetry Pulse Oximetry [Exertion on Room Air] 96 Pulse Oximetry [Resting on Room Air] 93 L Intake & Output 10/11/17 10/12/17 10/12/17 18:59 06:59 18:59 Intake Total 1040 / 1040 720 / 720 50 / 50 Output Total 1300 / 1300 2500 / 2500 Balance -260 / -260 -1780 / -1780 50 / 50 Intake: IV 50 / 50 50 / 50 Flexbumin 25% Inj 50 ML @ 60 50 / 50 50 / 50 mls/hr IV.SIG Q12H LOLY Rx#: [id number] Oral 990 / 990 720 / 720 Output: Urine Amount (Catheter) 1300 / 1300 2500 / 2500 Indwelling Urethral Catheter 1300 / 1300 2500 / 2500 Other: Date of Last Bowel Movement 10/11/17 10/12/17 # Bowel Movements 0 1 Narrative: GENERAL: Patient sleeping in bed, wakes up for exam. Appears comfortable. SKIN: Warm and dry. HEAD: Normocephalic. EYES: No scleral icterus. No injection or drainage. NECK: Supple, trachea midline. No JVD. CARDIOVASCULAR: Regular rate and rhythm without murmurs, gallops, or rubs. RESPIRATORY: Breath sounds equal bilaterally. No accessory muscle use. GASTROINTESTINAL: Abdomen soft, non-tender, nondistended. MUSCULOSKELETAL: No cyanosis, or edema. BACK: Nontender without obvious deformity. No CVA tenderness. Results Procedures completed during hospitalization: None Labs on day of discharge: Labs from last 24 hours 10/12/17 10/12/17 10/12/17 11:01 07:47 03:17 WBC RBC Hgb Hct MCV MCH MCHC RDW Plt Count MPV Neut % (Auto) Lymph % (Auto) Dade % (Auto) Eos % (Auto) Baso % (Auto) Neut # (Auto) Lymph # (Auto) Dade # (Auto) Eos # (Auto) Baso # (Auto) WBC Differential Differential Comment Sodium 139 Potassium 3.5 Chloride 98 Carbon Dioxide 32.2 H Anion Gap 9 BUN 35 H Creatinine 1.64 H Estimated GFR 31 L POC Glucose 205 H 134 H Random Glucose 139 H Calcium 9.0 Phosphorus 2.2 L Albumin 3.0 L 10/12/17 10/11/17 10/11/17 03:17 20:59 17:15 WBC 4.1 3.3 L RBC 3.53 L 3.97 L Hgb 9.8 L 11.0 L Hct 30.6 L 34.5 L MCV 86.9 86.9 MCH 27.9 27.6 MCHC 32.1 31.8 L RDW 16.7 17.0 Plt Count 174 184 MPV 9.5 9.6 Neut % (Auto) 49.1 Lymph % (Auto) 34.5 Dade % (Auto) 12.3 H Eos % (Auto) 3.2 Baso % (Auto) 0.9 Neut # (Auto) 2.0 Lymph # (Auto) 1.4 Dade # (Auto) 0.5 Eos # (Auto) 0.1 Baso # (Auto) 0.0 WBC Differential . Differential Comment Auto diff final Sodium Potassium Chloride Carbon Dioxide Anion Gap BUN Creatinine Estimated GFR POC Glucose 143 H Random Glucose Calcium Phosphorus Albumin 10/11/17 16:01 WBC RBC Hgb Hct MCV MCH MCHC RDW Plt Count MPV Neut % (Auto) Lymph % (Auto) Dade % (Auto) Eos % (Auto) Baso % (Auto) Neut # (Auto) Lymph # (Auto) Dade # (Auto) Eos # (Auto) Baso # (Auto) WBC Differential Differential Comment Sodium Potassium Chloride Carbon Dioxide Anion Gap BUN Creatinine Estimated GFR POC Glucose 209 H Random Glucose Calcium Phosphorus Albumin - Impressions ITS Impressions Chest X-Ray 10/06/17 21:50 CONCLUSION: Stable appearance with right lung infiltrate and effusion. Abdomen/Bladder Ultrasound 10/07/17 00:00 CONCLUSION: 1. Negative for hydronephrosis. 2. Left renal cyst. Chest Ultrasound 10/11/17 00:00 CONCLUSION: Small simple appearing right pleural effusion. Given the small size, no marking was performed. Discharge Plan - Discharge Disposition Patient Disposition: /Home Health Service - Discharge Condition Condition: Good - Discharge Order Discharge Orders: Discharge Order (Routine); Ordered 10/12/17 Ordered By: Woo Feng - Discharge Details Anticipated Discharge Date: 08/20/18 Discharge Comment: Follow up with PCP in three days - Physicians Team Primary Care Provider: Primary Care Ederi,No Attending Provider: Woo Feng Other Providers: Ruperto Reed MD ; [employer],Insurance ; Shahid Hooper MD ; Gabriel Cedillo MD
--- NOTE | 2017-10-12 15:02 | P.DCO ---
- Diagnosis (7) Acute renal failure (ARF) - Physical Therapy Order: Evaluate and treat, Improve ambulation, Strength and gait training - Home Health Nursing Order: Medical education, Signs/symptoms of disease process, Medication education-adverse effect, Nursing assessment with vital signs - Certification I have seen patient Gabby Wolfe on 10/12/17. My clinical findings support the need for the requested home health care services because: Limited mobility due to disease progression I certify that my clinical findings support that this patient is homebound because: Unsafe to leave home unassisted (REsume home health care. ) (7) Acute renal failure (ARF) Qualifiers: Acute renal failure type: unspecified Qualified Code(s): N17.9 - Acute kidney failure, unspecified
[2017-10-12 15:38] VITALS: BP 138/79; TEMP 98.3
[2017-10-12 16:08] VITALS: PULSE 93
--- NOTE | 2017-10-12 18:29 | P.PN ---
Subjective Interval history: She is better today and renal profile is better. Will need CPAP at HS. Off O2 now. Physical Exam Vital signs: Vital Signs 10/11/17 19:00 10/11/17 20:00 10/11/17 21:00 Temperature 98.4 F Pulse Rate 75 82 76 Respiratory Rate 22 Blood Pressure 104/60 Pulse Oximetry 96 Pulse Oximetry [Exertion on Room Air] Pulse Oximetry [Resting on Room Air] 10/11/17 22:00 10/11/17 23:00 10/12/17 00:00 Temperature 98.5 F Pulse Rate 74 75 81 Respiratory Rate 20 Blood Pressure 97/55 L Pulse Oximetry 89 L Pulse Oximetry [Exertion on Room Air] Pulse Oximetry [Resting on Room Air] 10/12/17 01:00 10/12/17 02:00 10/12/17 03:00 Temperature 97.9 F Pulse Rate 83 70 103 H Respiratory Rate 18 Blood Pressure 90/42 L Pulse Oximetry 90 L Pulse Oximetry [Exertion on Room Air] Pulse Oximetry [Resting on Room Air] 10/12/17 04:00 10/12/17 05:04 10/12/17 06:00 Temperature Pulse Rate 76 79 89 Respiratory Rate Blood Pressure Pulse Oximetry Pulse Oximetry [Exertion on Room Air] Pulse Oximetry [Resting on Room Air] 10/12/17 07:00 10/12/17 08:00 10/12/17 09:00 Temperature 98.6 F Pulse Rate 81 79 108 H Respiratory Rate Blood Pressure 117/54 L Pulse Oximetry 94 L Pulse Oximetry [Exertion on Room Air] Pulse Oximetry [Resting on Room Air] 10/12/17 10:00 10/12/17 11:00 10/12/17 12:00 Temperature 98.6 F Pulse Rate 70 100 H 98 H Respiratory Rate 16 Blood Pressure 102/55 L Pulse Oximetry 98 Pulse Oximetry [Exertion on Room Air] Pulse Oximetry [Resting on Room Air] 10/12/17 12:17 10/12/17 12:53 10/12/17 13:00 Temperature Pulse Rate 94 H Respiratory Rate Blood Pressure Pulse Oximetry 92 L Pulse Oximetry [Exertion on Room Air] 96 Pulse Oximetry [Resting on Room Air] 93 L 10/12/17 14:00 10/12/17 15:00 10/12/17 16:00 Temperature 98.3 F Pulse Rate 64 60 93 H Respiratory Rate 16 Blood Pressure 138/79 Pulse Oximetry Pulse Oximetry [Exertion on Room Air] Pulse Oximetry [Resting on Room Air] Intake & Output 10/11/17 10/12/17 10/12/17 18:59 06:59 18:59 Intake Total 1040 / 1040 720 / 720 100 / 100 Output Total 1300 / 1300 2500 / 2500 Balance -260 / -260 -1780 / -1780 100 / 100 Intake: IV 50 / 50 100 / 100 Flexbumin 25% Inj 50 ML @ 60 50 / 50 100 / 100 mls/hr IV.SIG Q12H LOLY Rx#: [id number] Oral 990 / 990 720 / 720 Output: Urine Amount (Catheter) 1300 / 1300 2500 / 2500 Indwelling Urethral Catheter 1300 / 1300 2500 / 2500 Other: Date of Last Bowel Movement 10/11/17 10/12/17 # Bowel Movements 0 1 Narrative: GENERAL: Patient is alert and Appears comfortable. SKIN: Warm and dry. HEAD: Normocephalic. EYES: No scleral icterus. No injection or drainage. NECK: Supple, trachea midline. No JVD. CARDIOVASCULAR: Regular rate and rhythm without murmurs, gallops, or rubs. RESPIRATORY: Breath sounds equal bilaterally.Mild crackles at Bases. No accessory muscle use. GASTROINTESTINAL: Abdomen soft, non-tender, nondistended. MUSCULOSKELETAL: No cyanosis, or edema. BACK: Nontender without obvious deformity. No CVA tenderness. - Urinary Catheter Management Indwelling Urethral Catheter Cath placed during this visit: yes, but has since been removed by the nurse Reason for continuing: Hourly intake/output Insertion date: 10/07/17 Insertion time: 17:00 Removal date: 10/12/17 Removal time: 11:18 Results - Labs CBC & Chem 7: 10/12/17 03:17 10/12/17 03:17 Laboratory Results - last 24 hr 10/11/17 10/12/17 10/12/17 20:59 03:17 03:17 WBC 4.1 RBC 3.53 L Hgb 9.8 L Hct 30.6 L MCV 86.9 MCH 27.9 MCHC 32.1 RDW 16.7 Plt Count 174 MPV 9.5 Neut % (Auto) 49.1 Lymph % (Auto) 34.5 Mccormick % (Auto) 12.3 H Eos % (Auto) 3.2 Baso % (Auto) 0.9 Neut # (Auto) 2.0 Lymph # (Auto) 1.4 [place]ick # (Auto) 0.5 Eos # (Auto) 0.1 Baso # (Auto) 0.0 WBC Differential . Differential Comment Auto diff final Sodium 139 Potassium 3.5 Chloride 98 Carbon Dioxide 32.2 H Anion Gap 9 BUN 35 H Creatinine 1.64 H Estimated GFR 31 L POC Glucose 143 H Random Glucose 139 H Calcium 9.0 Phosphorus 2.2 L Albumin 3.0 L 10/12/17 10/12/17 07:47 11:01 WBC RBC Hgb Hct MCV MCH MCHC RDW Plt Count MPV Neut % (Auto) Lymph % (Auto) [place] % (Auto) Eos % (Auto) Baso % (Auto) Neut # (Auto) Lymph # (Auto) [place] # (Auto) Eos # (Auto) Baso # (Auto) WBC Differential Differential Comment Sodium Potassium Chloride Carbon Dioxide Anion Gap BUN Creatinine Estimated GFR POC Glucose 134 H 205 H Random Glucose Calcium Phosphorus Albumin - Procedures None Assessment and Plan - Assessment (1) Hypertension Code(s): I10 - Essential (primary) hypertension Status: Acute (2) Pleural effusion Code(s): J90 - Pleural effusion, not elsewhere classified Status: Acute (3) Shortness of breath Code(s): R06.02 - Shortness of breath Status: Resolved (4) Acute UTI Code(s): N39.0 - Urinary tract infection, site not specified Status: Resolved (5) Pleural effusion on right Code(s): J90 - Pleural effusion, not elsewhere classified Status: Acute (6) Normochromic normocytic anemia Code(s): D64.9 - Anemia, unspecified Status: Chronic (7) Dehydration Code(s): E86.0 - Dehydration Status: Acute (8) Acute renal failure (ARF) Code(s): N17.9 - Acute kidney failure, unspecified Status: Acute - Plan 1. D/C O2 2.Will get result of Sleep study from Dr An office. 3. Get CPAP at home for AKRIE 4. Nebs qid Duoneb 5. Home today and will F/U as OP in 2 weeks. (8) Acute renal failure (ARF) Qualifiers: Acute renal failure type: unspecified Qualified Code(s): N17.9 - Acute kidney failure, unspecified
== END 2017-10-12 17:14 | disposition home health service (06) ==
LOC: NEPC 19:46 → NEDA 10-07 00:44 → NEDH 10-07 04:44 → HCPC 10-07 10:15
PROVIDERS: ADMIT Internal Medicine; ATTEND Internal Medicine

== ENCOUNTER 2017-11-27 11:06 | Inpatient (IN) ==
[2017-11-27] MEDS ORDERED: MethylPREDNISolone Sod Succinate Inj 125 MG/2 ML Vial IV.PUSH ONE (11:41)
[2017-11-27 12:08] LABS: Baso % (Auto) 0.4 % (0.0-2.0); Eos # (Auto) 0.1 th/mm3 (0.0-0.4); Eos % (Auto) 1.6 % (0.0-4.0); Hematocrit 32.6 % (35.0-46.0); Hemoglobin 10.7 gm/dL (11.6-15.3); Lymph # (Auto) 1.1 th/mm3 (1.0-4.8); Lymph % (Auto) 22.7 % (9.0-44.0); Mean Corpuscular HGB Conc 32.8 % (32.0-36.0); Mean Corpuscular Hemoglobin 28.7 pg (27.0-34.0); Mean Corpuscular Volume 87.7 fL (80.0-100.0); Mean Platelet Volume 10.4 fL (7.0-11.0); Mono # (Auto) 0.7 th/mm3 (0.0-0.9); Mono % (Auto) 14.6 % (0.0-8.0); Neut % (Auto) 60.7 % (16.0-70.0); Platelet Count 155 th/mm3 (150-450); Red Blood Count 3.72 mil/mm3 (4.00-5.30); Red Cell Distribution Width 18.6 % (11.6-17.2); White Blood Count 4.9 th/mm3 (4.0-11.0)
[2017-11-27 12:12] LABS: Bacteria,Urine Rare /hpf; Bilirubin,Urine Negative (Negative); Clarity,Urine Clear (Clear); Color,Urine Colorless (Yellw/Straw); Glucose,Urine (UA) Negative (Negative); Leukocyte Esterase,Urine Negative (Negative); Nitrite,Urine Negative (Negative); Specific Gravity,Urine 1.003 (1.002-1.035)
[2017-11-27 12:19] LABS: INR 1.1 Ratio
[2017-11-27 12:22] LABS: Activated Partial Thrombo Time 27.6 sec (24.3-30.1); Alanine Aminotransferase 12 U/L (10-53); Albumin 3.1 g/dL (3.4-5.0); Anion Gap 7 meq/L (5-15); Aspartate Aminotransferase 17 U/L (15-37); Blood Urea Nitrogen 15 mg/dL (7-18); Calcium 8.7 mg/dL (8.5-10.1); Chloride 97 meq/L (98-107); Glomerular Filtration Rate 44 mL/min (>89); Glucose,Random 119 mg/dL (74-106); Potassium 3.3 meq/L (3.5-5.1); Prothrombin Time 10.8 sec (9.8-11.6); Sodium 138 meq/L (136-145)
--- NOTE | 2017-11-27 12:23 | XR ---
EXAM DATE: 11/27/2017 11:41 AM EDT AGE/SEX: 67 years / Female INDICATIONS: Shortness of breath. CLINICAL DATA: This is the patient's initial encounter. Patient reports that signs and symptoms have been present for 1 day and indicates a pain score of 0/10. MEDICAL/SURGICAL HISTORY: Anemia. Diabetes. Hypercholesterolemia. Hypertension. Breast cance r. section. Hemorrhoidectomy. Bilateral knee replacement. COMPARISON: PCI, XR CHEST PA AND LAT, 10/29/2017. . FINDINGS: There is a moderate-sized right pleural effusion. Right basilar consolidation is noted. The heart is enlarged. The left lung is clear. CONCLUSION: 1. Moderate-sized right pleural effusion. 2. Right basilar consolidation. 3. Cardiomegaly. Electronically signed by: Jeferson Huntley MD 11/27/2017 12:22 PM EDT
[2017-11-27 12:26] LABS: Alkaline Phosphatase 97 U/L (45-117); Total Protein 7.7 g/dL (6.4-8.2)
[2017-11-27 12:27] LABS: Creatine Kinase 67 U/L (26-192)
--- NOTE | 2017-11-27 13:41 | ED ---
HPI General Chief complaint: Respiratory Symptoms Stated complaint: respiratory Time Seen by Provider: 11/27/17 11:25 Source: patient Mode of arrival: ambulatory Limitations: no limitations History of Present Illness HPI narrative: Patient is a 67 year old female who comes in complaining of SOB. She says this has been going on for the past week. She says she has had issues with fluid on her lungs recently. She says she went to her doctor and has been on an antibiotic for several days without relief. She says she went to her doctor today and was told to come to the ED. She denies fevers. She has been using albuterol without relief of her symptoms. Severity is moderate. Related Data Home Medications Medication Instructions Recorded Confirmed aspirin [Aspir-Low] 81 mg PO DAILY 08/21/17 11/27/17 atorvastatin 80 mg PO HS 08/21/17 11/27/17 duloxetine 60 mg PO DAILY 08/21/17 11/27/17 ferrous fumarate-iron ps cmplx 2 cap PO BID 08/21/17 11/27/17 gabapentin 1 cap PO DAILY 08/21/17 11/27/17 levothyroxine 100 mcg PO DAILY 08/21/17 11/27/17 melatonin 3 mg PO HS PRN 08/21/17 11/27/17 metoprolol tartrate 50 mg PO BID 08/21/17 11/27/17 pioglitazone 45 mg PO DAILY 08/21/17 11/27/17 quetiapine 50 mg PO BID 08/21/17 11/27/17 ranitidine HCl 150 mg PO QPM 08/21/17 11/27/17 vitamin D3-folic acid 1 tab PO QAM 08/21/17 11/27/17 diltiazem HCl 120 mg PO BID 10/07/17 11/27/17 duloxetine 30 mg PO DAILY 10/07/17 11/27/17 Previous Rx's Medication Instructions Recorded bumetanide 0.5 mg PO BID #60 tab 10/12/17 nystatin [Nystop] 1 applicatio TOPICAL BID g 10/12/17 Allergies Allergy/AdvReac Type Severity Reaction Status Date / Time Sulfa (Sulfonamide Allergy Rash Verified 10/07/17 10:44 Antibiotics) tamoxifen Allergy Anaphylaxis Verified 10/07/17 10:44 Review of Systems ROS: all other systems reviewed are negative Constitutional Denies chills and Denies fever(s) ENT Denies dizziness Cardiovascular Denies chest pain and Reports dyspnea Respiratory Reports cough and Reports dyspnea Gastrointestinal Denies nausea and Denies vomiting Musculoskeletal Denies myalgias and Denies arthralgias Integumentary/Breasts Denies rash and Denies wounds Neurologic Denies focal weakness and Denies numbness [facility] Medical History Medical History Anemia (Acute) Atrial fibrillation (Acute) Diabetes (Acute) HX: breast cancer (Acute) High cholesterol (Acute) Hx: recurrent pneumonia (Acute) Hypertension (Acute) Hypothyroid (Acute) Renal disease (Acute) Wears glasses (Acute) Surgical History Surgical History History of (Acute) History of reconstruction of right breast (Acute) History of total left knee replacement (TKR) (Acute) History of total right knee replacement (TKR) (Acute) Hx of hemorrhoidectomy (Acute) Family History Family History Other Osteoarthritis Social History Social History Substance History: No History of Abuse Second Hand Smoke Exposure: Yes Smoking Status: Never smoker How Often Do You Have a Drink Containing Alcohol: Never Recent Travel in [facility] within the Last 8 Weeks: No Recent Out of Country Travel within the Last 8 Weeks: No Immunization History Tetanus Immunization: Unsure Exam Narrative Exam Narrative: GENERAL: Awake and alert, in mild respiratory distress. SKIN: Focused skin assessment warm/dry. HEAD: Atraumatic. Normocephalic. EYES: Pupils equal and round. No scleral icterus. ENT: Mucous membranes pink and moist. NECK: Trachea midline. No JVD. CARDIOVASCULAR: Regular rate and rhythm. No murmur appreciated. RESPIRATORY: No accessory muscle use. Diffuse wheezing and decreased breath sounds on the right. Breath sounds equal bilaterally. GASTROINTESTINAL: Abdomen soft, non-tender, nondistended. MUSCULOSKELETAL: No obvious deformities. No clubbing. No cyanosis. No edema. NEUROLOGICAL: Awake and alert. No obvious cranial nerve deficits. Motor grossly within normal limits. Normal speech. PSYCHIATRIC: Appropriate mood and affect; insight and judgment normal. Course Initial Documented Vital Signs Temperature 98.4 F 11/27/17 11:14 Pulse Rate 94 H 11/27/17 11:14 Respiratory Rate 18 11/27/17 11:14 Blood Pressure 117/57 L 11/27/17 11:14 Pulse Oximetry 96 11/27/17 11:14 Last Documented Vital Signs Temperature 98.4 F 11/27/17 11:14 Pulse Rate 73 11/27/17 12:06 Respiratory Rate 23 11/27/17 12:06 Blood Pressure 92/51 L 11/27/17 12:06 Pulse Oximetry 100 11/27/17 12:06 Medical Decision Making MDM Narrative Medical decision making narrative: Patient is a 67-year-old female who comes in complaining of shortness of breath. Exam shows diffuse wheezing, decreased breath sounds on the right. IV established, labs sent. Patient connected to the television news anchor. Patient's oxygen saturation is in the 80s on room air, this improved on nasal cannula. Chest x-ray shows a right-sided pleural effusion. Patient given DuoNeb's, Solu-Medrol, Lasix. She will be admitted for further management. Medical Screen Exam Complete: Yes Emergency Medical Condition: Yes Differential Diagnosis Differential Diagnosis: COPD versus pneumonia versus pleural effusion Medical Records Medical records reviewed: Yes I reviewed the patient's medical records. Lab Data Lab results reviewed: Yes I reviewed the patient's lab results. Result diagrams: 11/27/17 12:00 11/27/17 12:00 Lab Results 11/27/17 11/27/17 11/27/17 Range/Units 12:00 12:00 12:00 WBC 4.9 (4.0-11.0) th/mm3 RBC 3.72 L (4.00-5.30) mil/mm3 Hgb 10.7 L (11.6-15.3) gm/dL Hct 32.6 L (35.0-46.0) % MCV 87.7 (80.0-100.0) fL MCH 28.7 (27.0-34.0) pg MCHC 32.8 (32.0-36.0) % RDW 18.6 H (11.6-17.2) % Plt Count 155 (150-450) th/mm3 MPV 10.4 (7.0-11.0) fL Neut % (Auto) 60.7 (16.0-70.0) % Lymph % (Auto) 22.7 (9.0-44.0) % Payne % (Auto) 14.6 H (0.0-8.0) % Eos % (Auto) 1.6 (0.0-4.0) % Baso % (Auto) 0.4 (0.0-2.0) % Neut # (Auto) 3.0 (1.8-7.7) th/mm3 Lymph # (Auto) 1.1 (1.0-4.8) th/mm3 Payne # (Auto) 0.7 (0.0-0.9) th/mm3 Eos # (Auto) 0.1 (0.0-0.4) th/mm3 Baso # (Auto) 0.0 (0.0-0.2) th/mm3 WBC Differential . Differential Comment Auto diff final PT 10.8 (9.8-11.6) sec INR 1.1 Ratio APTT 27.6 (24.3-30.1) sec Sodium 138 (136-145) meq/L Potassium 3.3 L (3.5-5.1) meq/L Chloride 97 L (98-107) meq/L Carbon Dioxide 34.0 H (21.0-32.0) meq/L Anion Gap 7 (5-15) meq/L BUN 15 (7-18) mg/dL Creatinine 1.22 H (0.50-1.00) mg/dL Estimated GFR 44 L (>89) mL/min Random Glucose 119 H (74-106) mg/dL Calcium 8.7 (8.5-10.1) mg/dL Total Bilirubin 0.7 (0.2-1.0) mg/dL AST 17 (15-37) U/L ALT 12 (10-53) U/L Alkaline Phosphatase 97 (45-117) U/L Total Creatine Kinase 67 (26-192) U/L Troponin I Less than 0.02 L (0.02-0.05) ng/mL B-Natriuretic Peptide (0-100) pg/mL Total Protein 7.7 (6.4-8.2) g/dL Albumin 3.1 L (3.4-5.0) g/dL Urine Color (Yellw/Straw) Urine Clarity (Clear) Urine pH (5.0-8.5) Ur Specific [place] (1.002-1.035) Urine Protein (Neg-Trace) mg/dL Urine Glucose (UA) (Negative) mg/dL Urine Ketones (Negative) mg/dL Urine Occult Blood (Negative) Urine Nitrate (Negative) Urine Bilirubin (Negative) Urine Urobilinogen (Less than 2) mg/dL Ur Leukocyte Esterase (Negative) Urine RBC (0-3) /hpf Urine WBC (0-5) /hpf Urine Bacteria (None) /hpf Micro UA Comment Ur Microscopic Review Urine Culture Comments 11/27/17 11/27/17 Range/Units 12:00 12:00 WBC (4.0-11.0) th/mm3 RBC (4.00-5.30) mil/mm3 Hgb (11.6-15.3) gm/dL Hct (35.0-46.0) % MCV (80.0-100.0) fL MCH (27.0-34.0) pg MCHC (32.0-36.0) % RDW (11.6-17.2) % Plt Count (150-450) th/mm3 MPV (7.0-11.0) fL Neut % (Auto) (16.0-70.0) % Lymph % (Auto) (9.0-44.0) % Payne % (Auto) (0.0-8.0) % Eos % (Auto) (0.0-4.0) % Baso % (Auto) (0.0-2.0) % Neut # (Auto) (1.8-7.7) th/mm3 Lymph # (Auto) (1.0-4.8) th/mm3 Payne # (Auto) (0.0-0.9) th/mm3 Eos # (Auto) (0.0-0.4) th/mm3 Baso # (Auto) (0.0-0.2) th/mm3 WBC Differential Differential Comment PT (9.8-11.6) sec INR Ratio APTT (24.3-30.1) sec Sodium (136-145) meq/L Potassium (3.5-5.1) meq/L Chloride (98-107) meq/L Carbon Dioxide (21.0-32.0) meq/L Anion Gap (5-15) meq/L BUN (7-18) mg/dL Creatinine (0.50-1.00) mg/dL Estimated GFR (>89) mL/min Random Glucose (74-106) mg/dL Calcium (8.5-10.1) mg/dL Total Bilirubin (0.2-1.0) mg/dL AST (15-37) U/L ALT (10-53) U/L Alkaline Phosphatase (45-117) U/L Total Creatine Kinase (26-192) U/L Troponin I (0.02-0.05) ng/mL B-Natriuretic Peptide 605 H (0-100) pg/mL Total Protein (6.4-8.2) g/dL Albumin (3.4-5.0) g/dL Urine Color Colorless (Yellw/Straw) Urine Clarity Clear (Clear) Urine pH 6.0 (5.0-8.5) Ur Specific [place] 1.003 (1.002-1.035) Urine Protein Negative (Neg-Trace) mg/dL Urine Glucose (UA) Negative (Negative) mg/dL Urine Ketones Negative (Negative) mg/dL Urine Occult Blood Small H (Negative) Urine Nitrate Negative (Negative) Urine Bilirubin Negative (Negative) Urine Urobilinogen Less than 2 (Less than 2) mg/dL Ur Leukocyte Esterase Negative (Negative) Urine RBC 1 (0-3) /hpf Urine WBC Less than 1 (0-5) /hpf Urine Bacteria Rare H (None) /hpf Micro UA Comment Culture not ind Ur Microscopic Review Not Reportable Urine Culture Comments Culture not ind Imaging Data Radiologist's impression: Chest X-Ray 11/27/17 11:41 CONCLUSION: 1. Moderate-sized right pleural effusion. 2. Right basilar consolidation. 3. Cardiomegaly. ECG Data EKG Prior to Arrival: No Attestation: I personally reviewed and interpreted this ECG as follows: Interpretation: ECG shows normal sinus rhythm at a rate of 71, no ST elevation or depression, normal intervals Discharge Plan Discharge Disposition Patient Disposition: 30 Still Patient Discharge Condition Condition: Stable Discharge Details Diagnosis: Pleural effusion, Shortness of breath Physicians Team ED Provider: Teresa Hendrix Primary Care Provider: Elia Pablo Rxs /Orders / Referrals /Forms Prescriptions: No Action atorvastatin 80 mg Tablet 80 mg PO HS RF: 0 melatonin 3 mg Tablet 3 mg PO HS PRN (Reason: Insomnia) RF: 0 aspirin [Aspir-Low] 81 mg Tablet,Delayed Release (Dr/Ec) 81 mg PO DAILY RF: 0 ranitidine HCl 150 mg Tablet 150 mg PO QPM RF: 0 metoprolol tartrate 50 mg Tablet 50 mg PO BID RF: 0 gabapentin 300 mg Capsule 1 cap PO DAILY RF: 0 duloxetine 60 mg Capsule,Delayed Release(Dr/Ec) 60 mg PO DAILY RF: 0 ferrous fumarate-iron ps cmplx 162-115.2 (106) mg Capsule 2 cap PO BID RF: 0 quetiapine 50 mg Tablet 50 mg PO BID RF: 0 levothyroxine 100 mcg Capsule 100 mcg PO DAILY RF: 0 vitamin D3-folic acid 2,500 unit- 1 mg Tablet 1 tab PO QAM RF: 0 pioglitazone 45 mg Tablet 45 mg PO DAILY RF: 0 diltiazem HCl 120 mg Capsule,Extended Release 12 Hr 120 mg PO BID RF: 0 duloxetine 30 mg Capsule,Delayed Release(Dr/Ec) 30 mg PO DAILY RF: 0 nystatin [Nystop] 100,000 unit/gram Powder 1 applicatio Topical BID RF: 0 bumetanide 0.5 mg Tablet 0.5 mg PO BID Qty: 60 RF: 0 Discharge Interventions Interventions: Vital Signs Last Done: 11/27/17 12:06 Status ED Status: With Doctor
--- NOTE | 2017-11-27 16:14 | MB ---
cc: Dhara Aly MD DATE: 11/27/2017 HISTORY OF PRESENT ILLNESS: Ms. Wolfe is a 66-year-old white female who presented to the emergency room today short of breath. She has an increasing right pleural effusion, history of congestive heart failure with recurrent effusion, has had it drained several times before. She was admitted here just about 6 weeks ago, but at that time, the fluid was not increased significantly and no effusion was drained. The patient was in the emergency room earlier. She is currently in ultrasound. Dr. Fernández is performing a thoracentesis and she is stable. I reviewed the chart record and she has a history of chronic atrial fibrillation, CHF, type 2 diabetes. Also, has a distant history of breast cancer. Presented today with shortness of breath, according to the chart, with no chest pain, no other symptoms of infection such as purulent sputum or fever. BNP was elevated at 605. ADDITIONAL PAST HISTORY: Hypertension, hypothyroidism, chronic kidney disease, hyperlipidemia. SOCIAL HISTORY: Never smoked. No alcohol use apparently. FAMILY HISTORY: Positive for heart disease. MEDICATIONS: Reviewed in the EMR. ALLERGIES: SULFA AND TAMOXIFEN. AVAILABLE LABORATORY DATA: White count is 4900, hemoglobin is 10, platelet count 155. PT/INR are normal. BUN 15 with a creatinine of 1.2. GFR is estimated at 44. BNP is 605, albumin is 3.1. The patient is currently occupied in the ultrasound suite, undergoing a thoracentesis by Dr. Fernández. I have reviewed the orders input for thoracentesis and have added a cytology. Cell count and cultures have already been ordered. I will see the patient tomorrow, as she is currently stable. We will follow up the pleural fluid lab reports. I suspect this is due to her underlying heart disease, based on the current history, but we will see what the results of the fluid indicate. Further diagnostic and/or therapeutic intervention will depend on the results of this. I will do an examination when I see her tomorrow. ADDENDUM Note: "I dictated a partial note yesterday, but she was in a thoracentesis in radiology undergoing a procedure, so I could not complete my examination." Ms. Wolfe is a 66-year-old white female. I see her today in her room. She says she is feeling much better after they took about 1 L of fluid off. She has had the fluid drained twice before, but the first time it occurred was in September. She did have a tube at that point, but a precise etiology could not be identified. It was thought possibly related to her chronic atrial fibrillation and mild CHF. Several days ago, the symptoms recurred. She came back to the emergency room and again yesterday had another liter drained. Initial results on that reveal a borderline exudate. Protein and LDH are marginally elevated. Predominance of lymphocytes in the fluid. Initial Gram stain is negative, and cytology is pending. Chest x-ray after the procedure reveals what is probably a trapped right lower lobe. She has loculated pneumothorax there, and fluid has reaccumulated to some extent already. PHYSICAL EXAMINATION: GENERAL: She is awake, alert, comfortable at rest. VITAL SIGNS: Afebrile. She is breathing 16-18 times a minute. Her pulse is 80. O2 saturation is 96% on 2 L. HEENT: Pharynx is clear. NECK: Veins are flat. LYMPHATIC: No adenopathy in the neck, supraclavicular region. LUNGS: She does have some scattered wheezing, but no congestion. Breath sounds are somewhat diminished on the right. HEART: Irregular rhythm. No harsh murmur. ABDOMEN: Soft, nontender. No hepatosplenomegaly. No peripheral edema or calf tenderness. No cyanosis. AVAILABLE LABORATORY DATA: Pleural fluid as noted above. White count is normal, hemoglobin is 9.6, platelets 140. BUN is 15 with a creatinine of 1.26. Albumin is 3.1. Liver functions are normal. DISCUSSION: Ms. Wolfe is in the hospital now for the second time in the last 2 months with recurrent pleural effusion of significant size. Fluid is a borderline exudate with previous cultures. Previous studies on the pleural fluid were nondiagnostic. In light of the large apparently loculated right lower lobe process, I have discussed with radiology, and we are going to go ahead and put a chest tube to see if we can get that reexpanded and monitor the fluid reaccumulation. If these additional studies are not definitive with regard to the etiology and that lung is not expanding, she may need a thoracoscopy for further diagnostic evaluation and to see if that lung can be reexpanded. This process has only been going on since September. Further diagnostic and/or therapeutic intervention will depend on the results of her ongoing studies and her ongoing clinical course. R. MD ORLANDO Pritchard/jose , 03:37 PM , 03:44 PM
--- NOTE | 2017-11-27 16:24 | XR ---
EXAM DATE: 11/27/2017 12:00 AM EDT AGE/SEX: 67 years / Female INDICATIONS: Post right side thoracentesis CLINICAL DATA: This is the patient's initial encounter. Patient reports that signs and symptoms have been present for 1 day and indicates a pain score of 4/10. MEDICAL/SURGICAL HISTORY: Hypertension. Hypothyroidism. Carcinoma, breast. Mastectomy, right. section. [place] [facility] [place]. . FINDINGS: Examination reveals a small loculated pneumothorax in the lateral right lung base with about 15 mm se paration of pleural layers. There is no evidence of apical pneumothorax. There is mild parenchymal op acity in the right midlung which may be residual atelectasis or parenchymal scarring. Left lung is st able and grossly clear. Cardiac contours are unchanged. CONCLUSION: Small loculated right base pneumothorax. Electronically signed by: Gabriel Fernández MD 11/27/2017 4:23 PM EDT
--- NOTE | 2017-11-27 16:25 | US ---
EXAM DATE: 11/27/2017 12:00 AM EDT AGE/SEX: 67 years / Female INDICATIONS: Right pleural effusion. CLINICAL DATA: This is the patient's initial encounter. Patient reports that signs and symptoms have been present for 1 day and indicates a pain score of 0/10. MEDICAL/SURGICAL HISTORY: Hypercholesterolemia. Hypertension. Hypothyroidism. Atrial fibrill ation. Anemia. Right breast cancer. Recurrent pneumonia. Renal disease. section. Bilateral total knee replacement. Right breast reconstruction. COMPARISON: No prior exams available for comparison. FLUID: Total volume of 800 cc of clear, yellow fluid was removed. Fluid was sent to lab for ordered studies. . . TECHNIQUE: Ultrasound guidance for thoracentesis. Thoracentesis. The risks, benefits, and alternatives to ultrasound guided thoracentesis were explained to the patien t in lay simple terms, including the risk of bleeding and infection. Written and verbal informed con sent was obtained. Appropriate area for right thoracentesis was marked under ultrasound guidance with the patient in the upright position. Overlying skin was prepped and draped in the usual sterile fashion and with local anesthetic, a dermatotomy was made with an 11 blade scalpel. A 6 [place] thoracentesis catheter was placed in the pleural space and fluid was removed. Catheter was then removed and a sterile dressing applied. There were no immediate complications. The patient tolerated the procedure well and the lef t the ultrasound suite in stable condition. Chest radiograph is to be obtained. CONCLUSION: Uncomplicated right chest thoracentesis with ultrasound guidance as described above. Electronically signed by: Gabriel Fernández MD 11/27/2017 4:24 PM EDT
--- NOTE | 2017-11-27 17:09 | P.HPIM ---
History of Present Illness Primary Care Physician: Elia Pablo MD Chief Complaint: Shortness of breath History of Present Illness: The patient is a 67-year-old female with a past medical history of diabetes and pleural effusion who is presenting to the hospital with shortness of breath. The patient says that in May she had shortness of breath and went to an outside hospital twice where she was diagnosed with pneumonia. She says she came here over the summer and was found to have fluid on the right lung. She was hospitalized for 8 days and then discharged home. She said that she felt fine until where she developed a cough. She says that she realized she could not lay down flat in bed without getting short of breath. She said she had to sit up in order to breathe comfortably. She has been having yellow mucus production. She has been using breathing treatments every few hours at home. She denies any chest pain associated with the shortness of breath. She was seen following thoracentesis and says she feels better except for the cough. She denies any fevers. Inpatient Certification: I certify that the inpatient services were ordered in accordance with Medicare regulations governing the order. This includes certification that hospital inpatient services are reasonable and necessary and in the case of services not specified as inpatient-only under 42 CFR 419.22(n), that they are appropriately provided as inpatient services in accordance to with the 2-midnight benchmark under 43 CFR 412.3(e) Estimated Total Length of Stay (Days): 2 Plans for Post Hospital Care: Not yet determined Review of Systems All other systems reviewed negative except as stated in HPI PMFSH - History History Provided By: Patient, Family Member - Medical History Medical History: Medical History (Last Reviewed 11/27/17 @ 17:04 by Arnulfo Jama DO) Anemia Atrial fibrillation Diabetes HX: breast cancer High cholesterol Hx: recurrent pneumonia Hypertension Hypothyroid Renal disease Wears glasses - Surgical History Surgical History: Surgical History (Last Reviewed 11/27/17 @ 17:04 by Arnulfo Jama DO) History of History of reconstruction of right breast History of total left knee replacement (TKR) History of total right knee replacement (TKR) Hx of hemorrhoidectomy - Family History Family History: Family History (Last Reviewed 11/27/17 @ 13:48 by Teresa Hendrix MD) Other Osteoarthritis - Tobacco History Second Hand Smoke Exposure: Yes Smoking Status: Never smoker - Alcohol History How Often Do You Have a Drink Containing Alcohol: Never - Substance Use History Substance History: No History of Abuse - Travel History Recent Travel in the [place] Within the Last 8 Weeks: No Recent Travel Out of the Country Within the Last 8 Weeks: No - Immunization History Tetanus Immunization: Unsure Medications and Allergies Active Medications: Active Medications Acetaminophen (Tylenol) 650 mg PO Q4H PRN PRN Reason: Temp > 100.4 pain 1-3 Atorvastatin Calcium (Lipitor) 80 mg PO HS [facility] Bumetanide (Bumex) 0.5 mg PO DAILY@0900,1800 [facility] Diltiazem HCl (Cardizem Cd 24hr) 240 mg PO DAILY [facility] Duloxetine HCl (Cymbalta) 60 mg PO DAILY [facility] Famotidine (Pepcid) 20 mg PO BID [facility] Gabapentin (Neurontin) 300 mg PO DAILY [facility] Levothyroxine Sodium (Synthroid) 100 mcg PO DAILY@0600 [facility] Melatonin (Melatonin) 5 mg PO HS PRN PRN Reason: INSOMNIA Metoprolol Tartrate (Lopressor) 50 mg PO BID [facility] Quetiapine Fumarate (Seroquel) 50 mg PO BID [facility] Allergies Allergy/AdvReac Type Severity Reaction Status Date / Time Sulfa (Sulfonamide Allergy Rash Verified 10/07/17 10:44 Antibiotics) tamoxifen Allergy Anaphylaxis Verified 10/07/17 10:44 Home Medications Medication Instructions Recorded Confirmed Type aspirin [Aspir-Low] 81 mg PO DAILY 08/21/17 11/27/17 History atorvastatin 80 mg PO HS 08/21/17 11/27/17 History duloxetine 60 mg PO DAILY 08/21/17 11/27/17 History ferrous fumarate-iron ps cmplx 2 cap PO BID 08/21/17 11/27/17 History gabapentin 1 cap PO DAILY 08/21/17 11/27/17 History levothyroxine 100 mcg PO DAILY 08/21/17 11/27/17 History melatonin 3 mg PO HS PRN 08/21/17 11/27/17 History metoprolol tartrate 50 mg PO BID 08/21/17 11/27/17 History pioglitazone 45 mg PO DAILY 08/21/17 11/27/17 History quetiapine 50 mg PO BID 08/21/17 11/27/17 History ranitidine HCl 150 mg PO QPM 08/21/17 11/27/17 History vitamin D3-folic acid 1 tab PO QAM 08/21/17 11/27/17 History diltiazem HCl 120 mg PO BID 10/07/17 11/27/17 History duloxetine 30 mg PO DAILY 10/07/17 11/27/17 History Exam Vital signs: Vital Signs 11/27/17 11:14 11/27/17 11:29 11/27/17 11:57 Temperature 98.4 F Pulse Rate 94 H 101 H 68 Respiratory Rate 18 24 18 Blood Pressure 117/57 L Pulse Oximetry 96 94 L 94 L 11/27/17 12:03 11/27/17 12:04 11/27/17 12:06 Temperature Pulse Rate 70 73 Respiratory Rate 23 Blood Pressure 92/51 L Pulse Oximetry 100 100 11/27/17 13:54 11/27/17 14:58 Temperature 98.6 F Pulse Rate 82 94 H Respiratory Rate 18 20 Blood Pressure 111/65 108/62 Pulse Oximetry 95 98 Intake & Output 11/26/17 11/27/17 11/27/17 18:59 06:59 18:59 Intake Total 150 / 150 Balance 150 / 150 Weight 104.326 kg Intake: IV 150 / 150 Levaquin 750 mg Premix Inj 150 150 / 150 ML @ 100 mls/hr IV.SIG ONCE ONE Rx#:[id number] Narrative: Gen.: No acute distress Head: Normocephalic. Atraumatic. EENT: Pupils equal round and reactive to light. Nose without drainage. Airway intact. Throat without injection. Cardiovascular: Regular rate and rhythm. No murmurs, rubs or gallops. Respiratory: Lungs clear to auscultation bilaterally. No wheezes or rhonchi. Abdomen: Soft, nontender, nondistended. No peritoneal signs. Musculoskeletal: No gross deformities. No edema. Skin: No obvious rashes or erythema. Neuro: Sensory and motor grossly intact. Cranial nerves II through XII grossly intact. Results - Labs CBC & Chem 7: 11/27/17 12:00 11/27/17 12:00 Labs: Short CBC 11/27/17 Range/Units 12:00 WBC 4.9 (4.0-11.0) th/mm3 Hgb 10.7 L (11.6-15.3) gm/dL Hct 32.6 L (35.0-46.0) % Plt Count 155 (150-450) th/mm3 BMP 11/27/17 12:00 Sodium 138 Potassium 3.3 L Chloride 97 L Carbon Dioxide 34.0 H BUN 15 Creatinine 1.22 H Calcium 8.7 Cardiac Enzymes 11/27/17 Range/Units 12:00 Total Creatine Kinase 67 (26-192) U/L Troponin I Less than 0.02 L (0.02-0.05) ng/mL Liver Function 11/27/17 Range/Units 12:00 Total Bilirubin 0.7 (0.2-1.0) mg/dL AST 17 (15-37) U/L ALT 12 (10-53) U/L Alkaline Phosphatase 97 (45-117) U/L Albumin 3.1 L (3.4-5.0) g/dL Urine 11/27/17 Range/Units 12:00 Urine Color Colorless (Yellw/Straw) Urine Clarity Clear (Clear) Urine pH 6.0 (5.0-8.5) Ur Specific [place] 1.003 (1.002-1.035) Urine Protein Negative (Neg-Trace) mg/dL Urine Glucose (UA) Negative (Negative) mg/dL - Imaging Impressions Chest X-Ray 11/27/17 00:00 CONCLUSION: Small loculated right base pneumothorax. Thoracentesis Ultrasound 11/27/17 00:00 CONCLUSION: Uncomplicated right chest thoracentesis with ultrasound guidance as described above. Chest X-Ray 11/27/17 11:41 CONCLUSION: 1. Moderate-sized right pleural effusion. 2. Right basilar consolidation. 3. Cardiomegaly. Caprini VTE Risk Assessment Caprini VTE Risk Assessment: Moderate/High Risk (score >= 2) Caprini Risk Assessment Model: Point Value = 1 Point Value = 2 Point Value = 3 Point Value = 5 Age 41-60 Minor surgery BMI > 25 kg/m2 Swollen legs Varicose veins or History of unexplained or recurrent spontaneous Oral contraceptives or hormone replacement Sepsis (< 1 month) Serious lung disease, including pneumonia (< 1 month) Abnormal pulmonary function Acute myocardial infarction Congestive heart failure (< 1 month) History of inflammatory bowel disease Medical patient at bed rest Age 61-74 Arthroscopic surgery Major open surgery (> 45 min) Laparoscopic surgery (> 45 min) Malignancy Confined to bed (> 72 hours) Immobilizing plaster cast Central venous access Age >= 75 History of VTE Family history of VTE Factor V Leiden Prothrombin [id number] Lupus anticoagulant Anticardiolipin antibodies Elevated serum homocysteine Heparin-induced thrombocytopenia Other congenital or acquired thrombophilia Stroke (< 1 month) Elective arthroplasty Hip, pelvis, or leg fracture Acute spinal cord injury (< 1 month) Prophylaxis Regimen: Total Risk Factor Score Risk Level Prophylaxis Regimen 0-1 Low Early ambulation 2 Moderate Order ONE of the following: *Sequential Compression Device (SCD) *Heparin 5000 units SQ BID 3-4 Higher Order ONE of the following medications: *Heparin 5000 units SQ TID *Enoxaparin/Lovenox 40 mg SQ daily (WT < 150 kg, CrCl > 30 mL/min) *Enoxaparin/Lovenox 30 mg SQ daily (WT < 150 kg, CrCl > 10-29 mL/min) *Enoxaparin/Lovenox 30 mg SQ BID (WT < 150 kg, CrCl > 30 mL/min) AND/OR *Sequential Compression Device (SCD) 5 or more Highest Order ONE of the following medications: *Heparin 5000 units SQ TID (Preferred with Epidurals) *Enoxaparin/Lovenox 40 mg SQ daily (WT < 150 kg, CrCl > 30 mL/min) *Enoxaparin/Lovenox 30 mg SQ daily (WT < 150 kg, CrCl > 10-29 mL/min) *Enoxaparin/Lovenox 30 mg SQ BID (WT < 150 kg, CrCl > 30 mL/min) AND *Sequential Compression Device (SCD) Assessment and Plan - Plan Right pleural effusion Recurrent. Status post thoracentesis 11/27/2017 where 800 cc was drained. Follow-up chest x-ray showed loculated pneumothorax on the right. -Pulmonology consult appreciated. -Repeat chest x-ray in the morning per radiology recommendations. -Follow pleural studies including cytology. -Oxygen and nebs as needed. -sputum culture. -IV Levaquin. Hypokalemia Likely secondary to decreased p.o. intake. -Replete and monitor. Diabetes Glucose well controlled at this time. -Insulin sliding scale and monitor blood sugar. Afib Rate controlled. -continue home regimen. PPx: SCDs
[2017-11-27] MEDS: dilTIAZem CD 120 MG Capsule PO SCH (17:46)
[2017-11-27] MEDS: Famotidine 20 MG Tablet PO SCH ×2 (17:46→21:00)
[2017-11-27 18:05] LABS: Total Protein,Pleural Fluid 3.4 gm/dL
[2017-11-27 18:18] LABS: RBC,Pleural Fluid 1426 /mm3 (0-0)
[2017-11-27 18:23] LABS: Lymphocytes,Pleural Fluid 90 %; Monocytes,Pleural Fluid 8 %; Neutrophils,Pleural Fluid 2 %
[2017-11-27] MEDS: guaiFENesin/Codeine Syrup 200 MG/20 MG 10 ML UDC PO PRN (21:00)
[2017-11-27] MEDS: Metoprolol Tartrate 50 MG Tablet PO SCH (21:00)
[2017-11-27] MEDS: QUEtiapine 25 MG Tablet PO SCH (21:00)
[2017-11-27] MEDS: Acetaminophen 325 MG Tablet PO PRN (21:08)
[2017-11-27] MEDS: Insulin NovoLOG Aspart Correctional Sugar Inj SQ SCH (21:09)
[2017-11-27] MEDS: Melatonin 5 MG Tablet PO PRN (21:58)
[2017-11-28] MEDS: Levothyroxine 100 MCG Tablet PO SCH (05:09)
[2017-11-28] MEDS: guaiFENesin/Codeine Syrup 200 MG/20 MG 10 ML UDC PO PRN ×3 (05:09→21:35)
--- NOTE | 2017-11-28 06:21 | XR ---
EXAM DATE: 11/28/2017 6:00 AM EDT AGE/SEX: 67 years / Female INDICATIONS: Evaluate for pneumothorax. CLINICAL DATA: This is the patient's subsequent encounter. Patient reports that signs and symptoms h ave been present for 2 days and indicates a pain score of 0/10. MEDICAL/SURGICAL HISTORY: Hypertension. Diabetes mellitus type II. Carcinoma, breast. A-fib. section. COMPARISON: [facility], CHEST EXPIRATION ONLY, 11/27/2017. . FINDINGS: There has been slight interval increase in size of a loculated right base pneumothorax and some reacc umulation of right pleural fluid. Mild diffuse increase in parenchymal opacity. Cardiac contours are grossly stable accounting for differences in technique and projection. CONCLUSION: Slight interval worsening in aeration with some reaccumulation of right pleural fluid and slight incr ease in size of loculated right base pneumothorax. Although the right lung may be largely entrapped, placement of a right base thoracostomy tube may be worthy of consideration if clinically appropriate. Electronically signed by: Gabriel Fernández MD 11/28/2017 6:19 AM EDT
[2017-11-28] MEDS: Insulin NovoLOG Aspart Correctional Sugar Inj SQ SCH ×4 (07:26→21:37)
[2017-11-28 09:31] LABS: Baso % (Auto) 0.4 % (0.0-2.0); Eos # (Auto) 0.1 th/mm3 (0.0-0.4); Eos % (Auto) 3.4 % (0.0-4.0); Hematocrit 29.2 % (35.0-46.0); Hemoglobin 9.6 gm/dL (11.6-15.3); Lymph # (Auto) 1.4 th/mm3 (1.0-4.8); Lymph % (Auto) 32.8 % (9.0-44.0); Mean Corpuscular HGB Conc 32.9 % (32.0-36.0); Mean Corpuscular Hemoglobin 28.8 pg (27.0-34.0); Mean Corpuscular Volume 87.5 fL (80.0-100.0); Mean Platelet Volume 10.6 fL (7.0-11.0); Mono # (Auto) 0.7 th/mm3 (0.0-0.9); Mono % (Auto) 17.8 % (0.0-8.0); Neut # (Auto) 1.9 th/mm3 (1.8-7.7); Neut % (Auto) 45.6 % (16.0-70.0); Platelet Count 140 th/mm3 (150-450); Red Blood Count 3.33 mil/mm3 (4.00-5.30); Red Cell Distribution Width 19.1 % (11.6-17.2); White Blood Count 4.2 th/mm3 (4.0-11.0)
--- NOTE | 2017-11-28 09:46 | P.PN ---
Subjective Interval history: Follow-up visit for recurrent pleural effusion. Patient seen and examined resting in bed, appears to be in no acute distress. Continues to complain of a productive yellow cough, denies any shortness of breath or chest pain at the moment. Denies any fevers but does endorse chills denies any nausea, vomiting, or diarrhea. Reports about 2 soft stools daily. Physical Exam Vital signs: Vital Signs 11/27/17 11:14 11/27/17 11:29 11/27/17 11:57 Temperature 98.4 F Pulse Rate 94 H 101 H 68 Respiratory Rate 18 24 18 Blood Pressure 117/57 L Pulse Oximetry 96 94 L 94 L 11/27/17 12:03 11/27/17 12:04 11/27/17 12:06 Temperature Pulse Rate 70 73 Respiratory Rate 23 Blood Pressure 92/51 L Pulse Oximetry 100 100 11/27/17 13:54 11/27/17 14:58 11/27/17 16:00 Temperature 98.6 F 98.5 F Pulse Rate 82 94 H 81 Respiratory Rate 18 20 22 Blood Pressure 111/65 108/62 94/65 L Pulse Oximetry 95 98 96 11/27/17 16:15 11/27/17 16:45 11/27/17 17:25 Temperature 98.0 F Pulse Rate 88 82 92 H Respiratory Rate 22 22 18 Blood Pressure 101/63 100/75 105/57 L Pulse Oximetry 96 96 100 11/27/17 19:25 11/27/17 20:00 11/28/17 00:00 Temperature 97.7 F 97.8 F Pulse Rate 96 H 86 63 Respiratory Rate 18 20 20 Blood Pressure 106/57 L 94/55 L Pulse Oximetry 99 20 L 95 11/28/17 08:00 11/28/17 08:32 Temperature 97.7 F Pulse Rate 81 79 Respiratory Rate 16 20 Blood Pressure 100/57 L Pulse Oximetry 96 Intake & Output 11/27/17 11/28/17 11/28/17 18:59 06:59 18:59 Intake Total 490 / 490 701 / 701 Balance 490 / 490 701 / 701 Weight 104.326 kg 101.5 kg Intake: IV 150 / 150 Levaquin 750 mg Premix Inj 150 150 / 150 ML @ 100 mls/hr IV.SIG ONCE ONE Rx#:[id number] Oral 340 / 340 701 / 701 Other: # Voids 1 4 Date of Last Bowel Movement 11/28/17 # Bowel Movements 1 2 Narrative: Gen.: No acute distress Head: Normocephalic. Atraumatic. EENT: Pupils equal round and reactive to light. Nose without drainage. Airway intact. Throat without injection. Cardiovascular: Regular rate and rhythm. No murmurs, rubs or gallops. Respiratory: Lungs with rhonchi throughout, diminished at bases. No wheezing noted. Abdomen: Soft, nontender, nondistended. No peritoneal signs. Musculoskeletal: No gross deformities. No edema. Skin: No obvious rashes or erythema. Neuro: Sensory and motor grossly intact. Cranial nerves II through XII grossly intact. Results - Labs CBC & Chem 7: 11/28/17 07:29 11/28/17 07:29 Laboratory Results - last 24 hr 11/27/17 11/27/17 11/27/17 12:00 12:00 12:00 WBC 4.9 RBC 3.72 L Hgb 10.7 L Hct 32.6 L MCV 87.7 MCH 28.7 MCHC 32.8 RDW 18.6 H Plt Count 155 MPV 10.4 Neut % (Auto) 60.7 Lymph % (Auto) 22.7 [place] % (Auto) 14.6 H Eos % (Auto) 1.6 Baso % (Auto) 0.4 Neut # (Auto) 3.0 Lymph # (Auto) 1.1 [place] # (Auto) 0.7 Eos # (Auto) 0.1 Baso # (Auto) 0.0 WBC Differential . Differential Comment Auto diff final PT 10.8 INR 1.1 APTT 27.6 Sodium 138 Potassium 3.3 L Chloride 97 L Carbon Dioxide 34.0 H Anion Gap 7 BUN 15 Creatinine 1.22 H Estimated GFR 44 L POC Glucose Random Glucose 119 H Calcium 8.7 Total Bilirubin 0.7 AST 17 ALT 12 Alkaline Phosphatase 97 Total Creatine Kinase 67 Troponin I Less than 0.02 L B-Natriuretic Peptide Total Protein 7.7 Albumin 3.1 L Urine Color Urine Clarity Urine pH Ur Specific [place] Urine Protein Urine Glucose (UA) Urine Ketones Urine Occult Blood Urine Nitrate Urine Bilirubin Urine Urobilinogen Ur Leukocyte Esterase Urine RBC Urine WBC Urine Bacteria Micro UA Comment Ur Microscopic Review Urine Culture Comments Pleural RBC Pleural Nuc Cells Pleural Neutrophils Pleural Lymphocytes Pleural Monocytes Pleural Total Protein Pleural LDH Pleural Glucose Pleural Amylase 10/05/18 10/05/18 10/05/18 12:00 12:00 15:15 WBC RBC Hgb Hct MCV MCH MCHC RDW Plt Count MPV Neut % (Auto) Lymph % (Auto) [place] % (Auto) Eos % (Auto) Baso % (Auto) Neut # (Auto) Lymph # (Auto) [place] # (Auto) Eos # (Auto) Baso # (Auto) WBC Differential Differential Comment PT INR APTT Sodium Potassium Chloride Carbon Dioxide Anion Gap BUN Creatinine Estimated GFR POC Glucose Random Glucose Calcium Total Bilirubin AST ALT Alkaline Phosphatase Total Creatine Kinase Troponin I B-Natriuretic Peptide 605 H Total Protein Albumin Urine Color Colorless Urine Clarity Clear Urine pH 6.0 Ur Specific [place] 1.003 Urine Protein Negative Urine Glucose (UA) Negative Urine Ketones Negative Urine Occult Blood Small H Urine Nitrate Negative Urine Bilirubin Negative Urine Urobilinogen Less than 2 Ur Leukocyte Esterase Negative Urine RBC 1 Urine WBC Less than 1 Urine Bacteria Rare H Micro UA Comment Culture not ind Ur Microscopic Review Not Reportable Urine Culture Comments Culture not ind Pleural RBC Pleural Nuc Cells Pleural Neutrophils Pleural Lymphocytes Pleural Monocytes Pleural Total Protein 3.4 Pleural LDH 98 Pleural Glucose 144 Pleural Amylase 11 11/27/17 11/27/17 11/28/17 15:15 20:51 07:25 WBC RBC Hgb Hct MCV MCH MCHC RDW Plt Count MPV Neut % (Auto) Lymph % (Auto) [place] % (Auto) Eos % (Auto) Baso % (Auto) Neut # (Auto) Lymph # (Auto) [place] # (Auto) Eos # (Auto) Baso # (Auto) WBC Differential Differential Comment PT INR APTT Sodium Potassium Chloride Carbon Dioxide Anion Gap BUN Creatinine Estimated GFR POC Glucose 160 H 127 H Random Glucose Calcium Total Bilirubin AST ALT Alkaline Phosphatase Total Creatine Kinase Troponin I B-Natriuretic Peptide Total Protein Albumin Urine Color Urine Clarity Urine pH Ur Specific [place] Urine Protein Urine Glucose (UA) Urine Ketones Urine Occult Blood Urine Nitrate Urine Bilirubin Urine Urobilinogen Ur Leukocyte Esterase Urine RBC Urine WBC Urine Bacteria Micro UA Comment Ur Microscopic Review Urine Culture Comments Pleural RBC 1426 H Pleural Nuc Cells 9 Pleural Neutrophils 2 Pleural Lymphocytes 90 Pleural Monocytes 8 Pleural Total Protein Pleural LDH Pleural Glucose Pleural Amylase 11/28/17 07:29 WBC 4.2 RBC 3.33 L Hgb 9.6 L Hct 29.2 L MCV 87.5 MCH 28.8 MCHC 32.9 RDW 19.1 H Plt Count 140 L MPV 10.6 Neut % (Auto) 45.6 Lymph % (Auto) 32.8 [place] % (Auto) 17.8 H Eos % (Auto) 3.4 Baso % (Auto) 0.4 Neut # (Auto) 1.9 Lymph # (Auto) 1.4 [place] # (Auto) 0.7 Eos # (Auto) 0.1 Baso # (Auto) 0.0 WBC Differential . Differential Comment Auto diff final PT INR APTT Sodium Potassium Chloride Carbon Dioxide Anion Gap BUN Creatinine Estimated GFR POC Glucose Random Glucose Calcium Total Bilirubin AST ALT Alkaline Phosphatase Total Creatine Kinase Troponin I B-Natriuretic Peptide Total Protein Albumin Urine Color Urine Clarity Urine pH Ur Specific [place] Urine Protein Urine Glucose (UA) Urine Ketones Urine Occult Blood Urine Nitrate Urine Bilirubin Urine Urobilinogen Ur Leukocyte Esterase Urine RBC Urine WBC Urine Bacteria Micro UA Comment Ur Microscopic Review Urine Culture Comments Pleural RBC Pleural Nuc Cells Pleural Neutrophils Pleural Lymphocytes Pleural Monocytes Pleural Total Protein Pleural LDH Pleural Glucose Pleural Amylase Microbiology 11/27/17 15:15 Fluid - Pleural fluid Gram Stain - Final - Imaging Impressions Chest X-Ray 11/27/17 00:00 CONCLUSION: Small loculated right base pneumothorax. Thoracentesis Ultrasound 11/27/17 00:00 CONCLUSION: Uncomplicated right chest thoracentesis with ultrasound guidance as described above. Chest X-Ray 11/27/17 11:41 CONCLUSION: 1. Moderate-sized right pleural effusion. 2. Right basilar consolidation. 3. Cardiomegaly. Chest X-Ray 11/28/17 06:00 CONCLUSION: Slight interval worsening in aeration with some reaccumulation of right pleural fluid and slight increase in size of loculated right base pneumothorax. Although the right lung may be largely entrapped, placement of a right base thoracostomy tube may be worthy of consideration if clinically appropriate. Assessment and Plan - Plan female with past medical history significant for anemia, atrial fibrillation, diabetes mellitus, hypertension, hypothyroidism, and renal disease who presents to the emergency department with complaints of shortness of breath. Patient was found to have a right-sided pleural effusion which was drained however follow-up x-ray showed loculated pneumothorax. Right pleural effusion Recurrent effusion in September and August of this year -Status post thoracentesis 11/27 with 500 cc drained. Pleural studies pending including cytology -Repeat chest x-ray this morning reviewed, slight interval worsening in aeration with some reaccumulated right pleural effusion and slight increase in the size of loculated right base pneumothorax. -Pulmonary services following, greatly appreciate assistance -IR consult placed for chest tube placement -Scheduled breathing treatments, PRN Mucinex, and Bumex -Continue IV Levaquin Hypokalemia -Status post replacement, still slightly low, replace with p.o. -Continue monitoring electrolytes Diabetes mellitus -Continue diabetic diet -Accu-Cheks with insulin sliding scale Atrial fibrillation Hypertension Hyperlipidemia -Currently sinus rhythm, patient reports she has not been on any anticoagulation. Follow-up with thoracic medicine specialist for recommendations. -Continue Lipitor, metoprolol and Cardizem DVT prophylaxis-SCD's Discussed Condition With: Patient, RN, Dr. Aly Discharge Planning: Patient to get chest tube placed today.
[2017-11-28] MEDS: dilTIAZem CD 120 MG Capsule PO SCH (09:51)
[2017-11-28] MEDS: Gabapentin 300 MG Capsule PO SCH (09:51)
[2017-11-28] MEDS: Metoprolol Tartrate 50 MG Tablet PO SCH ×2 (09:52→21:35)
[2017-11-28] MEDS: Duloxetine 60 MG DR Capsule PO SCH (09:52)
[2017-11-28] MEDS: Famotidine 20 MG Tablet PO SCH ×2 (09:52→21:36)
[2017-11-28] MEDS: QUEtiapine 25 MG Tablet PO SCH ×2 (09:52→21:36)
[2017-11-28 09:55] LABS: Albumin 2.6 g/dL (3.4-5.0); Anion Gap 9 meq/L (5-15); Aspartate Aminotransferase 16 U/L (15-37); Blood Urea Nitrogen 17 mg/dL (7-18); Calcium 8.8 mg/dL (8.5-10.1); Carbon Dioxide 32.7 meq/L (21.0-32.0); Chloride 97 meq/L (98-107); Glomerular Filtration Rate 42 mL/min (>89); Glucose,Random 114 mg/dL (74-106); Potassium 3.3 meq/L (3.5-5.1); Sodium 139 meq/L (136-145)
[2017-11-28 09:57] LABS: Alanine Aminotransferase 12 U/L (10-53)
[2017-11-28 10:02] LABS: Alkaline Phosphatase 86 U/L (45-117)
--- NOTE | 2017-11-28 13:26 | ECG ---
Date Performed: 11/27/2017 Time Performed: 12:23:38 PTAGE: 67 years EKG: Sinus rhythm NORMAL ECG PREVIOUS TRACING : 10/06/2017 22.11 DOCTOR: Rick Jean-Baptiste Interpretating Date/Time 11/28/2017 13:16:39
[2017-11-28] MEDS ORDERED: Sodium Chloride 0.9% 2 ML Flush PRN IV.FLUSH (16:00)
[2017-11-28] MEDS: Dextrose 50% in Water 50 ML Vial IV.PUSH PRN (17:24)
[2017-11-28] MEDS ORDERED: fentaNYL Citrate Inj 250 MCG/5 ML Ampul ONE (18:18)
[2017-11-28] MEDS ORDERED: Lidocaine 1%/Epinephrine 1:100,000 Inj 20 ML Vial ONE (18:57)
--- NOTE | 2017-11-28 19:43 | P.RAD ---
Post CT Procedure Prog Note - Pre Procedure Diagnosis (1) Hydropneumothorax - Post Procedure Diagnosis (1) Hydropneumothorax - Procedure Information Procedure Date: 11/28/17 Supervising Radiologist: Nelson Fleming Jr, MD Proceduralist/Assist: Deuce Estimated blood loss (mL): 0 Anesthesia: Conscious Sedation - Plan of Activity Patient to Unit: PACU Patient condition: Good See PACS Report for procedural detail/treatment. Drainage Procedure CT right Chest Tube Non-Tunneled Placement Bengali Tube Size: 10 Drainage: Pleurovac Fluid Description: Clear Findings: Placed right chest tube in subpulmonic space for hydropneumothorax. Resolved on f/u CT images. Plan: 40 cmH20 wall suction.
--- NOTE | 2017-11-28 20:15 | CT ---
EXAM DATE: 11/28/2017 6:51 PM EDT AGE/SEX: 67 years / Female INDICATIONS: Pneumothorax. CLINICAL DATA: This is the patient's initial encounter. Patient reports that signs and symptoms have been present for 1 day and indicates a pain score of 4/10. MEDICAL/SURGICAL HISTORY: Carcinoma, breast. Diabetes. Hypothyroidism. section. SEDATION TIME (min): 30 MEDICATION(S): 5mg midazolam (Versed) IV 250mcg fentanyl (Sublimaze) IV DEVICE(S): [address] . . COMPARISON: Chest x-ray 11/28/2017. PROCEDURE : CT guided right chest tube placement. Conscious sedation with continuous EKG and oximetry monitoring. EKG and oximetry remained stable throughout the procedure. I reviewed the patient's prior chest x-ray 11/28/2017. The patient has a loculated hydropneumothorax o n the right. Drainage requested by Dr. Aly with chest tube placement. The risks, benefits and alter natives to the procedure were explained and verbal and written consent was obtained. The site was pr epped in sterile fashion. Full sterile technique was used, including cap, mask, sterile gloves and g own and a large sterile sheet. Hand hygiene and 2% chlorhexidine and/or betadine/alcohol prep was ut ilized per protocol for cutaneous antisepsis. The skin and subcutaneous tissues were infiltrated wit h local anesthetic solution. Using automated exposure control and adjustment of the mA and/or kV acc ording to patient size, radiation dose was kept as low as reasonably achievable to obtain optimal yoav gnostic quality images. DICOM format image data is available electronically for review and compariso n. With CT guidance the chest was punctured and the prescribed catheter was placed in the right base of the lung. Wall suction was applied. Post procedure images demonstrate satisfactory position of the t ube. The catheter was sutured in place and a Percu-Stay was applied. The patient tolerated the procedure well and there were no complications. The patient was sent to pos t anesthesia recovery in stable condition. CONCLUSION: 1. Uncomplicated right chest tube placement as above for hydropneumothorax. Electronically signed by: Nelson Fleming MD 11/28/2017 8:14 PM EDT
[2017-11-28] MEDS: Melatonin 5 MG Tablet PO PRN (21:34)
[2017-11-28] MEDS: Acetaminophen 325 MG Tablet PO PRN (21:35)
[2017-11-28] MEDS: Sodium Chloride 0.9% 2 ML Flush BID IV.FLUSH SCH (21:36)
[2017-11-29 05:02] LABS: Calcium 8.6 mg/dL (8.5-10.1); Carbon Dioxide 32.7 meq/L (21.0-32.0); Potassium 3.6 meq/L (3.5-5.1)
[2017-11-29] MEDS: Levothyroxine 100 MCG Tablet PO SCH (06:27)
[2017-11-29] MEDS: Insulin NovoLOG Aspart Correctional Sugar Inj SQ SCH ×4 (09:17→20:31)
[2017-11-29] MEDS: Famotidine 20 MG Tablet PO SCH ×2 (09:18→20:32)
[2017-11-29] MEDS: Duloxetine 60 MG DR Capsule PO SCH (09:18)
[2017-11-29] MEDS: Metoprolol Tartrate 50 MG Tablet PO SCH ×2 (09:19→20:31)
[2017-11-29] MEDS: QUEtiapine 25 MG Tablet PO SCH ×2 (09:19→20:33)
[2017-11-29] MEDS: dilTIAZem CD 120 MG Capsule PO SCH (09:19)
[2017-11-29] MEDS: Gabapentin 300 MG Capsule PO SCH (09:19)
[2017-11-29] MEDS: Sodium Chloride 0.9% 2 ML Flush BID IV.FLUSH SCH ×2 (09:20→20:32)
[2017-11-29] MEDS: guaiFENesin/Codeine Syrup 200 MG/20 MG 10 ML UDC PO PRN ×2 (09:36→17:53)
--- NOTE | 2017-11-29 13:31 | P.PN ---
Subjective Interval history: Follow-up visit for recurrent pleural effusion s/p chest tube placement. Patient is seen and examined sitting up in bed eating lunch this afternoon, appears to be in no acute distress. She reports her breathing is slightly improved this morning, ongoing productive cough. Denies any fevers, chills, nausea, vomiting, diarrhea, chest pain or shortness of breath. Physical Exam Vital signs: Vital Signs 11/28/17 14:00 11/28/17 16:00 11/28/17 19:59 Temperature 97.6 F 97.7 F Pulse Rate 79 65 79 Respiratory Rate 20 16 16 Blood Pressure 101/58 L 109/62 Pulse Oximetry 97 100 11/28/17 20:00 11/28/17 20:10 11/28/17 20:15 Temperature 97.4 F L Pulse Rate 84 77 75 Respiratory Rate 18 12 15 Blood Pressure 120/56 L 108/62 Pulse Oximetry 95 100 11/28/17 20:30 11/29/17 00:55 11/29/17 04:19 Temperature 97.6 F 97.6 F 97.5 F L Pulse Rate 78 75 72 Respiratory Rate 22 20 20 Blood Pressure 106/61 123/56 L 108/56 L Pulse Oximetry 100 97 94 L 11/29/17 08:00 11/29/17 09:28 11/29/17 12:00 Temperature 97.4 F L 98.0 F Pulse Rate 84 77 69 Respiratory Rate 18 18 16 Blood Pressure 110/60 103/56 L Pulse Oximetry 93 L 98 95 11/29/17 12:43 11/29/17 12:44 Temperature Pulse Rate 77 Respiratory Rate 17 Blood Pressure Pulse Oximetry 97 Intake & Output 11/28/17 11/29/17 11/29/17 18:59 06:59 18:59 Intake Total 750 / 750 30 / 30 Output Total 500 / 500 600 / 600 Balance 250 / 250 -570 / -570 Weight 103.4 kg Intake: IV 150 / 150 Levaquin 750 mg Premix Inj 150 150 / 150 ML @ 100 mls/hr IV.SIG Q24H [facility] Rx#:[id number] Oral 600 / 600 30 / 30 Output: Urine 500 / 500 Chest Tube Drainage 600 / 600 #1 Right Upper Pleural 600 / 600 Other: # Voids 2 Date of Last Bowel Movement 11/28/17 # Bowel Movements 0 Narrative: Gen.: No acute distress Head: Normocephalic. Atraumatic. EENT: Pupils equal round and reactive to light. Nose without drainage. Airway intact. Throat without injection. Cardiovascular: Regular rate and rhythm. No murmurs, rubs or gallops. Respiratory: Lungs with rhonchi throughout, diminished at bases R>L. Expiratory wheezes noted in upper lobes. Abdomen: Soft, nontender, nondistended. No peritoneal signs. Musculoskeletal: No gross deformities. No edema. Skin: No obvious rashes or erythema. Neuro: Sensory and motor grossly intact. Cranial nerves II through XII grossly intact. Results - Labs CBC & Chem 7: 11/28/17 07:29 11/29/17 04:25 Laboratory Results - last 24 hr 11/28/17 11/28/17 11/28/17 16:55 17:48 20:10 Sodium Potassium Chloride Carbon Dioxide Anion Gap BUN Creatinine Estimated GFR POC Glucose 78 108 109 Random Glucose Calcium 11/29/17 11/29/17 11/29/17 04:25 08:08 12:35 Sodium 138 Potassium 3.6 Chloride 98 Carbon Dioxide 32.7 H Anion Gap 7 BUN 20 H Creatinine 1.42 H Estimated GFR 37 L POC Glucose 161 H 156 H Random Glucose 162 H Calcium 8.6 Microbiology 11/27/17 21:22 Sputum - Expectorated Sputum Gram Stain - Final 11/27/17 21:22 Sputum - Expectorated Sputum Sputum Culture - Final Heavy growth normal respiratory yaritza 11/27/17 15:15 Fluid - Pleural fluid Gram Stain - Final 11/27/17 15:15 Fluid - Pleural fluid Body Fluid Culture - Preliminary No growth in 48 hours - Imaging Impressions Chest Tube Insertion 11/28/17 00:00 CONCLUSION: 1. Uncomplicated right chest tube placement as above for hydropneumothorax. Assessment and Plan - Plan female with past medical history significant for anemia, atrial fibrillation, diabetes mellitus, hypertension, hypothyroidism, and renal disease who presents to the emergency department with complaints of shortness of breath. Patient was found to have a right-sided pleural effusion which was drained however follow-up x-ray showed loculated pneumothorax. Right pleural effusion Recurrent effusion in September and August of this year -s/p thoracentesis 11/27 with 500 cc drained. Pleural studies pending including cytology -chest x-ray 11/28: slight interval worsening in aeration with some reaccumulated right pleural effusion and slight increase in the size of loculated right base pneumothorax. -Pulmonary services following, greatly appreciate assistance -s/p left CP placement in IR, 600ml drained in canister -Scheduled breathing treatments, PRN Mucinex, and Bumex -Continue IV Levaquin Hypokalemia -Status post replacement, stable today. Diabetes mellitus -Continue diabetic diet -Accu-Cheks with insulin sliding scale Atrial fibrillation Hypertension Hyperlipidemia -Currently sinus rhythm, patient reports she has not been on any anticoagulation. Follow-up with street commissioner for recommendations. -Continue Lipitor, metoprolol and Cardizem SUE -Continue to follow renal function closely -Hold off on IVF unless worsening. DVT prophylaxis-SCD's Discussed Condition With: Patient and aeronautics commission director Planning: Pending pulm. clearance.
[2017-11-29] MEDS: Melatonin 5 MG Tablet PO PRN (20:31)
[2017-11-30] MEDS: guaiFENesin/Codeine Syrup 200 MG/20 MG 10 ML UDC PO PRN ×3 (00:54→17:33)
[2017-11-30] MEDS: Levothyroxine 100 MCG Tablet PO SCH (05:18)
[2017-11-30 07:47] LABS: Calcium 8.2 mg/dL (8.5-10.1); Carbon Dioxide 32.9 meq/L (21.0-32.0); Potassium 3.5 meq/L (3.5-5.1)
[2017-11-30] MEDS: QUEtiapine 25 MG Tablet PO SCH ×2 (08:18→20:41)
[2017-11-30] MEDS: Duloxetine 60 MG DR Capsule PO SCH (08:18)
[2017-11-30] MEDS: Famotidine 20 MG Tablet PO SCH ×2 (08:18→20:41)
[2017-11-30] MEDS: Gabapentin 300 MG Capsule PO SCH (08:18)
[2017-11-30] MEDS: Insulin NovoLOG Aspart Correctional Sugar Inj SQ SCH ×4 (08:19→20:48)
[2017-11-30] MEDS: Sodium Chloride 0.9% 2 ML Flush BID IV.FLUSH SCH ×2 (08:19→20:41)
[2017-11-30] MEDS: dilTIAZem CD 120 MG Capsule PO SCH (08:21)
[2017-11-30] MEDS: Metoprolol Tartrate 50 MG Tablet PO SCH ×2 (08:22→20:41)
--- NOTE | 2017-11-30 11:26 | P.PN ---
Subjective Interval history: Follow-up visit for recurrent pleural effusions and pneumonia. Patient seen and examined sitting up in bed appears to be in no acute distress. Reports that her breathing is about the same, required oxygen overnight as her oxygen dropped to 85%. Continues to have a cough. Denies any fevers, chills, nausea, or vomiting. Reports one soft bowel movement. Physical Exam Vital signs: Vital Signs 11/29/17 12:00 11/29/17 12:43 11/29/17 12:44 Temperature 98.0 F Pulse Rate 69 77 Respiratory Rate 16 17 Blood Pressure 103/56 L Pulse Oximetry 95 97 11/29/17 16:00 11/29/17 20:00 11/29/17 21:13 Temperature 97.8 F 97.8 F Pulse Rate 72 76 79 Respiratory Rate 16 16 16 Blood Pressure 117/56 L 96/55 L Pulse Oximetry 93 L 93 L 94 L 11/30/17 00:00 11/30/17 08:00 11/30/17 08:21 Temperature 98.1 F 97.7 F Pulse Rate 90 90 85 Respiratory Rate 16 16 17 Blood Pressure 107/56 L 112/60 Pulse Oximetry 95 97 92 L Intake & Output 11/29/17 11/30/17 11/30/17 18:59 06:59 18:59 Intake Total 2350 / 2350 Output Total 900 / 900 20 / 20 Balance 1450 / 1450 -20 / -20 Weight 102.8 kg Intake: IV 150 / 150 Levaquin 750 mg Premix Inj 150 150 / 150 ML @ 100 mls/hr IV.SIG Q24H [facility] Rx#:[id number] Oral 2200 / 2200 Output: Urine 700 / 700 Chest Tube Drainage 200 / 200 20 / 20 #1 Right Upper Pleural 200 / 200 20 / 20 Other: Date of Last Bowel Movement 11/28/17 # Bowel Movements 0 Narrative: Gen.: No acute distress Head: Normocephalic. Atraumatic. EENT: Pupils equal round and reactive to light. Nose without drainage. Airway intact. Throat without injection. Cardiovascular: Regular rate and rhythm. No murmurs, rubs or gallops. Respiratory: Lungs with rhonchi throughout, diminished at bases R>L. Expiratory wheezes noted in upper lobes. Abdomen: Soft, nontender, nondistended. No peritoneal signs. Musculoskeletal: No gross deformities. No edema. Skin: No obvious rashes or erythema. Neuro: Sensory and motor grossly intact. Cranial nerves II through XII grossly intact. Results - Labs CBC & Chem 7: 11/28/17 07:29 11/30/17 05:52 Laboratory Results - last 24 hr 11/29/17 11/29/17 11/29/17 12:35 17:38 19:19 Sodium Potassium Chloride Carbon Dioxide Anion Gap BUN Creatinine Estimated GFR POC Glucose 156 H 113 H 163 H Random Glucose Calcium Magnesium 11/30/17 11/30/17 11/30/17 05:52 05:52 07:31 Sodium 138 Potassium 3.5 Chloride 96 L Carbon Dioxide 32.9 H Anion Gap 9 BUN 16 Creatinine 1.25 H Estimated GFR 43 L POC Glucose 152 H Random Glucose 129 H Calcium 8.2 L Magnesium 1.7 Microbiology 11/27/17 15:15 Fluid - Pleural fluid Gram Stain - Final 11/27/17 15:15 Fluid - Pleural fluid Body Fluid Culture - Final No growth in 72 hours (aerobically and anaerobically ) 11/27/17 21:22 Sputum - Expectorated Sputum Gram Stain - Final 11/27/17 21:22 Sputum - Expectorated Sputum Sputum Culture - Final Heavy growth normal respiratory yaritza Assessment and Plan - Plan female with past medical history significant for anemia, atrial fibrillation, diabetes mellitus, hypertension, hypothyroidism, and renal disease who presents to the emergency department with complaints of shortness of breath. Patient was found to have a right-sided pleural effusion which was drained however follow-up x-ray showed loculated pneumothorax. Right pleural effusion Recurrent effusion in September and August of this year -s/p thoracentesis 11/27 with 500 cc drained. Pleural studies pending including cytology -chest x-ray 11/28: slight interval worsening in aeration with some reaccumulated right pleural effusion and slight increase in the size of loculated right base pneumothorax. -Pulmonary services following, greatly appreciate assistance -s/p left CP placement in IR, 600ml drained in canister -25ml of drainage reported from RN Right basilar PNA noted on admission - Continue IV Levaquin, ongoing productive sputum -Continue scheduled breathing treatments, PRN Mucinex, and Bumex -Chest x-ray 11/30 with small right apical medial pneumothorax Hypokalemia -Status post replacement, stable today. -K this a.m. 3.5 and mag 1.7. Replace electrolytes p.o (Hx afib goal K 4.0 and mag 2.0) Diabetes mellitus -Continue diabetic diet -Accu-Cheks with insulin sliding scale Atrial fibrillation Hypertension Hyperlipidemia -Currently sinus rhythm, patient reports she has not been on any anticoagulation. Follow-up with plant inspector for recommendations. -Continue Lipitor, metoprolol and Cardizem SUE on possible CKD - Creatinine in September jumped up to 5, them improved - This a.m. slightly improved Creatinine to 1.25 -Continue to follow renal function closely -Hold off on IVF unless worsening. DVT prophylaxis-SCD's Discussed Condition With: Patient and Discharge Planning: Still with chest tube in place, will need pulmonary clearance.
[2017-11-30] MEDS ORDERED: Magnesium Oxide 400 MG Tablet PO ONE (11:45)
[2017-11-30 12:46] LABS: Total Protein 6.8 g/dL (6.4-8.2)
--- NOTE | 2017-11-30 14:24 | XR ---
EXAM DATE: 11/30/2017 12:00 AM EDT AGE/SEX: 67 years / Female INDICATIONS: Evaluate for pneumothorax; chest tube in place. CLINICAL DATA: This is the patient's subsequent encounter. Patient reports that signs and symptoms h ave been present for 2 days and indicates a pain score of 4/10. MEDICAL/SURGICAL HISTORY: . Hypertension. Diabetes mellitus type II. Carcinoma, breast. A-fib. None. COMPARISON: [facility] – [place], CHEST 1V SINGLE AP, 11/28/2017. . FINDINGS: A single frontal expiratory view of the chest was performed. . Right basilar pleural-parenchymal den sity. Small right upper medial pneumothorax. Right-sided chest tube seen. Left lung relatively clear. Postsurgical changes on the right Mediastinal structures are in the midline. CONCLUSION: Small right apical medial pneumothorax. Electronically signed by: Matt Jones MD 11/30/2017 2:23 PM EDT
--- NOTE | 2017-11-30 17:07 | CT ---
EXAM DATE: 11/30/2017 4:24 PM EDT AGE/SEX: 67 years / Female INDICATIONS: Shortness of breath. CLINICAL DATA: This is the patient's initial encounter. Patient reports that signs and symptoms have been present for 1 day and indicates a pain score of 0/10. MEDICAL/SURGICAL HISTORY: Carcinoma, breast. Diabetes. Cardiovascular disease. section. Hemorrhoidectomy. chest tube placement RADIATION DOSE: 9.59 CTDI (mGy) COMPARISON: [facility] – [place]ST [place]PIRATION ONLY, 11/30/2017. . TECHNIQUE: Multiple contiguous axial images were obtained through the chest without contrast. Image s were obtained in suspended respiration using multiple row detector helical technique. Using automa justa exposure control and adjustment of the mA and/or kV according to patient size, radiation dose was kept as low as reasonably achievable to obtain optimal diagnostic quality images. DICOM format imag e data is available electronically for review and comparison. FINDINGS: Lungs: On today's examination there is a tiny apical right pneumothorax along with some pleural flui d seen medially. There is a patchy parenchymal infiltrate in the right lower lung. There is a small r ight-sided chest tube in place noted along the base of the right hemithorax. There is some focal atel ectasis in the posterior right lower lung. There is a small right-sided effusion. The left lung is we ll aerated. There is a 2 mm pulmonary nodule in the peripheral aspect of the left lower lung. Otherwi se, no focal or acute pulmonary infiltrates are seen in the left lung. There is no evidence of a left -sided effusion. Mediastinum: There is good visualization of the great vessels of the middle mediastinum. No evidenc e of mediastinal or hilar adenopathy/mass. Atherosclerotic changes of the aorta. Coronary calcificati ons. The heart size is enlarged. Pleurae: No evidence of a left-sided pleural effusion. There is a small right-sided pleural effusion with several droplets of air in the anterior base of the right hemithorax in the fluid. This is righ t where the chest tube is located. Axillae: Surgical clips in the right axilla. Left axillary area unremarkable. Bony Structures: Primary bony degenerative changes of the thoracic spine. Miscellaneous: The examination was extended to include the upper abdomen, and both adrenal glands ar e normal in size and configuration. 4 cm left renal cyst. CONCLUSION: 1. There is a small right-sided chest tube in place along the base of the right hemithorax. 2. There is a small residual right pleural effusion with a tiny pneumothorax at the right medial ape x. 3. There is a patchy nonspecific infiltrate in the right lower lung. 4. Tiny 2 mm pulmonary nodule peripheral aspect of the left lower lung. 5. Compensated cardiomegaly. Electronically signed by: Polo Pope MD 11/30/2017 5:05 PM EDT
[2017-11-30] MEDS: Melatonin 5 MG Tablet PO PRN (20:41)
[2017-12-01] MEDS: guaiFENesin/Codeine Syrup 200 MG/20 MG 10 ML UDC PO PRN ×4 (00:17→21:25)
[2017-12-01] MEDS: Levothyroxine 100 MCG Tablet PO SCH (06:16)
[2017-12-01] MEDS: Duloxetine 60 MG DR Capsule PO SCH (08:29)
[2017-12-01] MEDS: Famotidine 20 MG Tablet PO SCH ×2 (08:29→21:24)
[2017-12-01] MEDS: Gabapentin 300 MG Capsule PO SCH (08:30)
[2017-12-01] MEDS: Sodium Chloride 0.9% 2 ML Flush BID IV.FLUSH SCH ×2 (08:30→21:25)
[2017-12-01] MEDS: QUEtiapine 25 MG Tablet PO SCH ×2 (08:30→21:24)
[2017-12-01] MEDS: Insulin NovoLOG Aspart Correctional Sugar Inj SQ SCH ×4 (08:30→21:27)
[2017-12-01] MEDS: dilTIAZem CD 120 MG Capsule PO SCH (08:31)
[2017-12-01] MEDS: Metoprolol Tartrate 50 MG Tablet PO SCH ×2 (08:43→21:24)
[2017-12-01 09:54] LABS: Carbon Dioxide 34.2 meq/L (21.0-32.0); Potassium 3.5 meq/L (3.5-5.1)
--- NOTE | 2017-12-01 11:11 | XR ---
EXAM DATE: 12/01/2017 10:04 AM EDT AGE/SEX: 67 years / Female INDICATIONS: . Evaluate right lung, chest tube fell out. CLINICAL DATA: This is the patient's subsequent encounter. Patient reports that signs and symptoms h ave been present for 1 day and indicates a pain score of 0/10. MEDICAL/SURGICAL HISTORY: . Hypercholesterolemia. Hypertension. Hypothyroidism. Atrial fibrilla tion. Anemia. Right breast cancer. . Renal disease. section Right breast reconstruction. COMPARISON: [facility] – [place], CHEST EXPIRATION ONLY, 11/30/2017. . FINDINGS: Patient's right-sided chest tube has been reportedly accidentally removed. There is a very trace righ t apical pneumothorax that appears improved from prior exam. Persistent pleural-parenchymal opacities in the right lower lung zone. Cardiomediastinal contours are stable. Remainder of the exam is unchan ged. CONCLUSION: 1. Very trace right apical pneumothorax, improved from prior exam. 2. Persistent right lower lung zone pleural-parenchymal disease. Electronically signed by: Zaki Fan MD 12/01/2017 11:10 AM EDT
[2017-12-01] MEDS ORDERED: Vancomycin Consult Pharmacy OTHER PRN (12:53)
--- NOTE | 2017-12-01 13:03 | P.PN ---
Subjective Interval history: Nursing reports that the patient had some point between 8 and 10 AM today had her chest tube out. Patient was sent down for chest x-ray, discussed with radiology which showed very tiny apical pneumothorax that was not necessarily worth another chest tube insertion. Physical Exam Vital signs: Vital Signs 11/30/17 16:00 11/30/17 20:00 11/30/17 20:02 Temperature 98.2 F 97.7 F Pulse Rate 103 H 113 H 115 H Respiratory Rate 16 19 22 Blood Pressure 129/64 118/58 L Pulse Oximetry 99 100 99 12/01/17 00:00 12/01/17 04:00 12/01/17 08:00 Temperature 97.7 F 97.8 F 97.4 F L Pulse Rate 96 H 77 84 Respiratory Rate 18 18 18 Blood Pressure 95/51 L 105/57 L 108/57 L Pulse Oximetry 97 95 98 12/01/17 08:46 Temperature Pulse Rate 82 Respiratory Rate 18 Blood Pressure Pulse Oximetry 95 Intake & Output 11/30/17 12/01/17 12/01/17 18:59 06:59 18:59 Intake Total 1950 / 1950 320 / 320 Output Total 1120 / 1120 200 / 200 Balance 830 / 830 120 / 120 Weight 101.8 kg Intake: IV 150 / 150 Levaquin 750 mg Premix Inj 150 150 / 150 ML @ 100 mls/hr IV.SIG Q24H [facility] Rx#:[id number] Oral 1800 / 1800 320 / 320 Output: Urine 1000 / 1000 Chest Tube Drainage 120 / 120 200 / 200 #1 Right Upper Pleural 120 / 120 200 / 200 Other: # Voids 3 Narrative: Rhonchi and rales heard on right lung field, relatively clear on the left Unlabored breathing Heart sounds regular rate rhythm Results - Labs CBC & Chem 7: 11/28/17 07:29 12/01/17 07:52 Laboratory Results - last 24 hr 11/30/17 11/30/17 12/01/17 17:31 20:44 07:09 Sodium Potassium Chloride Carbon Dioxide Anion Gap BUN Creatinine Estimated GFR POC Glucose 127 H 152 H 134 H Random Glucose Calcium 12/01/17 12/01/17 07:52 12:06 Sodium 137 Potassium 3.5 Chloride 96 L Carbon Dioxide 34.2 H Anion Gap 7 BUN 16 Creatinine 1.23 H Estimated GFR 44 L POC Glucose 160 H Random Glucose 121 H Calcium 9.0 D Microbiology 10/05/18 15:15 Fluid - Pleural fluid Gram Stain - Final 11/27/17 15:15 Fluid - Pleural fluid Body Fluid Culture - Final No growth in 72 hours (aerobically and anaerobically ) - Imaging Impressions Chest CT 11/30/17 00:00 CONCLUSION: 1. There is a small right-sided chest tube in place along the base of the right hemithorax. 2. There is a small residual right pleural effusion with a tiny pneumothorax at the right medial apex. 3. There is a patchy nonspecific infiltrate in the right lower lung. 4. Tiny 2 mm pulmonary nodule peripheral aspect of the left lower lung. 5. Compensated cardiomegaly. Chest X-Ray 11/30/17 00:00 CONCLUSION: Small right apical medial pneumothorax. Chest X-Ray 12/01/17 10:04 CONCLUSION: 1. Very trace right apical pneumothorax, improved from prior exam. 2. Persistent right lower lung zone pleural-parenchymal disease. Assessment and Plan - Plan female with past medical history significant for anemia, atrial fibrillation, diabetes mellitus, hypertension, hypothyroidism, and renal disease who presents to the emergency department with complaints of shortness of breath. Patient was found to have a right-sided pleural effusion which was drained however follow-up x-ray showed loculated pneumothorax. Has undergone thoracentesis with at least 500 cc drained, had a left-sided chest tube that was placed which drained an additional 600 mL's at least. Chest tube apparently had dislodged itself on 12/01. Residual pneumothorax is very minimal and not worth intervention per interventional radiology. Right pleural effusion Recurrent effusion in September and August of this year - Resolved status post thoracentesis, pulmonology following Right basilar PNA noted on admission -Continue IV Levaquin, ongoing productive sputum -Continue scheduled breathing treatments, PRN Mucinex -Zosyn and vancomycin to cover for HCAP Hypokalemia -Resolved Diabetes mellitus -Continue diabetic diet -Accu-Cheks with insulin sliding scale Atrial fibrillation -Hypertension -Hyperlipidemia -Currently sinus rhythm, patient reports she has not been on any anticoagulation. Follow-up with plastic boat patcher for recommendations. -Continue Lipitor, metoprolol and Cardizem SUE on possible CKD -improving -hold bumex for now, stop IVFs
[2017-12-01] MEDS: Vancomycin Inj 1,250 MG in Sodium Chlor 0.9% Inj 250 ML IV.SIG SCH (17:39)
[2017-12-01] MEDS: Piperacil/Tazo 3.375 GM Premix 50 ML IV.SIG SCH (17:39)
[2017-12-01] MEDS ORDERED: Magnesium Citrate Liq 300 ML Bottle PO ONE (19:38)
[2017-12-01] MEDS: Melatonin 5 MG Tablet PO PRN (21:24)
[2017-12-01] MEDS: Enoxaparin Inj 30 MG/0.3 ML Syringe SQ SCH (21:25)
[2017-12-02] MEDS: Piperacil/Tazo 3.375 GM Premix 50 ML IV.SIG SCH ×3 (00:46→16:33)
[2017-12-02] MEDS: Levothyroxine 100 MCG Tablet PO SCH (05:40)
[2017-12-02] MEDS: Insulin NovoLOG Aspart Correctional Sugar Inj SQ SCH ×4 (07:57→22:19)
[2017-12-02] MEDS: Gabapentin 300 MG Capsule PO SCH (09:29)
[2017-12-02] MEDS: Famotidine 20 MG Tablet PO SCH ×2 (09:29→22:00)
[2017-12-02] MEDS: QUEtiapine 25 MG Tablet PO SCH ×2 (09:29→22:00)
[2017-12-02] MEDS: Metoprolol Tartrate 50 MG Tablet PO SCH ×2 (09:30→22:00)
[2017-12-02] MEDS: Enoxaparin Inj 30 MG/0.3 ML Syringe SQ SCH (09:30)
[2017-12-02] MEDS: predniSONE 20 MG Tablet PO SCH (09:30)
[2017-12-02] MEDS: dilTIAZem CD 120 MG Capsule PO SCH (09:30)
[2017-12-02] MEDS: Sodium Chloride 0.9% 2 ML Flush BID IV.FLUSH SCH ×2 (09:31→22:02)
[2017-12-02] MEDS: Duloxetine 60 MG DR Capsule PO SCH (09:33)
[2017-12-02] MEDS: guaiFENesin/Codeine Syrup 200 MG/20 MG 10 ML UDC PO PRN (13:00)
--- NOTE | 2017-12-02 13:00 | P.PN ---
Subjective Interval history: Nursing reports that the patient still reports being congested. Patient denies having shortness of breath today she still has a very obvious wet cough. Physical Exam Vital signs: Vital Signs 12/01/17 13:50 12/01/17 16:00 12/01/17 20:15 Temperature 97.9 F Pulse Rate 88 97 H 99 H Respiratory Rate 18 18 18 Blood Pressure 113/55 L Pulse Oximetry 97 12/01/17 20:16 12/02/17 00:00 12/02/17 08:00 Temperature 98.5 F 98.8 F Pulse Rate 87 81 Respiratory Rate 18 18 Blood Pressure 115/54 L 106/57 L Pulse Oximetry 95 96 94 L 12/02/17 08:20 Temperature Pulse Rate 81 Respiratory Rate 16 Blood Pressure Pulse Oximetry 93 L Intake & Output 12/01/17 12/02/17 12/02/17 18:59 06:59 18:59 Intake Total 200 / 200 552.5 / 552.5 50 / 50 Output Total 600 / 600 250 / 250 Balance -400 / -400 302.5 / 302.5 50 / 50 Weight 54.6 kg Intake: IV 200 / 200 312.5 / 312.5 50 / 50 Levaquin 750 mg Premix Inj 150 150 / 150 ML @ 100 mls/hr IV.SIG Q24H [facility] Rx#:[id number] Zosyn 3.375 GM Premix 50 ML @ 50 / 50 50 / 50 50 / 50 100 mls/hr IV.SIG Q8H [facility] Rx#: [id number] Vancomycin Inj 1,250 MG In NS 262.5 / 262.5 Inj 250 ML @ 250 mls/hr IV.SIG Q24H [facility] Rx#:[id number] Oral 240 / 240 Output: Urine 600 / 600 250 / 250 Other: # Voids 6 3 Date of Last Bowel Movement 11/28/17 Narrative: Junk breath sounds bilaterally with wheezing noted, right greater than left No dyspnea, unlabored breathing Awake and alert Results - Labs CBC & Chem 7: 11/28/17 07:29 12/01/17 07:52 Laboratory Results - last 24 hr 12/01/17 12/01/17 12/02/17 16:11 21:14 07:43 POC Glucose 121 H 187 H 137 H 12/02/17 11:48 POC Glucose 183 H Assessment and Plan - Plan female with past medical history significant for anemia, atrial fibrillation, diabetes mellitus, hypertension, hypothyroidism, and renal disease who presents to the emergency department with complaints of shortness of breath. Patient was found to have a right-sided pleural effusion which was drained however follow-up x-ray showed loculated pneumothorax. Has undergone thoracentesis with at least 500 cc drained, had a left-sided chest tube that was placed which drained an additional 600 mL's at least. Chest tube apparently had dislodged itself on 12/01. Residual pneumothorax is very minimal and not worth intervention per interventional radiology. Right pleural effusion Recurrent effusion in September and August of this year - Resolved status post thoracentesis, pulmonology following Right basilar PNA now with bronchitis We will give a high dose of steroids given the patient's prior history of asthma as a child, scheduled steroids otherwise daily -Continue Zosyn and vancomycin, Levaquin stopped by pulmonology -Continue scheduled breathing treatments, adding on Mucomyst Diabetes mellitus -Continue diabetic diet -Accu-Cheks with insulin sliding scale Atrial fibrillation -Hypertension -Hyperlipidemia -Currently sinus rhythm, patient reports she has not been on any anticoagulation. Follow-up with photoresist contact printer for recommendations. Lovenox while inpt -Continue Lipitor, metoprolol and Cardizem Lovenox for now given afib.
--- NOTE | 2017-12-02 13:27 | XR ---
EXAM DATE: 12/02/2017 12:43 PM EDT AGE/SEX: 67 years / Female INDICATIONS: Evaluate pleural effusion. CLINICAL DATA: This is the patient's subsequent encounter. Patient reports that signs and symptoms h ave been present for 4 - 6 days and indicates a pain score of 0/10. MEDICAL/SURGICAL HISTORY: Carcinoma, breast. Diabetes. Cardiovascular disease. Mastectomy, ri ght. section. Hemorrhoidectomy. right side chest tube placement COMPARISON: [facility] – [place], 11/30/2017. . FINDINGS: A single AP view of the chest demonstrates right basilar pleural-parenchymal density. Cardiomegaly. L eft lung clear. The cardiomediastinal contours are unremarkable. Osseous structures are intact. Cli ps in the right axilla. Right-sided chest tube removed. No significant pneumothorax. CONCLUSION: Right basilar pleural-parenchymal density. Is likely related to small pleural effusion and right basi lar atelectasis. Electronically signed by: Matt Jones MD 12/02/2017 1:25 PM EDT
[2017-12-02] MEDS ORDERED: MethylPREDNISolone Sod Succinate Inj 125 MG/2 ML Vial IV.PUSH ONE (14:30)
[2017-12-02] MEDS: Vancomycin Inj 1,250 MG in Sodium Chlor 0.9% Inj 250 ML IV.SIG SCH (16:38)
[2017-12-02] MEDS: MethylPREDNISolone Sod Succinate Inj 125 MG/2 ML Vial IV.PUSH SCH (22:00)
[2017-12-02] MEDS: Enoxaparin Inj 60 MG/0.6 ML Syringe SQ SCH (22:01)
[2017-12-03] MEDS: Piperacil/Tazo 3.375 GM Premix 50 ML IV.SIG SCH ×3 (00:08→18:09)
[2017-12-03] MEDS: Levothyroxine 100 MCG Tablet PO SCH (05:26)
[2017-12-03] MEDS: dilTIAZem CD 120 MG Capsule PO SCH (09:45)
[2017-12-03] MEDS: Metoprolol Tartrate 50 MG Tablet PO SCH ×2 (09:48→20:51)
[2017-12-03] MEDS: QUEtiapine 25 MG Tablet PO SCH ×2 (09:49→20:49)
[2017-12-03] MEDS: MethylPREDNISolone Sod Succinate Inj 125 MG/2 ML Vial IV.PUSH SCH ×2 (09:49→20:53)
[2017-12-03] MEDS: Duloxetine 60 MG DR Capsule PO SCH (09:49)
[2017-12-03] MEDS: Gabapentin 300 MG Capsule PO SCH (09:49)
[2017-12-03] MEDS: Insulin NovoLOG Aspart Correctional Sugar Inj SQ SCH ×4 (09:50→21:00)
[2017-12-03] MEDS: Famotidine 20 MG Tablet PO SCH ×2 (09:51→20:50)
[2017-12-03] MEDS: Sodium Chloride 0.9% 2 ML Flush BID IV.FLUSH SCH ×2 (09:51→21:00)
[2017-12-03] MEDS: Enoxaparin Inj 60 MG/0.6 ML Syringe SQ SCH ×2 (09:51→20:47)
[2017-12-03] MEDS: predniSONE 20 MG Tablet PO SCH (09:52)
[2017-12-03] MEDS ORDERED: MethylPREDNISolone Sod Succinate Inj 125 MG/2 ML Vial IV.PUSH ONE (11:45)
--- NOTE | 2017-12-03 11:46 | P.PN ---
Subjective Interval history: Nursing denies any deterioration since last night. Patient says that she still coughing but he was a little better than yesterday. Has been unable to demonstrate any sputum. Physical Exam Vital signs: Vital Signs 12/02/17 12:00 12/02/17 14:33 12/02/17 16:00 Temperature 98.2 F 98.3 F Pulse Rate 78 86 75 Respiratory Rate 18 16 19 Blood Pressure 114/51 L 95/52 L Pulse Oximetry 94 L 96 12/02/17 20:00 12/02/17 20:34 12/03/17 00:00 Temperature 98.1 F 98.2 F Pulse Rate 77 76 80 Respiratory Rate 18 18 17 Blood Pressure 124/67 112/61 Pulse Oximetry 96 97 93 L 12/03/17 08:00 12/03/17 09:04 12/03/17 11:11 Temperature 97.2 F L Pulse Rate 75 76 Respiratory Rate 18 16 Blood Pressure 120/63 Pulse Oximetry 95 93 L Intake & Output 12/02/17 12/03/17 12/03/17 18:59 06:59 18:59 Intake Total 1362 / 1362 1112.5 / 1112.5 Balance 1362 / 1362 1112.5 / 1112.5 Weight 104.6 kg Intake: IV 100 / 100 312.5 / 312.5 Zosyn 3.375 GM Premix 50 ML @ 100 / 100 50 / 50 100 mls/hr IV.SIG Q8H LOLY Rx#: [id number] Vancomycin Inj 1,250 MG In NS 262.5 / 262.5 Inj 250 ML @ 250 mls/hr IV.SIG Q24H LOLY Rx#:[id number] Oral 1262 / 1262 800 / 800 Other: # Voids 6 2 Date of Last Bowel Movement 11/28/17 # Bowel Movements 1 Narrative: Junky breath sounds bilaterally with less wheezing today than yesterday Crackles heard in the bases Unlabored breathing otherwise No lower extremity edema Results - Labs CBC & Chem 7: 11/28/17 07:29 12/03/17 04:50 Laboratory Results - last 24 hr 12/02/17 12/02/17 12/02/17 11:48 16:23 22:05 Creatinine Estimated GFR POC Glucose 183 H 202 H 323 H 12/03/17 12/03/17 04:50 08:10 Creatinine 1.37 H Estimated GFR 38 L POC Glucose 248 H - Imaging Impressions Chest X-Ray 12/02/17 12:43 CONCLUSION: Right basilar pleural-parenchymal density. Is likely related to small pleural effusion and right basilar atelectasis. Assessment and Plan - Plan female with past medical history significant for anemia, atrial fibrillation, diabetes mellitus, hypertension, hypothyroidism, and renal disease who presents to the emergency department with complaints of shortness of breath. Patient was found to have a right-sided pleural effusion which was drained however follow-up x-ray showed loculated pneumothorax. Has undergone thoracentesis with at least 500 cc drained, had a left-sided chest tube that was placed which drained an additional 600 mL's at least. Chest tube apparently had dislodged itself on 12/01. Residual pneumothorax is very minimal and not worth intervention per interventional radiology. Recurrent right effusion in September and August of this year - Resolved status post thoracentesis, pulmonology following -Repeat chest x-ray today to rule out recurrent effusion Right basilar PNA now with bronchitis Solu-Medrol -Continue Zosyn and vancomycin -Continue scheduled breathing treatments, Mucomyst - pulmonology entertaining VATs? Diabetes mellitus -Continue diabetic diet -Accu-Cheks with insulin sliding scale Atrial fibrillation -Hypertension -Hyperlipidemia -Currently sinus rhythm, patient reports she has not been on any anticoagulation. Follow-up with bisque ware dipper for recommendations. Lovenox while inpt -Continue Lipitor, metoprolol and Cardizem Lovenox for now given afib.
--- NOTE | 2017-12-03 12:45 | XR ---
EXAM DATE: 12/03/2017 12:00 AM EDT AGE/SEX: 67 years / Female INDICATIONS: . Pleural effusion CLINICAL DATA: This is the patient's subsequent encounter. Patient reports that signs and symptoms h ave been present for 4 - 6 days and indicates a pain score of 0/10. MEDICAL/SURGICAL HISTORY: . : Carcinoma, breast. Diabetes. Cardiovascular disease. . Mastecto my, right. section. Hemorrhoidectomy. right side chest tube placement [place] [facility] [place]. . FINDINGS: There is dense airspace consolidation in the right middle lobe with likely trace pleural effusion. Ca rdiomegaly mediastinal contours are stable with persistent cardiomegaly. There is mild diffuse inters titial prominence unchanged from previous exam. Remainder of exam is stable. CONCLUSION: 1. Dense airspace consolidation in the right middle lobe with associated very trace pleural effusion . Although suspect a large portion of this is likely post radiation change, superimposed infection or aspiration cannot be excluded. Electronically signed by: Zaki Fna MD 12/03/2017 12:44 PM EDT
[2017-12-03] MEDS: Vancomycin Inj 1,250 MG in Sodium Chlor 0.9% Inj 250 ML IV.SIG SCH (18:07)
--- NOTE | 2017-12-03 18:21 | P.PN ---
Subjective Interval history: She has some cough and wheezing. CXR shows a dense Right lung Infiltrate. No Fever. Physical Exam Vital signs: Vital Signs 12/02/17 20:00 12/02/17 20:34 12/03/17 00:00 Temperature 98.1 F 98.2 F Pulse Rate 77 76 80 Respiratory Rate 18 18 17 Blood Pressure 124/67 112/61 Pulse Oximetry 96 97 93 L 12/03/17 08:00 12/03/17 09:04 12/03/17 11:11 Temperature 97.2 F L Pulse Rate 75 76 Respiratory Rate 18 16 Blood Pressure 120/63 Pulse Oximetry 95 93 L 12/03/17 12:00 12/03/17 14:38 12/03/17 16:00 Temperature 98.0 F 98.4 F Pulse Rate 79 75 77 Respiratory Rate 17 16 18 Blood Pressure 114/56 L 101/59 L Pulse Oximetry 97 96 Intake & Output 12/02/17 12/03/17 12/03/17 18:59 06:59 18:59 Intake Total 1362 / 1362 1112.5 / 1112.5 550 / 550 Output Total 375 / 375 Balance 1362 / 1362 1112.5 / 1112.5 175 / 175 Weight 104.6 kg Intake: IV 100 / 100 312.5 / 312.5 50 / 50 Zosyn 3.375 GM Premix 50 ML @ 100 / 100 50 / 50 50 / 50 100 mls/hr IV.SIG Q8H LOLY Rx#: [id number] Vancomycin Inj 1,250 MG In NS 262.5 / 262.5 Inj 250 ML @ 250 mls/hr IV.SIG Q24H LOLY Rx#:[id number] Oral 1262 / 1262 800 / 800 500 / 500 Output: Urine 375 / 375 Other: # Voids 6 2 Date of Last Bowel Movement 11/28/17 # Bowel Movements 1 1 Narrative: Unlabored breathing GENERAL: Elderly W/F alert SKIN: Warm and dry. HEAD: Normocephalic. EYES: No scleral icterus. No injection or drainage. NECK: Supple, trachea midline. No JVD or lymphadenopathy. CARDIOVASCULAR: Regular rate and rhythm without murmurs, gallops, or rubs. RESPIRATORY: Breath sounds decreased at Right base and wheeze bilaterally. No accessory muscle use. GASTROINTESTINAL: Abdomen soft, non-tender, nondistended. MUSCULOSKELETAL: No cyanosis, or edema. BACK: Nontender without obvious deformity. No CVA tenderness. Results - Labs CBC & Chem 7: 11/28/17 07:29 12/03/17 04:50 Laboratory Results - last 24 hr 12/02/17 12/03/17 12/03/17 22:05 04:50 08:10 Creatinine 1.37 H Estimated GFR 38 L POC Glucose 323 H 248 H 12/03/17 12/03/17 11:58 16:50 Creatinine Estimated GFR POC Glucose 354 H 356 H - Imaging Impressions Chest X-Ray 12/03/17 00:00 CONCLUSION: 1. Dense airspace consolidation in the right middle lobe with associated very trace pleural effusion. Although suspect a large portion of this is likely post radiation change, superimposed infection or aspiration cannot be excluded. Assessment and Plan - Assessment (1) Pneumonia Code(s): J18.9 - Pneumonia, unspecified organism Status: Acute (2) Diabetes mellitus Code(s): E11.9 - Type 2 diabetes mellitus without complications Status: Acute (3) Pleural effusion Code(s): J90 - Pleural effusion, not elsewhere classified Status: Acute (4) Shortness of breath Code(s): R06.02 - Shortness of breath Status: Resolved (5) Acute UTI Code(s): N39.0 - Urinary tract infection, site not specified Status: Resolved (6) Normochromic normocytic anemia Code(s): D64.9 - Anemia, unspecified Status: Chronic (7) Dehydration Code(s): E86.0 - Dehydration Status: Acute (8) Acute renal failure (ARF) Code(s): N17.9 - Acute kidney failure, unspecified Status: Acute (9) Hypertension Code(s): I10 - Essential (primary) hypertension Status: Acute - Plan 1.Will schedule Bronchoscopy in am. Procedure and risks were explained. 2.Will wean O2 to 2 L 3.Stop Heparin 4.Duoneb nebs qid (8) Acute renal failure (ARF) Qualifiers: Acute renal failure type: unspecified Qualified Code(s): N17.9 - Acute kidney failure, unspecified
[2017-12-03] MEDS: Dextrose 5%/NaCl 0.45% Inj 1,000 ML IV.CONT SCH (18:45)
[2017-12-03 20:59] LABS: Prothrombin Time 10.6 sec (9.8-11.6)
[2017-12-04] MEDS: Piperacil/Tazo 3.375 GM Premix 50 ML IV.SIG SCH ×3 (01:57→17:43)
[2017-12-04] MEDS: Dextrose 5%/NaCl 0.45% Inj 1,000 ML IV.CONT SCH ×2 (01:57→19:30)
[2017-12-04] MEDS: Levothyroxine 100 MCG Tablet PO SCH (05:41)
[2017-12-04] MEDS: Enoxaparin Inj 60 MG/0.6 ML Syringe SQ SCH ×2 (09:03→21:18)
[2017-12-04] MEDS: Metoprolol Tartrate 50 MG Tablet PO SCH ×2 (09:09→21:16)
[2017-12-04] MEDS: Insulin NovoLOG Aspart Correctional Sugar Inj SQ SCH ×4 (09:11→21:18)
[2017-12-04] MEDS ORDERED: Chlorhexidine Gluconate 2% 1 Pack (2 Cloths) TOPICAL ONE (09:15)
[2017-12-04] MEDS ORDERED: Sodium Chlor 0.9% Inj 500 ML IV.CONT ONE (09:15)
[2017-12-04] MEDS ORDERED: Metoprolol Tartrate 25 MG Tablet PO ONE (09:15)
[2017-12-04] MEDS ORDERED: Succinylcholine Inj 100 MG/5 ML Syringe IV.PUSH ONE (10:00)
[2017-12-04] MEDS ORDERED: Phenylephrine/NS 1000 MCG/10ML Syringe IV.PUSH ONE (10:00)
[2017-12-04] MEDS ORDERED: Lidocaine PF 1% Inj 5 ML Syringe OTHER ONE (10:00)
[2017-12-04] MEDS ORDERED: RESP: Albuterol Concentrated 2.5 MG/0.5 ML Neb ONE (10:42)
--- NOTE | 2017-12-04 10:56 | MP ---
cc: Lanny Cedillo MD DATE OF OPERATION: 12/04/2017 PROCEDURE PERFORMED: Fiberoptic bronchoscopy with biopsy, brushings, and washings. PREOPERATIVE DIAGNOSIS: Persistent right lower lobe infiltrate. POSTOPERATIVE DIAGNOSIS: Persistent right lower lobe infiltrate. ANESTHESIA: General with intubation. SURGEON: Dr. Lanny Cedillo. PROCEDURE AND FINDINGS: The patient was intubated under general anesthesia, following which the Olympus IT 180 bronchoscope was used to visualize the bronchi. The scope was advanced through the endotracheal tube into the trachea. The trachea and danny appeared normal. The scope was then advanced into the right mainstem and right lower lobe segmental bronchi. There were thick mucopurulent secretions noted in the right mainstem as well as the right mid and lower lobe areas. These were suctioned out. Saline washings were done. The scope was then advanced into the right upper lobe segmental bronchi, which demonstrated moderate endobronchitis with mucosal edema; there were no endobronchial masses seen here. Saline washings were done. Next, the scope was advanced towards the right middle lobe segmental bronchi. These bronchi demonstrated moderate endobronchitis with mucosal ridging, but no endobronchial mass was seen. Thick mucopurulent secretions were noted, which were suctioned out and saline lavage was carried out. Next, the right lower lobe segmental bronchi were visualized, which demonstrated mucoid secretions with mucopurulent plugs and there was moderate endobronchitis with mucosal bridging and some narrowing of the lumen, but no endobronchial mass was seen. Brushings were done from here for micro and cytology. Biopsies were done from the right lower lobe bronchial area. Minimal bleeding was observed controlled with cold saline. The scope was then advanced into the left mainstem and left upper lobe segmental bronchi. These bronchi demonstrated few mucoid secretions, but no endobronchial lesions were seen. Saline washings were done. Next, the left lower lobe segmental bronchi were visualized, which demonstrated a few mucoid secretions, but no endobronchial masses were seen. Saline washings were done and the procedure was then terminated. The patient tolerated the procedure well. Lanny Cedillo MD VJD/xiomara , 10:44 AM , 10:52 AM
[2017-12-04] MEDS ORDERED: fentaNYL Citrate Inj 100 MCG/2 ML Ampul ONE (11:04)
--- NOTE | 2017-12-04 11:20 | XR ---
EXAM DATE: 12/04/2017 10:39 AM EDT AGE/SEX: 67 years / Female INDICATIONS: R/O pneumothorax post bronchoscopy. CLINICAL DATA: This is the patient's initial encounter. Patient reports that signs and symptoms have been present for 1 day and indicates a pain score of 0/10. MEDICAL/SURGICAL HISTORY: . Carcinoma, breast. Diabetes. Cardiovascular disease. . Mastectomy , right. section. Hemorrhoidectomy. Right side chest tube placement. COMPARISON: [facility] – [place], CHEST 2V PA&LAT, 12/03/2017. . FINDINGS: There is no evidence of pneumothorax. There is persistent consolidation and effusion in the right daphney g base and diffuse interstitial parenchymal opacity elsewhere in both lungs, right worse than left. C ardiac contours are unchanged. CONCLUSION: No pneumothorax Electronically signed by: Gabriel Fernández MD 12/04/2017 11:18 AM EDT
[2017-12-04] MEDS: Gabapentin 300 MG Capsule PO SCH (12:08)
[2017-12-04] MEDS: Duloxetine 60 MG DR Capsule PO SCH (12:08)
[2017-12-04] MEDS: QUEtiapine 25 MG Tablet PO SCH ×2 (12:08→21:16)
[2017-12-04] MEDS: Famotidine 20 MG Tablet PO SCH ×2 (12:09→21:17)
[2017-12-04] MEDS: dilTIAZem CD 120 MG Capsule PO SCH (12:09)
[2017-12-04] MEDS: MethylPREDNISolone Sod Succinate Inj 125 MG/2 ML Vial IV.PUSH SCH ×2 (12:09→21:20)
[2017-12-04] MEDS: Sodium Chloride 0.9% 2 ML Flush BID IV.FLUSH SCH ×2 (12:10→21:20)
[2017-12-04] MEDS: predniSONE 20 MG Tablet PO SCH (12:10)
--- NOTE | 2017-12-04 14:55 | P.PN ---
Subjective Interval history: Nursing reports that the patient had some desaturations immediately post bronchoscopy, required 4 L. Bronchoscopy report indicates the right sided bronchi and substantial mucopurulent secretions that were washed out, left side minimal in comparison. Physical Exam Vital signs: Vital Signs 12/03/17 16:00 12/03/17 20:00 12/04/17 00:00 Temperature 98.4 F 97.8 F 98.2 F Pulse Rate 77 82 91 H Respiratory Rate 18 18 15 Blood Pressure 101/59 L 109/60 113/58 L Pulse Oximetry 96 94 L 94 L 12/04/17 08:00 12/04/17 10:55 12/04/17 11:00 Temperature 97.3 F L 98.2 F Pulse Rate 84 84 80 Respiratory Rate 19 24 18 Blood Pressure 133/67 114/62 105/62 Pulse Oximetry 92 L 97 93 L 12/04/17 11:15 12/04/17 11:30 12/04/17 12:00 Temperature 98.2 F 97.9 F Pulse Rate 73 71 71 Respiratory Rate 18 16 18 Blood Pressure 107/57 L 102/56 L 118/61 Pulse Oximetry 100 99 96 Intake & Output 12/03/17 12/04/17 12/04/17 18:59 06:59 18:59 Intake Total 600 / 600 712.5 / 712.5 50 / 50 Output Total 375 / 375 Balance 225 / 225 712.5 / 712.5 50 / 50 Weight 105.4 kg Intake: IV 100 / 100 312.5 / 312.5 50 / 50 Zosyn 3.375 GM Premix 50 ML @ 100 / 100 50 / 50 50 / 50 100 mls/hr IV.SIG Q8H LOLY Rx#: [id number] Vancomycin Inj 1,250 MG In NS 262.5 / 262.5 Inj 250 ML @ 250 mls/hr IV.SIG Q24H LOLY Rx#:[id number] Oral 500 / 500 400 / 400 Output: Urine 375 / 375 Other: # Voids 4 Date of Last Bowel Movement 12/03/17 # Bowel Movements 1 Narrative: Junky breath sounds in the right lung field, mild bilateral wheezing otherwise Unlabored breathing On nasal cannula Results - Labs CBC & Chem 7: 11/28/17 07:29 12/03/17 04:50 Laboratory Results - last 24 hr 12/03/17 12/03/17 12/03/17 16:50 19:30 20:53 PT 10.6 INR 1.0 POC Glucose 356 H 358 H 12/04/17 12/04/17 07:43 12:06 PT INR POC Glucose 278 H 248 H - Imaging Impressions Chest X-Ray 12/04/17 10:39 CONCLUSION: No pneumothorax Assessment and Plan - Plan 67-year-old female admitted for shortness of breath. Patient was found to have a right-sided pleural effusion which was drained however follow- up x-ray showed loculated pneumothorax. Has undergone thoracentesis with at least 500 cc drained, had a left-sided chest tube that was placed which drained an additional 600 mL's at least. Chest tube apparently had dislodged itself on 12/01. Residual pneumothorax is very minimal and not worth intervention per interventional radiology. Now status post bronchoscopy BAL. Recurrent right effusion in September and August of this year - Resolved status post thoracentesis, pulmonology following -Repeat chest x-ray from yesterday does show what appears to be persistent consolidation in recurrent effusion. Will consider ultrasound to quantify lung Right basilar PNA with bronchitis Solu-Medrol -Continue Zosyn and vancomycin -Continue scheduled breathing treatments, Mucomyst - pulmonology entertaining VATs? Diabetes mellitus -Continue diabetic diet -Accu-Cheks with insulin sliding scale Atrial fibrillation -Hypertension -Hyperlipidemia -Currently sinus rhythm, patient reports she has not been on any anticoagulation. Follow-up with telegraph plant maintainer for recommendations. Lovenox while inpt -Continue Lipitor, metoprolol and Cardizem Lovenox for now given afib.
[2017-12-04] MEDS ORDERED: Pharmacy Ordered Lab Info OTHER ONE (16:45)
[2017-12-04] MEDS: guaiFENesin/Codeine Syrup 200 MG/20 MG 10 ML UDC PO PRN (17:51)
[2017-12-04] MEDS: Vancomycin Inj 1,250 MG in Sodium Chlor 0.9% Inj 250 ML IV.SIG SCH (18:36)
[2017-12-05] MEDS: Piperacil/Tazo 3.375 GM Premix 50 ML IV.SIG SCH ×3 (01:37→16:15)
[2017-12-05] MEDS: Levothyroxine 100 MCG Tablet PO SCH (05:42)
[2017-12-05] MEDS: Duloxetine 60 MG DR Capsule PO SCH (08:43)
[2017-12-05] MEDS: Gabapentin 300 MG Capsule PO SCH (08:43)
[2017-12-05] MEDS: Metoprolol Tartrate 50 MG Tablet PO SCH ×2 (08:43→20:52)
[2017-12-05] MEDS: dilTIAZem CD 120 MG Capsule PO SCH (08:43)
[2017-12-05] MEDS: Famotidine 20 MG Tablet PO SCH ×2 (08:44→20:52)
[2017-12-05] MEDS: Insulin NovoLOG Aspart Correctional Sugar Inj SQ SCH ×4 (08:44→20:53)
[2017-12-05] MEDS: QUEtiapine 25 MG Tablet PO SCH ×2 (08:44→20:52)
[2017-12-05] MEDS: MethylPREDNISolone Sod Succinate Inj 125 MG/2 ML Vial IV.PUSH SCH ×2 (08:45→20:59)
[2017-12-05] MEDS: Enoxaparin Inj 60 MG/0.6 ML Syringe SQ SCH ×2 (08:46→20:52)
[2017-12-05] MEDS: guaiFENesin/Codeine Syrup 200 MG/20 MG 10 ML UDC PO PRN ×3 (09:00→23:20)
[2017-12-05] MEDS: Sodium Chloride 0.9% 2 ML Flush BID IV.FLUSH SCH ×2 (10:47→20:53)
--- NOTE | 2017-12-05 14:17 | P.PN ---
Subjective Interval history: Nursing denies any deterioration since last night. Patient has been feeding 4 L just to decrease via nasal cannula. Patient still reports having a wet cough. is getting frustrated about not being able to find out the etiology effusions. Physical Exam Vital signs: Vital Signs 12/04/17 16:00 12/04/17 20:00 12/04/17 22:08 Temperature 97.9 F 97.9 F Pulse Rate 99 H 71 Respiratory Rate 18 15 Blood Pressure 133/95 H 113/65 Pulse Oximetry 99 99 98 12/05/17 00:00 12/05/17 08:00 12/05/17 12:00 Temperature 97.4 F L 97.6 F 97.8 F Pulse Rate 70 69 71 Respiratory Rate 16 21 21 Blood Pressure 120/62 116/63 118/61 Pulse Oximetry 100 95 93 L Intake & Output 12/04/17 12/05/17 12/05/17 18:59 06:59 18:59 Intake Total 730 / 730 843 / 843 50 / 50 Balance 730 / 730 843 / 843 50 / 50 Weight 105.4 kg Intake: IV 50 / 50 363 / 363 50 / 50 Zosyn 3.375 GM Premix 50 ML @ 50 / 50 100 / 100 50 / 50 100 mls/hr IV.SIG Q8H LOLY Rx#: [id number] Vancomycin Inj 1,250 MG In NS 263 / 263 Inj 250 ML @ 250 mls/hr IV.SIG Q24H LOLY Rx#:[id number] Oral 680 / 680 480 / 480 Other: # Voids 7 3 Date of Last Bowel Movement 12/04/17 # Bowel Movements 1 Narrative: Junky breath sounds on the right, mild wheezing bilaterally, unlabored breathing Nasal cannula in nose Results - Labs CBC & Chem 7: 11/28/17 07:29 12/05/17 04:14 Laboratory Results - last 24 hr 12/04/17 12/04/17 12/04/17 17:20 17:31 21:15 Creatinine Estimated GFR POC Glucose 350 H 325 H Vancomycin Trough 15.8 H 12/05/17 12/05/17 12/05/17 04:14 07:49 12:15 Creatinine 1.35 H Estimated GFR 39 L POC Glucose 294 H 359 H Vancomycin Trough Microbiology 12/04/17 10:30 Bronchial Washings - Right Lower Lobe Fungal Smear - Final No fungal elements seen 12/04/17 10:30 Bronchial - Right Lower Lobe Gram Stain - Final Assessment and Plan - Plan 67-year-old female admitted for shortness of breath. Patient was found to have a right-sided pleural effusion which was drained however follow- up x-ray showed loculated pneumothorax. Has undergone thoracentesis with at least 500 cc drained, had a left-sided chest tube that was placed which drained an additional 600 mL's at least. Chest tube apparently had dislodged itself on 12/01. Residual pneumothorax is very minimal and not worth intervention per interventional radiology. Now status post bronchoscopy BAL. Cytology from initial thoracentesis is pending Recurrent right effusion in September and August of this year - Resolved status post thoracentesis, pulmonology following, cytology is pending -Repeat chest x-ray from yesterday does show what appears to be persistent consolidation and recurrent effusion. Repeat ultrasound is pending Right basilar PNA with bronchitis Solu-Medrol -Continue Zosyn and vancomycin -Continue scheduled breathing treatments, Mucomyst - pulmonology entertaining VATs? Diabetes mellitus -Continue diabetic diet -Accu-Cheks with insulin sliding scale Atrial fibrillation -Hypertension -Hyperlipidemia -Currently sinus rhythm, patient reports she has not been on any anticoagulation. Follow-up with concert promoter for recommendations. Lovenox while inpt -Continue Lipitor, metoprolol and Cardizem Lovenox for now given afib.
--- NOTE | 2017-12-05 17:03 | US ---
EXAM DATE: 12/05/2017 12:00 AM EDT AGE/SEX: 67 years / Female INDICATIONS: Shortness of breath. CLINICAL DATA: This is the patient's initial encounter. Patient reports that signs and symptoms have been present for 4 - 6 months and indicates a pain score of 2/10. MEDICAL/SURGICAL HISTORY: Hypercholesterolemia. Hypertension. Anemia. Atrial fibrillation. Kamini betes. Hypothyroidism. Hypertension. Renal disease. Glasses. section. Right breast. Left to roland knee replacement. Right knee replacement. Hemmorrhoidectomy. COMPARISON: [facility] – [place], [place] CHEST W/O CONTRAST, 11/30/2017. . MEASUREMENTS: Skin To Parietal Pleura:__3.4 cm Skin To Max Safe Depth:__5.0 cm Estimated Fluid Volume:__379.1 cc Fluid Composition:__simple FINDINGS: Pleural effusion as above. CONCLUSION: 1. Small simple appearing right pleural effusion. Electronically signed by: Zaki Fan MD 12/05/2017 5:02 PM EDT
[2017-12-05] MEDS: Vancomycin Inj 1,250 MG in Sodium Chlor 0.9% Inj 250 ML IV.SIG SCH (17:22)
--- NOTE | 2017-12-05 18:23 | P.PN ---
Subjective Interval history: has some SOB at rest and CXR shows a recurrent effusion. Cultures and Cytology from bronch is pending. The US of chest showed a Small effusion. She has no fever. Physical Exam Vital signs: Vital Signs 12/04/17 20:00 12/04/17 22:08 12/05/17 00:00 Temperature 97.9 F 97.4 F L Pulse Rate 71 70 Respiratory Rate 15 16 Blood Pressure 113/65 120/62 Pulse Oximetry 99 98 100 12/05/17 08:00 12/05/17 12:00 12/05/17 16:00 Temperature 97.6 F 97.8 F 97.6 F Pulse Rate 69 71 65 Respiratory Rate 21 21 20 Blood Pressure 116/63 118/61 115/59 L Pulse Oximetry 95 93 L 97 Intake & Output 12/04/17 12/05/17 12/05/17 18:59 06:59 18:59 Intake Total 730 / 730 843 / 843 1486 / 1486 Balance 730 / 730 843 / 843 1486 / 1486 Weight 105.4 kg Intake: IV 50 / 50 363 / 363 100 / 100 Zosyn 3.375 GM Premix 50 ML @ 50 / 50 100 / 100 100 / 100 100 mls/hr IV.SIG Q8H LOLY Rx#: [id number] Vancomycin Inj 1,250 MG In NS 263 / 263 Inj 250 ML @ 250 mls/hr IV.SIG Q24H LOLY Rx#:[id number] Oral 680 / 680 480 / 480 1386 / 1386 Other: # Voids 7 3 3 Date of Last Bowel Movement 12/04/17 # Bowel Movements 1 1 Narrative: Nasal cannula in nose GENERAL: Elderly obese W/F in no distress. SKIN: Warm and dry. HEAD: Normocephalic. EYES: No scleral icterus. No injection or drainage. NECK: Supple, trachea midline. No JVD or lymphadenopathy. CARDIOVASCULAR: Irregular rate and rhythm without murmurs, gallops, or rubs. RESPIRATORY: Breath sounds decreased over right lower zone and few crackles noted. No accessory muscle use. GASTROINTESTINAL: Abdomen soft, non-tender, nondistended. MUSCULOSKELETAL: No cyanosis, but has edema. BACK: Nontender without obvious deformity. No CVA tenderness. Results - Labs CBC & Chem 7: 11/28/17 07:29 12/05/17 04:14 Laboratory Results - last 24 hr 12/04/17 12/04/17 12/05/17 17:31 21:15 04:14 Creatinine 1.35 H Estimated GFR 39 L POC Glucose 325 H Vancomycin Trough 15.8 H 12/05/17 12/05/17 12/05/17 07:49 12:15 16:59 Creatinine Estimated GFR POC Glucose 294 H 359 H 292 H Vancomycin Trough Microbiology 12/04/17 10:30 Bronchial Brushings - Right Lower Lobe Bronchial Butterfield Culture - Preliminary No growth in 24 hours 12/04/17 10:30 Bronchial - Right Lower Lobe Gram Stain - Final 12/04/17 10:30 Bronchial - Right Lower Lobe Bronchial Culture - Preliminary Moderate growth normal respiratory yaritza at 24 hours 12/04/17 10:30 Bronchial Washings - Right Lower Lobe Fungal Smear - Final No fungal elements seen - Imaging Impressions Chest Ultrasound 12/05/17 00:00 CONCLUSION: 1. Small simple appearing right pleural effusion. Assessment and Plan - Assessment (1) Pneumonia Code(s): J18.9 - Pneumonia, unspecified organism Status: Acute (2) Diabetes mellitus Code(s): E11.9 - Type 2 diabetes mellitus without complications Status: Acute (3) Pleural effusion Code(s): J90 - Pleural effusion, not elsewhere classified Status: Acute (4) Shortness of breath Code(s): R06.02 - Shortness of breath Status: Resolved (5) Acute UTI Code(s): N39.0 - Urinary tract infection, site not specified Status: Resolved (6) Normochromic normocytic anemia Code(s): D64.9 - Anemia, unspecified Status: Chronic (7) Dehydration Code(s): E86.0 - Dehydration Status: Acute (8) Acute renal failure (ARF) Code(s): N17.9 - Acute kidney failure, unspecified Status: Acute (9) Hypertension Code(s): I10 - Essential (primary) hypertension Status: Acute (10) Atelectasis Code(s): J98.11 - Atelectasis Status: Acute (11) Pleural effusion on right Code(s): J90 - Pleural effusion, not elsewhere classified Status: Acute - Plan 1.Will wait on bronch wash Cultures and Cytology. 2.Will wean O2 to 2 L 3.Cont Heparin S/Q 4.Duoneb nebs qid 5.Continue antibiotics Zosyn 6. Will need to get a Vats decortication and Pleural biopsy planned due to recurrent effusion (8) Acute renal failure (ARF) Qualifiers: Acute renal failure type: unspecified Qualified Code(s): N17.9 - Acute kidney failure, unspecified
[2017-12-06] MEDS: Piperacil/Tazo 3.375 GM Premix 50 ML IV.SIG SCH ×3 (01:01→17:02)
[2017-12-06] MEDS: Dextrose 5%/NaCl 0.45% Inj 1,000 ML IV.CONT SCH (01:03)
[2017-12-06] MEDS: guaiFENesin/Codeine Syrup 200 MG/20 MG 10 ML UDC PO PRN ×3 (05:58→21:01)
[2017-12-06] MEDS: Levothyroxine 100 MCG Tablet PO SCH (05:58)
[2017-12-06] MEDS: Duloxetine 60 MG DR Capsule PO SCH (08:51)
[2017-12-06] MEDS: QUEtiapine 25 MG Tablet PO SCH ×2 (08:51→20:54)
[2017-12-06] MEDS: Gabapentin 300 MG Capsule PO SCH (08:51)
[2017-12-06] MEDS: dilTIAZem CD 120 MG Capsule PO SCH (08:51)
[2017-12-06] MEDS: Enoxaparin Inj 60 MG/0.6 ML Syringe SQ SCH (08:52)
[2017-12-06] MEDS: MethylPREDNISolone Sod Succinate Inj 125 MG/2 ML Vial IV.PUSH SCH (08:52)
[2017-12-06] MEDS: Metoprolol Tartrate 50 MG Tablet PO SCH ×2 (08:52→20:54)
[2017-12-06] MEDS: Famotidine 20 MG Tablet PO SCH ×2 (08:52→20:54)
[2017-12-06] MEDS: Insulin NovoLOG Aspart Correctional Sugar Inj SQ SCH ×4 (08:53→20:54)
[2017-12-06] MEDS: Sodium Chloride 0.9% 2 ML Flush BID IV.FLUSH SCH ×2 (12:44→20:54)
--- NOTE | 2017-12-06 12:44 | P.PN ---
Subjective Interval history: Nursing denies any deterioration since last night. Patient reports having some shortness of breath still, has a wet cough. Says she is unable to get out the sputum today. Physical Exam Vital signs: Vital Signs 12/05/17 16:00 12/05/17 20:00 12/05/17 21:33 Temperature 97.6 F 98.3 F Pulse Rate 65 75 76 Respiratory Rate 20 18 16 Blood Pressure 115/59 L 121/66 Pulse Oximetry 97 98 12/05/17 21:34 12/06/17 00:00 12/06/17 08:00 Temperature 98.8 F 97.7 F Pulse Rate 69 86 Respiratory Rate 20 18 Blood Pressure 126/65 106/58 L Pulse Oximetry 98 99 91 L 12/06/17 12:00 Temperature 97.7 F Pulse Rate 75 Respiratory Rate 18 Blood Pressure 126/69 Pulse Oximetry 95 Intake & Output 12/05/17 12/06/17 12/06/17 18:59 06:59 18:59 Intake Total 1486 / 1486 792.5 / 792.5 50 / 50 Output Total 380 / 380 Balance 1486 / 1486 412.5 / 412.5 50 / 50 Weight 105.5 kg Intake: IV 100 / 100 312.5 / 312.5 50 / 50 Zosyn 3.375 GM Premix 50 ML @ 100 / 100 50 / 50 50 / 50 100 mls/hr IV.SIG Q8H [facility] Rx#: [id number] Vancomycin Inj 1,250 MG In NS 262.5 / 262.5 Inj 250 ML @ 250 mls/hr IV.SIG Q24H [facility] Rx#:[id number] Oral 1386 / 1386 480 / 480 Output: Urine 380 / 380 Other: # Voids 3 Date of Last Bowel Movement 12/05/17 # Bowel Movements 1 Narrative: Junky breath sounds bilaterally, right worse than left, not much wheezing on the other hand Appears fatigued Audible wet cough Results - Labs CBC & Chem 7: 11/28/17 07:29 12/05/17 04:14 Laboratory Results - last 24 hr 12/05/17 12/05/17 12/05/17 04:14 16:59 19:07 POC Glucose 292 H 363 H Carcinoembryonic Ag 3.0 12/06/17 12/06/17 07:50 11:54 POC Glucose 288 H 313 H Carcinoembryonic Ag Microbiology 12/04/17 10:30 Bronchial Brushings - Right Lower Lobe Bronchial [place] Culture - Final No growth in 48 hours 12/04/17 10:30 Bronchial - Right Lower Lobe Gram Stain - Final 12/04/17 10:30 Bronchial - Right Lower Lobe Bronchial Culture - Final Moderate growth normal respiratory yaritza 12/04/17 10:30 Bronchial Washings - Right Lower Lobe Fungal Smear - Final No fungal elements seen - Imaging Impressions Chest Ultrasound 12/05/17 00:00 CONCLUSION: 1. Small simple appearing right pleural effusion. Assessment and Plan - Plan 67-year-old female admitted for shortness of breath. Patient was found to have a right-sided pleural effusion which was drained however follow- up x-ray showed loculated pneumothorax. Has undergone thoracentesis with at least 500 cc drained, had a left-sided chest tube that was placed which drained an additional 600 mL's at least. Chest tube apparently had dislodged itself on 12/01. Residual pneumothorax is very minimal and not worth intervention per interventional radiology. Now status post bronchoscopy BAL. Cytology from initial thoracentesis is pending Recurrent right effusion in September and August of this year - Resolved status post thoracentesis, pulmonology following, cytology is pending -Repeat chest x-ray from yesterday does show what appears to be persistent consolidation and recurrent effusion. Repeat ultrasound showing close to go home with 400 cc of fluid in the right lung. Discussed case with pulmonology, may need to entertain a VATS surgery. Cytology pending Right basilar PNA with bronchitis Solu-Medrol -Continue Zosyn and vancomycin -Continue scheduled breathing treatments, Mucomyst - pulmonology entertaining VATs? Diabetes mellitus -Continue diabetic diet -Accu-Cheks with insulin sliding scale Atrial fibrillation -Hypertension -Hyperlipidemia -Currently sinus rhythm, patient reports she has not been on any anticoagulation. Follow-up with cessation systems outreach specialist for recommendations. Lovenox while inpt -Continue Lipitor, metoprolol and Cardizem Lovenox for now given afib.
--- NOTE | 2017-12-06 15:31 | P.PN ---
Subjective Interval history: She is SOB and has a Cough. CXR shows a Right effusion. No chest pains. Bronch results so far negative. Pathology pending. Physical Exam Vital signs: Vital Signs 12/05/17 16:00 12/05/17 20:00 12/05/17 21:33 Temperature 97.6 F 98.3 F Pulse Rate 65 75 76 Respiratory Rate 20 18 16 Blood Pressure 115/59 L 121/66 Pulse Oximetry 97 98 12/05/17 21:34 12/06/17 00:00 12/06/17 08:00 Temperature 98.8 F 97.7 F Pulse Rate 69 86 Respiratory Rate 20 18 Blood Pressure 126/65 106/58 L Pulse Oximetry 98 99 91 L 12/06/17 12:00 Temperature 97.7 F Pulse Rate 75 Respiratory Rate 18 Blood Pressure 126/69 Pulse Oximetry 95 Intake & Output 12/05/17 12/06/17 12/06/17 18:59 06:59 18:59 Intake Total 1486 / 1486 792.5 / 792.5 50 / 50 Output Total 380 / 380 Balance 1486 / 1486 412.5 / 412.5 50 / 50 Weight 105.5 kg Intake: IV 100 / 100 312.5 / 312.5 50 / 50 Zosyn 3.375 GM Premix 50 ML @ 100 / 100 50 / 50 50 / 50 100 mls/hr IV.SIG Q8H [facility] Rx#: [id number] Vancomycin Inj 1,250 MG In NS 262.5 / 262.5 Inj 250 ML @ 250 mls/hr IV.SIG Q24H [facility] Rx#:[id number] Oral 1386 / 1386 480 / 480 Output: Urine 380 / 380 Other: # Voids 3 Date of Last Bowel Movement 12/05/17 # Bowel Movements 1 Narrative: GENERAL: Mid aged W/F alert and SOB. SKIN: Warm and dry. HEAD: Normocephalic. EYES: No scleral icterus. No injection or drainage. NECK: Supple, trachea midline. No JVD or lymphadenopathy. CARDIOVASCULAR: Regular rate and rhythm without murmurs, gallops, or rubs. RESPIRATORY: Breath sounds equal bilaterally.Coarse wheezes bilateral .No accessory muscle use. GASTROINTESTINAL: Abdomen soft, non-tender, nondistended. MUSCULOSKELETAL: No cyanosis, or edema. BACK: Nontender without obvious deformity. No CVA tenderness. Results - Labs CBC & Chem 7: 11/28/17 07:29 12/05/17 04:14 Laboratory Results - last 24 hr 12/05/17 12/05/17 12/05/17 04:14 16:59 19:07 POC Glucose 292 H 363 H Carcinoembryonic Ag 3.0 12/06/17 12/06/17 07:50 11:54 POC Glucose 288 H 313 H Carcinoembryonic Ag Microbiology 12/04/17 10:30 Bronchial Brushings - Right Lower Lobe Bronchial [place] Culture - Final No growth in 48 hours 12/04/17 10:30 Bronchial - Right Lower Lobe Gram Stain - Final 12/04/17 10:30 Bronchial - Right Lower Lobe Bronchial Culture - Final Moderate growth normal respiratory yaritza - Imaging Impressions Chest Ultrasound 12/05/17 00:00 CONCLUSION: 1. Small simple appearing right pleural effusion. Assessment and Plan - Assessment (1) Pneumonia Code(s): J18.9 - Pneumonia, unspecified organism Status: Acute (2) Diabetes mellitus Code(s): E11.9 - Type 2 diabetes mellitus without complications Status: Acute (3) Pleural effusion Code(s): J90 - Pleural effusion, not elsewhere classified Status: Acute (4) Shortness of breath Code(s): R06.02 - Shortness of breath Status: Resolved (5) Acute UTI Code(s): N39.0 - Urinary tract infection, site not specified Status: Resolved (6) Normochromic normocytic anemia Code(s): D64.9 - Anemia, unspecified Status: Chronic (7) Dehydration Code(s): E86.0 - Dehydration Status: Acute (8) Acute renal failure (ARF) Code(s): N17.9 - Acute kidney failure, unspecified Status: Acute (9) Hypertension Code(s): I10 - Essential (primary) hypertension Status: Acute (10) Atelectasis Code(s): J98.11 - Atelectasis Status: Acute (11) Pleural effusion on right Code(s): J90 - Pleural effusion, not elsewhere classified Status: Acute - Plan 1.Will consult Thoracic surgery for vats decortication and pleural Biopsy and drainage 2.Will wean O2 to 2 L 3.Hold anticoagulants 4.Duoneb nebs qid 5.Continue antibiotics Zosyn 6. Lasix 20 mg IV X1 (8) Acute renal failure (ARF) Qualifiers: Acute renal failure type: unspecified Qualified Code(s): N17.9 - Acute kidney failure, unspecified
[2017-12-06] MEDS ORDERED: MethylPREDNISolone Sod Succinate Inj 125 MG/2 ML Vial IV.PUSH SCH (16:00)
[2017-12-06] MEDS ORDERED: Pharmacy Ordered Lab Info OTHER ONE (16:45)
[2017-12-06] MEDS: Vancomycin Inj 1,250 MG in Sodium Chlor 0.9% Inj 250 ML IV.SIG SCH (17:59)
[2017-12-06] MEDS: MethylPREDNISolone Sod Succinate Inj 40 MG/ML Vial IV.PUSH SCH (20:55)
[2017-12-06] MEDS ORDERED: Enoxaparin Inj 100 MG/ML Syringe SQ SCH (21:00)
[2017-12-07] MEDS: Piperacil/Tazo 3.375 GM Premix 50 ML IV.SIG SCH ×2 (01:18→09:15)
[2017-12-07] MEDS: guaiFENesin/Codeine Syrup 200 MG/20 MG 10 ML UDC PO PRN ×2 (05:31→22:08)
[2017-12-07] MEDS: Levothyroxine 100 MCG Tablet PO SCH (05:31)
[2017-12-07] MEDS: Dextrose 5%/NaCl 0.45% Inj 1,000 ML IV.CONT SCH (07:11)
[2017-12-07] MEDS: MethylPREDNISolone Sod Succinate Inj 40 MG/ML Vial IV.PUSH SCH ×2 (09:13→21:42)
[2017-12-07] MEDS: Insulin NovoLOG Aspart Correctional Sugar Inj SQ SCH ×4 (09:13→21:43)
[2017-12-07] MEDS: dilTIAZem CD 120 MG Capsule PO SCH (09:14)
[2017-12-07] MEDS: Metoprolol Tartrate 50 MG Tablet PO SCH ×2 (09:14→21:40)
[2017-12-07] MEDS: Duloxetine 60 MG DR Capsule PO SCH (09:15)
[2017-12-07] MEDS: QUEtiapine 25 MG Tablet PO SCH ×2 (09:15→21:42)
[2017-12-07] MEDS: Gabapentin 300 MG Capsule PO SCH (09:15)
[2017-12-07] MEDS: Sodium Chloride 0.9% 2 ML Flush BID IV.FLUSH SCH ×2 (09:16→21:42)
[2017-12-07] MEDS: Famotidine 20 MG Tablet PO SCH ×2 (09:16→21:40)
[2017-12-07] MEDS ORDERED: ceFAZolin 2 GM Premix Inj 2 GM/50 ML PIGGYBACK IV.SIG ONE (09:18)
[2017-12-07] MEDS ORDERED: Chlorhexidine Gluconate 2% 1 Pack (2 Cloths) TOPICAL ONE (10:18)
[2017-12-07] MEDS ORDERED: Phenylephrine/NS 1000 MCG/10ML Syringe IV.PUSH ONE (10:22)
[2017-12-07] MEDS ORDERED: Lidocaine PF 1% Inj 5 ML Syringe OTHER ONE (10:22)
[2017-12-07] MEDS ORDERED: Neostigmine Inj 5 MG/5 ML Syringe IV.PUSH ONE (10:22)
[2017-12-07] MEDS ORDERED: Glycopyrrolate Inj 1 MG/5 ML Syringe IV.PUSH ONE (10:22)
[2017-12-07] MEDS ORDERED: Normosol-R pH 7.4 Inj 1,000 ML IV.CONT ONE (10:22)
[2017-12-07] MEDS ORDERED: Sodium Chlor 0.9% Inj 500 ML IV.SIG SCH (11:00)
[2017-12-07] MEDS ORDERED: Bupivacaine 0.5% Inj 50 ML MDV Vial ONE (11:38)
[2017-12-07] MEDS ORDERED: Bisacodyl 10 MG Supp RECTAL PRN (12:07)
[2017-12-07] MEDS ORDERED: Post-op Orders (for Pharmacy) OTHER STA (12:07)
--- NOTE | 2017-12-07 12:19 | P.OP ---
Date of procedure: 12/07/17 Anesthesia: GETA Surgeon: Robel Hawley MD Operation and Findings: PREOPERATIVE DIAGNOSES 1. Right empyema 2. Right loculated pleural effusions 3. Pneumonia POSTOPERATIVE DIAGNOSES Same SURGICAL PROCEDURE 1. Right Video-Assisted Thoracoscopic Surgery (VATS). 2. Decortication 3. Drainage of loculated pleural effusions SURGEON Robel Hawley MD [employer]ING [employer]ER PRESLEY Thapa ANESTHESIA General double lumen endotracheal. SHOE RECONDITIONER PATRICIO Vivas MD PREPARATION ChloraPrep. COUNTS Needle, sponge, and instrument counts are correct. DRAINS One 32 Fr Chest tube COMPLICATIONS None. INDICATIONS The patient is a 67yo presenting with recurrent pleural effusion and pneumonia, status post thoracentesis. The patient is being brought to the operating room for drainage of loculated effusions and decortication. DESCRIPTION OF PROCEDURE The patient was brought to the operating room and placed supine on the OR table. Following the induction of adequate general double lumen endotracheal anesthesia and placement of appropriate monitoring devices, the patient was placed in the left lateral decubitus position. The right chest and surrounding areas were then prepped and draped in a standard sterile fashion. A 5 mm camera port was introduced into the 8th intercostal space in mid axillary line, and the camera introduced. A second 5 mm port was then placed anteriorly under direct visual guidance and one posteriorly. The right pleural space was entered. Exploration of the chest revealed a stage II Empyema with a fibrinous peel encasing the lung as well as the parietal pleura. The peel was densely adherent to the visceral pleura and the underlying lung was very friable and consolidated. All loculations and fluid pockets were evacuated. Approximately 800 cc of serous clear fluid was evacuated. Circumferential decortication was performed and the fluid sent for microbiological analysis. The pleural space was copiously irrigated with antibiotic solution. At this point the closure was undertaken. A 32-[place]arian chest tube was placed through the anterior port. This was maintained in place with a nonabsorbable suture. Both of the entry sites were injected with 0.5% Marcaine as was the port site. Following confirmation of the catheter in the proper place, the incisions were closed with 3 layers. The chest tube was attached to a suction device, and sterile dressing applied. The patient tolerated the procedure well and was extubated and transferred to the recovery room in stable condition.
[2017-12-07] MEDS ORDERED: fentaNYL Citrate Inj 100 MCG/2 ML Ampul ONE (12:39)
[2017-12-07] MEDS ORDERED: *morphine SULFATE 4 MG/ML PERIprocedure ONLY ONE (12:59)
--- NOTE | 2017-12-07 13:33 | XR ---
EXAM DATE: 12/07/2017 12:08 PM EDT AGE/SEX: 67 years / Female INDICATIONS: Post chest tube and central line placement. CLINICAL DATA: This is the patient's subsequent encounter. Patient reports that signs and symptoms h ave been present for 4 - 6 days and indicates a pain score of Nonresponsive. MEDICAL/SURGICAL HISTORY: . Carcinoma, breast. Diabetes. Cardiovascular disease. . Mastectomy , right. section. Hemorrhoidectomy. Right side chest tube placement. [place] [facility] [place]. . FINDINGS: Right IJ central line with tip near the atrial caval junction. Interval placement of a large bore alesha st tube in the inferior right hemithorax with improvement in pleural parenchymal opacity in the right lower lung zone. No significant pneumothorax. Cardiac silhouette is enlarged. Mild diffuse interstit ial prominence. Remainder of exam is unchanged. CONCLUSION: 1. Right IJ central line in good position. 2. Large bore inferior right chest tube with interval improvement in right lower lung zone pleural-p arenchymal opacities. No significant pneumothorax. 3. Cardiomegaly with interstitial edema. Electronically signed by: Zaki Fan MD 12/07/2017 1:31 PM EDT
--- NOTE | 2017-12-07 13:58 | P.PN ---
Subjective Interval history: Patient evaluated in PACU postop. PACU nurse reports administering 2 doses of morphine within the last hour, also reports around 700 cc drained intraoperatively in the right lung/pleural field. Patient appears drowsy. Physical Exam Vital signs: Vital Signs 12/06/17 16:00 12/06/17 20:00 12/07/17 00:00 Temperature 97.3 F L 97 F L 97.3 F L Pulse Rate 73 69 56 L Respiratory Rate 18 18 17 Blood Pressure 133/67 133/66 119/57 L Pulse Oximetry 96 94 L 96 12/07/17 08:00 Temperature 98.3 F Pulse Rate 69 Respiratory Rate 12 Blood Pressure 136/72 Pulse Oximetry 94 L Intake & Output 12/06/17 12/07/17 12/07/17 18:59 06:59 18:59 Intake Total 2788 / 2788 1212.5 / 1212.5 1050 / 1050 Output Total 900 / 900 Balance 2788 / 2788 1212.5 / 1212.5 150 / 150 Weight 105.2 kg Intake: IV 100 / 100 312.5 / 312.5 50 / 50 Zosyn 3.375 GM Premix 50 ML @ 100 / 100 50 / 50 100 mls/hr IV.SIG Q8H [facility] Rx#: [id number] Vancomycin Inj 1,250 MG In NS 262.5 / 262.5 Inj 250 ML @ 250 mls/hr IV.SIG Q24H [facility] Rx#:[id number] Ancef 2 GM Premix Inj 2 gm In 50 / 50 50 ml @ 0 mls/hr IV.SIG .STK- [facility] Rx#:[id number] Oral 2688 / 2688 900 / 900 Anesthesia Amount 1000 / 1000 Output: Pleural Fluid 700 / 700 Estimated Blood Loss 100 / 100 Urine Amount (Catheter) 100 / 100 Indwelling Temp Sensing 100 / 100 Catheter Other: # Voids 5 4 Date of Last Bowel Movement 12/05/17 12/06/17 # Bowel Movements 1 Narrative: Patient lying in bed, drowsy, awakens when prompted Unlabored breathing Chest tube in place over the right with suction - Urinary Catheter Management Indwelling Temp Sensing Catheter Cath placed during this visit: yes, but has since been removed by the nurse Reason for continuing: Hourly intake/output Insertion date: 12/07/17 Insertion time: 10:50 Removal date: 12/07/17 Removal time: 12:16 Results - Labs CBC & Chem 7: 11/28/17 07:29 12/07/17 05:13 Laboratory Results - last 24 hr 12/06/17 12/06/17 12/06/17 16:59 17:20 19:52 Creatinine Estimated GFR POC Glucose 388 H 491 H* Vancomycin Trough 18.5 H Blood Type Antibody Screen MTS Gel Crossmatch Bld Prod Order Comment 12/06/17 12/07/17 12/07/17 19:56 01:20 05:13 Creatinine 1.21 H Estimated GFR 44 L POC Glucose 442 H 348 H Vancomycin Trough Blood Type Antibody Screen MTS Gel Crossmatch Bld Prod Order Comment 12/07/17 12/07/17 12/07/17 08:46 09:31 12:44 Creatinine Estimated GFR POC Glucose 313 H 326 H Vancomycin Trough Blood Type O Negative Antibody Screen Negative MTS Gel Crossmatch See Detail Bld Prod Order Comment Microbiology 12/04/17 10:30 Bronchial Brushings - Right Lower Lobe Bronchial [place] Culture - Final No growth in 48 hours 12/04/17 10:30 Bronchial - Right Lower Lobe Gram Stain - Final 12/04/17 10:30 Bronchial - Right Lower Lobe Bronchial Culture - Final Moderate growth normal respiratory yaritza - Imaging Impressions Chest X-Ray 12/07/17 12:08 CONCLUSION: 1. Right IJ central line in good position. 2. Large bore inferior right chest tube with interval improvement in right lower lung zone pleural-parenchymal opacities. No significant pneumothorax. 3. Cardiomegaly with interstitial edema. Assessment and Plan - Plan 67-year-old female admitted for shortness of breath. Patient was found to have a right-sided pleural effusion which was drained however follow- up x-ray showed loculated pneumothorax. Has undergone thoracentesis with at least 500 cc drained, had a left-sided chest tube that was placed which drained an additional 600 mL's at least. Chest tube apparently had dislodged itself on 12/01. Residual pneumothorax is very minimal and not worth intervention per interventional radiology. Underwent bronchoscopy on 12/03. Underwent VATS right sided decortication and drainage of loculated pleural effusions on 12/07 Empyema Recurrent right effusion -Status post bronchoscopy 12/04, cytology pending -Postop day 0 of VATS right-sided decortication and drainage of loculated pleural effusions, cultures pending -Cardiothoracic surgery and pulmonology following -Antibiotics as below Empyema w/ bronchitis Solu-Medrol -Continue Zosyn and vancomycin -Continue scheduled breathing treatments, Mucomyst Diabetes mellitus -Continue diabetic diet -Accu-Cheks with insulin sliding scale Atrial fibrillation -Hypertension -Hyperlipidemia -Currently sinus rhythm, patient reports she has not been on any anticoagulation. Follow-up with senior solutions consultant for recommendations. -Continue Lipitor, metoprolol and Cardizem Lovenox discontinued by cardiothoracic surgery in light of VATS. SCDs
[2017-12-07] MEDS: Vancomycin Inj 1,250 MG in Sodium Chlor 0.9% Inj 250 ML IV.SIG SCH (18:40)
[2017-12-07] MEDS: Piperacil/Tazo 4.5 GM Premix 4.5 GM/100 ML BAG IV.SIG SCH ×2 (18:41→21:38)
--- NOTE | 2017-12-07 18:57 | P.PN ---
Subjective Interval history: S/P Right Vats thoracotomy and Decortication for rec Right effusion. It was loculated and is a transudate. Seems drowsy now. Physical Exam Vital signs: Vital Signs 12/06/17 20:00 12/07/17 00:00 12/07/17 08:00 Temperature 97 F L 97.3 F L 98.3 F Pulse Rate 69 56 L 69 Respiratory Rate 18 17 12 Blood Pressure 133/66 119/57 L 136/72 Pulse Oximetry 94 L 96 94 L 12/07/17 10:00 12/07/17 12:29 12/07/17 12:45 Temperature 96 F L Pulse Rate 73 67 Respiratory Rate 16 18 19 Blood Pressure 168/92 H 161/77 H Pulse Oximetry 94 L 95 12/07/17 13:00 12/07/17 13:15 12/07/17 13:30 Temperature Pulse Rate 61 61 57 L Respiratory Rate 20 17 24 Blood Pressure 166/77 H 149/70 H 138/56 L Pulse Oximetry 94 L 93 L 95 12/07/17 13:45 12/07/17 14:00 12/07/17 16:00 Temperature 97.4 F L 97.1 F L Pulse Rate 55 L 54 L 56 L Respiratory Rate 20 22 18 Blood Pressure 133/63 147/68 H 111/59 L Pulse Oximetry 94 L 95 97 Intake & Output 12/06/17 12/07/17 12/07/17 18:59 06:59 18:59 Intake Total 2788 / 2788 1212.5 / 1212.5 1050 / 1050 Output Total 1454 / 1454 Balance 2788 / 2788 1212.5 / 1212.5 -404 / -404 Weight 105.2 kg Intake: IV 100 / 100 312.5 / 312.5 50 / 50 Zosyn 3.375 GM Premix 50 ML @ 100 / 100 50 / 50 100 mls/hr IV.SIG Q8H [facility] Rx#: [id number] Vancomycin Inj 1,250 MG In NS 262.5 / 262.5 Inj 250 ML @ 250 mls/hr IV.SIG Q24H [facility] Rx#:[id number] Ancef 2 GM Premix Inj 2 gm In 50 / 50 50 ml @ 0 mls/hr IV.SIG .STK- [facility] Rx#:[id number] Oral 2688 / 2688 900 / 900 0 / 0 Anesthesia Amount 1000 / 1000 Output: Urine 0 / 0 Pleural Fluid 700 / 700 Estimated Blood Loss 100 / 100 Urine Amount (Catheter) 100 / 100 Indwelling Temp Sensing 100 / 100 Catheter Chest Tube Drainage 554 / 554 Right Upper 554 / 554 Other: # Voids 5 4 Date of Last Bowel Movement 12/05/17 12/06/17 # Bowel Movements 1 Narrative: Patient lying in bed, drowsy, awakens when prompted GENERAL: Obese mid aged W/F SKIN: Warm and dry. HEAD: Normocephalic. EYES: No scleral icterus. No injection or drainage. NECK: Supple, trachea midline. No JVD or lymphadenopathy. CARDIOVASCULAR: Regular rate and rhythm without murmurs, gallops, or rubs. RESPIRATORY: Breath sounds equal bilaterally. Occ Crackles in right lung field.No accessory muscle use. GASTROINTESTINAL: Abdomen soft, non-tender, nondistended. MUSCULOSKELETAL: No cyanosis, or edema. BACK: Nontender without obvious deformity. No CVA tenderness. - Urinary Catheter Management Indwelling Temp Sensing Catheter Cath placed during this visit: yes, but has since been removed by the nurse Reason for continuing: Hourly intake/output Insertion date: 12/07/17 Insertion time: 10:50 Removal date: 12/07/17 Removal time: 12:16 Results - Labs CBC & Chem 7: 11/28/17 07:29 12/07/17 05:13 Laboratory Results - last 24 hr 12/06/17 12/06/17 12/07/17 19:52 19:56 01:20 Creatinine Estimated GFR POC Glucose 491 H* 442 H 348 H Blood Type Antibody Screen MTS Gel Crossmatch Bld Prod Order Comment 12/07/17 12/07/17 12/07/17 05:13 08:46 09:31 Creatinine 1.21 H Estimated GFR 44 L POC Glucose 313 H Blood Type O Negative Antibody Screen Negative MTS Gel Crossmatch See Detail Bld Prod Order Comment 12/07/17 12/07/17 12:44 18:29 Creatinine Estimated GFR POC Glucose 326 H 354 H Blood Type Antibody Screen MTS Gel Crossmatch Bld Prod Order Comment Microbiology 12/04/17 10:30 Bronchial Brushings - Right Lower Lobe Acid Fast Bacilli Smear - Final No acid fast bacilli seen 12/04/17 10:30 Bronchial Washings - Right Lower Lobe Acid Fast Bacilli Smear - Final No acid fast bacilli seen 12/07/17 13:00 Fluid - Pleural fluid Gram Stain - Final 12/04/17 10:30 Bronchial Washings - Right Lower Lobe Fungal Smear - Final No fungal elements seen 12/04/17 10:30 Bronchial Washings - Right Lower Lobe Fungal Culture - Preliminary Yeast - ID to follow 12/04/17 10:30 Bronchial Brushings - Right Lower Lobe Fungal Smear - Final - Imaging Impressions Chest X-Ray 12/07/17 12:08 CONCLUSION: 1. Right IJ central line in good position. 2. Large bore inferior right chest tube with interval improvement in right lower lung zone pleural-parenchymal opacities. No significant pneumothorax. 3. Cardiomegaly with interstitial edema. Assessment and Plan - Assessment (1) Pneumonia Code(s): J18.9 - Pneumonia, unspecified organism Status: Acute (2) Diabetes mellitus Code(s): E11.9 - Type 2 diabetes mellitus without complications Status: Acute (3) Pleural effusion Code(s): J90 - Pleural effusion, not elsewhere classified Status: Acute (4) Normochromic normocytic anemia Code(s): D64.9 - Anemia, unspecified Status: Chronic (5) Dehydration Code(s): E86.0 - Dehydration Status: Acute (6) Acute renal failure (ARF) Code(s): N17.9 - Acute kidney failure, unspecified Status: Acute (7) Hypertension Code(s): I10 - Essential (primary) hypertension Status: Acute (8) Atelectasis Code(s): J98.11 - Atelectasis Status: Acute (9) Pleural effusion on right Code(s): J90 - Pleural effusion, not elsewhere classified Status: Acute (10) Status post thoracostomy tube replacement Status: Acute - Plan 1.Chest Tube to drainage. 2.Will wean O2 to 2 L 3.IS at bedside q2h. 4.Duoneb nebs qid 5.Continue antibiotics Zosyn 6. CBC,BMP ,CXR in am. 7. Pain control with CONVERTING SUPERVISOR. (6) Acute renal failure (ARF) Qualifiers: Acute renal failure type: unspecified Qualified Code(s): N17.9 - Acute kidney failure, unspecified
[2017-12-07] MEDS: Melatonin 5 MG Tablet PO PRN (21:40)
[2017-12-07] MEDS: Senna/Docusate Sodium 8.6/50 MG Tablet PO SCH (21:40)
[2017-12-08] MEDS: Piperacil/Tazo 4.5 GM Premix 4.5 GM/100 ML BAG IV.SIG SCH ×4 (04:40→22:20)
[2017-12-08] MEDS: Levothyroxine 100 MCG Tablet PO SCH (05:56)
[2017-12-08 06:14] LABS: Baso % (Auto) 0.1 % (0.0-2.0); Hematocrit 32.7 % (35.0-46.0); Hemoglobin 10.7 gm/dL (11.6-15.3); Lymph # (Auto) 0.3 th/mm3 (1.0-4.8); Lymph % (Auto) 4.4 % (9.0-44.0); Mean Corpuscular HGB Conc 32.8 % (32.0-36.0); Mean Corpuscular Hemoglobin 28.6 pg (27.0-34.0); Mean Corpuscular Volume 87.2 fL (80.0-100.0); Mean Platelet Volume 9.5 fL (7.0-11.0); Mono # (Auto) 0.3 th/mm3 (0.0-0.9); Mono % (Auto) 3.4 % (0.0-8.0); Neut % (Auto) 92.1 % (16.0-70.0); Platelet Count 187 th/mm3 (150-450); Red Blood Count 3.75 mil/mm3 (4.00-5.30); Red Cell Distribution Width 17.7 % (11.6-17.2); White Blood Count 7.6 th/mm3 (4.0-11.0)
[2017-12-08 06:36] LABS: Calcium 8.8 mg/dL (8.5-10.1); Carbon Dioxide 32.3 meq/L (21.0-32.0); Potassium 3.7 meq/L (3.5-5.1)
[2017-12-08] MEDS: MethylPREDNISolone Sod Succinate Inj 40 MG/ML Vial IV.PUSH SCH (09:11)
[2017-12-08] MEDS: Senna/Docusate Sodium 8.6/50 MG Tablet PO SCH ×2 (09:12→20:27)
[2017-12-08] MEDS: Famotidine 20 MG Tablet PO SCH ×2 (09:12→20:28)
[2017-12-08] MEDS: QUEtiapine 25 MG Tablet PO SCH ×2 (09:12→20:27)
[2017-12-08] MEDS: Metoprolol Tartrate 50 MG Tablet PO SCH ×2 (09:12→20:44)
[2017-12-08] MEDS: Gabapentin 300 MG Capsule PO SCH (09:12)
[2017-12-08] MEDS: Duloxetine 60 MG DR Capsule PO SCH (09:13)
[2017-12-08] MEDS: dilTIAZem CD 120 MG Capsule PO SCH (09:13)
[2017-12-08] MEDS: Insulin NovoLOG Aspart Correctional Sugar Inj SQ SCH ×4 (09:21→20:44)
--- NOTE | 2017-12-08 11:57 | P.PN ---
Subjective Interval history: C/o pain in Right chest . Chest tube draining. S/P Vats right thoracotomy and Pleural biopsy. Physical Exam Vital signs: Vital Signs 12/07/17 12:29 12/07/17 12:45 12/07/17 13:00 Temperature 96 F L Pulse Rate 73 67 61 Respiratory Rate 18 19 20 Blood Pressure 168/92 H 161/77 H 166/77 H Pulse Oximetry 94 L 95 94 L 12/07/17 13:15 12/07/17 13:30 12/07/17 13:45 Temperature Pulse Rate 61 57 L 55 L Respiratory Rate 17 24 20 Blood Pressure 149/70 H 138/56 L 133/63 Pulse Oximetry 93 L 95 94 L 12/07/17 14:00 12/07/17 16:00 12/07/17 20:00 Temperature 97.4 F L 97.1 F L 97.4 F L Pulse Rate 54 L 56 L 70 Respiratory Rate 22 18 18 Blood Pressure 147/68 H 111/59 L 114/62 Pulse Oximetry 95 97 91 L 12/08/17 00:00 12/08/17 08:00 Temperature 97.7 F 97.7 F Pulse Rate 65 71 Respiratory Rate 16 18 Blood Pressure 132/76 134/70 Pulse Oximetry 92 L 93 L Intake & Output 12/07/17 12/08/17 12/08/17 18:59 06:59 18:59 Intake Total 1050 / 1050 662.5 / 662.5 100 / 100 Output Total 1454 / 1454 300 / 300 Balance -404 / -404 362.5 / 362.5 100 / 100 Weight 105.1 kg Intake: IV 50 / 50 662.5 / 662.5 100 / 100 LR 1000 mL Inj 1,000 ML @ 30 50 / 50 mls/hr IV.SIG .Q24H [facility] Rx#: [id number] Zosyn 3.375 GM Premix 50 ML @ 50 / 50 100 mls/hr IV.SIG Q8H [facility] Rx#: [id number] Zosyn 4.5 GM Premix 4.5 gm In 300 / 300 100 / 100 100 ml @ 200 mls/hr IV.SIG Q6H [facility] Rx#:[id number] Vancomycin Inj 1,250 MG In NS 262.5 / 262.5 Inj 250 ML @ 250 mls/hr IV.SIG Q24H [facility] Rx#:[id number] Ancef 2 GM Premix Inj 2 gm In 50 / 50 50 ml @ 0 mls/hr IV.SIG .[facility] Rx#:[id number] Oral 0 / 0 Anesthesia Amount 1000 / 1000 Output: Urine 0 / 0 200 / 200 Pleural Fluid 700 / 700 Estimated Blood Loss 100 / 100 Urine Amount (Catheter) 100 / 100 Indwelling Temp Sensing 100 / 100 Catheter Chest Tube Drainage 554 / 554 100 / 100 Right Upper 554 / 554 100 / 100 Other: Date of Last Bowel Movement 12/06/17 Narrative: Patient is up alert and breathing better. GENERAL: Obese mid aged W/F SKIN: Warm and dry. HEAD: Normocephalic. EYES: No scleral icterus. No injection or drainage. NECK: Supple, trachea midline. No JVD or lymphadenopathy. CARDIOVASCULAR: Regular rate and rhythm without murmurs, gallops, or rubs. RESPIRATORY: Breath sounds decreased right base. Occ Crackles in right lung field.No accessory muscle use. GASTROINTESTINAL: Abdomen soft, non-tender, nondistended. MUSCULOSKELETAL: No cyanosis, or edema. BACK: Nontender without obvious deformity. No CVA tenderness. - Urinary Catheter Management Indwelling Temp Sensing Catheter Cath placed during this visit: yes, but has since been removed by the nurse Reason for continuing: Hourly intake/output Insertion date: 12/07/17 Insertion time: 10:50 Removal date: 12/07/17 Removal time: 12:16 Results - Labs CBC & Chem 7: 12/08/17 05:56 12/08/17 05:56 Laboratory Results - last 24 hr 12/07/17 12/07/17 12/07/17 12:44 18:29 21:40 WBC RBC Hgb Hct MCV MCH MCHC RDW Plt Count MPV Neut % (Auto) Lymph % (Auto) [place] % (Auto) Eos % (Auto) Baso % (Auto) Neut # (Auto) Lymph # (Auto) [place] # (Auto) Eos # (Auto) Baso # (Auto) WBC Differential Differential Comment Sodium Potassium Chloride Carbon Dioxide Anion Gap BUN Creatinine Estimated GFR POC Glucose 326 H 354 H 370 H Random Glucose Calcium 12/08/17 12/08/17 12/08/17 05:56 05:56 07:42 WBC 7.6 RBC 3.75 L Hgb 10.7 L Hct 32.7 L MCV 87.2 MCH 28.6 MCHC 32.8 RDW 17.7 H Plt Count 187 D MPV 9.5 Neut % (Auto) 92.1 H Lymph % (Auto) 4.4 L [place] % (Auto) 3.4 Eos % (Auto) 0.0 Baso % (Auto) 0.1 Neut # (Auto) 7.0 Lymph # (Auto) 0.3 L [place] # (Auto) 0.3 Eos # (Auto) 0.0 Baso # (Auto) 0.0 WBC Differential . Differential Comment Auto diff final Sodium 134 L Potassium 3.7 Chloride 94 L Carbon Dioxide 32.3 H Anion Gap 8 BUN 26 H Creatinine 1.16 H Estimated GFR 47 L POC Glucose 273 H Random Glucose 260 H Calcium 8.8 12/08/17 11:11 WBC RBC Hgb Hct MCV MCH MCHC RDW Plt Count MPV Neut % (Auto) Lymph % (Auto) [place] % (Auto) Eos % (Auto) Baso % (Auto) Neut # (Auto) Lymph # (Auto) [place] # (Auto) Eos # (Auto) Baso # (Auto) WBC Differential Differential Comment Sodium Potassium Chloride Carbon Dioxide Anion Gap BUN Creatinine Estimated GFR POC Glucose 421 H Random Glucose Calcium Microbiology 12/07/17 13:00 Fluid - Pleural fluid Gram Stain - Final 12/07/17 13:00 Fluid - Pleural fluid Wound Culture - Preliminary No growth in 24 hours 12/04/17 10:30 Bronchial Brushings - Right Lower Lobe Acid Fast Bacilli Smear - Final No acid fast bacilli seen 12/04/17 10:30 Bronchial Washings - Right Lower Lobe Acid Fast Bacilli Smear - Final No acid fast bacilli seen 12/04/17 10:30 Bronchial Washings - Right Lower Lobe Fungal Smear - Final No fungal elements seen 12/04/17 10:30 Bronchial Washings - Right Lower Lobe Fungal Culture - Preliminary Yeast - ID to follow 12/04/17 10:30 Bronchial Brushings - Right Lower Lobe Fungal Smear - Final - Imaging Impressions Chest X-Ray 12/07/17 12:08 CONCLUSION: 1. Right IJ central line in good position. 2. Large bore inferior right chest tube with interval improvement in right lower lung zone pleural-parenchymal opacities. No significant pneumothorax. 3. Cardiomegaly with interstitial edema. Assessment and Plan - Assessment (1) Pneumonia Code(s): J18.9 - Pneumonia, unspecified organism Status: Acute (2) Diabetes mellitus Code(s): E11.9 - Type 2 diabetes mellitus without complications Status: Acute (3) Pleural effusion Code(s): J90 - Pleural effusion, not elsewhere classified Status: Acute (4) Normochromic normocytic anemia Code(s): D64.9 - Anemia, unspecified Status: Chronic (5) Dehydration Code(s): E86.0 - Dehydration Status: Acute (6) Acute renal failure (ARF) Code(s): N17.9 - Acute kidney failure, unspecified Status: Acute (7) Hypertension Code(s): I10 - Essential (primary) hypertension Status: Acute (8) Atelectasis Code(s): J98.11 - Atelectasis Status: Acute (9) Pleural effusion on right Code(s): J90 - Pleural effusion, not elsewhere classified Status: Acute (10) Status post thoracostomy tube replacement Status: Acute - Plan 1.Cont Chest Tube to drainage. 2. cont O2 2 L 3.IS at bedside q2h. 4.Duoneb nebs qid 5.Continue antibiotics Zosyn 6. CBC,BMP ,CXR in am. 7. D/C solumedrol 8. Add Prednisone 10 mg daily (6) Acute renal failure (ARF) Qualifiers: Acute renal failure type: unspecified Qualified Code(s): N17.9 - Acute kidney failure, unspecified
--- NOTE | 2017-12-08 12:19 | P.PNCV ---
- Note Subjective/Hospital Course: Ms. Wolfe is a 66-year-old white female who presented to the emergency room with shortness of breath. She has an increasing right pleural effusion, history of congestive heart failure with recurrent effusion, has had it drained several times before. She was admitted here just about 6 weeks ago, but at that time, the fluid was not increased significantly and no effusion was drained. pig tail cath placement 11/28 Bronch results so far negative. Pathology pending. PMH: history of chronic atrial fibrillation, CHF, type 2 diabetes. Also, has a distant history of breast cancer. Presented today with shortness of breath, according to Hypertension, hypothyroidism, chronic kidney disease, hyperlipidemia. surgery 12/07 Operation and Findings: PREOPERATIVE DIAGNOSES 1. Right empyema 2. Right loculated pleural effusions 3. Pneumonia POSTOPERATIVE DIAGNOSES Same SURGICAL PROCEDURE 1. Right Video-Assisted Thoracoscopic Surgery (VATS). 2. Decortication 3. Drainage of loculated pleural effusions 12/08 up in chair , doing fair, pain controlled chest tube to wall suction drained 654/24hrs , 100cc/ 12 hrs, no air leak consult PT / ambulate pt Objective: Vital Signs - 24 hr 12/07/17 12:29 12/07/17 12:45 12/07/17 13:00 Temperature 96 F L Pulse Rate 73 67 61 Respiratory Rate 18 19 20 Blood Pressure 168/92 H 161/77 H 166/77 H Pulse Oximetry 94 L 95 94 L 12/07/17 13:15 12/07/17 13:30 12/07/17 13:45 Temperature Pulse Rate 61 57 L 55 L Respiratory Rate 17 24 20 Blood Pressure 149/70 H 138/56 L 133/63 Pulse Oximetry 93 L 95 94 L 12/07/17 14:00 12/07/17 16:00 12/07/17 20:00 Temperature 97.4 F L 97.1 F L 97.4 F L Pulse Rate 54 L 56 L 70 Respiratory Rate 22 18 18 Blood Pressure 147/68 H 111/59 L 114/62 Pulse Oximetry 95 97 91 L 12/08/17 00:00 12/08/17 08:00 Temperature 97.7 F 97.7 F Pulse Rate 65 71 Respiratory Rate 16 18 Blood Pressure 132/76 134/70 Pulse Oximetry 92 L 93 L Labs: Laboratory Results - last 12 hr 12/08/17 12/08/17 12/08/17 05:56 05:56 07:42 WBC 7.6 RBC 3.75 L Hgb 10.7 L Hct 32.7 L MCV 87.2 MCH 28.6 MCHC 32.8 RDW 17.7 H Plt Count 187 D MPV 9.5 Neut % (Auto) 92.1 H Lymph % (Auto) 4.4 L [place] % (Auto) 3.4 Eos % (Auto) 0.0 Baso % (Auto) 0.1 Neut # (Auto) 7.0 Lymph # (Auto) 0.3 L [place] # (Auto) 0.3 Eos # (Auto) 0.0 Baso # (Auto) 0.0 WBC Differential . Differential Comment Auto diff final Sodium 134 L Potassium 3.7 Chloride 94 L Carbon Dioxide 32.3 H Anion Gap 8 BUN 26 H Creatinine 1.16 H Estimated GFR 47 L POC Glucose 273 H Random Glucose 260 H Calcium 8.8 12/08/17 11:11 WBC RBC Hgb Hct MCV MCH MCHC RDW Plt Count MPV Neut % (Auto) Lymph % (Auto) [place] % (Auto) Eos % (Auto) Baso % (Auto) Neut # (Auto) Lymph # (Auto) [place] # (Auto) Eos # (Auto) Baso # (Auto) WBC Differential Differential Comment Sodium Potassium Chloride Carbon Dioxide Anion Gap BUN Creatinine Estimated GFR POC Glucose 421 H Random Glucose Calcium Result Diagrams: 12/08/17 05:56 12/08/17 05:56 - Plan (1) Status post thoracotomy Plan: leave chest tube in , await path and cultures
[2017-12-08] MEDS: Sodium Chloride 0.9% 2 ML Flush BID IV.FLUSH SCH ×2 (12:41→20:28)
--- NOTE | 2017-12-08 13:22 | P.PN ---
Subjective Interval history: Follow up for pleural effusion, empyema, S/P VATS procedure: Patient sitting at bedside, complains of right chest tube site pain. No shortness of breath. Had a fair night. No nausea, no vomiting, no diarrhea. No fever. 654 mL draiange from right chest tube, no air leak. Physical Exam Vital signs: Vital Signs 12/07/17 13:15 12/07/17 13:30 12/07/17 13:45 Temperature Pulse Rate 61 57 L 55 L Respiratory Rate 17 24 20 Blood Pressure 149/70 H 138/56 L 133/63 Pulse Oximetry 93 L 95 94 L 12/07/17 14:00 12/07/17 16:00 12/07/17 20:00 Temperature 97.4 F L 97.1 F L 97.4 F L Pulse Rate 54 L 56 L 70 Respiratory Rate 22 18 18 Blood Pressure 147/68 H 111/59 L 114/62 Pulse Oximetry 95 97 91 L 12/08/17 00:00 12/08/17 08:00 Temperature 97.7 F 97.7 F Pulse Rate 65 71 Respiratory Rate 16 18 Blood Pressure 132/76 134/70 Pulse Oximetry 92 L 93 L Intake & Output 12/07/17 12/08/17 12/08/17 18:59 06:59 18:59 Intake Total 1050 / 1050 662.5 / 662.5 100 / 100 Output Total 1454 / 1454 300 / 300 Balance -404 / -404 362.5 / 362.5 100 / 100 Weight 105.1 kg Intake: IV 50 / 50 662.5 / 662.5 100 / 100 LR 1000 mL Inj 1,000 ML @ 30 50 / 50 mls/hr IV.SIG .Q24H [facility] Rx#: [id number] Zosyn 3.375 GM Premix 50 ML @ 50 / 50 100 mls/hr IV.SIG Q8H [facility] Rx#: [id number] Zosyn 4.5 GM Premix 4.5 gm In 300 / 300 100 / 100 100 ml @ 200 mls/hr IV.SIG Q6H [facility] Rx#:[id number] Vancomycin Inj 1,250 MG In NS 262.5 / 262.5 Inj 250 ML @ 250 mls/hr IV.SIG Q24H [facility] Rx#:[id number] Ancef 2 GM Premix Inj 2 gm In 50 / 50 50 ml @ 0 mls/hr IV.SIG .[facility] Rx#:[id number] Oral 0 / 0 Anesthesia Amount 1000 / 1000 Output: Urine 0 / 0 200 / 200 Pleural Fluid 700 / 700 Estimated Blood Loss 100 / 100 Urine Amount (Catheter) 100 / 100 Indwelling Temp Sensing 100 / 100 Catheter Chest Tube Drainage 554 / 554 100 / 100 Right Upper 554 / 554 100 / 100 Other: Date of Last Bowel Movement 12/06/17 Narrative: GENERAL: Obese, middle-aged female, no apparent distress. SKIN: Warm and dry. HEAD: Normocephalic. EYES: No scleral icterus. No injection or drainage. NECK: Supple, trachea midline. No JVD or lymphadenopathy. CARDIOVASCULAR: Regular rate and rhythm without murmurs, gallops, or rubs. RESPIRATORY: Breath sounds decreased right base. Occ Crackles in right lung field.No accessory muscle use. Right lateral chest tube in place, no subcutaneous emphysema. No air leak noted, serosanguineous drainage. GASTROINTESTINAL: Abdomen soft, non-tender, nondistended. MUSCULOSKELETAL: No cyanosis, or edema. NEURO: Awake, alert oriented x3. No focal deficits. - Urinary Catheter Management Indwelling Temp Sensing Catheter Cath placed during this visit: yes, but has since been removed by the nurse Reason for continuing: Hourly intake/output Insertion date: 12/07/17 Insertion time: 10:50 Removal date: 12/07/17 Removal time: 12:16 Results - Labs CBC & Chem 7: 12/08/17 05:56 12/08/17 05:56 Laboratory Results - last 24 hr 12/07/17 12/07/17 12/08/17 18:29 21:40 05:56 WBC 7.6 RBC 3.75 L Hgb 10.7 L Hct 32.7 L MCV 87.2 MCH 28.6 MCHC 32.8 RDW 17.7 H Plt Count 187 D MPV 9.5 Neut % (Auto) 92.1 H Lymph % (Auto) 4.4 L [place] % (Auto) 3.4 Eos % (Auto) 0.0 Baso % (Auto) 0.1 Neut # (Auto) 7.0 Lymph # (Auto) 0.3 L [place] # (Auto) 0.3 Eos # (Auto) 0.0 Baso # (Auto) 0.0 WBC Differential . Differential Comment Auto diff final Sodium Potassium Chloride Carbon Dioxide Anion Gap BUN Creatinine Estimated GFR POC Glucose 354 H 370 H Random Glucose Calcium 12/08/17 12/08/17 12/08/17 05:56 07:42 11:11 WBC RBC Hgb Hct MCV MCH MCHC RDW Plt Count MPV Neut % (Auto) Lymph % (Auto) [place] % (Auto) Eos % (Auto) Baso % (Auto) Neut # (Auto) Lymph # (Auto) [place] # (Auto) Eos # (Auto) Baso # (Auto) WBC Differential Differential Comment Sodium 134 L Potassium 3.7 Chloride 94 L Carbon Dioxide 32.3 H Anion Gap 8 BUN 26 H Creatinine 1.16 H Estimated GFR 47 L POC Glucose 273 H 421 H Random Glucose 260 H Calcium 8.8 Microbiology 12/07/17 13:00 Fluid - Pleural fluid Gram Stain - Final 12/07/17 13:00 Fluid - Pleural fluid Wound Culture - Preliminary No growth in 24 hours 12/04/17 10:30 Bronchial Brushings - Right Lower Lobe Acid Fast Bacilli Smear - Final No acid fast bacilli seen 12/04/17 10:30 Bronchial Washings - Right Lower Lobe Acid Fast Bacilli Smear - Final No acid fast bacilli seen 12/04/17 10:30 Bronchial Washings - Right Lower Lobe Fungal Smear - Final No fungal elements seen 12/04/17 10:30 Bronchial Washings - Right Lower Lobe Fungal Culture - Preliminary Yeast - ID to follow 12/04/17 10:30 Bronchial Brushings - Right Lower Lobe Fungal Smear - Final - Imaging Impressions Chest X-Ray 12/07/17 12:08 CONCLUSION: 1. Right IJ central line in good position. 2. Large bore inferior right chest tube with interval improvement in right lower lung zone pleural-parenchymal opacities. No significant pneumothorax. 3. Cardiomegaly with interstitial edema. Assessment and Plan - Assessment (1) Pleural effusion Code(s): J90 - Pleural effusion, not elsewhere classified Status: Acute (2) Pleural effusion on right Code(s): J90 - Pleural effusion, not elsewhere classified Status: Acute (3) Hypertension Code(s): I10 - Essential (primary) hypertension Status: Chronic (4) Hydropneumothorax Code(s): J94.8 - Other specified pleural conditions Status: Acute (5) Diabetes mellitus Code(s): E11.9 - Type 2 diabetes mellitus without complications Status: Chronic - Plan 67-year-old female admitted for shortness of breath. Patient was found to have a right-sided pleural effusion which was drained however follow- up x-ray showed loculated pneumothorax. Has undergone thoracentesis with at least 500 cc drained, had a left-sided chest tube that was placed which drained an additional 600 mL's at least. Chest tube apparently had dislodged itself on 12/01. Residual pneumothorax is very minimal and not worth intervention per interventional radiology. Underwent bronchoscopy on 12/03. Underwent VATS right sided decortication and drainage of loculated pleural effusions on 12/07 Empyema Recurrent right effusion -Status post bronchoscopy 12/04, growing yeast. Rest of cytology pending. -Postop day of VATS right-sided decortication and drainage of loculated pleural effusions, cultures pending -Cardiothoracic surgery and pulmonology following -Antibiotics as below Empyema w/ bronchitis Solu-Medrol 40 mg IV twice daily -Continue Zosyn and vancomycin -Continue scheduled breathing treatments, Mucomyst Diabetes mellitus -Continue diabetic diet -Accu-Cheks with insulin sliding scale -Blood sugars elevated, up to 300s, possibly secondary to added steroids. Will add Levemir 10 units subcu nightly. Atrial fibrillation Hypertension Hyperlipidemia -Currently sinus rhythm, patient reports she has not been on any anticoagulation. Follow-up with wireless sales manager for recommendations. -Continue Lipitor, metoprolol and Cardizem Lovenox discontinued by cardiothoracic surgery in light of VATS. SCDs for DVT prophylaxis Increase activity IS q 2 WA Repeat labs in the a.m. Code Status: Full code Discussed Condition With: RN, pt Discharge Planning: In progress, not ready yet. Has CT, s/p VATS. Likely home with C in 4-5 days (3) Hypertension Qualifiers: Hypertension type: essential hypertension Qualified Code(s): I10 - Essential (primary) hypertension (5) Diabetes mellitus Qualifiers: Diabetes mellitus type: type 2 Diabetes mellitus complication status: without complication
[2017-12-08 14:58] LABS: DNA Double Stranded Antibody 13.5 IU/mL (<30.0 (Negative))
[2017-12-08] MEDS: Vancomycin Inj 1,250 MG in Sodium Chlor 0.9% Inj 250 ML IV.SIG SCH (16:58)
[2017-12-08] MEDS: Insulin Detemir Inj 1,000 UNIT/10 ML Vial SQ SCH (20:44)
[2017-12-09] MEDS: Piperacil/Tazo 4.5 GM Premix 4.5 GM/100 ML BAG IV.SIG SCH ×4 (04:21→22:01)
[2017-12-09] MEDS: Levothyroxine 100 MCG Tablet PO SCH (05:48)
[2017-12-09 06:09] LABS: Hematocrit 31.9 % (35.0-46.0); Hemoglobin 10.4 gm/dL (11.6-15.3); Mean Corpuscular HGB Conc 32.6 % (32.0-36.0); Mean Corpuscular Hemoglobin 28.5 pg (27.0-34.0); Mean Corpuscular Volume 87.5 fL (80.0-100.0); Mean Platelet Volume 9.5 fL (7.0-11.0); Platelet Count 178 th/mm3 (150-450); Red Blood Count 3.65 mil/mm3 (4.00-5.30); Red Cell Distribution Width 18.1 % (11.6-17.2); White Blood Count 8.7 th/mm3 (4.0-11.0)
[2017-12-09 06:44] LABS: Calcium 8.6 mg/dL (8.5-10.1); Carbon Dioxide 34.6 meq/L (21.0-32.0); Potassium 3.6 meq/L (3.5-5.1)
[2017-12-09] MEDS: Insulin NovoLOG Aspart Correctional Sugar Inj SQ SCH ×4 (08:54→22:02)
[2017-12-09] MEDS: Famotidine 20 MG Tablet PO SCH ×2 (08:54→20:01)
[2017-12-09] MEDS: Metoprolol Tartrate 50 MG Tablet PO SCH ×2 (08:55→20:01)
[2017-12-09] MEDS: Senna/Docusate Sodium 8.6/50 MG Tablet PO SCH ×2 (08:56→20:02)
[2017-12-09] MEDS: QUEtiapine 25 MG Tablet PO SCH ×2 (08:56→20:02)
[2017-12-09] MEDS: Gabapentin 300 MG Capsule PO SCH (08:57)
[2017-12-09] MEDS: dilTIAZem CD 120 MG Capsule PO SCH (08:57)
[2017-12-09] MEDS: predniSONE 10 MG Tablet PO SCH (08:57)
[2017-12-09] MEDS: Sodium Chloride 0.9% 2 ML Flush BID IV.FLUSH SCH ×2 (08:58→20:04)
[2017-12-09] MEDS: Duloxetine 60 MG DR Capsule PO SCH (09:03)
--- NOTE | 2017-12-09 11:11 | P.PNCV ---
- Note Subjective/Hospital Course: Ms. Wolfe is a 66-year-old white female who presented to the emergency room with shortness of breath. She has an increasing right pleural effusion, history of congestive heart failure with recurrent effusion, has had it drained several times before. She was admitted here just about 6 weeks ago, but at that time, the fluid was not increased significantly and no effusion was drained. pig tail cath placement 11/28 Bronch results so far negative. Pathology pending. PMH: history of chronic atrial fibrillation, CHF, type 2 diabetes. Also, has a distant history of breast cancer. Presented today with shortness of breath, according to Hypertension, hypothyroidism, chronic kidney disease, hyperlipidemia. surgery 12/07 Operation and Findings: PREOPERATIVE DIAGNOSES 1. Right empyema 2. Right loculated pleural effusions 3. Pneumonia POSTOPERATIVE DIAGNOSES Same SURGICAL PROCEDURE 1. Right Video-Assisted Thoracoscopic Surgery (VATS). 2. Decortication 3. Drainage of loculated pleural effusions 12/08 up in chair , doing fair, pain controlled chest tube to wall suction drained 654/24hrs , 100cc/ 12 hrs, no air leak consult PT / ambulate pt 12/09 chest tube drained > 400cc serous drainage/ 24 hrs keep on suction continue to ambulate pt Has PT culture path pending Objective: Vital Signs - 24 hr 12/08/17 12:00 12/08/17 16:00 12/08/17 20:00 Temperature 97.6 F 97.7 F 97.6 F Pulse Rate 54 L 60 59 L Respiratory Rate 18 16 18 Blood Pressure 121/58 L 137/66 133/65 Pulse Oximetry 99 99 99 12/09/17 00:00 12/09/17 04:00 12/09/17 07:20 Temperature 98.1 F 98.0 F 97.9 F Pulse Rate 63 59 L 62 Respiratory Rate 19 18 16 Blood Pressure 131/64 138/67 134/71 Pulse Oximetry 97 98 98 12/09/17 07:40 12/09/17 08:00 12/09/17 11:06 Temperature 97.6 F 98.2 F Pulse Rate 71 62 Respiratory Rate 17 18 Blood Pressure 133/68 113/56 L Pulse Oximetry 98 98 GENERAL: A&O x 3 SKIN: Warm and dry. HEAD: Normocephalic. EYES: No scleral icterus. No injection or drainage. NECK: Supple, trachea midline. No JVD or lymphadenopathy. CARDIOVASCULAR: Regular rate and rhythm without murmurs, gallops, or rubs. RESPIRATORY: Breath sounds equal bilaterally. No accessory muscle use. few coarse breath sounds / more diminished on right incision intact right posterior chest wall / chest tube in place with no air leak GASTROINTESTINAL: Abdomen soft, non-tender, nondistended. MUSCULOSKELETAL: No cyanosis, or edema. BACK: Nontender without obvious deformity. No CVA tenderness. Labs: Laboratory Results - last 12 hr 12/09/17 12/09/17 12/09/17 05:53 05:53 07:31 WBC 8.7 RBC 3.65 L Hgb 10.4 L Hct 31.9 L MCV 87.5 MCH 28.5 MCHC 32.6 RDW 18.1 H Plt Count 178 MPV 9.5 Sodium 136 Potassium 3.6 Chloride 96 L Carbon Dioxide 34.6 H Anion Gap 5 BUN 26 H Creatinine 1.07 H Estimated GFR 51 L POC Glucose 239 H Random Glucose 244 H Calcium 8.6 Result Diagrams: 12/09/17 05:53 12/09/17 05:53 - Plan (1) Status post thoracotomy Plan: leave chest tube in , await path and cultures ambulate, pulm toileting
--- NOTE | 2017-12-09 13:45 | P.PN ---
Subjective Interval history: Follow up for pleural effusion, empyema, S/P VATS procedure: Patient sleepy today, awakes to voice, oriented x3. Indicates pain is a 5. Did take some pain medicine last night. Denies any chest pain, no shortness of breath. 400 cc from chest tube. No air leak. No fever. No nausea, no vomiting, no diarrhea. Physical Exam Vital signs: Vital Signs 12/08/17 16:00 12/08/17 20:00 12/09/17 00:00 Temperature 97.7 F 97.6 F 98.1 F Pulse Rate 60 59 L 63 Respiratory Rate 16 18 19 Blood Pressure 137/66 133/65 131/64 Pulse Oximetry 99 99 97 12/09/17 04:00 12/09/17 07:20 12/09/17 07:40 Temperature 98.0 F 97.9 F Pulse Rate 59 L 62 Respiratory Rate 18 16 Blood Pressure 138/67 134/71 Pulse Oximetry 98 98 98 12/09/17 08:00 12/09/17 11:06 Temperature 97.6 F 98.2 F Pulse Rate 71 62 Respiratory Rate 17 18 Blood Pressure 133/68 113/56 L Pulse Oximetry 98 Intake & Output 12/08/17 12/09/17 12/09/17 18:59 06:59 18:59 Intake Total 740 / 740 902.5 / 902.5 100 / 100 Output Total 400 / 400 Balance 740 / 740 502.5 / 502.5 100 / 100 Weight 108.2 kg Intake: IV 100 / 100 562.5 / 562.5 100 / 100 Zosyn 4.5 GM Premix 4.5 gm In 100 / 100 300 / 300 100 / 100 100 ml @ 200 mls/hr IV.SIG Q6H LOLY Rx#:[id number] Vancomycin Inj 1,250 MG In NS 262.5 / 262.5 Inj 250 ML @ 250 mls/hr IV.SIG Q24H LOLY Rx#:[id number] Oral 640 / 640 340 / 340 Output: Chest Tube Drainage 400 / 400 Right Upper 400 / 400 Other: # Voids 5 2 Date of Last Bowel Movement 12/06/17 12/08/17 # Bowel Movements 0 Narrative: GENERAL: Obese, middle-aged female, no apparent distress. SKIN: Warm and dry. HEAD: Normocephalic. EYES: No scleral icterus. No injection or drainage. NECK: Supple, trachea midline. No JVD or lymphadenopathy. CARDIOVASCULAR: Regular rate and rhythm without murmurs, gallops, or rubs. RESPIRATORY: Breath sounds decreased right base. Coarse rhonchi upper lobes and right lower lobe field. No accessory muscle use. Right lateral chest tube in place, no subcutaneous emphysema. No air leak noted, serosanguineous drainage. GASTROINTESTINAL: Abdomen soft, non-tender, nondistended. MUSCULOSKELETAL: No cyanosis, or edema. NEURO: Awakes to voice, sleepy, oriented x3. No focal deficits. - Urinary Catheter Management Indwelling Temp Sensing Catheter Cath placed during this visit: yes, but has since been removed by the nurse Reason for continuing: Hourly intake/output Insertion date: 12/07/17 Insertion time: 10:50 Removal date: 12/07/17 Removal time: 12:16 Results - Labs CBC & Chem 7: 12/09/17 05:53 12/09/17 05:53 Laboratory Results - last 24 hr 12/06/17 12/08/17 12/08/17 05:00 17:33 20:33 WBC RBC Hgb Hct MCV MCH MCHC RDW Plt Count MPV Sodium Potassium Chloride Carbon Dioxide Anion Gap BUN Creatinine Estimated GFR POC Glucose 340 H 391 H Random Glucose Calcium Double Strand DNA Ab 13.5 12/09/17 12/09/17 12/09/17 05:53 05:53 07:31 WBC 8.7 RBC 3.65 L Hgb 10.4 L Hct 31.9 L MCV 87.5 MCH 28.5 MCHC 32.6 RDW 18.1 H Plt Count 178 MPV 9.5 Sodium 136 Potassium 3.6 Chloride 96 L Carbon Dioxide 34.6 H Anion Gap 5 BUN 26 H Creatinine 1.07 H Estimated GFR 51 L POC Glucose 239 H Random Glucose 244 H Calcium 8.6 Double Strand DNA Ab 12/09/17 11:36 WBC RBC Hgb Hct MCV MCH MCHC RDW Plt Count MPV Sodium Potassium Chloride Carbon Dioxide Anion Gap BUN Creatinine Estimated GFR POC Glucose 330 H Random Glucose Calcium Double Strand DNA Ab Microbiology 12/07/17 13:00 Fluid - Pleural fluid Gram Stain - Final 12/07/17 13:00 Fluid - Pleural fluid Wound Culture - Preliminary No growth in 48 hours 12/07/17 13:00 Fluid - Pleural fluid Fungal Smear - Final No fungal elements seen 12/04/17 10:30 Bronchial Washings - Right Lower Lobe Fungal Smear - Final No fungal elements seen 12/04/17 10:30 Bronchial Washings - Right Lower Lobe Fungal Culture - Preliminary Assessment and Plan - Assessment (1) Pleural effusion Code(s): J90 - Pleural effusion, not elsewhere classified Status: Acute (2) Pleural effusion on right Code(s): J90 - Pleural effusion, not elsewhere classified Status: Acute (3) Hypertension Code(s): I10 - Essential (primary) hypertension Status: Chronic (4) Hydropneumothorax Code(s): J94.8 - Other specified pleural conditions Status: Acute (5) Diabetes mellitus Code(s): E11.9 - Type 2 diabetes mellitus without complications Status: Chronic - Plan 67-year-old female admitted for shortness of breath. Patient was found to have a right-sided pleural effusion which was drained however follow- up x-ray showed loculated pneumothorax. Has undergone thoracentesis with at least 500 cc drained, had a left-sided chest tube that was placed which drained an additional 600 mL's at least. Chest tube apparently had dislodged itself on 12/01. Residual pneumothorax is very minimal and not worth intervention per interventional radiology. Underwent bronchoscopy on 12/03. Underwent VATS right sided decortication and drainage of loculated pleural effusions on 12/07 Empyema Recurrent right effusion -Status post bronchoscopy 12/04, growing yeast. Rest of cytology pending. -Postop day of VATS right-sided decortication and drainage of loculated pleural effusions, cultures pending -Cardiothoracic surgery and pulmonology following -Antibiotics as below -coarse breath sounds, will give Lasix 20 mg po x 1 Empyema w/ bronchitis now on PO Prednisone 10 mg po daily -Continue Zosyn and vancomycin -Continue scheduled breathing treatments, Mucomyst Diabetes mellitus -Continue diabetic diet -Accu-Cheks with insulin sliding scale -Blood sugars elevated, up to 300s, possibly secondary to added steroids. Continue Levemir 10 units subcu nightly. Prednisone being weaned off Atrial fibrillation Hypertension Hyperlipidemia -Currently sinus rhythm, patient reports she has not been on any anticoagulation. Follow-up with [facility] for recommendations. -Continue Lipitor, metoprolol and Cardizem Lovenox discontinued by cardiothoracic surgery in light of VATS. SCDs for DVT prophylaxis Increase activity IS q 2 WA Labs reviewed, stable. Code Status: Full code Discussed Condition With: Pt, RN, CM Discharge Planning: In progress, not ready yet. Has CT, s/p VATS. Likely home with HHC in 4-5 days (3) Hypertension Qualifiers: Hypertension type: essential hypertension Qualified Code(s): I10 - Essential (primary) hypertension (5) Diabetes mellitus Qualifiers: Diabetes mellitus type: type 2 Diabetes mellitus complication status: without complication
[2017-12-09] MEDS ORDERED: Furosemide 20 MG Tablet PO ONE (15:15)
[2017-12-09] MEDS: Vancomycin Inj 1,250 MG in Sodium Chlor 0.9% Inj 250 ML IV.SIG SCH (16:40)
--- NOTE | 2017-12-09 18:10 | P.PN ---
Subjective Interval history: Alert and stable . Chest tube is still draining. No Fever. O2 sats better. Physical Exam Vital signs: Vital Signs 12/08/17 20:00 12/09/17 00:00 12/09/17 04:00 Temperature 97.6 F 98.1 F 98.0 F Pulse Rate 59 L 63 59 L Respiratory Rate 18 19 18 Blood Pressure 133/65 131/64 138/67 Pulse Oximetry 99 97 98 12/09/17 07:20 12/09/17 07:40 12/09/17 08:00 Temperature 97.9 F 97.6 F Pulse Rate 62 71 Respiratory Rate 16 17 Blood Pressure 134/71 133/68 Pulse Oximetry 98 98 98 12/09/17 11:06 12/09/17 12:00 12/09/17 16:54 Temperature 98.2 F 98.1 F Pulse Rate 62 57 L Respiratory Rate 18 18 Blood Pressure 113/56 L 144/68 H Pulse Oximetry 93 L 93 L Intake & Output 12/08/17 12/09/17 12/09/17 18:59 06:59 18:59 Intake Total 740 / 740 902.5 / 902.5 462.5 / 462.5 Output Total 400 / 400 180 / 180 Balance 740 / 740 502.5 / 502.5 282.5 / 282.5 Weight 108.2 kg Intake: IV 100 / 100 562.5 / 562.5 462.5 / 462.5 Zosyn 4.5 GM Premix 4.5 gm In 100 / 100 300 / 300 200 / 200 100 ml @ 200 mls/hr IV.SIG Q6H LOLY Rx#:[id number] Vancomycin Inj 1,250 MG In NS 262.5 / 262.5 262.5 / 262.5 Inj 250 ML @ 250 mls/hr IV.SIG Q24H LOLY Rx#:[id number] Oral 640 / 640 340 / 340 Output: Chest Tube Drainage 400 / 400 180 / 180 Right Upper 400 / 400 180 / 180 Other: # Voids 5 2 Date of Last Bowel Movement 12/06/17 12/08/17 # Bowel Movements 0 Narrative: GENERAL: Obese, middle-aged female, no apparent distress. SKIN: Warm and dry. HEAD: Normocephalic. EYES: No scleral icterus. No injection or drainage. NECK: Supple, trachea midline. No JVD or lymphadenopathy. CARDIOVASCULAR: Regular rate and rhythm without murmurs, gallops, or rubs. RESPIRATORY: Breath sounds decreased right base. Occ Wheeze right chest. No accessory muscle use. Right lateral chest tube in place, no subcutaneous emphysema. No air leak noted, serosanguineous drainage. GASTROINTESTINAL: Abdomen soft, non-tender, nondistended. MUSCULOSKELETAL: No cyanosis, or edema. NEURO: Awake oriented x3. No focal deficits. - Urinary Catheter Management Indwelling Temp Sensing Catheter Cath placed during this visit: yes, but has since been removed by the nurse Reason for continuing: Hourly intake/output Insertion date: 12/07/17 Insertion time: 10:50 Removal date: 12/07/17 Removal time: 12:16 Results - Labs CBC & Chem 7: 12/09/17 05:53 12/09/17 05:53 Laboratory Results - last 24 hr 12/06/17 12/06/17 12/08/17 05:00 05:00 20:33 WBC RBC Hgb Hct MCV MCH MCHC RDW Plt Count MPV Sodium Potassium Chloride Carbon Dioxide Anion Gap BUN Creatinine Estimated GFR POC Glucose 391 H Random Glucose Calcium MARIN Screen Negative MARIN Titer ND MARIN Pattern ND Anti-Proteinase 3 Less than 1.0 Anti-Myeloperoxidase Less than 1.0 SS-A Antibody <1.0 neg SS-B Antibody <1.0 neg Sm (Alvarez) Antibody <1.0 neg SM/COMPUGRAPH OPERATOR Antibody <1.0 neg Scl-70 Antibody <1.0 neg 12/09/17 12/09/17 12/09/17 05:53 05:53 07:31 WBC 8.7 RBC 3.65 L Hgb 10.4 L Hct 31.9 L MCV 87.5 MCH 28.5 MCHC 32.6 RDW 18.1 H Plt Count 178 MPV 9.5 Sodium 136 Potassium 3.6 Chloride 96 L Carbon Dioxide 34.6 H Anion Gap 5 BUN 26 H Creatinine 1.07 H Estimated GFR 51 L POC Glucose 239 H Random Glucose 244 H Calcium 8.6 MARIN Screen MARIN Titer MARIN Pattern Anti-Proteinase 3 Anti-Myeloperoxidase SS-A Antibody SS-B Antibody Sm (Alvarez) Antibody SM/COMPUGRAPH OPERATOR Antibody Scl-70 Antibody 12/09/17 12/09/17 11:36 16:11 WBC RBC Hgb Hct MCV MCH MCHC RDW Plt Count MPV Sodium Potassium Chloride Carbon Dioxide Anion Gap BUN Creatinine Estimated GFR POC Glucose 330 H 398 H Random Glucose Calcium MARIN Screen MARIN Titer MARIN Pattern Anti-Proteinase 3 Anti-Myeloperoxidase SS-A Antibody SS-B Antibody Sm (Alvarez) Antibody SM/COMPUGRAPH OPERATOR Antibody Scl-70 Antibody Microbiology 12/07/17 13:00 Fluid - Pleural fluid Acid Fast Bacilli Smear - Final No acid fast bacilli seen 12/07/17 13:00 Fluid - Pleural fluid Gram Stain - Final 12/07/17 13:00 Fluid - Pleural fluid Wound Culture - Preliminary No growth in 48 hours 12/07/17 13:00 Fluid - Pleural fluid Fungal Smear - Final No fungal elements seen 12/04/17 10:30 Bronchial Washings - Right Lower Lobe Fungal Smear - Final No fungal elements seen 12/04/17 10:30 Bronchial Washings - Right Lower Lobe Fungal Culture - Preliminary Assessment and Plan - Assessment (1) Pneumonia Code(s): J18.9 - Pneumonia, unspecified organism Status: Acute (2) Diabetes mellitus Code(s): E11.9 - Type 2 diabetes mellitus without complications Status: Chronic (3) Pleural effusion Code(s): J90 - Pleural effusion, not elsewhere classified Status: Acute (4) Normochromic normocytic anemia Code(s): D64.9 - Anemia, unspecified Status: Chronic (5) Dehydration Code(s): E86.0 - Dehydration Status: Acute (6) Acute renal failure (ARF) Code(s): N17.9 - Acute kidney failure, unspecified Status: Acute (7) Hypertension Code(s): I10 - Essential (primary) hypertension Status: Chronic (8) Atelectasis Code(s): J98.11 - Atelectasis Status: Acute (9) Pleural effusion on right Code(s): J90 - Pleural effusion, not elsewhere classified Status: Acute (10) Status post thoracostomy tube replacement Status: Acute - Plan 1.Cont Chest Tube to drainage. 2. cont O2 2 L 3.IS at bedside q2h. 4.Duoneb nebs qid 5.Continue antibiotics . 6. CBC,BMP ,CXR in am. 7. Cont Diuretic daily 8. Prednisone 10 mg daily (2) Diabetes mellitus Qualifiers: Diabetes mellitus type: type 2 Diabetes mellitus complication status: without complication (6) Acute renal failure (ARF) Qualifiers: Acute renal failure type: unspecified Qualified Code(s): N17.9 - Acute kidney failure, unspecified (7) Hypertension Qualifiers: Hypertension type: essential hypertension Qualified Code(s): I10 - Essential (primary) hypertension
[2017-12-09] MEDS: Insulin Detemir Inj 1,000 UNIT/10 ML Vial SQ SCH (22:02)
[2017-12-09] MEDS: guaiFENesin/Codeine Syrup 200 MG/20 MG 10 ML UDC PO PRN (22:23)
[2017-12-10 03:50] LABS: DS DNA Ab (Crithidia) NEGATIVE (NEGATIVE)
[2017-12-10] MEDS: Piperacil/Tazo 4.5 GM Premix 4.5 GM/100 ML BAG IV.SIG SCH ×4 (04:41→21:42)
[2017-12-10] MEDS: guaiFENesin/Codeine Syrup 200 MG/20 MG 10 ML UDC PO PRN ×2 (05:23→12:35)
[2017-12-10] MEDS: Levothyroxine 100 MCG Tablet PO SCH (05:24)
--- NOTE | 2017-12-10 05:41 | XR ---
EXAM DATE: 12/10/2017 12:00 AM EDT AGE/SEX: 67 years / Female INDICATIONS: Shortness of breath CLINICAL DATA: This is the patient's subsequent encounter. Patient reports that signs and symptoms h ave been present for 1 week and indicates a pain score of Nonresponsive. MEDICAL/SURGICAL HISTORY: . Carcinoma, breast. Diabetes. Cardiovascular disease. . Mastectomy, right. section. Hemorrhoidectomy. Right side chest tube placement. COMPAR[place]: [facility] [place] 1[place]07/2017. . FINDINGS: The cardiac silhouette is enlarged in transverse diameter. There is prominence of the aortic knob is with calcification characteristic of atherosclerotic vascular disease. A right chest tube is in place . There is no evidence of pneumothorax. There is right lower lobe atelectasis versus pneumonia. CONCLUSION: Right lower lobe atelectasis versus pneumonia. There has been no significant change when compared to the prior exam. There is no evidence of pneumothorax. Electronically signed by: Kofi Pradhan MD 12/10/2017 5:40 AM EDT
[2017-12-10 06:32] LABS: Calcium 8.4 mg/dL (8.5-10.1); Carbon Dioxide 37.2 meq/L (21.0-32.0); Potassium 3.2 meq/L (3.5-5.1)
[2017-12-10] MEDS: Gabapentin 300 MG Capsule PO SCH (08:38)
[2017-12-10] MEDS: Duloxetine 60 MG DR Capsule PO SCH (08:38)
[2017-12-10] MEDS: Senna/Docusate Sodium 8.6/50 MG Tablet PO SCH ×2 (08:38→20:13)
[2017-12-10] MEDS: predniSONE 10 MG Tablet PO SCH (08:38)
[2017-12-10] MEDS: dilTIAZem CD 120 MG Capsule PO SCH (08:39)
[2017-12-10] MEDS: Metoprolol Tartrate 50 MG Tablet PO SCH ×2 (08:39→20:13)
[2017-12-10] MEDS: QUEtiapine 25 MG Tablet PO SCH ×2 (08:39→20:14)
[2017-12-10] MEDS: Insulin NovoLOG Aspart Correctional Sugar Inj SQ SCH ×4 (08:40→20:12)
[2017-12-10] MEDS: Famotidine 20 MG Tablet PO SCH ×2 (08:41→20:13)
[2017-12-10] MEDS: Sodium Chloride 0.9% 2 ML Flush BID IV.FLUSH SCH ×2 (08:41→20:16)
--- NOTE | 2017-12-10 09:55 | P.PN ---
Subjective Interval history: Follow up for pleural effusion, empyema, S/P VATS procedure: Patient seen and examined, was disoriented last night, back to baseline now. Non productive cough overnight, no chest pain, right lateral chest tube discomfort. No shortness of breath. Appetite good. No nausea, no vomiting, no diarrhea. No fever. Chest tube output 310 last 24 hours Physical Exam Vital signs: Vital Signs 12/09/17 11:06 12/09/17 12:00 12/09/17 16:00 Temperature 98.2 F 98.1 F 97.6 F Pulse Rate 62 57 L 61 Respiratory Rate 18 18 17 Blood Pressure 113/56 L 144/68 H 146/64 H Pulse Oximetry 93 L 95 12/09/17 16:54 12/09/17 20:00 12/09/17 23:55 Temperature 97.1 F L 98.0 F Pulse Rate 73 62 Respiratory Rate 15 15 Blood Pressure 130/68 107/62 Pulse Oximetry 93 L 97 100 12/10/17 04:47 12/10/17 08:00 Temperature 97.4 F L 98.1 F Pulse Rate 62 60 Respiratory Rate 20 18 Blood Pressure 121/66 118/61 Pulse Oximetry 99 99 Intake & Output 12/09/17 12/10/17 12/10/17 18:59 06:59 18:59 Intake Total 462.5 / 462.5 800 / 800 1000 / 1000 Output Total 180 / 180 130 / 130 Balance 282.5 / 282.5 670 / 670 1000 / 1000 Weight 108.2 kg Intake: IV 462.5 / 462.5 200 / 200 1000 / 1000 LR 1000 mL Inj 1,000 ML @ 30 1000 / 1000 mls/hr IV.SIG .Q24H LOLY Rx#: [id number] Zosyn 4.5 GM Premix 4.5 gm In 200 / 200 200 / 200 100 ml @ 200 mls/hr IV.SIG Q6H LOLY Rx#:[id number] Vancomycin Inj 1,250 MG In NS 262.5 / 262.5 Inj 250 ML @ 250 mls/hr IV.SIG Q24H LOLY Rx#:[id number] Oral 600 / 600 Output: Chest Tube Drainage 180 / 180 130 / 130 Right Upper 180 / 180 130 / 130 Other: # Voids 3 Date of Last Bowel Movement 12/08/17 12/09/17 # Bowel Movements 2 Narrative: GENERAL: Obese, middle-aged female, no apparent distress. SKIN: Warm and dry. HEAD: Normocephalic. EYES: No scleral icterus. No injection or drainage. NECK: Supple, trachea midline. No JVD or lymphadenopathy. CARDIOVASCULAR: Regular rate and rhythm without murmurs, gallops, or rubs. RESPIRATORY: Coarse right upper and right lower base, left lower lobe rales. Right lateral chest tube in place, no subcutaneous emphysema. No air leak noted , serosanguineous drainage. GASTROINTESTINAL: Abdomen soft, non-tender, nondistended. MUSCULOSKELETAL: No cyanosis, or edema. NEURO: Awake, oriented x3. No focal deficits. - Urinary Catheter Management Indwelling Temp Sensing Catheter Cath placed during this visit: yes, but has since been removed by the nurse Reason for continuing: Hourly intake/output Insertion date: 12/07/17 Insertion time: 10:50 Removal date: 12/07/17 Removal time: 12:16 Results - Labs CBC & Chem 7: 12/09/17 05:53 12/10/17 04:45 Laboratory Results - last 24 hr 12/06/17 12/06/17 12/07/17 05:00 05:00 09:31 Sodium Potassium Chloride Carbon Dioxide Anion Gap BUN Creatinine Estimated GFR POC Glucose Random Glucose Calcium MARIN Screen Negative MARIN Titer ND MARIN Pattern ND Anti-Proteinase 3 Less than 1.0 Anti-Myeloperoxidase Less than 1.0 SS-A Antibody <1.0 neg SS-B Antibody <1.0 neg Sm (Alvarez) Antibody <1.0 neg SM/WOMENS HEALTH NURSE PRACTITIONER Antibody <1.0 neg Scl-70 Antibody <1.0 neg Anti-ds DNA Titer (Crith) ND Anti-ds DNA (Crithidia) Negative MTS Gel Crossmatch See Detail 12/09/17 12/09/17 12/09/17 11:36 16:11 20:01 Sodium Potassium Chloride Carbon Dioxide Anion Gap BUN Creatinine Estimated GFR POC Glucose 330 H 398 H 281 H Random Glucose Calcium MARIN Screen MARIN Titer MARIN Pattern Anti-Proteinase 3 Anti-Myeloperoxidase SS-A Antibody SS-B Antibody Sm (Alvarez) Antibody SM/WOMENS HEALTH NURSE PRACTITIONER Antibody Scl-70 Antibody Anti-ds DNA Titer (Crith) Anti-ds DNA (Crithidia) MTS Gel Crossmatch 12/10/17 12/10/17 04:45 07:13 Sodium 137 Potassium 3.2 L Chloride 95 L Carbon Dioxide 37.2 H Anion Gap 5 BUN 24 H Creatinine 1.08 H Estimated GFR 51 L POC Glucose 172 H Random Glucose 181 H Calcium 8.4 L MARIN Screen MARIN Titer MARIN Pattern Anti-Proteinase 3 Anti-Myeloperoxidase SS-A Antibody SS-B Antibody Sm (Alvarez) Antibody SM/WOMENS HEALTH NURSE PRACTITIONER Antibody Scl-70 Antibody Anti-ds DNA Titer (Crith) Anti-ds DNA (Crithidia) MTS Gel Crossmatch Microbiology 12/07/17 13:00 Fluid - Pleural fluid Acid Fast Bacilli Smear - Final No acid fast bacilli seen 12/07/17 13:00 Fluid - Pleural fluid Gram Stain - Final 12/07/17 13:00 Fluid - Pleural fluid Wound Culture - Preliminary No growth in 48 hours - Imaging Impressions Chest X-Ray 12/10/17 00:00 CONCLUSION: Right lower lobe atelectasis versus pneumonia. There has been no significant change when compared to the prior exam. There is no evidence of pneumothorax. Assessment and Plan - Assessment (1) Pleural effusion Code(s): J90 - Pleural effusion, not elsewhere classified Status: Acute (2) Pleural effusion on right Code(s): J90 - Pleural effusion, not elsewhere classified Status: Acute (3) Hypertension Code(s): I10 - Essential (primary) hypertension Status: Chronic (4) Hydropneumothorax Code(s): J94.8 - Other specified pleural conditions Status: Acute (5) Diabetes mellitus Code(s): E11.9 - Type 2 diabetes mellitus without complications Status: Chronic - Plan 67-year-old female admitted for shortness of breath. Patient was found to have a right-sided pleural effusion which was drained however follow- up x-ray showed loculated pneumothorax. Has undergone thoracentesis with at least 500 cc drained, had a left-sided chest tube that was placed which drained an additional 600 mL's at least. Chest tube apparently had dislodged itself on 12/01. Residual pneumothorax is very minimal and not worth intervention per interventional radiology. Underwent bronchoscopy on 12/03. Underwent VATS right sided decortication and drainage of loculated pleural effusions on 12/07 Empyema Recurrent right effusion Chest tube output decreasing slowly. -Status post bronchoscopy 12/04, growing yeast. Rest of cytology pending. -Postop day of VATS right-sided decortication and drainage of loculated pleural effusions, cultures pending -Cardiothoracic surgery and pulmonology following -Antibiotics as below -Chest x-ray results noted, right lower lobe atelectasis versus pneumonia. No significant change. -Continue with bibasilar Rales, will start Lasix 20 mg p.o. daily. Empyema w/ bronchitis now on PO Prednisone 10 mg po daily -Continue Zosyn and vancomycin -Continue scheduled breathing treatments, Mucomyst Diabetes mellitus -Continue diabetic diet -Accu-Cheks with insulin sliding scale -Blood sugars remain elevated, increase Levemir 15 units subcu nightly. Prednisone being weaned off Atrial fibrillation Hypertension Hyperlipidemia -Currently sinus rhythm, patient reports she has not been on any anticoagulation. Follow-up with [facility] for recommendations. -Continue Lipitor, metoprolol and Cardizem Hypokalemia Potassium 3.2 -Replace potassium Start potassium 20 M EQ's p.o. daily Lovenox discontinued by cardiothoracic surgery in light of VATS. SCDs for DVT prophylaxis Increase activity IS q 2 WA Repeat labs in the a.m. Continue with PT Code Status: Full code Discussed Condition With: RN, patient Discharge Planning: In progress, not ready yet. Has CT, s/p VATS. Likely home with HHC in 4-5 days (3) Hypertension Qualifiers: Hypertension type: essential hypertension Qualified Code(s): I10 - Essential (primary) hypertension (5) Diabetes mellitus Qualifiers: Diabetes mellitus type: type 2 Diabetes mellitus complication status: without complication
[2017-12-10] MEDS: Furosemide 20 MG Tablet PO SCH (10:19)
--- NOTE | 2017-12-10 13:33 | P.PNCV ---
- Note Subjective/Hospital Course: Ms. Wolfe is a 66-year-old white female who presented to the emergency room with shortness of breath. She has an increasing right pleural effusion, history of congestive heart failure with recurrent effusion, has had it drained several times before. She was admitted here just about 6 weeks ago, but at that time, the fluid was not increased significantly and no effusion was drained. pig tail cath placement 11/28 Bronch results so far negative. Pathology pending. PMH: history of chronic atrial fibrillation, CHF, type 2 diabetes. Also, has a distant history of breast cancer. Presented today with shortness of breath, according to Hypertension, hypothyroidism, chronic kidney disease, hyperlipidemia. surgery 12/07 Operation and Findings: PREOPERATIVE DIAGNOSES 1. Right empyema 2. Right loculated pleural effusions 3. Pneumonia POSTOPERATIVE DIAGNOSES Same SURGICAL PROCEDURE 1. Right Video-Assisted Thoracoscopic Surgery (VATS). 2. Decortication 3. Drainage of loculated pleural effusions 12/08 up in chair , doing fair, pain controlled chest tube to wall suction drained 654/24hrs , 100cc/ 12 hrs, no air leak consult PT / ambulate pt 12/09 chest tube drained > 400cc serous drainage/ 24 hrs keep on suction continue to ambulate pt Has PT culture path pending 12/10 no growth in pleural fluid to date path : PLEURAL FLUID, RIGHT, THORACENTESIS: MANY SMALL LYMPHOCYTES, NEGATIVE FOR MALIGNANT CELLS. Objective: Vital Signs - 24 hr 12/09/17 16:00 12/09/17 16:54 12/09/17 20:00 Temperature 97.6 F 97.1 F L Pulse Rate 61 73 Respiratory Rate 17 15 Blood Pressure 146/64 H 130/68 Pulse Oximetry 95 93 L 97 12/09/17 23:55 12/10/17 04:47 12/10/17 08:00 Temperature 98.0 F 97.4 F L 98.1 F Pulse Rate 62 62 60 Respiratory Rate 15 20 18 Blood Pressure 107/62 121/66 118/61 Pulse Oximetry 100 99 99 12/10/17 12:00 12/10/17 12:02 Temperature 98.1 F Pulse Rate 56 L 56 L Respiratory Rate 17 16 Blood Pressure 131/66 Pulse Oximetry 99 Labs: Laboratory Results - last 12 hr 12/06/17 12/07/17 12/10/17 05:00 09:31 04:45 Sodium 137 Potassium 3.2 L Chloride 95 L Carbon Dioxide 37.2 H Anion Gap 5 BUN 24 H Creatinine 1.08 H Estimated GFR 51 L POC Glucose Random Glucose 181 H Calcium 8.4 L Rheumatoid Factor Less than 14 Anti-ds DNA Titer (Crith) ND Anti-ds DNA (Crithidia) Negative MTS Gel Crossmatch See Detail 12/10/17 12/10/17 07:13 11:04 Sodium Potassium Chloride Carbon Dioxide Anion Gap BUN Creatinine Estimated GFR POC Glucose 172 H 256 H Random Glucose Calcium Rheumatoid Factor Anti-ds DNA Titer (Crith) Anti-ds DNA (Crithidia) MTS Gel Crossmatch Result Diagrams: 12/09/17 05:53 12/10/17 04:45 - Plan (1) Status post thoracotomy Plan: leave chest tube in , await cultures ambulate, pulm toileting robert nebs/ ezpap / acapella
[2017-12-10] MEDS: Vancomycin Inj 1,250 MG in Sodium Chlor 0.9% Inj 250 ML IV.SIG SCH (15:59)
--- NOTE | 2017-12-10 18:07 | P.PN ---
Subjective Interval history: She still has chest tube drainage. No chest pain or SOB. Pleural fluid result pending. Physical Exam Vital signs: Vital Signs 12/09/17 20:00 12/09/17 23:55 12/10/17 04:47 Temperature 97.1 F L 98.0 F 97.4 F L Pulse Rate 73 62 62 Respiratory Rate 15 15 20 Blood Pressure 130/68 107/62 121/66 Pulse Oximetry 97 100 99 12/10/17 08:00 12/10/17 12:00 12/10/17 12:02 Temperature 98.1 F 98.1 F Pulse Rate 60 56 L 56 L Respiratory Rate 18 17 16 Blood Pressure 118/61 131/66 Pulse Oximetry 99 99 12/10/17 16:00 Temperature 97.9 F Pulse Rate 61 Respiratory Rate 18 Blood Pressure 101/55 L Pulse Oximetry 95 Intake & Output 12/09/17 12/10/17 12/10/17 18:59 06:59 18:59 Intake Total 462.5 / 462.5 800 / 800 1462.5 / 1462.5 Output Total 180 / 180 130 / 130 160 / 160 Balance 282.5 / 282.5 670 / 670 1302.5 / 1302.5 Weight 108.2 kg Intake: IV 462.5 / 462.5 200 / 200 1462.5 / 1462.5 LR 1000 mL Inj 1,000 ML @ 30 1000 / 1000 mls/hr IV.SIG .Q24H LOLY Rx#: [id number] Zosyn 4.5 GM Premix 4.5 gm In 200 / 200 200 / 200 200 / 200 100 ml @ 200 mls/hr IV.SIG Q6H LOLY Rx#:[id number] Vancomycin Inj 1,250 MG In NS 262.5 / 262.5 262.5 / 262.5 Inj 250 ML @ 250 mls/hr IV.SIG Q24H LOLY Rx#:[id number] Oral 600 / 600 Output: Chest Tube Drainage 180 / 180 130 / 130 160 / 160 Right Upper 180 / 180 130 / 130 160 / 160 Other: # Voids 3 Date of Last Bowel Movement 12/08/17 12/09/17 # Bowel Movements 2 Narrative: GENERAL: Obese, middle-aged female, no apparent distress. SKIN: Warm and dry. HEAD: Normocephalic. EYES: No scleral icterus. No injection or drainage. NECK: Supple, trachea midline. No JVD or lymphadenopathy. CARDIOVASCULAR: Regular rate and rhythm without murmurs, gallops, or rubs. RESPIRATORY: Coarse wheeze in upper chest.. Right lateral chest tube in place. No air leak noted,with bloody drainage . GASTROINTESTINAL: Abdomen soft, non-tender, nondistended. MUSCULOSKELETAL: No cyanosis, or edema. NEURO: Awake, oriented x3. No focal deficits. - Urinary Catheter Management Indwelling Temp Sensing Catheter Cath placed during this visit: yes, but has since been removed by the nurse Reason for continuing: Hourly intake/output Insertion date: 12/07/17 Insertion time: 10:50 Removal date: 12/07/17 Removal time: 12:16 Results - Labs CBC & Chem 7: 12/09/17 05:53 12/10/17 04:45 Laboratory Results - last 24 hr 12/06/17 12/07/17 12/09/17 05:00 09:31 20:01 Sodium Potassium Chloride Carbon Dioxide Anion Gap BUN Creatinine Estimated GFR POC Glucose 281 H Random Glucose Calcium Rheumatoid Factor Less than 14 Anti-ds DNA Titer (Crith) ND Anti-ds DNA (Crithidia) Negative MTS Gel Crossmatch See Detail 12/10/17 12/10/17 12/10/17 04:45 07:13 11:04 Sodium 137 Potassium 3.2 L Chloride 95 L Carbon Dioxide 37.2 H Anion Gap 5 BUN 24 H Creatinine 1.08 H Estimated GFR 51 L POC Glucose 172 H 256 H Random Glucose 181 H Calcium 8.4 L Rheumatoid Factor Anti-ds DNA Titer (Crith) Anti-ds DNA (Crithidia) MTS Gel Crossmatch 12/10/17 16:26 Sodium Potassium Chloride Carbon Dioxide Anion Gap BUN Creatinine Estimated GFR POC Glucose 313 H Random Glucose Calcium Rheumatoid Factor Anti-ds DNA Titer (Crith) Anti-ds DNA (Crithidia) MTS Gel Crossmatch Microbiology 12/07/17 13:00 Fluid - Pleural fluid Gram Stain - Final 12/07/17 13:00 Fluid - Pleural fluid Wound Culture - Final No growth in 72 hours (aerobically and anaerobically ) - Imaging Impressions Chest X-Ray 12/10/17 00:00 CONCLUSION: Right lower lobe atelectasis versus pneumonia. There has been no significant change when compared to the prior exam. There is no evidence of pneumothorax. Assessment and Plan - Assessment (1) Pneumonia Code(s): J18.9 - Pneumonia, unspecified organism Status: Acute (2) Diabetes mellitus Code(s): E11.9 - Type 2 diabetes mellitus without complications Status: Chronic (3) Pleural effusion Code(s): J90 - Pleural effusion, not elsewhere classified Status: Acute (4) Normochromic normocytic anemia Code(s): D64.9 - Anemia, unspecified Status: Chronic (5) Dehydration Code(s): E86.0 - Dehydration Status: Acute (6) Acute renal failure (ARF) Code(s): N17.9 - Acute kidney failure, unspecified Status: Acute (7) Hypertension Code(s): I10 - Essential (primary) hypertension Status: Chronic (8) Atelectasis Code(s): J98.11 - Atelectasis Status: Acute (9) Pleural effusion on right Code(s): J90 - Pleural effusion, not elsewhere classified Status: Acute (10) Status post thoracostomy tube replacement Status: Acute - Plan 1.Cont Chest Tube to drainage. 2. Cont O2 2 L 3.IS at bedside q2h. 4.Duoneb nebs qid 5.Continue antibiotics . 6. CBC,BMP ,in am. 7. Cont Diuretic daily 8. Prednisone 10 mg daily (2) Diabetes mellitus Qualifiers: Diabetes mellitus type: type 2 Diabetes mellitus complication status: without complication (6) Acute renal failure (ARF) Qualifiers: Acute renal failure type: unspecified Qualified Code(s): N17.9 - Acute kidney failure, unspecified (7) Hypertension Qualifiers: Hypertension type: essential hypertension Qualified Code(s): I10 - Essential (primary) hypertension
[2017-12-10] MEDS: Insulin Detemir Inj 1,000 UNIT/10 ML Vial SQ SCH (20:12)
[2017-12-11] MEDS: Piperacil/Tazo 4.5 GM Premix 4.5 GM/100 ML BAG IV.SIG SCH ×3 (03:15→16:49)
[2017-12-11] MEDS: Levothyroxine 100 MCG Tablet PO SCH (05:58)
[2017-12-11 06:28] LABS: Hematocrit 31.3 % (35.0-46.0); Hemoglobin 10.5 gm/dL (11.6-15.3); Mean Corpuscular HGB Conc 33.6 % (32.0-36.0); Mean Corpuscular Volume 86.4 fL (80.0-100.0); Mean Platelet Volume 10.1 fL (7.0-11.0); Platelet Count 164 th/mm3 (150-450); Red Blood Count 3.63 mil/mm3 (4.00-5.30); Red Cell Distribution Width 18.2 % (11.6-17.2); White Blood Count 8.9 th/mm3 (4.0-11.0)
[2017-12-11 06:56] LABS: Calcium 8.4 mg/dL (8.5-10.1); Carbon Dioxide 35.2 meq/L (21.0-32.0); Potassium 3.3 meq/L (3.5-5.1)
[2017-12-11] MEDS: Senna/Docusate Sodium 8.6/50 MG Tablet PO SCH ×2 (09:11→22:02)
[2017-12-11] MEDS: QUEtiapine 25 MG Tablet PO SCH ×2 (09:12→22:00)
[2017-12-11] MEDS: Famotidine 20 MG Tablet PO SCH ×2 (09:12→22:01)
[2017-12-11] MEDS: Duloxetine 60 MG DR Capsule PO SCH (09:12)
[2017-12-11] MEDS: Furosemide 20 MG Tablet PO SCH (09:12)
[2017-12-11] MEDS: Metoprolol Tartrate 50 MG Tablet PO SCH ×2 (09:12→22:01)
[2017-12-11] MEDS: dilTIAZem CD 120 MG Capsule PO SCH (09:12)
[2017-12-11] MEDS: predniSONE 10 MG Tablet PO SCH (09:12)
[2017-12-11] MEDS: Gabapentin 300 MG Capsule PO SCH (09:12)
[2017-12-11] MEDS: Insulin NovoLOG Aspart Correctional Sugar Inj SQ SCH ×4 (09:13→22:03)
[2017-12-11] MEDS: Sodium Chloride 0.9% 2 ML Flush BID IV.FLUSH SCH ×2 (09:14→22:03)
--- NOTE | 2017-12-11 10:08 | P.PNCV ---
- Note Subjective/Hospital Course: Ms. Wolfe is a 66-year-old white female who presented to the emergency room with shortness of breath. She has an increasing right pleural effusion, history of congestive heart failure with recurrent effusion, has had it drained several times before. She was admitted here just about 6 weeks ago, but at that time, the fluid was not increased significantly and no effusion was drained. pig tail cath placement 11/28 Bronch results so far negative. Pathology pending. PMH: history of chronic atrial fibrillation, CHF, type 2 diabetes. Also, has a distant history of breast cancer. Presented today with shortness of breath, according to Hypertension, hypothyroidism, chronic kidney disease, hyperlipidemia. surgery 12/07 Operation and Findings: PREOPERATIVE DIAGNOSES 1. Right empyema 2. Right loculated pleural effusions 3. Pneumonia POSTOPERATIVE DIAGNOSES Same SURGICAL PROCEDURE 1. Right Video-Assisted Thoracoscopic Surgery (VATS). 2. Decortication 3. Drainage of loculated pleural effusions 12/08 up in chair , doing fair, pain controlled chest tube to wall suction drained 654/24hrs , 100cc/ 12 hrs, no air leak consult PT / ambulate pt 12/09 chest tube drained > 400cc serous drainage/ 24 hrs keep on suction continue to ambulate pt Has PT culture path pending 12/10 no growth in pleural fluid to date path : PLEURAL FLUID, RIGHT, THORACENTESIS: MANY SMALL LYMPHOCYTES, NEGATIVE FOR MALIGNANT CELLS. 12/11 chest tube drained 310cc/ 24 hrs , 150cc/ 12 hrs serous drainage will leave in for now and f/u with CXR in am pt needs to be OOB ambulate . no growth in cultures to date Objective: Vital Signs - 24 hr 12/10/17 12:00 12/10/17 12:02 12/10/17 16:00 Temperature 98.1 F 97.9 F Pulse Rate 56 L 56 L 61 Respiratory Rate 18 Blood Pressure 131/66 101/55 L Pulse Oximetry 99 95 12/10/17 19:27 12/10/17 20:00 12/11/17 00:00 Temperature 98.3 F 97.6 F Pulse Rate 71 70 69 Respiratory Rate 18 Blood Pressure 102/52 L 122/56 L Pulse Oximetry 95 96 96 12/11/17 04:00 12/11/17 08:00 12/11/17 08:47 Temperature 97.7 F 97.6 F Pulse Rate 85 96 H 79 Respiratory Rate 18 16 18 Blood Pressure 116/61 116/57 L Pulse Oximetry 95 93 L GENERAL: A&O X 3 SKIN: Warm and dry. incision intact to right lateral chest wall / chest tube to water seal HEAD: Atraumatic. Normocephalic. EYES: Pupils equal and round. No scleral icterus. No injection or drainage. ENT: No nasal bleeding or discharge. Mucous membranes pink and moist. NECK: Trachea midline. No JVD. CARDIOVASCULAR: Regular rate and rhythm. RESPIRATORY: No accessory muscle use. Clear to auscultation. Breath sounds equal bilaterally. coarse bilateral breath sounds GASTROINTESTINAL: Abdomen soft, non-tender, nondistended. Hepatic and splenic margins not palpable. MUSCULOSKELETAL: Extremities without clubbing, cyanosis, or edema. No obvious deformities. NEUROLOGICAL: Awake and alert. No obvious cranial nerve deficits. Motor grossly within normal limits. Five out of 5 muscle strength in the arms and legs. Normal speech. PSYCHIATRIC: Appropriate mood and affect; insight and judgment normal. Labs: Laboratory Results - last 12 hr 12/11/17 12/11/17 12/11/17 05:59 05:59 08:02 WBC 8.9 RBC 3.63 L Hgb 10.5 L Hct 31.3 L MCV 86.4 MCH 29.0 MCHC 33.6 RDW 18.2 H Plt Count 164 MPV 10.1 Sodium 138 Potassium 3.3 L Chloride 95 L Carbon Dioxide 35.2 H Anion Gap 8 BUN 19 H Creatinine 1.19 H Estimated GFR 45 L POC Glucose 178 H Random Glucose 204 H Calcium 8.4 L Result Diagrams: 12/11/17 05:59 12/11/17 05:59 - Plan (1) Status post thoracotomy Plan: leave chest tube in , no growth in cultures to date f/u CXR in am ambulate, pulm toileting robert nebs/ ezpap / acapella
--- NOTE | 2017-12-11 11:56 | P.PN ---
Subjective Interval history: Follow up for pleural effusion, empyema, S/P VATS procedure: Patient seen and examined, sitting up in chair, using flutter valve. Patient states she feels much better today, no confusion overnight. No respiratory distress. No chest pain, no shortness of breath. Expected chest tube pain. CT output 310cc. NO fever. Anxious to go home Physical Exam Vital signs: Vital Signs 12/10/17 12:00 12/10/17 12:02 12/10/17 16:00 Temperature 98.1 F 97.9 F Pulse Rate 56 L 56 L 61 Respiratory Rate 17 16 18 Blood Pressure 131/66 101/55 L Pulse Oximetry 99 95 12/10/17 19:27 12/10/17 20:00 12/11/17 00:00 Temperature 98.3 F 97.6 F Pulse Rate 71 70 69 Respiratory Rate 19 18 18 Blood Pressure 102/52 L 122/56 L Pulse Oximetry 95 96 96 12/11/17 04:00 12/11/17 08:00 12/11/17 08:47 Temperature 97.7 F 97.6 F Pulse Rate 85 96 H 79 Respiratory Rate 18 16 18 Blood Pressure 116/61 116/57 L Pulse Oximetry 95 93 L Intake & Output 12/10/17 12/11/17 12/11/17 18:59 06:59 18:59 Intake Total 2462.5 / 2462.5 440 / 440 100 / 100 Output Total 160 / 160 150 / 150 Balance 2302.5 / 2302.5 290 / 290 100 / 100 Weight 108.8 kg Intake: IV 1462.5 / 1462.5 200 / 200 100 / 100 LR 1000 mL Inj 1,000 ML @ 30 1000 / 1000 mls/hr IV.SIG .Q24H LOLY Rx#: [id number] Zosyn 4.5 GM Premix 4.5 gm In 200 / 200 200 / 200 100 / 100 100 ml @ 200 mls/hr IV.SIG Q6H LOLY Rx#:[id number] Vancomycin Inj 1,250 MG In NS 262.5 / 262.5 Inj 250 ML @ 250 mls/hr IV.SIG Q24H LOLY Rx#:[id number] Oral 1000 / 1000 240 / 240 Output: Chest Tube Drainage 160 / 160 150 / 150 Right Upper 160 / 160 150 / 150 Other: # Voids 6 4 Date of Last Bowel Movement 12/09/17 # Bowel Movements 1 1 Narrative: GENERAL: Obese, middle-aged female, no apparent distress. SKIN: Warm and dry. HEAD: Normocephalic. EYES: No scleral icterus. No injection or drainage. NECK: Supple, trachea midline. No JVD or lymphadenopathy. CARDIOVASCULAR: Regular rate and rhythm without murmurs, gallops, or rubs. RESPIRATORY: Rales improved, right middle lobe and right lower lobe. Minimal to left lower base. Right lateral chest tube in place, no subcutaneous emphysema. No air leak noted, serosanguineous drainage. GASTROINTESTINAL: Abdomen soft, non-tender, nondistended. MUSCULOSKELETAL: No cyanosis, or edema. NEURO: Awake, oriented x3. No focal deficits. - Urinary Catheter Management Indwelling Temp Sensing Catheter Cath placed during this visit: yes, but has since been removed by the nurse Reason for continuing: Hourly intake/output Insertion date: 12/07/17 Insertion time: 10:50 Removal date: 12/07/17 Removal time: 12:16 Results - Labs CBC & Chem 7: 12/11/17 05:59 12/11/17 05:59 Laboratory Results - last 24 hr 12/06/17 12/10/17 12/10/17 05:00 16:26 19:48 WBC RBC Hgb Hct MCV MCH MCHC RDW Plt Count MPV Sodium Potassium Chloride Carbon Dioxide Anion Gap BUN Creatinine Estimated GFR POC Glucose 313 H 345 H Random Glucose Calcium Rheumatoid Factor Less than 14 12/11/17 12/11/17 12/11/17 05:59 05:59 08:02 WBC 8.9 RBC 3.63 L Hgb 10.5 L Hct 31.3 L MCV 86.4 MCH 29.0 MCHC 33.6 RDW 18.2 H Plt Count 164 MPV 10.1 Sodium 138 Potassium 3.3 L Chloride 95 L Carbon Dioxide 35.2 H Anion Gap 8 BUN 19 H Creatinine 1.19 H Estimated GFR 45 L POC Glucose 178 H Random Glucose 204 H Calcium 8.4 L Rheumatoid Factor Microbiology 12/07/17 13:00 Fluid - Pleural fluid Gram Stain - Final 12/07/17 13:00 Fluid - Pleural fluid Wound Culture - Final No growth in 72 hours (aerobically and anaerobically ) Assessment and Plan - Assessment (1) Pleural effusion Code(s): J90 - Pleural effusion, not elsewhere classified Status: Acute (2) Pleural effusion on right Code(s): J90 - Pleural effusion, not elsewhere classified Status: Acute (3) Hypertension Code(s): I10 - Essential (primary) hypertension Status: Chronic (4) Hydropneumothorax Code(s): J94.8 - Other specified pleural conditions Status: Acute (5) Diabetes mellitus Code(s): E11.9 - Type 2 diabetes mellitus without complications Status: Chronic - Plan 67-year-old female admitted for shortness of breath. Patient was found to have a right-sided pleural effusion which was drained however follow- up x-ray showed loculated pneumothorax. Has undergone thoracentesis with at least 500 cc drained, had a left-sided chest tube that was placed which drained an additional 600 mL's at least. Chest tube apparently had dislodged itself on 12/01. Residual pneumothorax is very minimal and not worth intervention per interventional radiology. Underwent bronchoscopy on 12/03. Underwent VATS right sided decortication and drainage of loculated pleural effusions on 12/07 Empyema Recurrent right effusion Chest tube outputs continue to decrease, cultures remain negative. -Status post bronchoscopy 12/04, growing yeast. Rest of cytology pending. -Postop day of VATS right-sided decortication and drainage of loculated pleural effusions, cultures remain negative. -Cardiothoracic surgery and pulmonology following -Antibiotics as below -Chest x-ray results noted, right lower lobe atelectasis versus pneumonia. No significant change. -Improved breath sounds, continue with Lasix daily and daily potassium. -consult ID Empyema w/ bronchitis now on PO Prednisone 10 mg po daily -Continue Zosyn, vancomycin discontinued. -Continue scheduled breathing treatments, Mucomyst Diabetes mellitus -Continue diabetic diet -Accu-Cheks with insulin sliding scale -Blood sugars remain elevated, increase Levemir 15 units subcu nightly. Prednisone being weaned off Atrial fibrillation Hypertension Hyperlipidemia -Currently sinus rhythm, patient reports she has not been on any anticoagulation. Follow-up with utility teller for recommendations. -Continue Lipitor, metoprolol and Cardizem Hypokalemia Potassium 3.2 -Replace potassium Continue potassium 20 M EQ's p.o. daily Lovenox discontinued by cardiothoracic surgery in light of VATS. SCDs for DVT prophylaxis Increase activity IS q 2 WA Repeat labs in the a.m. Patient improving, chest tube output continues to decrease. Increase mobility. Physical therapy evaluation Code Status: Full code Discussed Condition With: RN, patient, case management Discharge Planning: In progress, not ready yet. Has CT, s/p VATS. Likely home with HHC in 4-5 days (3) Hypertension Qualifiers: Hypertension type: essential hypertension Qualified Code(s): I10 - Essential (primary) hypertension (5) Diabetes mellitus Qualifiers: Diabetes mellitus type: type 2 Diabetes mellitus complication status: without complication
[2017-12-11] MEDS ORDERED: Pharmacy Ordered Lab Info OTHER ONE (16:45)
--- NOTE | 2017-12-11 18:40 | P.PN ---
Subjective Interval history: Sitting Up. Chest tube still drains. C/O Wheezing and some chest pain. Physical Exam Vital signs: Vital Signs 12/10/17 19:27 12/10/17 20:00 12/11/17 00:00 Temperature 98.3 F 97.6 F Pulse Rate 71 70 69 Respiratory Rate 19 18 18 Blood Pressure 102/52 L 122/56 L Pulse Oximetry 95 96 96 12/11/17 04:00 12/11/17 08:00 12/11/17 08:47 Temperature 97.7 F 97.6 F Pulse Rate 85 96 H 79 Respiratory Rate 18 16 18 Blood Pressure 116/61 116/57 L Pulse Oximetry 95 93 L 12/11/17 12:00 12/11/17 14:08 12/11/17 16:00 Temperature 97.7 F 97.6 F Pulse Rate 71 68 71 Respiratory Rate 16 16 17 Blood Pressure 105/55 L 111/57 L Pulse Oximetry 100 96 Intake & Output 12/10/17 12/11/17 12/11/17 18:59 06:59 18:59 Intake Total 2462.5 / 2462.5 440 / 440 1600 / 1600 Output Total 160 / 160 150 / 150 130 / 130 Balance 2302.5 / 2302.5 290 / 290 1470 / 1470 Weight 108.8 kg Intake: IV 1462.5 / 1462.5 200 / 200 200 / 200 LR 1000 mL Inj 1,000 ML @ 30 1000 / 1000 mls/hr IV.SIG .Q24H LOLY Rx#: [id number] Zosyn 4.5 GM Premix 4.5 gm In 200 / 200 200 / 200 200 / 200 100 ml @ 200 mls/hr IV.SIG Q6H LOLY Rx#:[id number] Vancomycin Inj 1,250 MG In NS 262.5 / 262.5 Inj 250 ML @ 250 mls/hr IV.SIG Q24H LOLY Rx#:[id number] Oral 1000 / 1000 240 / 240 1400 / 1400 Output: Chest Tube Drainage 160 / 160 150 / 150 130 / 130 Right Upper 160 / 160 150 / 150 130 / 130 Other: # Voids 6 4 5 Date of Last Bowel Movement 12/09/17 # Bowel Movements 1 1 0 Narrative: GENERAL: Obese, middle-aged female, no apparent distress. SKIN: Warm and dry. HEAD: Normocephalic. EYES: No scleral icterus. No injection or drainage. NECK: Supple, trachea midline. No JVD or lymphadenopathy. CARDIOVASCULAR: Regular rate and rhythm without murmurs, gallops, or rubs. RESPIRATORY: Occ Basal crackles . Right lateral chest tube in place, no subcutaneous emphysema. No air leak noted, serosanguineous drainage. GASTROINTESTINAL: Abdomen soft, non-tender, nondistended. MUSCULOSKELETAL: No cyanosis, or edema. NEURO: Awake, oriented x3. No focal deficits. - Urinary Catheter Management Indwelling Temp Sensing Catheter Cath placed during this visit: yes, but has since been removed by the nurse Reason for continuing: Hourly intake/output Insertion date: 12/07/17 Insertion time: 10:50 Removal date: 12/07/17 Removal time: 12:16 Results - Labs CBC & Chem 7: 12/11/17 05:59 12/11/17 05:59 Laboratory Results - last 24 hr 12/10/17 12/11/17 12/11/17 19:48 05:59 05:59 WBC 8.9 RBC 3.63 L Hgb 10.5 L Hct 31.3 L MCV 86.4 MCH 29.0 MCHC 33.6 RDW 18.2 H Plt Count 164 MPV 10.1 Sodium 138 Potassium 3.3 L Chloride 95 L Carbon Dioxide 35.2 H Anion Gap 8 BUN 19 H Creatinine 1.19 H Estimated GFR 45 L POC Glucose 345 H Random Glucose 204 H Calcium 8.4 L 12/11/17 12/11/17 12/11/17 08:02 11:57 16:28 WBC RBC Hgb Hct MCV MCH MCHC RDW Plt Count MPV Sodium Potassium Chloride Carbon Dioxide Anion Gap BUN Creatinine Estimated GFR POC Glucose 178 H 228 H 312 H Random Glucose Calcium Microbiology 12/04/17 10:30 Bronchial Brushings - Right Lower Lobe Acid Fast Bacilli Smear - Final No acid fast bacilli seen 12/04/17 10:30 Bronchial Brushings - Right Lower Lobe Mycobacterial Culture - Preliminary No growth in 1 week 12/04/17 10:30 Bronchial Washings - Right Lower Lobe Acid Fast Bacilli Smear - Final No acid fast bacilli seen 12/04/17 10:30 Bronchial Washings - Right Lower Lobe Mycobacterial Culture - Preliminary No growth in 1 week 12/04/17 10:30 Bronchial Brushings - Right Lower Lobe Fungal Smear - Final 12/04/17 10:30 Bronchial Brushings - Right Lower Lobe Fungal Culture - Preliminary No growth in 1 week Assessment and Plan - Assessment (1) Pneumonia Code(s): J18.9 - Pneumonia, unspecified organism Status: Acute (2) Diabetes mellitus Code(s): E11.9 - Type 2 diabetes mellitus without complications Status: Chronic (3) Pleural effusion Code(s): J90 - Pleural effusion, not elsewhere classified Status: Acute (4) Normochromic normocytic anemia Code(s): D64.9 - Anemia, unspecified Status: Chronic (5) Dehydration Code(s): E86.0 - Dehydration Status: Acute (6) Acute renal failure (ARF) Code(s): N17.9 - Acute kidney failure, unspecified Status: Acute (7) Hypertension Code(s): I10 - Essential (primary) hypertension Status: Chronic (8) Atelectasis Code(s): J98.11 - Atelectasis Status: Acute (9) Pleural effusion on right Code(s): J90 - Pleural effusion, not elsewhere classified Status: Acute (10) Status post thoracostomy tube replacement Status: Acute - Plan 1.Chest Tube to drainage. 2. Cont O2 2 L N/C 3.IS at bedside q2h. 4.Duoneb nebs qid 5.Continue antibiotics and switch to PO . 6. D/C Chest Tube per DR Hawley 7. Prednisone 10 mg daily (2) Diabetes mellitus Qualifiers: Diabetes mellitus type: type 2 Diabetes mellitus complication status: without complication (6) Acute renal failure (ARF) Qualifiers: Acute renal failure type: unspecified Qualified Code(s): N17.9 - Acute kidney failure, unspecified (7) Hypertension Qualifiers: Hypertension type: essential hypertension Qualified Code(s): I10 - Essential (primary) hypertension
[2017-12-11] MEDS: Amoxicillin/Clavulanate 875/125 MG Tablet PO SCH (22:00)
[2017-12-11] MEDS: Insulin Detemir Inj 1,000 UNIT/10 ML Vial SQ SCH (22:03)
--- NOTE | 2017-12-12 05:57 | XR ---
EXAM DATE: 12/12/2017 6:00 AM EDT AGE/SEX: 67 years / Female INDICATIONS: Shortness of breath, possible pulmonary disease. CLINICAL DATA: This is the patient's subsequent encounter. Patient reports that signs and symptoms h ave been present for 2 weeks and indicates a pain score of 4/10. MEDICAL/SURGICAL HISTORY: . Anemia. Diabetes. Hypercholesterolemia. Hypertension. Breast cancer . Carcinoma, breast. Cardiovascular disease. . section. Hemorrhoidectomy. Bilateral knee re placement.Mastectomy, right. section. Hemorrhoidectomy. Right side chest tube placement. [place] [facility] [place]. . FINDINGS: A single AP view of the chest demonstrates right basilar pleural-parenchymal density. Right-sided alesha st tube without pneumothorax. Heart enlarged. Osseous structures are intact. CONCLUSION: 1. Right basilar pleural-parenchymal density. 2. No evidence for pneumothorax. 3. Cardiomegaly. Electronically signed by: Matt Jones MD 12/12/2017 5:55 AM EDT
[2017-12-12] MEDS: Levothyroxine 100 MCG Tablet PO SCH (05:59)
[2017-12-12] MEDS: Insulin NovoLOG Aspart Correctional Sugar Inj SQ SCH ×4 (08:24→20:21)
[2017-12-12] MEDS: Metoprolol Tartrate 50 MG Tablet PO SCH ×2 (09:26→20:19)
[2017-12-12] MEDS: Senna/Docusate Sodium 8.6/50 MG Tablet PO SCH ×2 (09:27→20:19)
[2017-12-12] MEDS: Furosemide 20 MG Tablet PO SCH (09:27)
[2017-12-12] MEDS: Gabapentin 300 MG Capsule PO SCH (09:27)
[2017-12-12] MEDS: Famotidine 20 MG Tablet PO SCH ×2 (09:28→20:19)
[2017-12-12] MEDS: QUEtiapine 25 MG Tablet PO SCH ×2 (09:28→20:19)
[2017-12-12] MEDS: Duloxetine 60 MG DR Capsule PO SCH (09:28)
[2017-12-12] MEDS: Amoxicillin/Clavulanate 875/125 MG Tablet PO SCH (09:28)
[2017-12-12] MEDS: predniSONE 10 MG Tablet PO SCH (09:28)
[2017-12-12] MEDS: Sodium Chloride 0.9% 2 ML Flush BID IV.FLUSH SCH ×2 (09:29→20:22)
[2017-12-12] MEDS: dilTIAZem CD 120 MG Capsule PO SCH (09:41)
--- NOTE | 2017-12-12 10:27 | P.CONID ---
History of Present Illness Service: Infectious disease Consult date: 12/12/17 Requesting Physician: Matt August Reason for Consult: Evaluate patient with empyema Primary Care Provider: Elia Pablo MD Chief Complaint: Shortness of breath History of Present Illness: Patient seen and examined. Records reviewed. Patient is a 67-year-old female, admitted to the hospital for evaluation of her shortness of breath. Patient has had previous problem with shortness of breath and was found to have a pneumonia. She has had problem with right pleural effusion in the past. She had an admission for pneumonia and pleural effusion during the summer. She presented this time with similar symptoms with cough, congestion, and shortness of breath. Patient was found to have pleural effusion on this admission. She has not been febrile. Her WBC has been normal. Patient underwent drainage of the pleural fluid, and it was a transudate. It did not look infected, and cultures were negative. Patient has been on antibiotics, initially on Levaquin from November [id number] 03. She was switched to Vanco and Zosyn since December 01. She initially had a chest tube in place, placed on November 29, and the tube fell out. Patient has developed recurrent pleural effusion, and cardiothoracic surgery was consulted. She underwent VATS procedure as well as right decortication. She was found to have a stage II empyema. Patient currently still has the chest tube in place, and she still draining quite a bit of fluid on that right chest tube. She complains of pain on the right side. She still has a cough and congestion but it is better. She remains afebrile and her WBC is normal. Infectious disease consultation has been requested to assist with treatment. Review of Systems Constitutional: Denies chills, Denies fever(s), Denies headache(s) Eyes: Denies discharge, Denies requires corrective lenses Ears, Nose, Mouth, and Throat: Denies difficulty swallowing, Denies mouth pain, Denies nasal discharge, Denies pain with swallowing, Denies sore throat Cardiovascular: Reports chest pain, Denies shortness of breath Respiratory: Reports chest congestion, Reports cough, Denies shortness of breath Gastrointestinal: Denies abdominal pain, Denies loose stools, Denies nausea, Denies pain with swallowing, Denies vomiting Genitourinary: Denies difficulty urinating, Denies painful urination Musculoskeletal: Denies joint pain, Denies joint swelling Skin/Breast: Denies rash, Denies yellowing of the skin Neurologic: Denies headache(s) PMFSH - History History Provided By: Patient - Medical History Medical History: Medical History (Last Reviewed 12/12/17 @ 08:51 by Kika Lo) Anemia Atrial fibrillation Diabetes HX: breast cancer High cholesterol Hx: recurrent pneumonia Hypertension Hypothyroid Renal disease Wears glasses - Surgical History Surgical History: Surgical History (Last Reviewed 12/12/17 @ 08:51 by Kika Lo) History of History of reconstruction of right breast History of total left knee replacement (TKR) History of total right knee replacement (TKR) Hx of hemorrhoidectomy - Family History Family History: Family History (Last Reviewed 12/12/17 @ 08:51 by Kika Lo) Other Osteoarthritis - Tobacco History Second Hand Smoke Exposure: Yes Smoking Status: Never smoker - Alcohol History How Often Do You Have a Drink Containing Alcohol: Never - Substance Use History Substance History: No History of Abuse - Travel History Recent Travel in the [place] Within the Last 8 Weeks: No Recent Travel Out of the Country Within the Last 8 Weeks: No - Immunization History Tetanus Immunization: Unsure Medications and Allergies Active Medications: Active Medications Acetaminophen (Tylenol) 650 mg PO Q4H PRN PRN Reason: Temp > 100.4 pain 1-3 Last Admin: 11/28/17 21:35 Dose: 650 mg Al Hydroxide/Mg Hydroxide (Milk Of Magndrea Liq) 30 ml PO Q12H PRN PRN Reason: Mild Constipation Albuterol (Duoneb Neb (Maxime)) 1 ampul NEB Q6HR WHILE AWAKE NEB [facility] Last Admin: 12/12/17 08:43 Dose: Not Given Albuterol (Duoneb Neb (Prn)) 1 ampul NEB Q2HR NEB PRN PRN Reason: wheezing Atorvastatin Calcium (Lipitor) 80 mg PO HS [facility] Last Admin: 12/11/17 22:01 Dose: 80 mg Bisacodyl (Dulcolax Supp) 10 mg RECTAL DAILY PRN PRN Reason: SEVERE CONSITIPATION Dextrose (D50w Vial) 50 ml IV.PUSH UNSCH PRN PRN Reason: PER HYPOGLYCEMIA PROTOCOL Last Admin: 11/28/17 17:24 Dose: 25 ml Diltiazem HCl (Cardizem Cd 24hr) 240 mg PO DAILY [facility] Last Admin: 12/12/17 09:41 Dose: 240 mg Duloxetine HCl (Cymbalta) 60 mg PO DAILY [facility] Last Admin: 12/12/17 09:28 Dose: 60 mg Famotidine (Pepcid) 20 mg PO BID [facility] Last Admin: 12/12/17 09:28 Dose: 20 mg Furosemide (Lasix) 20 mg PO DAILY [facility] Last Admin: 12/12/17 09:27 Dose: 20 mg Gabapentin (Neurontin) 300 mg PO DAILY [facility] Last Admin: 12/12/17 09:27 Dose: 300 mg Glucagon (Glucagon Inj) 1 mg OTHER PRN PRN PRN Reason: for Hypoglycemia Protocol Guaifenesin/Codeine Phosphate (Robitussin Ac 200/20 Mg/10 Ml Liq) 10 ml PO Q6H PRN PRN Reason: FOR COUGH Last Admin: 12/10/17 12:35 Dose: 10 ml Sodium Chloride (Ns Inj) 500 mls @ 30 mls/hr IV.SIG .Q10H [facility] Last Admin: 12/07/17 14:38 Dose: Not Given Piperacillin/Tazobactam/Dextrose (Zosyn 3.375 Gm Premix) 50 mls @ 100 mls/hr IV.SIG Q6H [facility] Insulin Aspart (Novolog Insulin Correctional Sugar Inj) 0 unit SQ ACHS [facility]; Protocol Last Admin: 12/12/17 08:24 Dose: Not Given Insulin Detemir (Levemir Inj) 20 unit SQ HS [facility] Lactulose (Lactulose Liq) 30 ml PO DAILY PRN PRN Reason: SEVERE CONSITIPATION Levothyroxine Sodium (Synthroid) 100 mcg PO DAILY@0600 [facility] Last Admin: 12/12/17 05:59 Dose: 100 mcg Melatonin (Melatonin) 5 mg PO HS PRN PRN Reason: INSOMNIA Last Admin: 12/07/17 21:40 Dose: 5 mg Metoprolol Tartrate (Lopressor) 50 mg PO BID [facility] Last Admin: 12/12/17 09:26 Dose: Not Given Oxycodone/Acetaminophen (Percocet 5/325 Mg) 1 tab PO Q3H PRN PRN Reason: PAIN SCALE 4 TO 5 Last Admin: 12/12/17 09:41 Dose: 1 tab Potassium Chloride (K-Dur) 20 meq PO DAILY [facility] Last Admin: 12/12/17 09:27 Dose: 20 meq Prednisone (Deltasone) 10 mg PO DAILY [facility] Last Admin: 12/12/17 09:28 Dose: 10 mg Quetiapine Fumarate (Seroquel) 50 mg PO BID [facility] Last Admin: 12/12/17 09:28 Dose: 50 mg Senna/Docusate Sodium (Yee-Colace) 1 tab PO BID [facility] Last Admin: 12/12/17 09:27 Dose: 1 tab Sennosides (Senokot) 17.2 mg PO Q12H PRN PRN Reason: Moderate Constipation Sodium Chloride (Ns Flush) 2 ml IV.FLUSH BID [facility] Last Admin: 12/12/17 09:29 Dose: 2 ml Sodium Chloride (Ns Flush) 2 ml IV.FLUSH PRN PRN PRN Reason: FLUSH AFTER USING IV ACCESS Allergies Allergy/AdvReac Type Severity Reaction Status Date / Time Sulfa (Sulfonamide Allergy Rash Verified 10/07/17 10:44 Antibiotics) tamoxifen Allergy Anaphylaxis Verified 10/07/17 10:44 Home Medications Medication Instructions Recorded Confirmed Type aspirin [Aspir-Low] 81 mg PO DAILY 08/21/17 11/27/17 History atorvastatin 80 mg PO HS 08/21/17 11/27/17 History duloxetine 60 mg PO DAILY 08/21/17 11/27/17 History ferrous fumarate-iron ps cmplx 2 cap PO BID 08/21/17 11/27/17 History gabapentin 1 cap PO DAILY 08/21/17 11/27/17 History levothyroxine 100 mcg PO DAILY 08/21/17 11/27/17 History melatonin 3 mg PO HS PRN 08/21/17 11/27/17 History metoprolol tartrate 50 mg PO BID 08/21/17 11/27/17 History pioglitazone 45 mg PO DAILY 08/21/17 11/27/17 History quetiapine 50 mg PO BID 08/21/17 11/27/17 History ranitidine HCl 150 mg PO QPM 08/21/17 11/27/17 History vitamin D3-folic acid 1 tab PO QAM 08/21/17 11/27/17 History diltiazem HCl 120 mg PO BID 10/07/17 11/27/17 History duloxetine 30 mg PO DAILY 10/07/17 11/27/17 History Exam Vital signs: Vital Signs 12/11/17 12:00 12/11/17 14:08 12/11/17 16:00 Temperature 97.7 F 97.6 F Pulse Rate 71 68 71 Respiratory Rate 16 16 17 Blood Pressure 105/55 L 111/57 L Pulse Oximetry 100 96 12/11/17 19:22 12/11/17 20:20 12/12/17 00:00 Temperature 98.3 F 97.7 F Pulse Rate 77 77 73 Respiratory Rate 18 18 18 Blood Pressure 103/51 L 119/58 L Pulse Oximetry 93 L 97 12/12/17 08:00 Temperature 97.5 F L Pulse Rate 73 Respiratory Rate 18 Blood Pressure 101/57 L Pulse Oximetry 97 Intake & Output 12/11/17 12/12/17 12/12/17 18:59 06:59 18:59 Intake Total 1600 / 1600 480 / 480 Output Total 280 / 280 Balance 1320 / 1320 480 / 480 Weight 109 kg Intake: IV 200 / 200 Zosyn 4.5 GM Premix 4.5 gm In 200 / 200 100 ml @ 200 mls/hr IV.SIG Q6H MAXIME Rx#:[id number] Oral 1400 / 1400 480 / 480 Output: Chest Tube Drainage 280 / 280 Right Upper 280 / 280 Other: # Voids 5 4 # Bowel Movements 0 Narrative: Physical Examination GENERAL: Patient is a well-nourished, well-developed patient, awake and alert , not in respiratory distress. SKIN: Warm and dry. No generalized rash, no ecchymoses and no evidence of embolic lesions. HEAD: Atraumatic. Normocephalic. No temporal wasting, or tenderness. EYES: [place] conjunctiva. No petechia or hemorrhage. Pupils equal, round and reactive to light. Extraocular movements full and intact. No scleral icterus. No injection or drainage. EARS, NOSE AND THROAT: Nose without bleeding or purulent nasal discharge. No sinus tenderness. Mucous membranes pink and moist. No oral lesions noted. No exudate. No oral thrush. NECK: Trachea midline. Supple and not tender, no meningeal signs CARDIOVASCULAR: Regular rate and rhythm. Has systolic murmur at the base of the heart loudest in aortic area RESPIRATORY: Clear to auscultation on L. Decreased breath sounds on R. CT in place, fluid is serous. No rales, wheezing or rhonchi ABDOMEN: Soft, non-tender, nondistended. Bowel sounds present and normoactive. No guarding. No rebound. No organomegaly. EXTREMITIES: No clubbing, cyanosis, or edema.No joint effusion, has good ROM. No calf tenderness. Well perfused and warm. NEUROLOGICAL: Awake and alert. Cranial nerves grossly intact. Motor grossly within normal limits. PSYCHIATRIC: Normal affect, calm and cooperative. LINE: No evidence of infection Results - Labs CBC & Chem 7: 12/11/17 05:59 12/12/17 10:16 Labs: Laboratory Results - last 24 hr 12/11/17 12/11/17 12/11/17 11:57 16:28 19:14 POC Glucose 228 H 312 H 326 H 12/12/17 08:18 POC Glucose 145 H - Imaging Impressions Chest X-Ray 12/12/17 06:00 CONCLUSION: 1. Right basilar pleural-parenchymal density. 2. No evidence for pneumothorax. 3. Cardiomegaly. Thoracentesis Ultrasound 11/27/17 00:00 CONCLUSION: Uncomplicated right chest thoracentesis with ultrasound guidance as described above. Chest Tube Insertion 11/28/17 00:00 CONCLUSION: 1. Uncomplicated right chest tube placement as above for hydropneumothorax. Chest CT 11/30/17 00:00 CONCLUSION: 1. There is a small right-sided chest tube in place along the base of the right hemithorax. 2. There is a small residual right pleural effusion with a tiny pneumothorax at the right medial apex. 3. There is a patchy nonspecific infiltrate in the right lower lung. 4. Tiny 2 mm pulmonary nodule peripheral aspect of the left lower lung. 5. Compensated cardiomegaly. Chest Ultrasound 12/05/17 00:00 CONCLUSION: 1. Small simple appearing right pleural effusion. Assessment and Plan - Plan Impression Recurrent pleural effusion - initial tap, transudative - has developed complicated effusion - S/P VATS and decortication - no fever or leucocytosis Recommendation Keep on IV Abx for now while CT in place IV Zosyn CT in place - still draining a lot When CT removed,, change to po Abs Monitor progress Clinically improving I will follow along with you Thank you for this consultation D/W Sharon HADDAD (ROBEL)
[2017-12-12 11:13] LABS: Calcium 8.5 mg/dL (8.5-10.1); Carbon Dioxide 38.7 meq/L (21.0-32.0); Potassium 3.6 meq/L (3.5-5.1)
[2017-12-12] MEDS: Piperacil/Tazo 3.375 GM Premix 50 ML IV.SIG SCH ×2 (12:25→18:23)
--- NOTE | 2017-12-12 13:37 | P.PN ---
Subjective Interval history: Follow up for pleural effusion, empyema, S/P VATS procedure: Patient seen and examined, sitting up in bed. Having some cough, some sputum. No fever. Chest tube site pain. No shortness of breath. Feeling better, anxious to go home. Chest tube output 280 yesterday. Chest tube now to waterseal. Physical Exam Vital signs: Vital Signs 12/11/17 14:08 12/11/17 16:00 12/11/17 19:22 Temperature 97.6 F Pulse Rate 68 71 77 Respiratory Rate 16 17 18 Blood Pressure 111/57 L Pulse Oximetry 96 12/11/17 20:20 12/12/17 00:00 12/12/17 08:00 Temperature 98.3 F 97.7 F 97.5 F L Pulse Rate 77 73 73 Respiratory Rate 18 18 18 Blood Pressure 103/51 L 119/58 L 101/57 L Pulse Oximetry 93 L 97 97 Intake & Output 12/11/17 12/12/17 12/12/17 18:59 06:59 18:59 Intake Total 1600 / 1600 480 / 480 50 / 50 Output Total 280 / 280 Balance 1320 / 1320 480 / 480 50 / 50 Weight 109 kg Intake: IV 200 / 200 50 / 50 Zosyn 3.375 GM Premix 50 ML @ 50 / 50 100 mls/hr IV.SIG Q6H LOLY Rx#: [id number] Zosyn 4.5 GM Premix 4.5 gm In 200 / 200 100 ml @ 200 mls/hr IV.SIG Q6H LOLY Rx#:[id number] Oral 1400 / 1400 480 / 480 Output: Chest Tube Drainage 280 / 280 Right Upper 280 / 280 Other: # Voids 5 4 Date of Last Bowel Movement 12/11/17 # Bowel Movements 0 Narrative: GENERAL: Obese, middle-aged female, no apparent distress. SKIN: Warm and dry. HEAD: Normocephalic. EYES: No scleral icterus. No injection or drainage. NECK: Supple, trachea midline. No JVD or lymphadenopathy. CARDIOVASCULAR: Regular rate and rhythm without murmurs, gallops, or rubs. RESPIRATORY: Intermittent coarse sounds right right middle and lower lobe. Minimal Rales left lower base. Right lateral chest tube in place, no subcutaneous emphysema. No air leak noted, serosanguineous drainage. Chest tube to waterseal. GASTROINTESTINAL: Abdomen soft, non-tender, nondistended. MUSCULOSKELETAL: No cyanosis, or edema. NEURO: Awake, oriented x3. No focal deficits. - Urinary Catheter Management Indwelling Temp Sensing Catheter Cath placed during this visit: yes, but has since been removed by the nurse Reason for continuing: Hourly intake/output Insertion date: 12/07/17 Insertion time: 10:50 Removal date: 12/07/17 Removal time: 12:16 Results - Labs CBC & Chem 7: 12/11/17 05:59 12/12/17 10:16 Laboratory Results - last 24 hr 12/11/17 12/11/17 12/12/17 16:28 19:14 08:18 Sodium Potassium Chloride Carbon Dioxide Anion Gap BUN Creatinine Estimated GFR POC Glucose 312 H 326 H 145 H Random Glucose Calcium 12/12/17 12/12/17 10:16 11:53 Sodium 137 Potassium 3.6 Chloride 95 L Carbon Dioxide 38.7 H Anion Gap 3 L BUN 16 Creatinine 1.06 H Estimated GFR 52 L POC Glucose 234 H Random Glucose 183 H Calcium 8.5 Microbiology 12/04/17 10:30 Bronchial Brushings - Right Lower Lobe Acid Fast Bacilli Smear - Final No acid fast bacilli seen 12/04/17 10:30 Bronchial Brushings - Right Lower Lobe Mycobacterial Culture - Preliminary No growth in 1 week 12/04/17 10:30 Bronchial Washings - Right Lower Lobe Acid Fast Bacilli Smear - Final No acid fast bacilli seen 12/04/17 10:30 Bronchial Washings - Right Lower Lobe Mycobacterial Culture - Preliminary No growth in 1 week 12/04/17 10:30 Bronchial Brushings - Right Lower Lobe Fungal Smear - Final 12/04/17 10:30 Bronchial Brushings - Right Lower Lobe Fungal Culture - Preliminary No growth in 1 week - Imaging Impressions Chest X-Ray 12/12/17 06:00 CONCLUSION: 1. Right basilar pleural-parenchymal density. 2. No evidence for pneumothorax. 3. Cardiomegaly. Assessment and Plan - Assessment (1) Pleural effusion Code(s): J90 - Pleural effusion, not elsewhere classified Status: Acute (2) Pleural effusion on right Code(s): J90 - Pleural effusion, not elsewhere classified Status: Acute (3) Hypertension Code(s): I10 - Essential (primary) hypertension Status: Chronic (4) Hydropneumothorax Code(s): J94.8 - Other specified pleural conditions Status: Acute (5) Diabetes mellitus Code(s): E11.9 - Type 2 diabetes mellitus without complications Status: Chronic - Plan 67-year-old female admitted for shortness of breath. Patient was found to have a right-sided pleural effusion which was drained however follow- up x-ray showed loculated pneumothorax. Has undergone thoracentesis with at least 500 cc drained, had a left-sided chest tube that was placed which drained an additional 600 mL's at least. Chest tube apparently had dislodged itself on 12/01. Residual pneumothorax is very minimal and not worth intervention per interventional radiology. Underwent bronchoscopy on 12/03. Underwent VATS right sided decortication and drainage of loculated pleural effusions on 12/07 Empyema type II Recurrent right effusion Chest tube outputs continue to decrease, cultures remain negative. Chest tube now to waterseal -Status post bronchoscopy 12/04, growing yeast. Rest of cytology pending. -Postop day of VATS right-sided decortication and drainage of loculated pleural effusions, cultures remain negative. -Cardiothoracic surgery and pulmonology following -Chest x-ray results noted, right lower lobe atelectasis versus pneumonia. No significant change. -Improved breath sounds, continue with Lasix daily and daily potassium. -appreciate ID input, d/w Dr. Santo, continue with Zosyn until CT out. -Chest x-ray reviewed Empyema w/ bronchitis now on PO Prednisone 10 mg po daily -Continue Zosyn, vancomycin discontinued. -Continue scheduled breathing treatments, Mucomyst Diabetes mellitus -Continue diabetic diet -Accu-Cheks with insulin sliding scale -Blood sugars remain elevated, increase Levemir to 20 units subcu nightly. Prednisone being weaned off Atrial fibrillation Hypertension Hyperlipidemia -Currently sinus rhythm, patient reports she has not been on any anticoagulation. Follow-up with fur ironer for recommendations. -Continue Lipitor, metoprolol and Cardizem Hypokalemia Potassium 3.6 Continue potassium 20 M EQ's p.o. daily Lovenox discontinued by cardiothoracic surgery in light of VATS. SCDs for DVT prophylaxis Increase activity IS q 2 WA BMP in am Patient improving, chest tube output continues to decrease. Increase mobility. Physical therapy evaluation CM consult for dc planning, arrange C with PT Code Status: Full code Discussed Condition With: ALEXA, pt, Dr. Santo Discharge Planning: In progress, not ready yet. Has CT, s/p VATS. Likely home with HHC in 4-5 days (3) Hypertension Qualifiers: Hypertension type: essential hypertension Qualified Code(s): I10 - Essential (primary) hypertension (5) Diabetes mellitus Qualifiers: Diabetes mellitus type: type 2 Diabetes mellitus complication status: without complication
--- NOTE | 2017-12-12 13:38 | P.DCO ---
- Diagnosis (1) Pneumonia Status: Acute (2) Shortness of breath Status: Acute (3) Status post thoracostomy tube replacement Status: Acute - Physical Therapy Order: Evaluate and treat - Home Health Nursing Order: Medical education, Signs/symptoms of disease process, Nursing assessment with vital signs - Case Management Consult No - Certification I have seen patient Gabby Wolfe on 12/12/17. My clinical findings support the need for the requested home health care services because: Status post VATS procedure, empyema, pneumonia. Patient has SOB, Deconditioned with increased weakness, Limited ability to care for self I certify that my clinical findings support that this patient is homebound because: Post-op weakness
[2017-12-12] MEDS ORDERED: Insulin Detemir Inj 1,000 UNIT/10 ML Vial SQ SCH (21:00)
[2017-12-13] MEDS: Piperacil/Tazo 3.375 GM Premix 50 ML IV.SIG SCH ×4 (00:06→17:26)
[2017-12-13] MEDS: guaiFENesin/Codeine Syrup 200 MG/20 MG 10 ML UDC PO PRN ×3 (02:29→17:30)
[2017-12-13] MEDS: Levothyroxine 100 MCG Tablet PO SCH (06:01)
[2017-12-13] MEDS: Insulin NovoLOG Aspart Correctional Sugar Inj SQ SCH ×4 (07:49→20:58)
[2017-12-13] MEDS: Dextrose 50% in Water 50 ML Vial IV.PUSH PRN (07:49)
[2017-12-13] MEDS: Metoprolol Tartrate 50 MG Tablet PO SCH ×2 (09:15→20:44)
[2017-12-13] MEDS: Duloxetine 60 MG DR Capsule PO SCH (09:15)
[2017-12-13] MEDS: Furosemide 20 MG Tablet PO SCH (09:15)
[2017-12-13] MEDS: Sodium Chloride 0.9% 2 ML Flush BID IV.FLUSH SCH ×2 (09:15→20:44)
[2017-12-13] MEDS: predniSONE 10 MG Tablet PO SCH (09:16)
[2017-12-13] MEDS: dilTIAZem CD 120 MG Capsule PO SCH (09:16)
[2017-12-13] MEDS: QUEtiapine 25 MG Tablet PO SCH ×2 (09:16→20:44)
[2017-12-13] MEDS: Famotidine 20 MG Tablet PO SCH ×2 (09:16→20:44)
[2017-12-13] MEDS: Gabapentin 300 MG Capsule PO SCH (09:16)
[2017-12-13] MEDS: Senna/Docusate Sodium 8.6/50 MG Tablet PO SCH ×2 (09:16→20:45)
--- NOTE | 2017-12-13 09:31 | P.PNCV ---
- Note Subjective/Hospital Course: Ms. Wolfe is a 66-year-old white female who presented to the emergency room with shortness of breath. She has an increasing right pleural effusion, history of congestive heart failure with recurrent effusion, has had it drained several times before. She was admitted here just about 6 weeks ago, but at that time, the fluid was not increased significantly and no effusion was drained. pig tail cath placement 11/28 Bronch results so far negative. Pathology pending. PMH: history of chronic atrial fibrillation, CHF, type 2 diabetes. Also, has a distant history of breast cancer. Presented today with shortness of breath, according to Hypertension, hypothyroidism, chronic kidney disease, hyperlipidemia. surgery 12/07 Operation and Findings: PREOPERATIVE DIAGNOSES 1. Right empyema 2. Right loculated pleural effusions 3. Pneumonia POSTOPERATIVE DIAGNOSES Same SURGICAL PROCEDURE 1. Right Video-Assisted Thoracoscopic Surgery (VATS). 2. Decortication 3. Drainage of loculated pleural effusions 12/08 up in chair , doing fair, pain controlled chest tube to wall suction drained 654/24hrs , 100cc/ 12 hrs, no air leak consult PT / ambulate pt 12/09 chest tube drained > 400cc serous drainage/ 24 hrs keep on suction continue to ambulate pt Has PT culture path pending 12/10 no growth in pleural fluid to date path : PLEURAL FLUID, RIGHT, THORACENTESIS: MANY SMALL LYMPHOCYTES, NEGATIVE FOR MALIGNANT CELLS. 12/11 chest tube drained 310cc/ 24 hrs , 150cc/ 12 hrs serous drainage will leave in for now and f/u with CXR in am pt needs to be OOB ambulate . no growth in cultures to date 12/13/17 Doing well. No complaints. Continues to drain serous fluid. ~100ml/last 3.5 hrs. ~300ml since noon yesterday Objective: Vital Signs - 24 hr 12/12/17 12:00 12/12/17 15:11 12/12/17 16:00 Temperature 97.4 F L 98.2 F Pulse Rate 89 70 83 Respiratory Rate 18 16 18 Blood Pressure 104/52 L 132/60 Pulse Oximetry 99 97 12/12/17 19:32 12/12/17 20:00 12/12/17 21:40 Temperature 98.1 F 98.6 F Pulse Rate 85 90 97 H Respiratory Rate 16 17 20 Blood Pressure 104/51 L 121/58 L Pulse Oximetry 96 97 12/12/17 23:30 12/13/17 00:00 12/13/17 04:00 Temperature 98 F 97.6 F Pulse Rate 88 92 H 61 Respiratory Rate 20 20 Blood Pressure 103/54 L 100/52 L Pulse Oximetry 98 98 12/13/17 07:47 12/13/17 08:00 Temperature 97.6 F Pulse Rate 87 75 Respiratory Rate 18 16 Blood Pressure 115/55 L Pulse Oximetry 91 L Labs: Laboratory Results - last 12 hr 12/13/17 12/13/17 12/13/17 07:42 07:43 08:22 POC Glucose 60 L 57 L 88 Result Diagrams: 12/11/17 05:59 12/12/17 10:16 Cardiovascular: RRR Pulmonary: CTA CT: as above - Plan (1) Status post thoracotomy Plan: leave chest tube in , no growth in cultures to date f/u CXR in am ambulate, pulm toileting robert nebs/ ezpap / acapella Continue chest tube to water seal CXR in AM
--- NOTE | 2017-12-13 10:52 | P.PNID ---
Subjective Remarks: Patient is a 67-year-old female, admitted to the hospital for evaluation of her shortness of breath. Patient has had previous problem with shortness of breath and was found to have a pneumonia. She has had problem with right pleural effusion in the past. She had an admission for pneumonia and pleural effusion during the summer. She presented this time with similar symptoms with cough, congestion, and shortness of breath. Patient was found to have pleural effusion on this admission. She has not been febrile. Her WBC has been normal. Patient underwent drainage of the pleural fluid, and it was a transudate. It did not look infected, and cultures were negative. Patient has been on antibiotics, initially on Levaquin from November [id number]. She was switched to Vanco and Zosyn since December 01. She initially had a chest tube in place, placed on November 29, and the tube fell out. Patient has developed recurrent pleural effusion, and cardiothoracic surgery was consulted. She underwent VATS procedure as well as right decortication. She was found to have a stage II empyema. Patient currently still has the chest tube in place, and she still draining quite a bit of fluid on that right chest tube. She complains of pain on the right side. She still has a cough and congestion but it is better. She remains afebrile and her WBC is normal. Infectious disease consultation has been requested to assist with treatment. Notes reviewed No fever Not SOB Still with a lot of output from CT Antibiotics: Zosyn Lines: PIV Past Medical History: Anemia Atrial fibrillation Diabetes HX: breast cancer High cholesterol Hx: recurrent pneumonia Hypertension Hypothyroid Renal disease Wears glasses History of History of reconstruction of right breast History of total left knee replacement (TKR) History of total right knee replacement (TKR) Hx of hemorrhoidectomy Allergies/Adverse Reactions: Allergies Sulfa (Sulfonamide Antibiotics) Allergy (Verified 10/07/17 10:44) Rash tamoxifen Allergy (Verified 10/07/17 10:44) Anaphylaxis Objective Vital Signs 12/12/17 12:00 12/12/17 15:11 12/12/17 16:00 Temperature 97.4 F L 98.2 F Pulse Rate 89 70 83 Respiratory Rate 18 16 18 Blood Pressure 104/52 L 132/60 Pulse Oximetry 99 97 12/12/17 19:32 12/12/17 20:00 12/12/17 21:40 Temperature 98.1 F 98.6 F Pulse Rate 85 90 97 H Respiratory Rate 16 17 20 Blood Pressure 104/51 L 121/58 L Pulse Oximetry 96 97 12/12/17 23:30 12/13/17 00:00 12/13/17 04:00 Temperature 98 F 97.6 F Pulse Rate 88 92 H 61 Respiratory Rate 20 20 Blood Pressure 103/54 L 100/52 L Pulse Oximetry 98 98 12/13/17 07:47 12/13/17 08:00 Temperature 97.6 F Pulse Rate 87 75 Respiratory Rate 18 16 Blood Pressure 115/55 L Pulse Oximetry 91 L Intake & Output 12/12/17 12/13/17 12/13/17 18:59 06:59 18:59 Intake Total 50 / 50 630 / 630 Output Total 200 / 200 1950 / 1950 Balance -150 / -150 -1320 / -1320 Weight 109 kg Intake: IV 50 / 50 150 / 150 Zosyn 3.375 GM Premix 50 ML @ 50 / 50 150 / 150 100 mls/hr IV.SIG Q6H [facility] [place] Rx#: [id number] Oral 480 / 480 Output: Urine 1800 / 1800 Chest Tube Drainage 200 / 200 150 / 150 Right Upper 200 / 200 150 / 150 Other: Date of Last Bowel Movement 12/11/17 12/04/17 10:30 Bronchial Brushings - Right Lower Lobe Acid Fast Bacilli Smear - Final No acid fast bacilli seen 12/04/17 10:30 Bronchial Brushings - Right Lower Lobe Mycobacterial Culture - Preliminary No growth in 1 week 12/04/17 10:30 Bronchial Washings - Right Lower Lobe Acid Fast Bacilli Smear - Final No acid fast bacilli seen 12/04/17 10:30 Bronchial Washings - Right Lower Lobe Mycobacterial Culture - Preliminary No growth in 1 week 12/04/17 10:30 Bronchial Brushings - Right Lower Lobe Fungal Smear - Final 12/04/17 10:30 Bronchial Brushings - Right Lower Lobe Fungal Culture - Preliminary No growth in 1 week 12/07/17 13:00 Fluid - Pleural fluid Gram Stain - Final 12/07/17 13:00 Fluid - Pleural fluid Wound Culture - Final No growth in 72 hours (aerobically and anaerobically ) Lab - Chemistry Results 12/11/17 12/11/17 12/11/17 11:57 16:28 19:14 Sodium Potassium Chloride Carbon Dioxide Anion Gap BUN Creatinine Estimated GFR POC Glucose 228 H 312 H 326 H Random Glucose Calcium 12/12/17 12/12/17 12/12/17 08:18 10:16 11:53 Sodium 137 Potassium 3.6 Chloride 95 L Carbon Dioxide 38.7 H Anion Gap 3 L BUN 16 Creatinine 1.06 H Estimated GFR 52 L POC Glucose 145 H 234 H Random Glucose 183 H Calcium 8.5 12/12/17 12/12/17 12/13/17 16:36 19:09 07:42 Sodium Potassium Chloride Carbon Dioxide Anion Gap BUN Creatinine Estimated GFR POC Glucose 253 H 414 H 60 L Random Glucose Calcium 12/13/17 12/13/17 07:43 08:22 Sodium Potassium Chloride Carbon Dioxide Anion Gap BUN Creatinine Estimated GFR POC Glucose 57 L 88 Random Glucose Calcium Imaging: ITS Impressions Thoracentesis Ultrasound 11/27/17 00:00 CONCLUSION: Uncomplicated right chest thoracentesis with ultrasound guidance as described above. Chest Tube Insertion 11/28/17 00:00 CONCLUSION: 1. Uncomplicated right chest tube placement as above for hydropneumothorax. Chest CT 11/30/17 00:00 CONCLUSION: 1. There is a small right-sided chest tube in place along the base of the right hemithorax. 2. There is a small residual right pleural effusion with a tiny pneumothorax at the right medial apex. 3. There is a patchy nonspecific infiltrate in the right lower lung. 4. Tiny 2 mm pulmonary nodule peripheral aspect of the left lower lung. 5. Compensated cardiomegaly. Chest Ultrasound 12/05/17 00:00 CONCLUSION: 1. Small simple appearing right pleural effusion. Chest X-Ray 12/12/17 06:00 CONCLUSION: 1. Right basilar pleural-parenchymal density. 2. No evidence for pneumothorax. 3. Cardiomegaly. Physical Exam: GENERAL: awake and alert, not in respiratory distress. SKIN: Warm and dry. No generalized rash, no ecchymoses and no evidence of embolic lesions. HEAD: Atraumatic. Normocephalic. No temporal wasting, or tenderness. EYES: [place] conjunctiva. No petechia or hemorrhage. No scleral icterus. No injection or drainage. EARS, NOSE AND THROAT: Nose without bleeding or purulent nasal discharge. No sinus tenderness. Mucous membranes pink and moist. No oral lesions noted. No exudate. No oral thrush. NECK: Trachea midline. Supple and not tender, no meningeal signs CARDIOVASCULAR: Regular rate and rhythm. Has systolic murmur at the base of the heart loudest in aortic area RESPIRATORY: Clear to auscultation on L. Decreased breath sounds on R. CT in place, fluid is serous. No rales, wheezing or rhonchi ABDOMEN: Soft, non-tender, nondistended. Bowel sounds present and normoactive. No guarding. No rebound. No organomegaly. EXTREMITIES: No clubbing, cyanosis, or edema. No calf tenderness. NEUROLOGICAL: Grossly non-focal. PSYCHIATRIC: Normal affect, calm and cooperative. LINE: No evidence of infection Assessment and Plan - Plan Impression Recurrent pleural effusion - initial tap, transudative - has developed complicated effusion - S/P VATS and decortication - no fever or leucocytosis Recommendation Keep on IV Abx for now while CT in place IV Zosyn CT in place - still draining a lot When CT removed, change to po Abx Monitor progress
--- NOTE | 2017-12-13 15:32 | P.PN ---
Subjective Interval history: Follow up for pleural effusion, empyema, S/P VATS procedure: Patient seen and examined, sitting up in bed. No productive cough, no shortness of breath, no chest pain. Blood sugar dropped this morning, was given half an amp of D50 and orange juice. Better now. Get out of bed and ambulated around her room. No nausea, no vomiting. Chest tube output 350 serosanguineous. Remains off suction Physical Exam Vital signs: Vital Signs 12/12/17 16:00 12/12/17 19:32 12/12/17 20:00 Temperature 98.2 F 98.1 F Pulse Rate 83 85 90 Respiratory Rate 18 16 17 Blood Pressure 132/60 104/51 L Pulse Oximetry 97 96 12/12/17 21:40 12/12/17 23:30 12/13/17 00:00 Temperature 98.6 F 98 F Pulse Rate 97 H 88 92 H Respiratory Rate 20 20 Blood Pressure 121/58 L 103/54 L Pulse Oximetry 97 98 12/13/17 04:00 12/13/17 07:47 12/13/17 08:00 Temperature 97.6 F 97.6 F Pulse Rate 61 87 72 Respiratory Rate 20 18 16 Blood Pressure 100/52 L 115/55 L Pulse Oximetry 98 91 L 12/13/17 12:00 12/13/17 14:17 Temperature 97.7 F Pulse Rate 68 66 Respiratory Rate 18 16 Blood Pressure 104/52 L Pulse Oximetry 95 Intake & Output 12/12/17 12/13/17 12/13/17 18:59 06:59 18:59 Intake Total 50 / 50 630 / 630 50 / 50 Output Total 200 / 200 1950 / 1950 Balance -150 / -150 -1320 / -1320 50 / 50 Weight 109 kg Intake: IV 50 / 50 150 / 150 50 / 50 Zosyn 3.375 GM Premix 50 ML @ 50 / 50 150 / 150 50 / 50 100 mls/hr IV.SIG Q6H [facility] Rx#: [id number] Oral 480 / 480 Output: Urine 1800 / 1800 Chest Tube Drainage 200 / 200 150 / 150 Right Upper 200 / 200 150 / 150 Other: Date of Last Bowel Movement 12/11/17 Narrative: GENERAL: Obese, middle-aged female, no apparent distress. SKIN: Warm and dry. HEAD: Normocephalic. EYES: No scleral icterus. No injection or drainage. NECK: Supple, trachea midline. No JVD or lymphadenopathy. CARDIOVASCULAR: Regular rate and rhythm without murmurs, gallops, or rubs. RESPIRATORY: Intermittent coarse sounds right right middle and lower lobe. Minimal Rales left lower base. Right lateral chest tube in place, no subcutaneous emphysema. No air leak noted, serosanguineous drainage. Chest tube to waterseal. GASTROINTESTINAL: Abdomen soft, non-tender, nondistended. MUSCULOSKELETAL: No cyanosis, or edema. NEURO: Awake, oriented x3. No focal deficits. - Urinary Catheter Management Indwelling Temp Sensing Catheter Cath placed during this visit: yes, but has since been removed by the nurse Reason for continuing: Hourly intake/output Insertion date: 12/07/17 Insertion time: 10:50 Removal date: 12/07/17 Removal time: 12:16 Results - Labs CBC & Chem 7: 12/14/17 10:50 12/14/17 10:50 Laboratory Results - last 24 hr 12/12/17 12/12/17 12/13/17 16:36 19:09 07:42 POC Glucose 253 H 414 H 60 L 12/13/17 12/13/17 12/13/17 07:43 08:22 11:26 POC Glucose 57 L 88 158 H Assessment and Plan - Assessment (1) Pneumonia Code(s): J18.9 - Pneumonia, unspecified organism Status: Acute (2) Shortness of breath Code(s): R06.02 - Shortness of breath Status: Acute (3) Status post thoracostomy tube replacement Status: Acute (4) Pleural effusion Code(s): J90 - Pleural effusion, not elsewhere classified Status: Acute (5) Pleural effusion on right Code(s): J90 - Pleural effusion, not elsewhere classified Status: Acute (6) Hypertension Code(s): I10 - Essential (primary) hypertension Status: Chronic (7) Hydropneumothorax Code(s): J94.8 - Other specified pleural conditions Status: Acute (8) Diabetes mellitus Code(s): E11.9 - Type 2 diabetes mellitus without complications Status: Chronic - Plan 67-year-old female admitted for shortness of breath. Patient was found to have a right-sided pleural effusion which was drained however follow- up x-ray showed loculated pneumothorax. Has undergone thoracentesis with at least 500 cc drained, had a left-sided chest tube that was placed which drained an additional 600 mL's at least. Chest tube apparently had dislodged itself on 12/01. Residual pneumothorax is very minimal and not worth intervention per interventional radiology. Underwent bronchoscopy on 12/03. Underwent VATS right sided decortication and drainage of loculated pleural effusions on 12/07 Empyema type II Recurrent right effusion Chest tube outputs continue to decrease, cultures remain negative. Chest tube now to waterseal -Status post bronchoscopy 12/04, growing yeast. Rest of cytology pending. -Postop day of VATS right-sided decortication and drainage of loculated pleural effusions, cultures remain negative. -Cardiothoracic surgery and pulmonology following -Chest x-ray results noted, right lower lobe atelectasis versus pneumonia. No significant change. -Improved breath sounds, continue with Lasix daily and daily potassium. -appreciate ID input, continue with Zosyn until CT out-did not change to p.o. Empyema w/ bronchitis -Prednisone 10 mg po daily -Continue Zosyn, vancomycin discontinued. -Continue scheduled breathing treatments, Mucom[place] Diabetes mellitus -Continue diabetic diet -Accu-Cheks with insulin sliding scale -Blood sugar dropped overnight, 57, given D50 and juice, came up to 88. Decreased Levemir to 15 units subcu nightly Atrial fibrillation Hypertension Hyperlipidemia -Currently sinus rhythm, patient reports she has not been on any anticoagulation. Follow-up with interstate planner for recommendations. -Continue Lipitor, metoprolol and Cardizem Hypokalemia Potassium 3.6 Continue potassium 20 M EQ's p.o. daily Lovenox discontinued by cardiothoracic surgery in light of VATS. SCDs for DVT prophylaxis-we will add heparin 5000 units subcu for DVT prophylaxis Increase activity IS q 2 WA BMP pending Patient improving, chest tube output continues to decrease. Code Status: Full code Discussed Condition With: RN, patient Discharge Planning: In progress, not ready yet. Has CT, s/p VATS. Likely home with [facility] in 4-5 days (6) Hypertension Qualifiers: Hypertension type: essential hypertension Qualified Code(s): I10 - Essential (primary) hypertension (8) Diabetes mellitus Qualifiers: Diabetes mellitus type: type 2 Diabetes mellitus complication status: without complication
[2017-12-13 15:39] LABS: Calcium 8.5 mg/dL (8.5-10.1); Carbon Dioxide 35.8 meq/L (21.0-32.0); Potassium 4.5 meq/L (3.5-5.1)
[2017-12-13] MEDS: Heparin - SQ 10,000 UNITS/ML Vial SQ SCH (20:47)
[2017-12-13] MEDS: Melatonin 5 MG Tablet PO PRN (20:56)
[2017-12-13] MEDS: Insulin Detemir Inj 1,000 UNIT/10 ML Vial SQ SCH (20:58)
[2017-12-14] MEDS: Piperacil/Tazo 3.375 GM Premix 50 ML IV.SIG SCH ×5 (00:56→17:16)
[2017-12-14] MEDS: Levothyroxine 100 MCG Tablet PO SCH ×2 (04:15→06:02)
[2017-12-14] MEDS: Insulin NovoLOG Aspart Correctional Sugar Inj SQ SCH ×4 (08:14→21:59)
[2017-12-14] MEDS: Furosemide 20 MG Tablet PO SCH (08:15)
[2017-12-14] MEDS: Heparin - SQ 10,000 UNITS/ML Vial SQ SCH ×2 (08:15→21:56)
[2017-12-14] MEDS: QUEtiapine 25 MG Tablet PO SCH ×2 (08:15→21:54)
[2017-12-14] MEDS: predniSONE 10 MG Tablet PO SCH (08:16)
[2017-12-14] MEDS: Famotidine 20 MG Tablet PO SCH ×2 (08:16→21:54)
[2017-12-14] MEDS: Metoprolol Tartrate 50 MG Tablet PO SCH ×2 (08:16→21:56)
[2017-12-14] MEDS: dilTIAZem CD 120 MG Capsule PO SCH (08:16)
[2017-12-14] MEDS: Gabapentin 300 MG Capsule PO SCH (08:16)
[2017-12-14] MEDS: Senna/Docusate Sodium 8.6/50 MG Tablet PO SCH ×2 (08:16→21:56)
[2017-12-14] MEDS: Duloxetine 60 MG DR Capsule PO SCH (08:17)
--- NOTE | 2017-12-14 09:06 | XR ---
EXAM DATE: 12/14/2017 6:00 AM EDT AGE/SEX: 67 years / Female INDICATIONS: . Evaluate for pleural effusion. CLINICAL DATA: This is the patient's subsequent encounter. Patient reports that signs and symptoms h ave been present for 1 week and indicates a pain score of 0/10. MEDICAL/SURGICAL HISTORY: Diabetes. Hypertension. Mastectomy, right. COMPARISON: [facility] [place], CHEST 1V SINGLE AP, 12/12/2017. . FINDINGS: Today's examination compared to the prior study. There continues to be parenchymal changes in the rig ht lung base which appear to be stable compared to the prior exam. A right chest tube remains in plac e. There is no evidence of pneumothorax. No significant pleural effusions are demonstrated. The left lung is clear and well aerated. The heart size is enlarged but stable. Compared to the prior exam is been no significant changes. CONCLUSION: 1. No significant change compared to the prior examination. 2. Right-sided chest tube remains in place with no evidence of pneumothorax. 3. Stable parenchymal changes in the right lung base. Electronically signed by: Polo Pope MD 12/14/2017 9:05 AM EDT
[2017-12-14] MEDS: Sodium Chloride 0.9% 2 ML Flush BID IV.FLUSH SCH ×2 (09:54→22:06)
--- NOTE | 2017-12-14 10:35 | P.PNCV ---
- Note Subjective/Hospital Course: Ms. Wolfe is a 66-year-old white female who presented to the emergency room with shortness of breath. She has an increasing right pleural effusion, history of congestive heart failure with recurrent effusion, has had it drained several times before. She was admitted here just about 6 weeks ago, but at that time, the fluid was not increased significantly and no effusion was drained. pig tail cath placement 11/28 Bronch results so far negative. Pathology pending. PMH: history of chronic atrial fibrillation, CHF, type 2 diabetes. Also, has a distant history of breast cancer. Presented today with shortness of breath, according to Hypertension, hypothyroidism, chronic kidney disease, hyperlipidemia. surgery 12/07 Operation and Findings: PREOPERATIVE DIAGNOSES 1. Right empyema 2. Right loculated pleural effusions 3. Pneumonia POSTOPERATIVE DIAGNOSES Same SURGICAL PROCEDURE 1. Right Video-Assisted Thoracoscopic Surgery (VATS). 2. Decortication 3. Drainage of loculated pleural effusions 12/08 up in chair , doing fair, pain controlled chest tube to wall suction drained 654/24hrs , 100cc/ 12 hrs, no air leak consult PT / ambulate pt 12/09 chest tube drained > 400cc serous drainage/ 24 hrs keep on suction continue to ambulate pt Has PT culture path pending 12/10 no growth in pleural fluid to date path : PLEURAL FLUID, RIGHT, THORACENTESIS: MANY SMALL LYMPHOCYTES, NEGATIVE FOR MALIGNANT CELLS. 12/11 chest tube drained 310cc/ 24 hrs , 150cc/ 12 hrs serous drainage will leave in for now and f/u with CXR in am pt needs to be OOB ambulate . no growth in cultures to date 12/13/17 Doing well. No complaints. Continues to drain serous fluid. ~100ml/last 3.5 hrs. ~300ml since noon yesterday 12/14 chest tube drained 100cc/ 12 hrs minimal drainage from 6 am cxr noted, some improvement Chest tube removed without difficulty Objective: Vital Signs - 24 hr 12/13/17 12:00 12/13/17 14:17 12/13/17 15:47 Temperature 97.7 F 98.1 F Pulse Rate 68 66 66 Respiratory Rate 18 16 20 Blood Pressure 104/52 L 93/50 L Pulse Oximetry 95 96 12/13/17 19:52 12/13/17 20:00 12/13/17 20:11 Temperature 97.3 F L Pulse Rate 67 69 71 Respiratory Rate 18 16 Blood Pressure 105/51 L Pulse Oximetry 95 12/13/17 23:53 12/14/17 00:00 12/14/17 01:07 Temperature 98.3 F Pulse Rate 71 68 59 L Respiratory Rate 18 Blood Pressure 90/51 L 112/56 L Pulse Oximetry 94 L 12/14/17 03:53 12/14/17 04:00 12/14/17 07:59 Temperature 98.2 F Pulse Rate 64 65 88 Respiratory Rate 16 16 Blood Pressure 118/58 L Pulse Oximetry 94 L GENERAL: A&O x 3 SKIN: Warm and dry. incision intact to right posterior chest wall / chest tube removed HEAD: Normocephalic. EYES: No scleral icterus. No injection or drainage. NECK: Supple, trachea midline. No JVD or lymphadenopathy. CARDIOVASCULAR: Regular rate and rhythm without murmurs, gallops, or rubs. RESPIRATORY: Breath sounds equal bilaterally. No accessory muscle use. few coarse breath sounds R>Left / congested cough GASTROINTESTINAL: Abdomen soft, non-tender, nondistended. MUSCULOSKELETAL: No cyanosis, or edema. BACK: Nontender without obvious deformity. No CVA tenderness. Labs: Laboratory Results - last 12 hr 12/14/17 07:54 POC Glucose 138 H Result Diagrams: 12/11/17 05:59 12/13/17 14:34 - Plan (1) Status post thoracotomy Plan: no growth in cultures to date chest tube removed without difficulty f/u CXR in am ambulate, pulm toileting nebs/ ezpap / acapella
--- NOTE | 2017-12-14 11:04 | P.PNID ---
Subjective Remarks: Patient is a 67-year-old female, admitted to the hospital for evaluation of her shortness of breath. Patient has had previous problem with shortness of breath and was found to have a pneumonia. She has had problem with right pleural effusion in the past. She had an admission for pneumonia and pleural effusion during the summer. She presented this time with similar symptoms with cough, congestion, and shortness of breath. Patient was found to have pleural effusion on this admission. She has not been febrile. Her WBC has been normal. Patient underwent drainage of the pleural fluid, and it was a transudate. It did not look infected, and cultures were negative. Patient has been on antibiotics, initially on Levaquin from November [id number]. She was switched to Vanco and Zosyn since December 01. She initially had a chest tube in place, placed on November 29, and the tube fell out. Patient has developed recurrent pleural effusion, and cardiothoracic surgery was consulted. She underwent VATS procedure as well as right decortication. She was found to have a stage II empyema. Patient currently still has the chest tube in place, and she still draining quite a bit of fluid on that right chest tube. She complains of pain on the right side. She still has a cough and congestion but it is better. She remains afebrile and her WBC is normal. Infectious disease consultation has been requested to assist with treatment. Notes reviewed No fever Not SOB CT removed this morning CXR with some improvement Antibiotics: Zosyn Lines: PIV Past Medical History: Anemia Atrial fibrillation Diabetes HX: breast cancer High cholesterol Hx: recurrent pneumonia Hypertension Hypothyroid Renal disease Wears glasses History of History of reconstruction of right breast History of total left knee replacement (TKR) History of total right knee replacement (TKR) Hx of hemorrhoidectomy Allergies/Adverse Reactions: Allergies Sulfa (Sulfonamide Antibiotics) Allergy (Verified 10/07/17 10:44) Rash tamoxifen Allergy (Verified 10/07/17 10:44) Anaphylaxis Objective Vital Signs 12/13/17 12:00 12/13/17 14:17 12/13/17 15:47 Temperature 97.7 F 98.1 F Pulse Rate 68 66 66 Respiratory Rate 18 16 20 Blood Pressure 104/52 L 93/50 L Pulse Oximetry 95 96 12/13/17 19:52 12/13/17 20:00 12/13/17 20:11 Temperature 97.3 F L Pulse Rate 67 69 71 Respiratory Rate 18 16 Blood Pressure 105/51 L Pulse Oximetry 95 12/13/17 23:53 12/14/17 00:00 12/14/17 01:07 Temperature 98.3 F Pulse Rate 71 68 59 L Respiratory Rate 18 Blood Pressure 90/51 L 112/56 L Pulse Oximetry 94 L 12/14/17 03:53 12/14/17 04:00 12/14/17 07:59 Temperature 98.2 F Pulse Rate 64 65 88 Respiratory Rate 16 16 Blood Pressure 118/58 L Pulse Oximetry 94 L Intake & Output 12/13/17 12/14/17 12/14/17 18:59 06:59 18:59 Intake Total 100 / 100 100 / 100 Output Total 300 / 300 100 / 100 Balance -200 / -200 0 / 0 Intake: IV 100 / 100 100 / 100 Zosyn 3.375 GM Premix 50 ML @ 100 / 100 100 / 100 100 mls/hr IV.SIG Q6H LOLY Rx#: [id number] Output: Chest Tube Drainage 300 / 300 100 / 100 Right Upper 300 / 300 100 / 100 Other: # Voids 5 Date of Last Bowel Movement 12/13/17 12/04/17 10:30 Bronchial Brushings - Right Lower Lobe Acid Fast Bacilli Smear - Final No acid fast bacilli seen 12/04/17 10:30 Bronchial Brushings - Right Lower Lobe Mycobacterial Culture - Preliminary No growth in 1 week 12/04/17 10:30 Bronchial Washings - Right Lower Lobe Acid Fast Bacilli Smear - Final No acid fast bacilli seen 12/04/17 10:30 Bronchial Washings - Right Lower Lobe Mycobacterial Culture - Preliminary No growth in 1 week 12/04/17 10:30 Bronchial Brushings - Right Lower Lobe Fungal Smear - Final 12/04/17 10:30 Bronchial Brushings - Right Lower Lobe Fungal Culture - Preliminary No growth in 1 week Lab - Chemistry Results 12/12/17 12/12/17 12/12/17 10:16 11:53 16:36 Sodium 137 Potassium 3.6 Chloride 95 L Carbon Dioxide 38.7 H Anion Gap 3 L BUN 16 Creatinine 1.06 H Estimated GFR 52 L POC Glucose 234 H 253 H Random Glucose 183 H Calcium 8.5 12/12/17 12/13/17 12/13/17 19:09 07:42 07:43 Sodium Potassium Chloride Carbon Dioxide Anion Gap BUN Creatinine Estimated GFR POC Glucose 414 H 60 L 57 L Random Glucose Calcium 12/13/17 12/13/17 12/13/17 08:22 11:26 14:34 Sodium 136 Potassium 4.5 D Chloride 96 L Carbon Dioxide 35.8 H Anion Gap 4 L BUN 14 Creatinine 1.24 H Estimated GFR 43 L POC Glucose 88 158 H Random Glucose 211 H Calcium 8.5 12/13/17 12/13/17 12/14/17 16:46 20:46 07:54 Sodium Potassium Chloride Carbon Dioxide Anion Gap BUN Creatinine Estimated GFR POC Glucose 286 H 312 H 138 H Random Glucose Calcium Imaging: ITS Impressions Thoracentesis Ultrasound 11/27/17 00:00 CONCLUSION: Uncomplicated right chest thoracentesis with ultrasound guidance as described above. Chest Tube Insertion 11/28/17 00:00 CONCLUSION: 1. Uncomplicated right chest tube placement as above for hydropneumothorax. Chest CT 11/30/17 00:00 CONCLUSION: 1. There is a small right-sided chest tube in place along the base of the right hemithorax. 2. There is a small residual right pleural effusion with a tiny pneumothorax at the right medial apex. 3. There is a patchy nonspecific infiltrate in the right lower lung. 4. Tiny 2 mm pulmonary nodule peripheral aspect of the left lower lung. 5. Compensated cardiomegaly. Chest Ultrasound 12/05/17 00:00 CONCLUSION: 1. Small simple appearing right pleural effusion. Chest X-Ray 12/14/17 06:00 CONCLUSION: 1. No significant change compared to the prior examination. 2. Right-sided chest tube remains in place with no evidence of pneumothorax. 3. Stable parenchymal changes in the right lung base. Physical Exam: GENERAL: awake and alert, NAD SKIN: Warm and dry. No generalized rash. HEAD: Atraumatic. Normocephalic. No temporal wasting, or tenderness. EYES: [place] conjunctiva. No petechia or hemorrhage. No scleral icterus. No injection or drainage. EARS, NOSE AND THROAT: Nose without bleeding or purulent nasal discharge. No sinus tenderness. Mucous membranes pink and moist. No oral lesions noted. No exudate. No oral thrush. NECK: Trachea midline. Supple and not tender, no meningeal signs CARDIOVASCULAR: Regular rate and rhythm. Has systolic murmur at the base of the heart loudest in aortic area RESPIRATORY: Clear to auscultation on L. Decreased breath sounds on R. Intact dressing over previous CT site ABDOMEN: Soft, non-tender, nondistended. Bowel sounds present and normoactive. No guarding. No rebound. No organomegaly. EXTREMITIES: No clubbing, cyanosis, or edema. No calf tenderness. NEUROLOGICAL: Grossly non-focal. PSYCHIATRIC: Normal affect, calm and cooperative. LINE: No evidence of infection Assessment and Plan - Plan Impression Recurrent pleural effusion - initial tap, transudative - has developed complicated effusion - S/P VATS and decortication - no fever or leucocytosis Recommendation On IV Zosyn If stable change to oral Abx Monitor progress Clinically doing well
[2017-12-14 11:41] LABS: Baso % (Auto) 0.1 % (0.0-2.0); Eos # (Auto) 0.3 th/mm3 (0.0-0.4); Eos % (Auto) 3.7 % (0.0-4.0); Hematocrit 31.6 % (35.0-46.0); Lymph # (Auto) 0.9 th/mm3 (1.0-4.8); Lymph % (Auto) 9.9 % (9.0-44.0); Mean Corpuscular HGB Conc 31.6 % (32.0-36.0); Mean Corpuscular Hemoglobin 28.8 pg (27.0-34.0); Mean Corpuscular Volume 91.3 fL (80.0-100.0); Mean Platelet Volume 10.8 fL (7.0-11.0); Mono # (Auto) 0.8 th/mm3 (0.0-0.9); Mono % (Auto) 8.6 % (0.0-8.0); Neut % (Auto) 77.7 % (16.0-70.0); Platelet Count 107 th/mm3 (150-450); Red Blood Count 3.47 mil/mm3 (4.00-5.30); Red Cell Distribution Width 19.4 % (11.6-17.2)
[2017-12-14 12:10] LABS: Alanine Aminotransferase 15 U/L (10-53); Albumin 2.2 g/dL (3.4-5.0); Anion Gap 6 meq/L (5-15); Aspartate Aminotransferase 9 U/L (15-37); Blood Urea Nitrogen 17 mg/dL (7-18); Calcium 8.6 mg/dL (8.5-10.1); Carbon Dioxide 34.5 meq/L (21.0-32.0); Chloride 97 meq/L (98-107); Glomerular Filtration Rate 38 mL/min (>89); Glucose,Random 187 mg/dL (74-106); Magnesium 1.9 mg/dL (1.5-2.5); Potassium 4.3 meq/L (3.5-5.1); Sodium 137 meq/L (136-145)
[2017-12-14 12:19] LABS: Alkaline Phosphatase 80 U/L (45-117); Free T4 (Free Thyroxine) 1.48 ng/dL (0.76-1.46); Thyroid Stimulating Hormone 0.232 uIU/mL (0.358-3.740); Total Protein 5.6 g/dL (6.4-8.2)
--- NOTE | 2017-12-14 13:53 | P.PN ---
Subjective Interval history: Follow up for pleural effusion, empyema, S/P VATS procedure: Patient seen and examined, chest tube has been removed. Tolerated well. Cough improved, no chest pain no shortness of breath. No fever. Blood sugar stable overnight. Physical Exam Vital signs: Vital Signs 12/13/17 14:17 12/13/17 15:47 12/13/17 19:52 Temperature 98.1 F Pulse Rate 66 66 67 Respiratory Rate 16 20 Blood Pressure 93/50 L Pulse Oximetry 96 12/13/17 20:00 12/13/17 20:11 12/13/17 23:53 Temperature 97.3 F L Pulse Rate 69 71 71 Respiratory Rate 18 16 Blood Pressure 105/51 L Pulse Oximetry 95 12/14/17 00:00 12/14/17 01:07 12/14/17 03:53 Temperature 98.3 F Pulse Rate 68 59 L 64 Respiratory Rate 18 Blood Pressure 90/51 L 112/56 L Pulse Oximetry 94 L 12/14/17 04:00 12/14/17 07:59 12/14/17 08:00 Temperature 98.2 F 97.7 F Pulse Rate 65 88 69 Respiratory Rate 16 16 17 Blood Pressure 118/58 L 114/53 L Pulse Oximetry 94 L 97 12/14/17 12:00 Temperature 97.3 F L Pulse Rate 62 Respiratory Rate 18 Blood Pressure 101/49 L Pulse Oximetry 99 Intake & Output 12/13/17 12/14/17 12/14/17 18:59 06:59 18:59 Intake Total 100 / 100 100 / 100 50 / 50 Output Total 300 / 300 100 / 100 Balance -200 / -200 0 / 0 50 / 50 Intake: IV 100 / 100 100 / 100 50 / 50 Zosyn 3.375 GM Premix 50 ML @ 100 / 100 100 / 100 50 / 50 100 mls/hr IV.SIG Q6H LOLY Rx#: [id number] Output: Chest Tube Drainage 300 / 300 100 / 100 Right Upper 300 / 300 100 / 100 Other: # Voids 5 Date of Last Bowel Movement 12/13/17 Narrative: GENERAL: Obese, middle-aged female, no apparent distress. SKIN: Warm and dry. HEAD: Normocephalic. EYES: No scleral icterus. No injection or drainage. NECK: Supple, trachea midline. No JVD or lymphadenopathy. CARDIOVASCULAR: Regular rate and rhythm without murmurs, gallops, or rubs. RESPIRATORY: Intermittent coarse sounds right right middle and lower lobe. Minimal Rales left lower base. Right lateral chest tube removed. GASTROINTESTINAL: Abdomen soft, non-tender, nondistended. MUSCULOSKELETAL: No cyanosis, or edema. NEURO: Awake, oriented x3. No focal deficits. - Urinary Catheter Management Indwelling Temp Sensing Catheter Cath placed during this visit: yes, but has since been removed by the nurse Reason for continuing: Hourly intake/output Insertion date: 12/07/17 Insertion time: 10:50 Removal date: 12/07/17 Removal time: 12:16 Results - Labs CBC & Chem 7: 12/14/17 10:50 12/14/17 10:50 Laboratory Results - last 24 hr 12/13/17 12/13/17 12/13/17 14:34 16:46 20:46 WBC RBC Hgb Hct MCV MCH MCHC RDW Plt Count MPV Neut % (Auto) Lymph % (Auto) [place] % (Auto) Eos % (Auto) Baso % (Auto) Neut # (Auto) Lymph # (Auto) [place] # (Auto) Eos # (Auto) Baso # (Auto) WBC Differential Differential Comment Hematology Comments Sodium 136 Potassium 4.5 D Chloride 96 L Carbon Dioxide 35.8 H Anion Gap 4 L BUN 14 Creatinine 1.24 H Estimated GFR 43 L POC Glucose 286 H 312 H Random Glucose 211 H Calcium 8.5 Magnesium Total Bilirubin AST ALT Alkaline Phosphatase Total Protein Albumin TSH Free T4 12/14/17 12/14/17 12/14/17 07:54 10:50 10:50 WBC 9.0 RBC 3.47 L Hgb 10.0 L Hct 31.6 L MCV 91.3 MCH 28.8 MCHC 31.6 L RDW 19.4 H Plt Count 107 L D MPV 10.8 Neut % (Auto) 77.7 H Lymph % (Auto) 9.9 [place] % (Auto) 8.6 H Eos % (Auto) 3.7 Baso % (Auto) 0.1 Neut # (Auto) 7.0 Lymph # (Auto) 0.9 L [place] # (Auto) 0.8 Eos # (Auto) 0.3 Baso # (Auto) 0.0 WBC Differential . Differential Comment Auto diff final Hematology Comments Sodium 137 Potassium 4.3 Chloride 97 L Carbon Dioxide 34.5 H Anion Gap 6 BUN 17 Creatinine 1.40 H Estimated GFR 38 L POC Glucose 138 H Random Glucose 187 H Calcium 8.6 Magnesium 1.9 Total Bilirubin 0.4 AST 9 L ALT 15 Alkaline Phosphatase 80 Total Protein 5.6 L Albumin 2.2 L TSH 0.232 L Free T4 1.48 H 12/14/17 11:44 WBC RBC Hgb Hct MCV MCH MCHC RDW Plt Count MPV Neut % (Auto) Lymph % (Auto) [place] % (Auto) Eos % (Auto) Baso % (Auto) Neut # (Auto) Lymph # (Auto) [place] # (Auto) Eos # (Auto) Baso # (Auto) WBC Differential Differential Comment Hematology Comments Sodium Potassium Chloride Carbon Dioxide Anion Gap BUN Creatinine Estimated GFR POC Glucose 195 H Random Glucose Calcium Magnesium Total Bilirubin AST ALT Alkaline Phosphatase Total Protein Albumin TSH Free T4 - Imaging Impressions Chest X-Ray 12/14/17 06:00 CONCLUSION: 1. No significant change compared to the prior examination. 2. Right-sided chest tube remains in place with no evidence of pneumothorax. 3. Stable parenchymal changes in the right lung base. Assessment and Plan - Assessment (1) Pneumonia Code(s): J18.9 - Pneumonia, unspecified organism Status: Acute (2) Shortness of breath Code(s): R06.02 - Shortness of breath Status: Acute (3) Status post thoracostomy tube replacement Status: Acute (4) Pleural effusion Code(s): J90 - Pleural effusion, not elsewhere classified Status: Acute (5) Pleural effusion on right Code(s): J90 - Pleural effusion, not elsewhere classified Status: Acute (6) Hypertension Code(s): I10 - Essential (primary) hypertension Status: Chronic (7) Hydropneumothorax Code(s): J94.8 - Other specified pleural conditions Status: Acute (8) Diabetes mellitus Code(s): E11.9 - Type 2 diabetes mellitus without complications Status: Chronic - Plan 67-year-old female admitted for shortness of breath. Patient was found to have a right-sided pleural effusion which was drained however follow- up x-ray showed loculated pneumothorax. Has undergone thoracentesis with at least 500 cc drained, had a left-sided chest tube that was placed which drained an additional 600 mL's at least. Chest tube apparently had dislodged itself on 12/01. Residual pneumothorax is very minimal and not worth intervention per interventional radiology. Underwent bronchoscopy on 12/03. Underwent VATS right sided decortication and drainage of loculated pleural effusions on 12/07 Empyema type II Recurrent right effusion -Status post bronchoscopy 12/04, growing yeast. Rest of cytology pending. -Postop day of VATS right-sided decortication and drainage of loculated pleural effusions, cultures remain negative. No malignancy. -Cardiothoracic surgery and pulmonology following -Chest x-ray results noted, right lower lobe atelectasis versus pneumonia. No significant change. -Improved breath sounds, continue with Lasix daily and daily potassium. -appreciate ID input, continue with Zosyn until CT out-did not change to p.o. -Chest tube has been removed. Empyema w/ bronchitis -Prednisone 10 mg po daily -Continue Zosyn, vancomycin discontinued. -Continue scheduled breathing treatments, Mucomyst Diabetes mellitus -Continue diabetic diet -Accu-Cheks with insulin sliding scale -Blood sugars improved, no further drops. Continue with Levemir 15 units subcu. Atrial fibrillation Hypertension Hyperlipidemia -Currently sinus rhythm, patient reports she has not been on any anticoagulation. Follow-up with [facility] for recommendations. -Continue Lipitor, metoprolol and Cardizem Hypokalemia Resolved Continue potassium 20 M EQ's p.o. daily Thrombocytopenia, platelets down to 107 Monitor CBC SCDs and heparin 5000 units subcu for DVT prophylaxis Increase activity IS q 2 WA Repeat labs in the morning Hopefully discharge Thursday when clear by cardiothoracic Code Status: Full code Discussed Condition With: RN, pt Discharge Planning: Discharge by Thursday when cleared by cardiothoracic. (6) Hypertension Qualifiers: Hypertension type: essential hypertension Qualified Code(s): I10 - Essential (primary) hypertension (8) Diabetes mellitus Qualifiers: Diabetes mellitus type: type 2 Diabetes mellitus complication status: without complication
--- NOTE | 2017-12-14 14:45 | P.DCO ---
- Diagnosis (1) Pleural effusion Status: Acute (2) Status post thoracostomy tube replacement Status: Acute - Physical Therapy Order: Evaluate and treat - Home Health Nursing Order: Medical education, Nursing assessment with vital signs - Case Management Consult No - Certification I have seen patient Gabby Wolfe on 12/14/17. My clinical findings support the need for the requested home health care services because: S/P VATS, had chest tube, Empyema Deconditioned with increased weakness, Need for psychosocial assistance I certify that my clinical findings support that this patient is homebound because: Post-op weakness
[2017-12-14 15:58] LABS: Hemoglobin A1c 8.1 % (4.3-6.0)
--- NOTE | 2017-12-14 19:13 | P.PN ---
Subjective Interval history: Chest tube is out. No fever. CXR stable with mild atelectasis. Physical Exam Vital signs: Vital Signs 12/13/17 19:52 12/13/17 20:00 12/13/17 20:11 Temperature 97.3 F L Pulse Rate 67 69 71 Respiratory Rate 18 16 Blood Pressure 105/51 L Pulse Oximetry 95 12/13/17 23:53 12/14/17 00:00 12/14/17 01:07 Temperature 98.3 F Pulse Rate 71 68 59 L Respiratory Rate 18 Blood Pressure 90/51 L 112/56 L Pulse Oximetry 94 L 12/14/17 03:53 12/14/17 04:00 12/14/17 07:59 Temperature 98.2 F Pulse Rate 64 65 88 Respiratory Rate 16 16 Blood Pressure 118/58 L Pulse Oximetry 94 L 12/14/17 08:00 12/14/17 12:00 12/14/17 16:00 Temperature 97.7 F 97.3 F L 97.8 F Pulse Rate 69 62 62 Respiratory Rate 17 18 18 Blood Pressure 114/53 L 101/49 L 111/54 L Pulse Oximetry 97 99 97 Intake & Output 12/14/17 12/14/17 12/15/17 06:59 18:59 06:59 Intake Total 100 / 100 1300 / 1300 Output Total 100 / 100 Balance 0 / 0 1300 / 1300 Intake: IV 100 / 100 100 / 100 Zosyn 3.375 GM Premix 50 ML @ 100 / 100 100 / 100 100 mls/hr IV.SIG Q6H LOLY Rx#: [id number] Oral 1200 / 1200 Output: Chest Tube Drainage 100 / 100 Right Upper 100 / 100 Other: # Voids 5 7 Date of Last Bowel Movement 12/13/17 # Bowel Movements 2 Narrative: GENERAL: Obese, middle-aged female, no apparent distress. SKIN: Warm and dry. HEAD: Normocephalic. EYES: No scleral icterus. No injection or drainage. NECK: Supple, trachea midline. No JVD or lymphadenopathy. CARDIOVASCULAR: Regular rate and rhythm without murmurs, gallops, or rubs. RESPIRATORY: Few Right base Crackles. Occ wheeze heard GASTROINTESTINAL: Abdomen soft, non-tender, nondistended. MUSCULOSKELETAL: No cyanosis, or edema. NEURO: Awake, oriented x3. No focal deficits. - Urinary Catheter Management Indwelling Temp Sensing Catheter Cath placed during this visit: yes, but has since been removed by the nurse Reason for continuing: Hourly intake/output Insertion date: 12/07/17 Insertion time: 10:50 Removal date: 12/07/17 Removal time: 12:16 Results - Labs CBC & Chem 7: 12/14/17 10:50 12/14/17 10:50 Laboratory Results - last 24 hr 12/13/17 12/14/17 12/14/17 20:46 07:54 10:50 WBC 9.0 RBC 3.47 L Hgb 10.0 L Hct 31.6 L MCV 91.3 MCH 28.8 MCHC 31.6 L RDW 19.4 H Plt Count 107 L D MPV 10.8 Neut % (Auto) 77.7 H Lymph % (Auto) 9.9 [place] % (Auto) 8.6 H Eos % (Auto) 3.7 Baso % (Auto) 0.1 Neut # (Auto) 7.0 Lymph # (Auto) 0.9 L [place] # (Auto) 0.8 Eos # (Auto) 0.3 Baso # (Auto) 0.0 WBC Differential . Differential Comment Auto diff final Hematology Comments Sodium Potassium Chloride Carbon Dioxide Anion Gap BUN Creatinine Estimated GFR POC Glucose 312 H 138 H Random Glucose Calcium Magnesium Total Bilirubin AST ALT Alkaline Phosphatase Total Protein Albumin TSH Free T4 12/14/17 12/14/17 12/14/17 10:50 11:44 16:34 WBC RBC Hgb Hct MCV MCH MCHC RDW Plt Count MPV Neut % (Auto) Lymph % (Auto) [place] % (Auto) Eos % (Auto) Baso % (Auto) Neut # (Auto) Lymph # (Auto) [place] # (Auto) Eos # (Auto) Baso # (Auto) WBC Differential Differential Comment Hematology Comments Sodium 137 Potassium 4.3 Chloride 97 L Carbon Dioxide 34.5 H Anion Gap 6 BUN 17 Creatinine 1.40 H Estimated GFR 38 L POC Glucose 195 H 296 H Random Glucose 187 H Calcium 8.6 Magnesium 1.9 Total Bilirubin 0.4 AST 9 L ALT 15 Alkaline Phosphatase 80 Total Protein 5.6 L Albumin 2.2 L TSH 0.232 L Free T4 1.48 H Microbiology 12/07/17 13:00 Fluid - Pleural fluid Fungal Smear - Final No fungal elements seen 12/07/17 13:00 Fluid - Pleural fluid Fungal Culture - Preliminary No growth in 1 week 12/07/17 13:00 Fluid - Pleural fluid Acid Fast Bacilli Smear - Final No acid fast bacilli seen 12/07/17 13:00 Fluid - Pleural fluid Mycobacterial Culture - Preliminary No growth in 1 week - Imaging Impressions Chest X-Ray 12/14/17 06:00 CONCLUSION: 1. No significant change compared to the prior examination. 2. Right-sided chest tube remains in place with no evidence of pneumothorax. 3. Stable parenchymal changes in the right lung base. Assessment and Plan - Assessment (1) Pneumonia Code(s): J18.9 - Pneumonia, unspecified organism Status: Acute (2) Diabetes mellitus Code(s): E11.9 - Type 2 diabetes mellitus without complications Status: Chronic (3) Pleural effusion Code(s): J90 - Pleural effusion, not elsewhere classified Status: Acute (4) Normochromic normocytic anemia Code(s): D64.9 - Anemia, unspecified Status: Chronic (5) Dehydration Code(s): E86.0 - Dehydration Status: Acute (6) Acute renal failure (ARF) Code(s): N17.9 - Acute kidney failure, unspecified Status: Acute (7) Hypertension Code(s): I10 - Essential (primary) hypertension Status: Chronic (8) Atelectasis Code(s): J98.11 - Atelectasis Status: Acute (9) Pleural effusion on right Code(s): J90 - Pleural effusion, not elsewhere classified Status: Acute (10) Status post thoracostomy tube replacement Status: Acute - Plan 1.Chest X Ray in am 2.Cont O2 2 L N/C PRN 3.IS at bedside q2h. 4.Duoneb nebs qid 5.Continue antibiotics per ID . 6. CBC,BMP 7. Prednisone 5 mg daily 8. Home this week (2) Diabetes mellitus Qualifiers: Diabetes mellitus type: type 2 Diabetes mellitus complication status: without complication (6) Acute renal failure (ARF) Qualifiers: Acute renal failure type: unspecified Qualified Code(s): N17.9 - Acute kidney failure, unspecified (7) Hypertension Qualifiers: Hypertension type: essential hypertension Qualified Code(s): I10 - Essential (primary) hypertension
--- NOTE | 2017-12-14 19:43 | XR ---
EXAM DATE: 12/14/2017 12:00 AM EDT AGE/SEX: 67 years / Female INDICATIONS: Evaluate effusion. recent right chest tube removed. CLINICAL DATA: This is the patient's subsequent encounter. Patient reports that signs and symptoms h ave been present for 1 week and indicates a pain score of 6/10. MEDICAL/SURGICAL HISTORY: . Diabetes. Hypertension. . Mastectomy, right. COMPARISON: [facility], CHEST 1V SINGLE AP, 12/12/2017. . FINDINGS: Interval removal of right inferior chest tube. Slightly increased airspace consolidation in the right mid to lower lung zones. No significant pneumothorax. Persistent likely trace right-sided pleural fl uid. Clinical silhouette is enlarged. Mild diffuse interstitial prominence. Minimal stable right ches t wall emphysema. Remainder of the exam is unchanged. CONCLUSION: 1. Slight increased airspace consolidation in the right mid to lower lung zones with likely very tra ce right-sided pleural fluid. No significant pneumothorax following chest tube removal. 2. Cardiomegaly with mild positive fluid balance. Electronically signed by: Zaki Fan MD 12/14/2017 7:42 PM EDT
[2017-12-14] MEDS: Insulin Detemir Inj 1,000 UNIT/10 ML Vial SQ SCH (22:03)
[2017-12-14] MEDS: Melatonin 5 MG Tablet PO PRN (22:06)
[2017-12-15] MEDS: Piperacil/Tazo 3.375 GM Premix 50 ML IV.SIG SCH ×2 (00:56→05:34)
[2017-12-15] MEDS: Levothyroxine 100 MCG Tablet PO SCH (05:33)
--- NOTE | 2017-12-15 06:36 | XR ---
EXAM DATE: 12/15/2017 6:00 AM EDT AGE/SEX: 67 years / Female INDICATIONS: Follow up chest tube removal from right side, some discomfort right anterior chest, no shortness of breath CLINICAL DATA: This is the patient's subsequent encounter. Patient reports that signs and symptoms h ave been present for 2 weeks and indicates a pain score of 1/10. MEDICAL/SURGICAL HISTORY: Congestive heart failure. Carcinoma, breast. A-fib Mastectomy, righ t. COMPARISON: [facility] [place], CHEST 1V SINGLE AP, 12/14/2017. . FINDINGS: The heart size is enlarged. There is increased density at the right base with silhouetting the right hemidiaphragm. Some degree of right effusion can't be suspected. The left lung is grossly clear. Clip s seen over the right axillary region. There is a right clavicle and right rib fractures. CONCLUSION: Cardiomegaly. Persistent consolidation or atelectasis at the right mid and lower lung. Some degree of right effusio n can be considered. Electronically signed by: Gabriel Lim MD 12/15/2017 6:34 AM EDT
[2017-12-15 07:41] LABS: Calcium 8.5 mg/dL (8.5-10.1); Carbon Dioxide 32.3 meq/L (21.0-32.0); Potassium 3.7 meq/L (3.5-5.1)
[2017-12-15 08:00] LABS: Hematocrit 32.4 % (35.0-46.0); Hemoglobin 10.4 gm/dL (11.6-15.3); Mean Corpuscular HGB Conc 32.2 % (32.0-36.0); Mean Corpuscular Hemoglobin 28.8 pg (27.0-34.0); Mean Corpuscular Volume 89.6 fL (80.0-100.0); Mean Platelet Volume 10.8 fL (7.0-11.0); Platelet Count 136 th/mm3 (150-450); Red Blood Count 3.62 mil/mm3 (4.00-5.30); Red Cell Distribution Width 19.2 % (11.6-17.2); White Blood Count 9.1 th/mm3 (4.0-11.0)
[2017-12-15] MEDS: Heparin - SQ 10,000 UNITS/ML Vial SQ SCH ×2 (08:35→20:32)
[2017-12-15] MEDS: dilTIAZem CD 120 MG Capsule PO SCH (08:36)
[2017-12-15] MEDS: Famotidine 20 MG Tablet PO SCH ×2 (08:36→20:30)
[2017-12-15] MEDS: Metoprolol Tartrate 50 MG Tablet PO SCH ×2 (08:36→20:32)
[2017-12-15] MEDS: Duloxetine 60 MG DR Capsule PO SCH (08:36)
[2017-12-15] MEDS: Furosemide 20 MG Tablet PO SCH (08:36)
[2017-12-15] MEDS: predniSONE 10 MG Tablet PO SCH (08:36)
[2017-12-15] MEDS: Gabapentin 300 MG Capsule PO SCH (08:36)
[2017-12-15] MEDS: Insulin NovoLOG Aspart Correctional Sugar Inj SQ SCH ×4 (08:38→20:39)
[2017-12-15] MEDS: Sodium Chloride 0.9% 2 ML Flush BID IV.FLUSH SCH ×2 (08:39→20:33)
[2017-12-15] MEDS: Senna/Docusate Sodium 8.6/50 MG Tablet PO SCH ×2 (08:40→22:22)
[2017-12-15] MEDS: QUEtiapine 25 MG Tablet PO SCH ×2 (08:46→20:31)
--- NOTE | 2017-12-15 09:54 | P.PNID ---
Subjective Remarks: Patient is a 67-year-old female, admitted to the hospital for evaluation of her shortness of breath. Patient has had previous problem with shortness of breath and was found to have a pneumonia. She has had problem with right pleural effusion in the past. She had an admission for pneumonia and pleural effusion during the summer. She presented this time with similar symptoms with cough, congestion, and shortness of breath. Patient was found to have pleural effusion on this admission. She has not been febrile. Her WBC has been normal. Patient underwent drainage of the pleural fluid, and it was a transudate. It did not look infected, and cultures were negative. Patient has been on antibiotics, initially on Levaquin from November [id number]. She was switched to Vanco and Zosyn since December 01. She initially had a chest tube in place, placed on November 29, and the tube fell out. Patient has developed recurrent pleural effusion, and cardiothoracic surgery was consulted. She underwent VATS procedure as well as right decortication. She was found to have a stage II empyema. Patient currently still has the chest tube in place, and she still draining quite a bit of fluid on that right chest tube. She complains of pain on the right side. She still has a cough and congestion but it is better. She remains afebrile and her WBC is normal. Infectious disease consultation has been requested to assist with treatment. Notes reviewed No fever Not SOB Cough moist, same CXR looks stable Antibiotics: Zosyn Lines: PIV Past Medical History: Anemia Atrial fibrillation Diabetes HX: breast cancer High cholesterol Hx: recurrent pneumonia Hypertension Hypothyroid Renal disease Wears glasses History of History of reconstruction of right breast History of total left knee replacement (TKR) History of total right knee replacement (TKR) Hx of hemorrhoidectomy Allergies/Adverse Reactions: Allergies Sulfa (Sulfonamide Antibiotics) Allergy (Verified 10/07/17 10:44) Rash tamoxifen Allergy (Verified 10/07/17 10:44) Anaphylaxis Objective Vital Signs 12/14/17 12:00 12/14/17 16:00 12/14/17 20:00 Temperature 97.3 F L 97.8 F 98.3 F Pulse Rate 62 62 66 Respiratory Rate 18 18 18 Blood Pressure 101/49 L 111/54 L 98/51 L Pulse Oximetry 99 97 98 12/14/17 23:45 12/15/17 00:00 12/15/17 04:00 Temperature 98.1 F 98.0 F Pulse Rate 73 70 70 Respiratory Rate 18 18 18 Blood Pressure 116/59 L 111/55 L Pulse Oximetry 98 96 Intake & Output 12/14/17 12/15/17 12/15/17 18:59 06:59 18:59 Intake Total 1300 / 1300 340 / 340 Balance 1300 / 1300 340 / 340 Weight 108.3 kg Intake: IV 100 / 100 100 / 100 Zosyn 3.375 GM Premix 50 ML @ 100 / 100 100 / 100 100 mls/hr IV.SIG Q6H LOLY Rx#: [id number] Oral 1200 / 1200 240 / 240 Other: # Voids 7 3 Date of Last Bowel Movement 12/14/17 # Bowel Movements 2 12/07/17 13:00 Fluid - Pleural fluid Fungal Smear - Final No fungal elements seen 12/07/17 13:00 Fluid - Pleural fluid Fungal Culture - Preliminary No growth in 1 week 12/07/17 13:00 Fluid - Pleural fluid Acid Fast Bacilli Smear - Final No acid fast bacilli seen 12/07/17 13:00 Fluid - Pleural fluid Mycobacterial Culture - Preliminary No growth in 1 week Lab - Hematology Results 12/14/17 12/15/17 10:50 06:01 WBC 9.0 9.1 RBC 3.47 L 3.62 L Hgb 10.0 L 10.4 L Hct 31.6 L 32.4 L MCV 91.3 89.6 MCH 28.8 28.8 MCHC 31.6 L 32.2 RDW 19.4 H 19.2 H Plt Count 107 L D 136 L MPV 10.8 10.8 Neut % (Auto) 77.7 H Lymph % (Auto) 9.9 [place] % (Auto) 8.6 H Eos % (Auto) 3.7 Baso % (Auto) 0.1 Neut # (Auto) 7.0 Lymph # (Auto) 0.9 L [place] # (Auto) 0.8 Eos # (Auto) 0.3 Baso # (Auto) 0.0 WBC Differential . Differential Comment Auto diff final Hematology Comments Lab - Chemistry Results 12/13/17 12/13/17 12/13/17 11:26 14:34 16:46 Sodium 136 Potassium 4.5 D Chloride 96 L Carbon Dioxide 35.8 H Anion Gap 4 L BUN 14 Creatinine 1.24 H Estimated GFR 43 L POC Glucose 158 H 286 H Random Glucose 211 H Hemoglobin A1c Calcium 8.5 Magnesium Total Bilirubin AST ALT Alkaline Phosphatase Total Protein Albumin TSH Free T4 12/13/17 12/14/17 12/14/17 20:46 07:54 10:50 Sodium 137 Potassium 4.3 Chloride 97 L Carbon Dioxide 34.5 H Anion Gap 6 BUN 17 Creatinine 1.40 H Estimated GFR 38 L POC Glucose 312 H 138 H Random Glucose 187 H Hemoglobin A1c Calcium 8.6 Magnesium 1.9 Total Bilirubin 0.4 AST 9 L ALT 15 Alkaline Phosphatase 80 Total Protein 5.6 L Albumin 2.2 L TSH 0.232 L Free T4 1.48 H 12/14/17 12/14/17 12/14/17 10:50 11:44 16:34 Sodium Potassium Chloride Carbon Dioxide Anion Gap BUN Creatinine Estimated GFR POC Glucose 195 H 296 H Random Glucose Hemoglobin A1c 8.1 H Calcium Magnesium Total Bilirubin AST ALT Alkaline Phosphatase Total Protein Albumin TSH Free T4 12/14/17 12/15/17 12/15/17 21:58 06:01 07:47 Sodium 137 Potassium 3.7 Chloride 98 Carbon Dioxide 32.3 H Anion Gap 7 BUN 15 Creatinine 1.27 H Estimated GFR 42 L POC Glucose 283 H 159 H Random Glucose 126 H Hemoglobin A1c Calcium 8.5 Magnesium Total Bilirubin AST ALT Alkaline Phosphatase Total Protein Albumin TSH Free T4 Imaging: ITS Impressions Thoracentesis Ultrasound 11/27/17 00:00 CONCLUSION: Uncomplicated right chest thoracentesis with ultrasound guidance as described above. Chest Tube Insertion 11/28/17 00:00 CONCLUSION: 1. Uncomplicated right chest tube placement as above for hydropneumothorax. Chest CT 11/30/17 00:00 CONCLUSION: 1. There is a small right-sided chest tube in place along the base of the right hemithorax. 2. There is a small residual right pleural effusion with a tiny pneumothorax at the right medial apex. 3. There is a patchy nonspecific infiltrate in the right lower lung. 4. Tiny 2 mm pulmonary nodule peripheral aspect of the left lower lung. 5. Compensated cardiomegaly. Chest Ultrasound 12/05/17 00:00 CONCLUSION: 1. Small simple appearing right pleural effusion. Chest X-Ray 12/15/17 06:00 CONCLUSION: Cardiomegaly. Persistent consolidation or atelectasis at the right mid and lower lung. Some degree of right effusion can be considered. Physical Exam: GENERAL: awake and alert, NAD SKIN: Warm and dry. No generalized rash. HEAD: Atraumatic. Normocephalic. No temporal wasting, or tenderness. EYES: [place] conjunctiva. No petechia or hemorrhage. No scleral icterus. No injection or drainage. EARS, NOSE AND THROAT: Nose without bleeding or purulent nasal discharge. No sinus tenderness. Mucous membranes pink and moist. No oral lesions noted. No exudate. No oral thrush. NECK: Trachea midline. Supple and not tender, no meningeal signs CARDIOVASCULAR: Regular rate and rhythm. Has systolic murmur at the base of the heart loudest in aortic area RESPIRATORY: Clear to auscultation on L. Decreased breath sounds on R. Dressing over previous CT with serosanguineous fluid soaking dressing ABDOMEN: Soft, non-tender, nondistended. Bowel sounds present and normoactive. No organomegaly. EXTREMITIES: No clubbing, cyanosis, or edema. No calf tenderness. NEUROLOGICAL: Grossly non-focal. PSYCHIATRIC: Normal affect, calm and cooperative. LINE: No evidence of infection Assessment and Plan - Plan Impression Recurrent pleural effusion - initial tap, transudative - has developed complicated effusion - S/P VATS and decortication - no fever or leucocytosis Recommendation Change to po Augmentin Monitor progress Clinically doing well
[2017-12-15] MEDS ORDERED: Amoxicillin/Clavulanate 500/125 MG Tablet PO SCH (10:00)
--- NOTE | 2017-12-15 10:10 | P.PNCV ---
- Note Subjective/Hospital Course: Ms. Wolfe is a 66-year-old white female who presented to the emergency room with shortness of breath. She has an increasing right pleural effusion, history of congestive heart failure with recurrent effusion, has had it drained several times before. She was admitted here just about 6 weeks ago, but at that time, the fluid was not increased significantly and no effusion was drained. pig tail cath placement 11/28 Bronch results so far negative. Pathology pending. PMH: history of chronic atrial fibrillation, CHF, type 2 diabetes. Also, has a distant history of breast cancer. Presented today with shortness of breath, according to Hypertension, hypothyroidism, chronic kidney disease, hyperlipidemia. surgery 12/07 Operation and Findings: PREOPERATIVE DIAGNOSES 1. Right empyema 2. Right loculated pleural effusions 3. Pneumonia POSTOPERATIVE DIAGNOSES Same SURGICAL PROCEDURE 1. Right Video-Assisted Thoracoscopic Surgery (VATS). 2. Decortication 3. Drainage of loculated pleural effusions 12/08 up in chair , doing fair, pain controlled chest tube to wall suction drained 654/24hrs , 100cc/ 12 hrs, no air leak consult PT / ambulate pt 12/09 chest tube drained > 400cc serous drainage/ 24 hrs keep on suction continue to ambulate pt Has PT culture path pending 12/10 no growth in pleural fluid to date path : PLEURAL FLUID, RIGHT, THORACENTESIS: MANY SMALL LYMPHOCYTES, NEGATIVE FOR MALIGNANT CELLS. 12/11 chest tube drained 310cc/ 24 hrs , 150cc/ 12 hrs serous drainage will leave in for now and f/u with CXR in am pt needs to be OOB ambulate . no growth in cultures to date 12/13/17 Doing well. No complaints. Continues to drain serous fluid. ~100ml/last 3.5 hrs. ~300ml since noon yesterday 12/14 chest tube drained 100cc/ 12 hrs minimal drainage from 6 am cxr noted, some improvement Chest tube removed without difficulty 12/15 post CXR stable still has some consolidation/ but improving ID following , will sign off Objective: Vital Signs - 24 hr 12/14/17 12:00 12/14/17 16:00 12/14/17 20:00 Temperature 97.3 F L 97.8 F 98.3 F Pulse Rate 62 62 66 Respiratory Rate 18 18 18 Blood Pressure 101/49 L 111/54 L 98/51 L Pulse Oximetry 99 97 98 12/14/17 23:45 12/15/17 00:00 12/15/17 04:00 Temperature 98.1 F 98.0 F Pulse Rate 73 70 70 Respiratory Rate 18 18 18 Blood Pressure 116/59 L 111/55 L Pulse Oximetry 98 96 GENERAL: SKIN: Warm and dry. HEAD: Normocephalic. EYES: No scleral icterus. No injection or drainage. NECK: Supple, trachea midline. No JVD or lymphadenopathy. CARDIOVASCULAR: Regular rate and rhythm without murmurs, gallops, or rubs. RESPIRATORY: Breath sounds equal bilaterally. No accessory muscle use. few coarse breath sounds R>L GASTROINTESTINAL: Abdomen soft, non-tender, nondistended. MUSCULOSKELETAL: No cyanosis, or edema. BACK: Nontender without obvious deformity. No CVA tenderness. Labs: Laboratory Results - last 12 hr 12/14/17 12/15/17 12/15/17 21:58 06:01 06:01 WBC 9.1 RBC 3.62 L Hgb 10.4 L Hct 32.4 L MCV 89.6 MCH 28.8 MCHC 32.2 RDW 19.2 H Plt Count 136 L MPV 10.8 Sodium 137 Potassium 3.7 Chloride 98 Carbon Dioxide 32.3 H Anion Gap 7 BUN 15 Creatinine 1.27 H Estimated GFR 42 L POC Glucose 283 H Random Glucose 126 H Calcium 8.5 12/15/17 07:47 WBC RBC Hgb Hct MCV MCH MCHC RDW Plt Count MPV Sodium Potassium Chloride Carbon Dioxide Anion Gap BUN Creatinine Estimated GFR POC Glucose 159 H Random Glucose Calcium Result Diagrams: 12/15/17 06:01 12/15/17 06:01 - Plan (1) Status post thoracotomy Plan: no growth in cultures to date ambulate, pulm toileting nebs/ ezpap / acapella will sign off
--- NOTE | 2017-12-15 12:42 | P.PN ---
Subjective Interval history: Chest tube is out. She is feeling better. No fever. output was good. Physical Exam Vital signs: Vital Signs 12/14/17 16:00 12/14/17 20:00 12/14/17 23:45 Temperature 97.8 F 98.3 F Pulse Rate 62 66 73 Respiratory Rate 18 18 18 Blood Pressure 111/54 L 98/51 L Pulse Oximetry 97 98 12/15/17 00:00 12/15/17 04:00 12/15/17 08:00 Temperature 98.1 F 98.0 F 98.2 F Pulse Rate 70 70 84 Respiratory Rate 18 18 19 Blood Pressure 116/59 L 111/55 L 114/62 Pulse Oximetry 98 96 98 Intake & Output 12/14/17 12/15/17 12/15/17 18:59 06:59 18:59 Intake Total 1300 / 1300 340 / 340 Balance 1300 / 1300 340 / 340 Weight 108.3 kg Intake: IV 100 / 100 100 / 100 Zosyn 3.375 GM Premix 50 ML @ 100 / 100 100 / 100 100 mls/hr IV.SIG Q6H LOLY Rx#: [id number] Oral 1200 / 1200 240 / 240 Other: # Voids 7 3 Date of Last Bowel Movement 12/14/17 # Bowel Movements 2 Narrative: GENERAL: Obese, middle-aged female, no apparent distress. SKIN: Warm and dry. HEAD: Normocephalic. EYES: No scleral icterus. No injection or drainage. NECK: Supple, trachea midline. No JVD or lymphadenopathy. CARDIOVASCULAR: Regular rate and rhythm without murmurs, gallops, or rubs. RESPIRATORY: Decreased breath sounds at Right base. Occ wheeze heard GASTROINTESTINAL: Abdomen soft, non-tender, nondistended. MUSCULOSKELETAL: No cyanosis, or edema. NEURO: Awake, oriented x3. No focal deficits. - Urinary Catheter Management Indwelling Temp Sensing Catheter Cath placed during this visit: yes, but has since been removed by the nurse Reason for continuing: Hourly intake/output Insertion date: 12/07/17 Insertion time: 10:50 Removal date: 12/07/17 Removal time: 12:16 Results - Labs CBC & Chem 7: 12/15/17 06:01 12/15/17 06:01 Laboratory Results - last 24 hr 12/14/17 12/14/17 12/14/17 10:50 16:34 21:58 WBC RBC Hgb Hct MCV MCH MCHC RDW Plt Count MPV Sodium Potassium Chloride Carbon Dioxide Anion Gap BUN Creatinine Estimated GFR POC Glucose 296 H 283 H Random Glucose Hemoglobin A1c 8.1 H Calcium 12/15/17 12/15/17 12/15/17 06:01 06:01 07:47 WBC 9.1 RBC 3.62 L Hgb 10.4 L Hct 32.4 L MCV 89.6 MCH 28.8 MCHC 32.2 RDW 19.2 H Plt Count 136 L MPV 10.8 Sodium 137 Potassium 3.7 Chloride 98 Carbon Dioxide 32.3 H Anion Gap 7 BUN 15 Creatinine 1.27 H Estimated GFR 42 L POC Glucose 159 H Random Glucose 126 H Hemoglobin A1c Calcium 8.5 12/15/17 12:02 WBC RBC Hgb Hct MCV MCH MCHC RDW Plt Count MPV Sodium Potassium Chloride Carbon Dioxide Anion Gap BUN Creatinine Estimated GFR POC Glucose 296 H Random Glucose Hemoglobin A1c Calcium Microbiology 12/07/17 13:00 Fluid - Pleural fluid Fungal Smear - Final No fungal elements seen 12/07/17 13:00 Fluid - Pleural fluid Fungal Culture - Preliminary No growth in 1 week 12/07/17 13:00 Fluid - Pleural fluid Acid Fast Bacilli Smear - Final No acid fast bacilli seen 12/07/17 13:00 Fluid - Pleural fluid Mycobacterial Culture - Preliminary No growth in 1 week - Imaging Impressions Chest X-Ray 12/14/17 00:00 CONCLUSION: 1. Slight increased airspace consolidation in the right mid to lower lung zones with likely very trace right-sided pleural fluid. No significant pneumothorax following chest tube removal. 2. Cardiomegaly with mild positive fluid balance. Chest X-Ray 12/15/17 06:00 CONCLUSION: Cardiomegaly. Persistent consolidation or atelectasis at the right mid and lower lung. Some degree of right effusion can be considered. Assessment and Plan - Assessment (1) Pneumonia Code(s): J18.9 - Pneumonia, unspecified organism Status: Acute (2) Diabetes mellitus Code(s): E11.9 - Type 2 diabetes mellitus without complications Status: Chronic (3) Pleural effusion Code(s): J90 - Pleural effusion, not elsewhere classified Status: Acute (4) Normochromic normocytic anemia Code(s): D64.9 - Anemia, unspecified Status: Chronic (5) Dehydration Code(s): E86.0 - Dehydration Status: Acute (6) Acute renal failure (ARF) Code(s): N17.9 - Acute kidney failure, unspecified Status: Acute (7) Hypertension Code(s): I10 - Essential (primary) hypertension Status: Chronic (8) Atelectasis Code(s): J98.11 - Atelectasis Status: Acute (9) Pleural effusion on right Code(s): J90 - Pleural effusion, not elsewhere classified Status: Acute (10) Status post thoracostomy tube replacement Status: Acute - Plan 1. PO Augmentin 500 mg tid 2.Cont O2 2 L N/C PRN 3.IS at bedside q2h. 4.Duoneb nebs BID 5. Home in am. 6. Will F/U as OP in 2 weeks. 7. Prednisone 5 mg daily X1 week (2) Diabetes mellitus Qualifiers: Diabetes mellitus type: type 2 Diabetes mellitus complication status: without complication (6) Acute renal failure (ARF) Qualifiers: Acute renal failure type: unspecified Qualified Code(s): N17.9 - Acute kidney failure, unspecified (7) Hypertension Qualifiers: Hypertension type: essential hypertension Qualified Code(s): I10 - Essential (primary) hypertension
[2017-12-15] MEDS ORDERED: predniSONE 5 MG Tablet PO SCH (12:43)
--- NOTE | 2017-12-15 14:25 | P.PNIM ---
Subjective Interval history: Breathing much better no active shortness of breath. No chest pain. Feeling better. Tolerating diet. Physical Exam Vital signs: Vital Signs 12/14/17 16:00 12/14/17 20:00 12/14/17 23:45 Temperature 97.8 F 98.3 F Pulse Rate 62 66 73 Respiratory Rate 18 18 18 Blood Pressure 111/54 L 98/51 L Pulse Oximetry 97 98 12/15/17 00:00 12/15/17 04:00 12/15/17 08:00 Temperature 98.1 F 98.0 F 98.2 F Pulse Rate 70 70 84 Respiratory Rate 18 18 19 Blood Pressure 116/59 L 111/55 L 114/62 Pulse Oximetry 98 96 98 12/15/17 12:00 Temperature 97.6 F Pulse Rate 63 Respiratory Rate 17 Blood Pressure 95/49 L Pulse Oximetry 96 Intake & Output 12/14/17 12/15/17 12/15/17 18:59 06:59 18:59 Intake Total 1300 / 1300 340 / 340 Balance 1300 / 1300 340 / 340 Weight 108.3 kg Intake: IV 100 / 100 100 / 100 Zosyn 3.375 GM Premix 50 ML @ 100 / 100 100 / 100 100 mls/hr IV.SIG Q6H LOLY Rx#: [id number] Oral 1200 / 1200 240 / 240 Other: # Voids 7 3 Date of Last Bowel Movement 12/14/17 # Bowel Movements 2 Narrative: GENERAL: Obese, middle-aged female, no apparent distress. NECK: Supple, trachea midline. No JVD or lymphadenopathy. CARDIOVASCULAR: Regular rate and rhythm without murmurs, gallops, or rubs. RESPIRATORY: Decreased breath sounds at Right base. Occasional expiratory wheeze GASTROINTESTINAL: Abdomen soft, non-tender, nondistended. Normoactive bowel sounds MUSCULOSKELETAL: No cyanosis, or edema. NEURO: Awake, oriented x3. No focal deficits. - Urinary Catheter Management Indwelling Temp Sensing Catheter Cath placed during this visit: yes, but has since been removed by the nurse Reason for continuing: Hourly intake/output Insertion date: 12/07/17 Insertion time: 10:50 Removal date: 12/07/17 Removal time: 12:16 Results - Labs CBC & Chem 7: 12/15/17 06:01 12/15/17 06:01 Laboratory Results - last 24 hr 10/12/14/17 12/14/17 10:50 16:34 21:58 WBC RBC Hgb Hct MCV MCH MCHC RDW Plt Count MPV Sodium Potassium Chloride Carbon Dioxide Anion Gap BUN Creatinine Estimated GFR POC Glucose 296 H 283 H Random Glucose Hemoglobin A1c 8.1 H Calcium 12/15/17 12/15/17 12/15/17 06:01 06:01 07:47 WBC 9.1 RBC 3.62 L Hgb 10.4 L Hct 32.4 L MCV 89.6 MCH 28.8 MCHC 32.2 RDW 19.2 H Plt Count 136 L MPV 10.8 Sodium 137 Potassium 3.7 Chloride 98 Carbon Dioxide 32.3 H Anion Gap 7 BUN 15 Creatinine 1.27 H Estimated GFR 42 L POC Glucose 159 H Random Glucose 126 H Hemoglobin A1c Calcium 8.5 12/15/17 12:02 WBC RBC Hgb Hct MCV MCH MCHC RDW Plt Count MPV Sodium Potassium Chloride Carbon Dioxide Anion Gap BUN Creatinine Estimated GFR POC Glucose 296 H Random Glucose Hemoglobin A1c Calcium Microbiology 12/07/17 13:00 Fluid - Pleural fluid Fungal Smear - Final No fungal elements seen 12/07/17 13:00 Fluid - Pleural fluid Fungal Culture - Preliminary No growth in 1 week 12/07/17 13:00 Fluid - Pleural fluid Acid Fast Bacilli Smear - Final No acid fast bacilli seen 12/07/17 13:00 Fluid - Pleural fluid Mycobacterial Culture - Preliminary No growth in 1 week - Imaging Impressions Chest X-Ray 12/14/17 00:00 CONCLUSION: 1. Slight increased airspace consolidation in the right mid to lower lung zones with likely very trace right-sided pleural fluid. No significant pneumothorax following chest tube removal. 2. Cardiomegaly with mild positive fluid balance. Chest X-Ray 12/15/17 06:00 CONCLUSION: Cardiomegaly. Persistent consolidation or atelectasis at the right mid and lower lung. Some degree of right effusion can be considered. - Procedures 12/[address] Ansari pulmonary 12/07VA decortication drainage of loculated pleural fluid with Dr. Robel Hawley Assessment and Plan - Assessment (1) Pleural effusion Code(s): J90 - Pleural effusion, not elsewhere classified Status: Acute (2) Status post thoracostomy tube replacement Status: Acute - Plan 67-year-old female admitted for shortness of breath. Patient was found to have a right-sided pleural effusion which was drained however follow- up x-ray showed loculated pneumothorax. Has undergone thoracentesis with at least 500 cc drained, had a left-sided chest tube that was placed which drained an additional 600 mL's at least. Chest tube apparently had dislodged itself on 12/01. Residual pneumothorax is very minimal and not worth intervention per interventional radiology. Underwent bronchoscopy on 12/03. Underwent VATS right sided decortication and drainage of loculated pleural effusions on 12/07 Empyema type II Recurrent right effusion -Status post bronchoscopy 12/04, growing yeast. Rest of cytology pending. Status post VATS right-sided decortication and drainage of loculated pleural effusions, cultures remain negative. No malignancy. -Cardiothoracic surgery and pulmonology following -Improved breath sounds, continue with Lasix daily and daily potassium. -appreciate ID input, -Chest tube has been removed. Wean off oxygen and discharge planning in the morning per pulmonary has cleared by cardio thoracic surgery for discharge. Empyema w/ bronchitis -Prednisone 10 mg po daily -Continue Zosyn, vancomycin discontinued. Currently on Augmentin. -Continue scheduled breathing treatments, Mucomyst Diabetes mellitus type II, insulin-dependent, uncontrolled due to the prednisone. -Continue diabetic diet -Accu-Cheks with insulin sliding scale -Blood sugars improved, no further drops. Continue with Levemir 15 units subcu. Atrial fibrillation Hypertension, chronic essential Hyperlipidemia -Currently sinus rhythm, patient reports she has not been on any anticoagulation. Follow-up with rug layer for recommendations. -Continue Lipitor, metoprolol and Cardizem Hypokalemia Resolved Continue potassium 20 M EQ's p.o. daily Thrombocytopenia, platelets improved to 132 today Monitor CBC SCDs and heparin 5000 units subcu for DVT prophylaxis Increase activity Discharge Planning: Discharge to home in the morning if patient remains clinically stable.
[2017-12-15] MEDS: Amoxicillin/Clavulanate 500/125 MG Tablet PO SCH ×2 (14:55→22:21)
[2017-12-15] MEDS: guaiFENesin/Codeine Syrup 200 MG/20 MG 10 ML UDC PO PRN (20:32)
[2017-12-15] MEDS: Insulin Detemir Inj 1,000 UNIT/10 ML Vial SQ SCH (20:32)
[2017-12-15] MEDS ORDERED: Metoprolol Tartrate 25 MG Tablet PO ONE (22:13)
[2017-12-16] MEDS: Levothyroxine 100 MCG Tablet PO SCH (05:36)
[2017-12-16] MEDS: Amoxicillin/Clavulanate 500/125 MG Tablet PO SCH (05:36)
[2017-12-16 08:45] VITALS: BP 118/59; PULSE 75; RESP 17; TEMP 98.1; O2SAT 96
--- NOTE | 2017-12-16 09:07 | P.DS ---
Date of admission: 11/27/17 13:59 Primary care physician: Elia Pablo MD Brief History from admission: The patient is a 67-year-old female with a past medical history of diabetes and pleural effusion who is presenting to the hospital with shortness of breath. The patient says that in May she had shortness of breath and went to an outside hospital twice where she was diagnosed with pneumonia. She says she came here over the summer and was found to have fluid on the right lung. She was hospitalized for 8 days and then discharged home. She said that she felt fine until where she developed a cough. She says that she realized she could not lay down flat in bed without getting short of breath. She said she had to sit up in order to breathe comfortably. She has been having yellow mucus production. She has been using breathing treatments every few hours at home. She denies any chest pain associated with the shortness of breath. She was seen following thoracentesis and says she feels better except for the cough. She denies any fevers. Patient update on day of discharge: Patient states that she is feeling good. No complaint of chest pain or shortness of breath nor palpitations. Patient did state that her heart rate may have gone up last night however now resolved. Reports no fevers or chills. Wants to go home. DS: Diagnosis - Discharge Diagnosis (1) Pleural effusion Status: Acute (2) Status post thoracostomy tube replacement Status: Acute (3) Empyema lung Status: Resolved (4) Diabetes mellitus Status: Chronic Diagnosis: Secondary (5) Hypertension Status: Chronic Diagnosis: Secondary (6) Pneumonia Status: Resolved Diagnosis: Secondary DS: Summary Hospital Course: These are the medical issues addressed during this hospitalization: 67-year-old female admitted for shortness of breath. Patient was found to have a right-sided pleural effusion which was drained however follow- up x-ray showed loculated pneumothorax. Has undergone thoracentesis with at least 500 cc drained, had a left-sided chest tube that was placed which drained an additional 600 mL's at least. Chest tube apparently had dislodged itself on 12/01. Residual pneumothorax is very minimal and not worth intervention per interventional radiology. Underwent bronchoscopy on 12/03. Underwent VATS right sided decortication and drainage of loculated pleural effusions on 10/15 Empyema type II Recurrent right effusion -Status post bronchoscopy 12/04, growing yeast. Cytology pending. Status post VATS right-sided decortication and drainage of loculated pleural effusions, cultures remain negative. No malignancy. -Cardiothoracic surgery and pulmonology, Dr. Ansari was consulted during the hospitalization to assist with recommendations. -Diuretics, Lasix were given daily Patient initially placed on Zosyn and vancomycin which has been now discontinued and transition to Augmentin. -Chest tube has been removed. Pulmonary also recommended 1 more week of 10 mg prednisone.in. Mucomyst was also administered during the hospitalization. Diabetes mellitus type II, insulin-dependent, uncontrolled due to the prednisone with nephropathy with chronic kidney disease stage III. -Continue diabetic diet -Accu-Cheks with insulin sliding scale -Blood sugars improved, no further drops. Continue with Levemir 15 units subcu. Atrial fibrillation, overall rate controlled. Hypertension, chronic essential Hyperlipidemia -Currently sinus rhythm, patient reports she has not been on any anticoagulation. Follow-up with sales engagement manager for recommendations. -Continue Lipitor, metoprolol and Cardizem Recommend aspirin to the regimen Hypokalemia Resolved Continue potassium 20 M EQ's p.o. daily Thrombocytopenia, platelets improved to 132 today Monitor CBC Chronic kidney disease stage IIIcreatinine has been stable during hospitalization. Avoid nephrotoxins. SCDs and heparin 5000 units subcu for DVT prophylaxis Increase activity Patient has gained maximum benefit from hospitalization and is ready to be transitioned home with home health care. - Time Spent with Patient Total time spent providing and/or coordinating discharge services: Less than 30 minutes - Quality: VTE Deep Vein Thrombosis/Pulmonary Embolism Present on Admission: No Exam Vital signs: Vital Signs 12/15/17 12:00 12/15/17 16:00 12/15/17 19:59 Temperature 97.6 F 98.0 F Pulse Rate 63 63 Respiratory Rate 17 17 18 Blood Pressure 95/49 L 100/58 L Pulse Oximetry 96 80 L 12/15/17 20:00 12/15/17 23:56 12/15/17 23:58 Temperature 98.7 F Pulse Rate 74 83 Respiratory Rate 18 18 Blood Pressure 101/55 L Pulse Oximetry 97 12/16/17 00:00 12/16/17 03:59 12/16/17 04:00 Temperature 98.4 F 98.2 F Pulse Rate 84 65 69 Respiratory Rate 18 18 Blood Pressure 113/55 L 125/58 L Pulse Oximetry 95 95 12/16/17 06:10 12/16/17 08:00 Temperature 98.1 F Pulse Rate 75 Respiratory Rate 20 17 Blood Pressure 118/59 L Pulse Oximetry 96 Intake & Output 12/15/17 12/16/17 12/16/17 18:59 06:59 18:59 Intake Total 900 / 900 480 / 480 Balance 900 / 900 480 / 480 Weight 109.3 kg Intake: Oral 900 / 900 480 / 480 Other: # Voids 7 3 # Bowel Movements 1 1 Results Procedures completed during hospitalization: 12/[address] Ansari pulmonary 12/07VA decortication drainage of loculated pleural fluid with Dr. Robel Hawley Labs on day of discharge: Labs from last 24 hours 12/16/17 12/16/17 12/15/17 07:40 05:42 20:37 POC Glucose 77 75 300 H 12/15/17 12/15/17 16:44 12:02 POC Glucose 148 H 296 H Preliminary micro results at discharge 12/07/17 13:00 Fungal Culture - Preliminary Fluid - Pleural fluid No growth in 1 week 12/07/17 13:00 Mycobacterial Culture - Preliminary Fluid - Pleural fluid No growth in 1 week 12/04/17 10:30 Mycobacterial Culture - Preliminary Bronchial Brushings - Right Lower Lobe No growth in 1 week 12/04/17 10:30 Mycobacterial Culture - Preliminary Bronchial Washings - Right Lower Lobe No growth in 1 week 12/04/17 10:30 Fungal Culture - Preliminary Bronchial Brushings - Right Lower Lobe No growth in 1 week 12/04/17 10:30 Fungal Culture - Preliminary Bronchial Washings - Right Lower Lobe - Impressions ITS Impressions Thoracentesis Ultrasound 11/27/17 00:00 CONCLUSION: Uncomplicated right chest thoracentesis with ultrasound guidance as described above. Chest Tube Insertion 11/28/17 00:00 CONCLUSION: 1. Uncomplicated right chest tube placement as above for hydropneumothorax. Chest CT 11/30/17 00:00 CONCLUSION: 1. There is a small right-sided chest tube in place along the base of the right hemithorax. 2. There is a small residual right pleural effusion with a tiny pneumothorax at the right medial apex. 3. There is a patchy nonspecific infiltrate in the right lower lung. 4. Tiny 2 mm pulmonary nodule peripheral aspect of the left lower lung. 5. Compensated cardiomegaly. Chest Ultrasound 12/05/17 00:00 CONCLUSION: 1. Small simple appearing right pleural effusion. Chest X-Ray 12/15/17 06:00 CONCLUSION: Cardiomegaly. Persistent consolidation or atelectasis at the right mid and lower lung. Some degree of right effusion can be considered. Discharge Plan - Discharge Disposition Patient Disposition: /Home Health Service - Discharge Condition Condition: Stable - Discharge Order Discharge Orders: Discharge Order (Routine); Ordered 12/16/17 Ordered By: Fatuma Novak - Physicians Team Primary Care Provider: Elia Pablo Attending Provider: Fatuma Novak Other Providers: Esteban Aly MD ; Demi Simms ; Gabriel Rodriguez MD ; Robel Hawley MD ; Amanda Santo MD
[2017-12-16] MEDS: Gabapentin 300 MG Capsule PO SCH (09:10)
[2017-12-16] MEDS: Senna/Docusate Sodium 8.6/50 MG Tablet PO SCH (09:10)
[2017-12-16] MEDS: QUEtiapine 25 MG Tablet PO SCH (09:10)
[2017-12-16] MEDS: dilTIAZem CD 120 MG Capsule PO SCH (09:11)
[2017-12-16] MEDS: Famotidine 20 MG Tablet PO SCH (09:12)
[2017-12-16] MEDS: Duloxetine 60 MG DR Capsule PO SCH (09:13)
[2017-12-16] MEDS: Metoprolol Tartrate 50 MG Tablet PO SCH (09:14)
[2017-12-16] MEDS: Heparin - SQ 10,000 UNITS/ML Vial SQ SCH (09:15)
[2017-12-16] MEDS: Furosemide 20 MG Tablet PO SCH (09:15)
[2017-12-16] MEDS: guaiFENesin/Codeine Syrup 200 MG/20 MG 10 ML UDC PO PRN (09:20)
== END 2017-12-16 10:39 | disposition home health service (06) ==
LOC: NEPE 11:06 → NEDA 13:59 → N07 17:01
PROVIDERS: ADMIT Family Medicine; ATTEND Family Medicine